=== PATIENT | male | born 1930 | race Caucasian/White ===

== ENCOUNTER 2018-04-13 11:27 | Emergency (ER) | payer BC, MEDICARE ==
[2018-04-13 11:42] VITALS: RESP 18; TEMP 97.6
[2018-04-13] MEDS ORDERED: SODIUM CHLORIDE 0.9% 1,000 ML IV STA (11:58)
--- NOTE | 2018-04-13 12:02 | ED ---
Dizziness HPI - General Chief Complaint: Dizziness Stated Complaint: Dizzy Time Seen by Provider: 04/13/18 11:40 Source: patient, EMS Mode of arrival: EMS Limitations: no limitations - History of Present Illness Initial Comments: 88-year-old male patient presents the emergency department today for evaluation of dizziness 2-3 days. Patient states that the dizziness gets worse when he goes from a lying to a sitting position. Patient states he has to wait a few minutes before the past before he can stand up. Patient is unsure his liver had this before. Patient denies any headache, blurred vision, double vision, numbness, tingling, or weakness with this. He denies any chest pain. States he has been having occasional shortness of breath. Patient states he has had a recent fall where he did hit his head but is unsure when it was. States he has had diarrhea over the last 2 days but only a couple episodes per day. He denies any abdominal pain, nausea, or vomiting with this. He denies any ear pain , nasal congestion, or cough. Patient denies any recent rash, fever, chills, back pain, numbness, tingling, dizziness, weakness, hematuria, dysuria, urinary urgency, urinary frequency, headache, visual changes, or any other complaints. - Related Data Home Medications Medication Instructions Recorded Confirmed Aspirin EC [Ecotrin] 325 mg PO DAILY 04/13/18 04/13/18 Atorvastatin [Lipitor] 10 mg PO HS 04/13/18 04/13/18 Citalopram Hydrobromide [CeleXA] 20 mg PO DAILY 04/13/18 04/13/18 Clopidogrel [Plavix] 75 mg PO DAILY 04/13/18 04/13/18 Digoxin [Lanoxin] 125 mcg PO DAILY 04/13/18 04/13/18 Enalapril [Vasotec] 10 mg PO DAILY 04/13/18 04/13/18 Finasteride [Proscar] 5 mg PO HS 04/13/18 04/13/18 Isosorbide Mononitrate ER [Imdur] 30 mg PO DAILY 04/13/18 04/13/18 Meclizine [Antivert] 25 mg PO BID 04/13/18 04/13/18 Metoprolol Succinate [Toprol XL] 25 mg PO DAILY 04/13/18 04/13/18 Omeprazole 20 mg PO DAILY 04/13/18 04/13/18 Tamsulosin HCl [Flomax] 0.8 mg PO HS 04/13/18 04/13/18 hydrALAZINE HCL [Apresoline] 50 mg PO BID 04/13/18 04/13/18 Allergies Allergy/AdvReac Type Severity Reaction Status Date / Time No Known Allergies Allergy Verified 04/13/18 12:45 Review of Systems ROS Statement: Those systems with pertinent positive or pertinent negative responses have been documented in the HPI. ROS Other: All systems not noted in ROS Statement are negative. Past Medical History Past Medical History: Atrial Fibrillation, Coronary Artery Disease (CAD), Hypertension, Myocardial Infarction ([place]) Additional Past Medical History / Comment(s): pt is poor historian History of Any Multi-Drug Resistant Organisms: None Reported Past Surgical History: Appendectomy, Coronary Bypass/CABG Past Psychological History: No Psychological Hx Reported Smoking Status: Never smoker Past Alcohol Use History: None Reported Past Drug Use History: None Reported General Exam Limitations: no limitations General appearance: alert, in no apparent distress, other (This is a well- developed, thin appearing elderly male patient in no acute distress. Vital signs upon presentation are temperature 97.6F, pulse 63, respirations 18, blood pressure 163/80, pulse ox 96% on room air.) Eye exam: Present: normal appearance, PERRL, EOMI. Absent: scleral icterus, conjunctival injection, nystagmus, periorbital swelling ENT exam: Present: normal exam, normal oropharynx, mucous membranes moist, TM's normal bilaterally Respiratory exam: Present: normal lung sounds bilaterally. Absent: respiratory distress, wheezes, rales, rhonchi, stridor Cardiovascular Exam: Present: regular rate, normal rhythm, normal heart sounds. Absent: systolic murmur, diastolic murmur, rubs, gallop, clicks GI/Abdominal exam: Present: soft, normal bowel sounds. Absent: distended, tenderness, guarding, rebound, rigid Neurological exam: Present: alert, CN II-XII intact. Absent: oriented X3 (x2) Psychiatric exam: Present: normal affect, normal mood Skin exam: Present: warm, dry, intact, normal color. Absent: rash Course Vital Signs 04/13/18 04/13/18 11:38 14:10 Temperature 97.6 F Pulse Rate 63 60 Respiratory 18 18 Rate Blood Pressure 163/80 171/91 O2 Sat by Pulse 96 99 Oximetry EKG Findings - EKG Comments: EKG Findings:: EKG obtained at 1137 shows atrial fibrillation with a right bundle branch block. Ventricular rate is 66, QRS duration 150, QTC 440, QTC 461. No previous EKGs to compare. Medical Decision Making - Medical Decision Making 80-year-old male patient presents the emergency department today for evaluation of dizziness. Patient states that presents generally when he is going to a lying to a sitting position. Physical examination is unremarkable. Patient is neurologically intact. Labs reviewed and did reveal a BUN 24 creatinine of 1.41. Family is present states that he has had some issues with his kidney function in the past. Patient's mucous membranes were dry. Vital signs were stable throughout stay, did have elevated blood pressure. Take medication for this. He was given a liter of normal saline here in the emergency department. He is feeling better upon reevaluation. He is able send the edge of the bed, states that his dizziness is improved. Niece is present at bedside, states that they will follow up with primary care physician. I do feel comfortable being discharged home. Return parameters were discussed in detail. They verbalize understanding and agree with this plan. - Lab Data Result diagrams: 04/13/18 12:34 04/13/18 12:34 Lab Results 04/13/18 04/13/18 04/13/18 Range/Units 12:34 12:34 12:34 WBC 4.5 (3.8-10.6) k/uL RBC 4.55 (4.30-5.90) m/uL Hgb 12.6 L (13.0-17.5) gm/dL Hct 38.3 L (39.0-53.0) % MCV 84.2 (80.0-100.0) fL MCH 27.7 (25.0-35.0) pg MCHC 32.9 (31.0-37.0) g/dL RDW 14.4 (11.5-15.5) % Plt Count 147 L (150-450) k/uL Neutrophils % 61 % Lymphocytes % 28 % Monocytes % 6 % Eosinophils % 3 % Basophils % 1 % Neutrophils # 2.8 (1.3-7.7) k/uL Lymphocytes # 1.3 (1.0-4.8) k/uL Monocytes # 0.3 (0-1.0) k/uL Eosinophils # 0.1 (0-0.7) k/uL Basophils # 0.0 (0-0.2) k/uL PT (9.0-12.0) sec INR (<1.2) APTT (22.0-30.0) sec Sodium 137 (137-145) mmol/L Potassium 4.7 (3.5-5.1) mmol/L Chloride 107 (98-107) mmol/L Carbon Dioxide 24 (22-30) mmol/L Anion Gap 6 mmol/L BUN 24 H (9-20) mg/dL Creatinine 1.41 H (0.66-1.25) mg/dL Est GFR (CKD-EPI)AfAm 51 (>60 ml/min/1.73 sqM) Est GFR (CKD-EPI)NonAf 44 (>60 ml/min/1.73 sqM) Glucose 140 H (74-99) mg/dL Calcium 8.4 (8.4-10.2) mg/dL Total Bilirubin 0.4 (0.2-1.3) mg/dL AST 21 (17-59) U/L ALT 24 (21-72) U/L Alkaline Phosphatase 65 (38-126) U/L Total Creatine Kinase 96 (55-170) U/L CK-MB (CK-2) 2.3 (0.0-2.4) ng/mL CK-MB (CK-2) Rel Index 2.4 Troponin I <0.012 (0.000-0.034) ng/mL Total Protein 5.8 L (6.3-8.2) g/dL Albumin 3.2 L (3.5-5.0) g/dL Urine Color Urine Appearance (Clear) Urine pH (5.0-8.0) Ur Specific [place] (1.001-1.035) Urine Protein (Negative) Urine Glucose (UA) (Negative) Urine Ketones (Negative) Urine Blood (Negative) Urine Nitrite (Negative) Urine Bilirubin (Negative) Urine Urobilinogen (<2.0) mg/dL Ur Leukocyte Esterase (Negative) Urine RBC (0-5) /hpf Urine WBC (0-5) /hpf Urine Bacteria (None) /hpf Hyaline Casts (0-2) /lpf Urine Mucus (None) /hpf 04/13/18 04/13/18 Range/Units 12:34 13:46 WBC (3.8-10.6) k/uL RBC (4.30-5.90) m/uL Hgb (13.0-17.5) gm/dL Hct (39.0-53.0) % MCV (80.0-100.0) fL MCH (25.0-35.0) pg MCHC (31.0-37.0) g/dL RDW (11.5-15.5) % Plt Count (150-450) k/uL Neutrophils % % Lymphocytes % % Monocytes % % Eosinophils % % Basophils % % Neutrophils # (1.3-7.7) k/uL Lymphocytes # (1.0-4.8) k/uL Monocytes # (0-1.0) k/uL Eosinophils # (0-0.7) k/uL Basophils # (0-0.2) k/uL PT 12.3 H (9.0-12.0) sec INR 1.3 H (<1.2) APTT 23.7 (22.0-30.0) sec Sodium (137-145) mmol/L Potassium (3.5-5.1) mmol/L Chloride (98-107) mmol/L Carbon Dioxide (22-30) mmol/L Anion Gap mmol/L BUN (9-20) mg/dL Creatinine (0.66-1.25) mg/dL Est GFR (CKD-EPI)AfAm (>60 ml/min/1.73 sqM) Est GFR (CKD-EPI)NonAf (>60 ml/min/1.73 sqM) Glucose (74-99) mg/dL Calcium (8.4-10.2) mg/dL Total Bilirubin (0.2-1.3) mg/dL AST (17-59) U/L ALT (21-72) U/L Alkaline Phosphatase (38-126) U/L Total Creatine Kinase (55-170) U/L CK-MB (CK-2) (0.0-2.4) ng/mL CK-MB (CK-2) Rel Index Troponin I (0.000-0.034) ng/mL Total Protein (6.3-8.2) g/dL Albumin (3.5-5.0) g/dL Urine Color Yellow Urine Appearance Clear (Clear) Urine pH 6.0 (5.0-8.0) Ur Specific [place] 1.008 (1.001-1.035) Urine Protein Negative (Negative) Urine Glucose (UA) Negative (Negative) Urine Ketones Negative (Negative) Urine Blood Negative (Negative) Urine Nitrite Negative (Negative) Urine Bilirubin Negative (Negative) Urine Urobilinogen <2.0 (<2.0) mg/dL Ur Leukocyte Esterase Trace H (Negative) Urine RBC <1 (0-5) /hpf Urine WBC 4 (0-5) /hpf Urine Bacteria Rare H (None) /hpf Hyaline Casts 7 H (0-2) /lpf Urine Mucus Rare H (None) /hpf - Radiology Data Radiology results: report reviewed, image reviewed CT of the brain without contrast was obtained. Report was reviewed in its entirety. Impression by Dr. Quiros shows no acute intracranial abnormality. 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 Degenerative change. Two-view x-ray of the chest is obtained. Report was reviewed in its entirety. Impression by Dr. Quiros shows borderline cardiomegaly. Disposition Clinical Impression: Dizziness, Dehydration Disposition: HOME SELF-CARE Condition: Good Instructions: Dehydration (ED), Dizziness (ED) Additional Instructions: Increase fluids. Follow up with your primary care physician for recheck in 1-2 days. Return here immediately for any new, worsening, or concerning symptoms. Is patient prescribed a controlled substance at d/c from ED?: No Referrals: Nonstaff,Physician [Primary Care Provider] - 1-2 days Time of Disposition: 14:47
[2018-04-13 12:52] LABS: Basophils % (A) 1 %; Eosinophils # (A) 0.1 k/uL (0-0.7); Eosinophils % (A) 3 %; HCT 38.3 % (39.0-53.0); HGB 12.6 gm/dL (13.0-17.5); Lymphocytes # (A) 1.3 k/uL (1.0-4.8); Lymphocytes % (A) 28 %; MCH 27.7 pg (25.0-35.0); MCHC 32.9 g/dL (31.0-37.0); MCV 84.2 fL (80.0-100.0); Monocytes # (A) 0.3 k/uL (0-1.0); Monocytes % (A) 6 %; Neutrophils # (A) 2.8 k/uL (1.3-7.7); Neutrophils % (A) 61 %; Platelet Count 147 k/uL (150-450); RBC 4.55 m/uL (4.30-5.90); RDW 14.4 % (11.5-15.5); WBC 4.5 k/uL (3.8-10.6)
[2018-04-13 13:02] LABS: INR 1.3 (<1.2); Partial Thromboplastin Time 23.7 sec (22.0-30.0); Prothrombin Time 12.3 sec (9.0-12.0)
[2018-04-13 13:06] LABS: Albumin 3.2 g/dL (3.5-5.0); Calcium 8.4 mg/dL (8.4-10.2); Potassium 4.7 mmol/L (3.5-5.1); Total Bilirubin 0.4 mg/dL (0.2-1.3); Total Protein 5.8 g/dL (6.3-8.2)
[2018-04-13 13:12] LABS: Creatine Kinase 96 U/L (55-170)
--- NOTE | 2018-04-13 13:14 | CT ---
EXAMINATION TYPE: CT brain wo con DATE OF EXAM: 04/13/2018 COMPARISON: NONE HISTORY: dizziness CT DLP: 1006.5 mGycm Automated exposure control for dose reduction was used. FINDINGS: There are generalized changes of sulcal prominence and ventriculomegaly, compatible with atrophic tom nge. There is diffuse periventricular white matter lucency, compatible with chronic white matter isch emic change. There is evidence of an old left cerebellar infarct. No acute focal lesion, mass effect or midline shift is seen. I do not see evidence of intracranial blood Visualized portions of the paranasal sinuses and mastoids are clear. The bony calvarium is intact. IMPRESSION: 1. NO ACUTE INTRACRANIAL ABNORMALITY. 2. EVIDENCE OF AN OLD LEFT CEREBELLAR INFARCT. 3. DEGENERATIVE CHANGE.
--- NOTE | 2018-04-13 13:15 | XR ---
EXAMINATION TYPE: XR chest 2V DATE OF EXAM: 04/13/2018 HISTORY: Dizziness/shortness of breath. REFERENCE: NONE. FINDINGS: There has been a previous midline sternotomy and before meals bypass. The heart is upper limits of normal in size. Pleural space are clear. The lungs are clear. IMPRESSION: BORDERLINE CARDIOMEGALY.
[2018-04-13 13:25] LABS: Creatine Kinase MB 2.3 ng/mL (0.0-2.4); Troponin I <0.012 ng/mL (0.000-0.034)
[2018-04-13 13:55] LABS: Appearance,Urine Clear (Clear); Bacteria,Urine Rare /hpf; Bilirubin,Urine Negative (Negative); Blood,Urine Negative (Negative); Color,Urine Yellow; Glucose,Urine (UA) Negative (Negative); Hyaline Casts,Urine 7 /lpf (0-2); Ketones,Urine Negative (Negative); Leukocyte Esterase,Urine Trace (Negative); Mucus,Urine Rare /hpf; Nitrite,Urine Negative (Negative); Protein,Urine Negative (Negative); RBC,Urine <1 /hpf (0-5); Specific Gravity,Urine 1.008 (1.001-1.035); Urobilinogen,Urine <2.0 mg/dL (<2.0); WBC,Urine 4 /hpf (0-5)
[2018-04-13 15:19] VITALS: BP 187/93; PULSE 61
== END 2018-04-13 15:19 | disposition home or self-care (01) ==
LOC: EC 11:27
DX: E86.0 Dehydration (principal); I11.9 Hypertensive heart disease without heart failure; R06.02 Shortness of breath; R19.7 Diarrhea, unspecified; I48.91 Unspecified atrial fibrillation; I25.10 Atherosclerotic heart disease of native coronary artery without angina pectoris; I25.2 Old myocardial infarction; Z79.02 Long term (current) use of antithrombotics/antiplatelets; Z79.82 Long term (current) use of aspirin; Z79.899 Other long term (current) drug therapy; Z95.1 Presence of aortocoronary bypass graft
CPT/HCPCS: 36415; 70450; 71046; 80053; 81001; 82550; 82553; 84484; 85025; 85610; 85730; 93005; 96360; 96361; 99285

== ENCOUNTER 2018-05-16 21:16 | Emergency (ER) | payer MEDICARE ==
[2018-05-16 21:25] VITALS: RESP 18
[2018-05-16 21:28] LABS: Glucose,Whole Blood 164 mg/dL (75-99)
[2018-05-16 21:53] LABS: Basophils % (A) 1 %; Eosinophils # (A) 0.2 k/uL (0-0.7); Eosinophils % (A) 3 %; HCT 44.3 % (39.0-53.0); HGB 14.5 gm/dL (13.0-17.5); Lymphocytes % (A) 34 %; MCH 27.7 pg (25.0-35.0); MCHC 32.8 g/dL (31.0-37.0); MCV 84.5 fL (80.0-100.0); Mean Platelet Volume 7.1; Monocytes # (A) 0.4 k/uL (0-1.0); Monocytes % (A) 6 %; Neutrophils # (A) 3.3 k/uL (1.3-7.7); Neutrophils % (A) 55 %; Platelet Count 174 k/uL (150-450); RBC 5.24 m/uL (4.30-5.90); RDW 14.1 % (11.5-15.5); WBC 5.9 k/uL (3.8-10.6)
--- NOTE | 2018-05-16 22:01 | CT ---
EXAMINATION TYPE: CT brain suzette nava con DATE OF EXAM: 05/16/2018 COMPARISON: CT brain 04/13/2018 HISTORY: Fall today. CT DLP: 1229.4 mGycm Automated exposure control for dose reduction was used. TECHNIQUE: CT scan of the head and cervical spine are performed without contrast. FINDINGS: There is hypodensity in a large area of the left cerebellar hemisphere consistent with ol d cortical infarct. There is cerebral cortical atrophy. There is no mass effect nor midline shift. Th ere is no sign of intracranial hemorrhage. The calvarium is intact. There is normal alignment of the vertebra. There is moderate hypertrophic spur formation from C3 to T 1. Posterior elements are intact. Skull base is intact. There is some cystic changes at the base of t he odontoid process with calcification in the transverse ligament which is somewhat thickened. I see no displaced fracture. IMPRESSION: Old right cerebellar infarct. Moderate atrophy. No acute intracranial abnormality. No change compared to old CT scan. Multilevel moderate spondylotic changes. Degenerative cystic change in the odontoid. There is thicken ing of the transverse ligament and some narrowing of the spinal canal at the C1 level. Multilevel ce rvical bony spinal stenosis also present from C4 to C6. No cervical spine displaced fracture.
[2018-05-16 22:02] LABS: INR 1.2 (<1.2); Partial Thromboplastin Time 25.9 sec (22.0-30.0); Prothrombin Time 11.6 sec (9.0-12.0)
[2018-05-16] MEDS ORDERED: hydrALAZINE HCL 20 MG/ML 1 ML VIAL IVP STA (22:09)
[2018-05-16 22:15] LABS: ALT 22 U/L (21-72); AST 23 U/L (17-59); Alcohol <10 mg/dL; Alkaline Phosphatase 86 U/L (38-126); Anion Gap 11 mmol/L; Blood Urea Nitrogen 22 mg/dL (9-20); Calcium 8.9 mg/dL (8.4-10.2); Carbon Dioxide 23 mmol/L (22-30); Chloride 103 mmol/L (98-107); Glucose 170 mg/dL (74-99); Magnesium 1.8 mg/dL (1.6-2.3); Potassium 4.7 mmol/L (3.5-5.1); Sodium 137 mmol/L (137-145); Total Bilirubin 0.5 mg/dL (0.2-1.3); Total Protein 6.9 g/dL (6.3-8.2)
--- NOTE | 2018-05-16 22:19 | XR ---
EXAMINATION TYPE: XR chest 1V portable DATE OF EXAM: 05/16/2018 COMPARISON: 04/13/2018 HISTORY: Chest pain. Trauma TECHNIQUE: Single frontal view of the chest is obtained. FINDINGS: There is no heart failure nor confluent pneumonic infiltrate. There are small calcified gr anuloma in the right upper lobe. Thoracic aorta is atheromatous. There are sternal wires. There is no sign of pleural effusion or pneumothorax. IMPRESSION: No active cardiopulmonary disease. No change.
--- NOTE | 2018-05-16 22:20 | XR ---
EXAMINATION TYPE: XR pelvis AP view DATE OF EXAM: 05/16/2018 COMPARISON: NONE HISTORY: Trauma. Pain. TECHNIQUE: Single view FINDINGS: The pelvic ring appears intact. Proximal femurs appear intact. There is minor spurring of t he acetabula. Sacroiliac joints appear intact. IMPRESSION: No acute abnormality of the pelvis.
[2018-05-16 22:31] LABS: Amphetamine Screen,Urine Not Detected (NotDetected); Barbiturate Screen,Urine Not Detected (NotDetected); Benzodiazepines Screen,Urine Not Detected (NotDetected); Cocaine Screen,Urine Not Detected (NotDetected); Methadone Screen, Urine Not Detected (NotDetected); Opiate Screen,Urine Not Detected (NotDetected); Oxycodone Screen, Urine Not Detected (NotDetected); Phencyclidine Screen,Urine Not Detected (NotDetected); Tricyclic Antidepressant,Urine Not Detected (NotDetected); Urn Cannabinoid Scrn Not Detected (NotDetected)
[2018-05-16 22:32] LABS: Appearance,Urine Clear (Clear); Bilirubin,Urine Negative (Negative); Blood,Urine Negative (Negative); Color,Urine Light Yellow; Glucose,Urine (UA) Trace (Negative); Ketones,Urine Negative (Negative); Leukocyte Esterase,Urine Negative (Negative); Nitrite,Urine Negative (Negative); Protein,Urine 1+ (Negative); RBC,Urine <1 /hpf (0-5); Specific Gravity,Urine 1.006 (1.001-1.035); Urobilinogen,Urine <2.0 mg/dL (<2.0); WBC,Urine 1 /hpf (0-5)
[2018-05-16 22:50] LABS: Troponin I 0.013 ng/mL (0.000-0.034)
[2018-05-16 22:52] LABS: Creatine Kinase MB 2.6 ng/mL (0.0-2.4)
--- NOTE | 2018-05-16 23:10 | ED ---
General Adult HPI - General Chief complaint: Fall Stated complaint: Fall Time Seen by Provider: 05/16/18 21:26 Source: patient, EMS, RN notes reviewed, old records reviewed Mode of arrival: EMS Limitations: no limitations - History of Present Illness Initial comments: 80-year-old male presenting for evaluation of symptoms fall. Patient was walking behind his wheelchair, fell. Initial EMS call was for lift assist. Patient does have history of developmental delay, this was not known prior to transfer. History was somewhat difficult secondary to this. Patient has no pain complaints at the time of evaluation. He states he did slip and fall. No chest pain. No palpitations. No abdominal pain. No nausea vomiting or diarrhea. No head neck or back pain. No loss consciousness. - Related Data Home Medications Medication Instructions Recorded Confirmed Aspirin EC [Ecotrin] 325 mg PO DAILY 04/13/18 04/13/18 Atorvastatin [Lipitor] 10 mg PO HS 04/13/18 04/13/18 Citalopram Hydrobromide [CeleXA] 20 mg PO DAILY 04/13/18 04/13/18 Clopidogrel [Plavix] 75 mg PO DAILY 04/13/18 04/13/18 Digoxin [Lanoxin] 125 mcg PO DAILY 04/13/18 04/13/18 Enalapril [Vasotec] 10 mg PO DAILY 04/13/18 04/13/18 Finasteride [Proscar] 5 mg PO HS 04/13/18 04/13/18 Isosorbide Mononitrate ER [Imdur] 30 mg PO DAILY 04/13/18 04/13/18 Meclizine [Antivert] 25 mg PO BID 04/13/18 04/13/18 Metoprolol Succinate [Toprol XL] 25 mg PO DAILY 04/13/18 04/13/18 Omeprazole 20 mg PO DAILY 04/13/18 04/13/18 Tamsulosin HCl [Flomax] 0.8 mg PO HS 04/13/18 04/13/18 hydrALAZINE HCL [Apresoline] 50 mg PO BID 04/13/18 04/13/18 Allergies Allergy/AdvReac Type Severity Reaction Status Date / Time No Known Allergies Allergy Verified 05/16/18 21:25 Review of Systems ROS Statement: Those systems with pertinent positive or pertinent negative responses have been documented in the HPI. ROS Other: All systems not noted in ROS Statement are negative. Past Medical History Past Medical History: Atrial Fibrillation, Coronary Artery Disease (CAD), Hypertension, Myocardial Infarction ([place]) Additional Past Medical History / Comment(s): pt is poor historian History of Any Multi-Drug Resistant Organisms: None Reported Past Surgical History: Appendectomy, Coronary Bypass/CABG Additional Past Surgical History / Comment(s): pt is poor historian. Past Psychological History: No Psychological Hx Reported Smoking Status: Never smoker Past Alcohol Use History: None Reported Past Drug Use History: None Reported General Exam Limitations: no limitations General appearance: alert, in no apparent distress Head exam: Present: atraumatic, normocephalic Eye exam: Present: normal appearance, PERRL, EOMI ENT exam: Present: normal exam Neck exam: Present: normal inspection. Absent: tenderness Respiratory exam: Present: normal lung sounds bilaterally. Absent: respiratory distress Cardiovascular Exam: Present: regular rate, irregular rhythm GI/Abdominal exam: Present: soft. Absent: distended, tenderness, guarding Extremities exam: Present: normal inspection, normal capillary refill. Absent: pedal edema Back exam: Present: normal inspection Neurological exam: Present: alert, CN II-XII intact. Absent: motor sensory deficit Psychiatric exam: Present: normal affect, normal mood Skin exam: Present: warm, dry. Absent: cyanosis, diaphoretic Course Vital Signs 05/16/18 05/16/18 21:19 22:33 Temperature 97 F L Pulse Rate 62 53 L Respiratory 18 18 Rate Blood Pressure 230/93 188/105 O2 Sat by Pulse 98 98 Oximetry - Reevaluation(s) Reevaluation #1: 05/16/18 23:08 Nursing staff is able to discuss case with the patient's family member who states this is his baseline mental status. EKG Findings - EKG Comments: EKG Findings:: EKG: Atrial fibrillation, right bundle branch block, rate of 62, QRS duration 144, QTC 458. No significant change compared to previous EKG. Medical Decision Making - Medical Decision Making 80-year-old male presenting status post trip and fall. Given the patient's comment to lay, he does receive complete workup in the emergency department including CT head which is negative for intracranial hemorrhage, CT cervical spine which shows some chronic changes, no acute fracture or subluxation. X- rays of the chest and pelvis are within normal limits. CBC, CMP and urinalysis are all unremarkable. Patient's blood pressure is elevated in the emergency department, he will take his medications when he gets home. Patient does stay at an assisted living facility. He will be discharged home. Follow up with primary care physician. Return with worsening or changing symptoms. - Lab Data Result diagrams: 05/16/18 21:45 05/16/18 21:45 Lab Results 05/16/18 05/16/18 05/16/18 Range/Units 21:25 21:45 21:45 WBC (3.8-10.6) k/uL RBC (4.30-5.90) m/uL Hgb (13.0-17.5) gm/dL Hct (39.0-53.0) % MCV (80.0-100.0) fL MCH (25.0-35.0) pg MCHC (31.0-37.0) g/dL RDW (11.5-15.5) % Plt Count (150-450) k/uL Neutrophils % % Lymphocytes % % Monocytes % % Eosinophils % % Basophils % % Neutrophils # (1.3-7.7) k/uL Lymphocytes # (1.0-4.8) k/uL Monocytes # (0-1.0) k/uL Eosinophils # (0-0.7) k/uL Basophils # (0-0.2) k/uL PT (9.0-12.0) sec INR (<1.2) APTT (22.0-30.0) sec Sodium 137 (137-145) mmol/L Potassium 4.7 (3.5-5.1) mmol/L Chloride 103 (98-107) mmol/L Carbon Dioxide 23 (22-30) mmol/L Anion Gap 11 mmol/L BUN 22 H (9-20) mg/dL Creatinine 1.10 (0.66-1.25) mg/dL Est GFR (CKD-EPI)AfAm 69 (>60 ml/min/1.73 sqM) Est GFR (CKD-EPI)NonAf 60 (>60 ml/min/1.73 sqM) Glucose 170 H (74-99) mg/dL POC Glucose (mg/dL) 164 H (75-99) mg/dL POC Glu Theatrical Trouper ID Lisa Chery Calcium 8.9 (8.4-10.2) mg/dL Magnesium 1.8 (1.6-2.3) mg/dL Total Bilirubin 0.5 (0.2-1.3) mg/dL AST 23 (17-59) U/L ALT 22 (21-72) U/L Alkaline Phosphatase 86 (38-126) U/L Total Creatine Kinase 97 (55-170) U/L CK-MB (CK-2) 2.6 H* (0.0-2.4) ng/mL CK-MB (CK-2) Rel Index 2.7 Troponin I 0.013 (0.000-0.034) ng/mL Total Protein 6.9 (6.3-8.2) g/dL Albumin 4.0 (3.5-5.0) g/dL Urine Color Urine Appearance (Clear) Urine pH (5.0-8.0) Ur Specific [place] (1.001-1.035) Urine Protein (Negative) Urine Glucose (UA) (Negative) Urine Ketones (Negative) Urine Blood (Negative) Urine Nitrite (Negative) Urine Bilirubin (Negative) Urine Urobilinogen (<2.0) mg/dL Ur Leukocyte Esterase (Negative) Urine RBC (0-5) /hpf Urine WBC (0-5) /hpf Urine Opiates Screen (NotDetected) Ur Oxycodone Screen (NotDetected) Urine Methadone Screen (NotDetected) Ur Propoxyphene Screen (NotDetected) Ur Barbiturates Screen (NotDetected) U Tricyclic Antidepress (NotDetected) Ur Phencyclidine Scrn (NotDetected) Ur Amphetamines Screen (NotDetected) U Methamphetamines Scrn (NotDetected) U Benzodiazepines Scrn (NotDetected) Urine Cocaine Screen (NotDetected) U Marijuana (THC) Screen (NotDetected) Serum Alcohol <10 mg/dL 05/16/18 05/16/18 05/16/18 Range/Units 21:45 21:45 22:00 WBC 5.9 (3.8-10.6) k/uL RBC 5.24 (4.30-5.90) m/uL Hgb 14.5 (13.0-17.5) gm/dL Hct 44.3 (39.0-53.0) % MCV 84.5 (80.0-100.0) fL MCH 27.7 (25.0-35.0) pg MCHC 32.8 (31.0-37.0) g/dL RDW 14.1 (11.5-15.5) % Plt Count 174 (150-450) k/uL Neutrophils % 55 % Lymphocytes % 34 % Monocytes % 6 % Eosinophils % 3 % Basophils % 1 % Neutrophils # 3.3 (1.3-7.7) k/uL Lymphocytes # 2.0 (1.0-4.8) k/uL Monocytes # 0.4 (0-1.0) k/uL Eosinophils # 0.2 (0-0.7) k/uL Basophils # 0.0 (0-0.2) k/uL PT 11.6 (9.0-12.0) sec INR 1.2 H (<1.2) APTT 25.9 (22.0-30.0) sec Sodium (137-145) mmol/L Potassium (3.5-5.1) mmol/L Chloride (98-107) mmol/L Carbon Dioxide (22-30) mmol/L Anion Gap mmol/L BUN (9-20) mg/dL Creatinine (0.66-1.25) mg/dL Est GFR (CKD-EPI)AfAm (>60 ml/min/1.73 sqM) Est GFR (CKD-EPI)NonAf (>60 ml/min/1.73 sqM) Glucose (74-99) mg/dL POC Glucose (mg/dL) (75-99) mg/dL POC Glu Theatrical Trouper ID Calcium (8.4-10.2) mg/dL Magnesium (1.6-2.3) mg/dL Total Bilirubin (0.2-1.3) mg/dL AST (17-59) U/L ALT (21-72) U/L Alkaline Phosphatase (38-126) U/L Total Creatine Kinase (55-170) U/L CK-MB (CK-2) (0.0-2.4) ng/mL CK-MB (CK-2) Rel Index Troponin I (0.000-0.034) ng/mL Total Protein (6.3-8.2) g/dL Albumin (3.5-5.0) g/dL Urine Color Urine Appearance (Clear) Urine pH (5.0-8.0) Ur Specific [place] (1.001-1.035) Urine Protein (Negative) Urine Glucose (UA) (Negative) Urine Ketones (Negative) Urine Blood (Negative) Urine Nitrite (Negative) Urine Bilirubin (Negative) Urine Urobilinogen (<2.0) mg/dL Ur Leukocyte Esterase (Negative) Urine RBC (0-5) /hpf Urine WBC (0-5) /hpf Urine Opiates Screen Not Detected (NotDetected) Ur Oxycodone Screen Not Detected (NotDetected) Urine Methadone Screen Not Detected (NotDetected) Ur Propoxyphene Screen Not Detected (NotDetected) Ur Barbiturates Screen Not Detected (NotDetected) U Tricyclic Antidepress Not Detected (NotDetected) Ur Phencyclidine Scrn Not Detected (NotDetected) Ur Amphetamines Screen Not Detected (NotDetected) U Methamphetamines Scrn Not Detected (NotDetected) U Benzodiazepines Scrn Not Detected (NotDetected) Urine Cocaine Screen Not Detected (NotDetected) U Marijuana (THC) Screen Not Detected (NotDetected) Serum Alcohol mg/dL 05/16/18 Range/Units 22:00 WBC (3.8-10.6) k/uL RBC (4.30-5.90) m/uL Hgb (13.0-17.5) gm/dL Hct (39.0-53.0) % MCV (80.0-100.0) fL MCH (25.0-35.0) pg MCHC (31.0-37.0) g/dL RDW (11.5-15.5) % Plt Count (150-450) k/uL Neutrophils % % Lymphocytes % % Monocytes % % Eosinophils % % Basophils % % Neutrophils # (1.3-7.7) k/uL Lymphocytes # (1.0-4.8) k/uL Monocytes # (0-1.0) k/uL Eosinophils # (0-0.7) k/uL Basophils # (0-0.2) k/uL PT (9.0-12.0) sec INR (<1.2) APTT (22.0-30.0) sec Sodium (137-145) mmol/L Potassium (3.5-5.1) mmol/L Chloride (98-107) mmol/L Carbon Dioxide (22-30) mmol/L Anion Gap mmol/L BUN (9-20) mg/dL Creatinine (0.66-1.25) mg/dL Est GFR (CKD-EPI)AfAm (>60 ml/min/1.73 sqM) Est GFR (CKD-EPI)NonAf (>60 ml/min/1.73 sqM) Glucose (74-99) mg/dL POC Glucose (mg/dL) (75-99) mg/dL POC Glu Theatrical Trouper ID Calcium (8.4-10.2) mg/dL Magnesium (1.6-2.3) mg/dL Total Bilirubin (0.2-1.3) mg/dL AST (17-59) U/L ALT (21-72) U/L Alkaline Phosphatase (38-126) U/L Total Creatine Kinase (55-170) U/L CK-MB (CK-2) (0.0-2.4) ng/mL CK-MB (CK-2) Rel Index Troponin I (0.000-0.034) ng/mL Total Protein (6.3-8.2) g/dL Albumin (3.5-5.0) g/dL Urine Color Light Yellow Urine Appearance Clear (Clear) Urine pH 6.0 (5.0-8.0) Ur Specific [place] 1.006 (1.001-1.035) Urine Protein 1+ H (Negative) Urine Glucose (UA) Trace H (Negative) Urine Ketones Negative (Negative) Urine Blood Negative (Negative) Urine Nitrite Negative (Negative) Urine Bilirubin Negative (Negative) Urine Urobilinogen <2.0 (<2.0) mg/dL Ur Leukocyte Esterase Negative (Negative) Urine RBC <1 (0-5) /hpf Urine WBC 1 (0-5) /hpf Urine Opiates Screen (NotDetected) Ur Oxycodone Screen (NotDetected) Urine Methadone Screen (NotDetected) Ur Propoxyphene Screen (NotDetected) Ur Barbiturates Screen (NotDetected) U Tricyclic Antidepress (NotDetected) Ur Phencyclidine Scrn (NotDetected) Ur Amphetamines Screen (NotDetected) U Methamphetamines Scrn (NotDetected) U Benzodiazepines Scrn (NotDetected) Urine Cocaine Screen (NotDetected) U Marijuana (THC) Screen (NotDetected) Serum Alcohol mg/dL Disposition Clinical Impression: Fall Disposition: HOME SELF-CARE Condition: Fair Instructions: Fall Prevention for Older Adults (ED) Is patient prescribed a controlled substance at d/c from ED?: No Referrals: Nonstaff,Physician [Primary Care Provider] - 1-2 days Time of Disposition: 23:10
[2018-05-16] MEDS ORDERED: hydrALAZINE HCL 50 MG TAB PO STA (23:19)
[2018-05-16] MEDS ORDERED: LISINOPRIL 10 MG TAB PO STA (23:19)
[2018-05-17 00:25] VITALS: BP 199/83
[2018-05-17 00:46] VITALS: PULSE 88; TEMP 97.8
== END 2018-05-17 00:57 | disposition home or self-care (01) ==
LOC: EC 21:16
DX: Z04.3 Encounter for examination and observation following other accident (principal); I10 Essential (primary) hypertension; I25.10 Atherosclerotic heart disease of native coronary artery without angina pectoris; I48.91 Unspecified atrial fibrillation; I25.2 Old myocardial infarction; Z79.82 Long term (current) use of aspirin; Z79.899 Other long term (current) drug therapy; Z79.02 Long term (current) use of antithrombotics/antiplatelets; Z98.61 Coronary angioplasty status; W01.0XXA Fall on same level from slipping, tripping and stumbling without subsequent striking against object, initial encounter
CPT/HCPCS: 36415; 93005; 80053; 82550; 82553; 83735; 84484; 85025; 85610; 85730; 81001; 80306; 80320; 72170; 71045; 72125; 70450; 99285; 96374; J0360

== ENCOUNTER 2018-06-28 20:19 | Inpatient (IN) | payer MEDICARE ==
--- NOTE | 2018-06-28 21:27 | ED ---
General Adult HPI - General Chief complaint: Dizziness Stated complaint: dizziness Source: EMS Mode of arrival: EMS Limitations: no limitations - History of Present Illness Initial comments: Dictation was produced using [employer] dictation software. please excuse any grammatical, word or spelling errors. Chief Complaint: Old male past medical history of atrial fibrillation , vertigo, coronary artery disease presents with dizziness. History of Present Illness: Patient lives in assisted living facility. Patient reports that he's been dizzy for proximally 4 weeks. Patient is accompanied by family member. Patient has mental delay and learning disability. He is not able to communicate his symptoms. Clearly. Patient states she's been dizzy for approximately 4 days. He has multiple comorbidities. Patient denies any neuro deficits otherwise. He is denies any ataxia or difficulty walking. Denies any constitutional symptoms. No infectious or pain complaints. The ROS documented in this emergency department record has been reviewed and confirmed by me. Those systems with pertinent positive or negative responses have been documented in the HPI. All other systems are other negative and/or noncontributory. - Related Data Home Medications Medication Instructions Recorded Confirmed Aspirin EC [Ecotrin] 325 mg PO DAILY 04/13/18 04/13/18 Atorvastatin [Lipitor] 10 mg PO HS 04/13/18 04/13/18 Citalopram Hydrobromide [CeleXA] 20 mg PO DAILY 04/13/18 04/13/18 Clopidogrel [Plavix] 75 mg PO DAILY 04/13/18 04/13/18 Digoxin [Lanoxin] 125 mcg PO DAILY 04/13/18 04/13/18 Enalapril [Vasotec] 10 mg PO DAILY 04/13/18 04/13/18 Finasteride [Proscar] 5 mg PO HS 04/13/18 04/13/18 Isosorbide Mononitrate ER [Imdur] 30 mg PO DAILY 04/13/18 04/13/18 Meclizine [Antivert] 25 mg PO BID 04/13/18 04/13/18 Metoprolol Succinate [Toprol XL] 25 mg PO DAILY 04/13/18 04/13/18 Omeprazole 20 mg PO DAILY 04/13/18 04/13/18 Tamsulosin HCl [Flomax] 0.8 mg PO HS 04/13/18 04/13/18 hydrALAZINE HCL [Apresoline] 50 mg PO BID 04/13/18 04/13/18 Allergies Allergy/AdvReac Type Severity Reaction Status Date / Time No Known Allergies Allergy Verified 05/16/18 21:25 Review of Systems ROS Statement: Those systems with pertinent positive or pertinent negative responses have been documented in the HPI. ROS Other: All systems not noted in ROS Statement are negative. Past Medical History Past Medical History: Atrial Fibrillation, Coronary Artery Disease (CAD), Hypertension, Myocardial Infarction ([place]) Additional Past Medical History / Comment(s): pt is poor historian History of Any Multi-Drug Resistant Organisms: None Reported Past Surgical History: Appendectomy, Coronary Bypass/CABG Additional Past Surgical History / Comment(s): pt is poor historian. Past Psychological History: No Psychological Hx Reported Smoking Status: Never smoker Past Alcohol Use History: None Reported Past Drug Use History: None Reported General Exam - General Exam Comments Initial Comments: PHYSICAL EXAM: General Impression: Alert and oriented x3, not in acute distress HEENT: Normocephalic atraumatic, extra-ocular movements intact, pupils equal and reactive to light bilaterally, mucous membranes moist. Cardiovascular: Heart regular rate and rhythm, S1&S2 audible, no murmurs, rubs or gallops Chest: Lungs clear to auscultation bilaterally, no rhonchi, no wheeze, no rales Abdomen: Bowel sounds present, abdomen soft, non-tender, non-distended, no organomegaly Musculoskeletal: Pulses present and equal in all extremities, no peripheral edema Motor: Power 5/5 bilaterally, no focal deficits noted Neurological: CN II-XII grossly intact, no focal motor or sensory deficits noted , not ataxic able to sit unsupported Skin: Intact with no visualized rashes Psych: Normal affect and mood Limitations: no limitations Course Vital Signs 06/28/18 06/28/18 06/28/18 20:22 21:26 23:24 Temperature 97.4 F L Pulse Rate 59 L 60 Respiratory 16 16 16 Rate Blood Pressure 173/104 206/98 O2 Sat by Pulse 97 58 L Oximetry 06/29/18 06/29/18 00:01 01:46 Temperature Pulse Rate 65 Respiratory 16 Rate Blood Pressure 208/116 177/95 O2 Sat by Pulse 99 Oximetry Medical Decision Making - Medical Decision Making ED course: Old male presents with chief complaint of dizziness. As upon arrival shows findings within acceptable limits. Initial blood pressure is 177/ 95. Patient's blood pressure then spiked to 208/116. Patient does have a history of hypertension and multiple blood pressure meds. Patient states she's been compliant with his medications. EKGs benign. Patient is given multiple rounds of blood pressure medications in order to alleviate his blood pressure. Believe that his elevated blood pressure is causing his symptoms of dizziness. Click or presentation consistent with symptomatically hypertension/hypertensive urgency. Patient was given nitroglycerin drip with mild improvement of his symptoms. Ventricle syndrome was stopped and Nitropaste was applied. Patient be admitted to [facility] care. Laboratory evaluation obtained. CBC unremarkable. Coag panel unremarkable. Metabolic panel is negative. Urinalysis is negative. Chest x-ray obtained showing no acute processes. EKG Interpretation: A 12 lead EKG was obtained. It was interpreted by myself and attending physician. There is a P wave before every QRS complex. Rate is 63. Rhythm is atrial fibrillation, QRS 156, QTC 435. QT is not prolonged. No ST segment depression or elevation. Overall, this EKG is unremarkable - Lab Data Result diagrams: 06/28/18 20:35 06/28/18 20:35 Lab Results 06/28/18 06/28/18 06/28/18 Range/Units 20:35 20:35 20:35 WBC 5.2 (3.8-10.6) k/uL RBC 4.86 (4.30-5.90) m/uL Hgb 12.9 L (13.0-17.5) gm/dL Hct 40.1 (39.0-53.0) % MCV 82.7 (80.0-100.0) fL MCH 26.6 (25.0-35.0) pg MCHC 32.2 (31.0-37.0) g/dL RDW 13.9 (11.5-15.5) % Plt Count 172 (150-450) k/uL Neutrophils % 57 % Lymphocytes % 32 % Monocytes % 5 % Eosinophils % 4 % Basophils % 1 % Neutrophils # 3.0 (1.3-7.7) k/uL Lymphocytes # 1.7 (1.0-4.8) k/uL Monocytes # 0.3 (0-1.0) k/uL Eosinophils # 0.2 (0-0.7) k/uL Basophils # 0.0 (0-0.2) k/uL PT 12.1 H (9.0-12.0) sec INR 1.3 H (<1.2) Sodium 138 (137-145) mmol/L Potassium 4.2 (3.5-5.1) mmol/L Chloride 105 (98-107) mmol/L Carbon Dioxide 25 (22-30) mmol/L Anion Gap 8 mmol/L BUN 20 (9-20) mg/dL Creatinine 1.12 (0.66-1.25) mg/dL Est GFR (CKD-EPI)AfAm 68 (>60 ml/min/1.73 sqM) Est GFR (CKD-EPI)NonAf 59 (>60 ml/min/1.73 sqM) Glucose 152 H (74-99) mg/dL Plasma Lactic Acid Gen (0.7-2.0) mmol/L Calcium 8.5 (8.4-10.2) mg/dL Magnesium (1.6-2.3) mg/dL Total Bilirubin 0.4 (0.2-1.3) mg/dL AST 18 (17-59) U/L ALT 23 (21-72) U/L Alkaline Phosphatase 71 (38-126) U/L Troponin I (0.000-0.034) ng/mL Total Protein 6.2 L (6.3-8.2) g/dL Albumin 3.4 L (3.5-5.0) g/dL Urine Color Urine Appearance (Clear) Urine pH (5.0-8.0) Ur Specific [place] (1.001-1.035) Urine Protein (Negative) Urine Glucose (UA) (Negative) Urine Ketones (Negative) Urine Blood (Negative) Urine Nitrite (Negative) Urine Bilirubin (Negative) Urine Urobilinogen (<2.0) mg/dL Ur Leukocyte Esterase (Negative) Urine RBC (0-5) /hpf Urine WBC (0-5) /hpf Ur Squamous Epith Cells (0-4) /hpf Amorphous Sediment (None) /hpf Urine Mucus (None) /hpf 06/28/18 06/28/18 06/28/18 Range/Units 20:35 20:35 20:35 WBC (3.8-10.6) k/uL RBC (4.30-5.90) m/uL Hgb (13.0-17.5) gm/dL Hct (39.0-53.0) % MCV (80.0-100.0) fL MCH (25.0-35.0) pg MCHC (31.0-37.0) g/dL RDW (11.5-15.5) % Plt Count (150-450) k/uL Neutrophils % % Lymphocytes % % Monocytes % % Eosinophils % % Basophils % % Neutrophils # (1.3-7.7) k/uL Lymphocytes # (1.0-4.8) k/uL Monocytes # (0-1.0) k/uL Eosinophils # (0-0.7) k/uL Basophils # (0-0.2) k/uL PT (9.0-12.0) sec INR (<1.2) Sodium (137-145) mmol/L Potassium (3.5-5.1) mmol/L Chloride (98-107) mmol/L Carbon Dioxide (22-30) mmol/L Anion Gap mmol/L BUN (9-20) mg/dL Creatinine (0.66-1.25) mg/dL Est GFR (CKD-EPI)AfAm (>60 ml/min/1.73 sqM) Est GFR (CKD-EPI)NonAf (>60 ml/min/1.73 sqM) Glucose (74-99) mg/dL Plasma Lactic Acid Gen 0.8 (0.7-2.0) mmol/L Calcium (8.4-10.2) mg/dL Magnesium 1.9 (1.6-2.3) mg/dL Total Bilirubin (0.2-1.3) mg/dL AST (17-59) U/L ALT (21-72) U/L Alkaline Phosphatase (38-126) U/L Troponin I 0.013 (0.000-0.034) ng/mL Total Protein (6.3-8.2) g/dL Albumin (3.5-5.0) g/dL Urine Color Urine Appearance (Clear) Urine pH (5.0-8.0) Ur Specific [place] (1.001-1.035) Urine Protein (Negative) Urine Glucose (UA) (Negative) Urine Ketones (Negative) Urine Blood (Negative) Urine Nitrite (Negative) Urine Bilirubin (Negative) Urine Urobilinogen (<2.0) mg/dL Ur Leukocyte Esterase (Negative) Urine RBC (0-5) /hpf Urine WBC (0-5) /hpf Ur Squamous Epith Cells (0-4) /hpf Amorphous Sediment (None) /hpf Urine Mucus (None) /hpf 06/28/18 Range/Units 22:36 WBC (3.8-10.6) k/uL RBC (4.30-5.90) m/uL Hgb (13.0-17.5) gm/dL Hct (39.0-53.0) % MCV (80.0-100.0) fL MCH (25.0-35.0) pg MCHC (31.0-37.0) g/dL RDW (11.5-15.5) % Plt Count (150-450) k/uL Neutrophils % % Lymphocytes % % Monocytes % % Eosinophils % % Basophils % % Neutrophils # (1.3-7.7) k/uL Lymphocytes # (1.0-4.8) k/uL Monocytes # (0-1.0) k/uL Eosinophils # (0-0.7) k/uL Basophils # (0-0.2) k/uL PT (9.0-12.0) sec INR (<1.2) Sodium (137-145) mmol/L Potassium (3.5-5.1) mmol/L Chloride (98-107) mmol/L Carbon Dioxide (22-30) mmol/L Anion Gap mmol/L BUN (9-20) mg/dL Creatinine (0.66-1.25) mg/dL Est GFR (CKD-EPI)AfAm (>60 ml/min/1.73 sqM) Est GFR (CKD-EPI)NonAf (>60 ml/min/1.73 sqM) Glucose (74-99) mg/dL Plasma Lactic Acid Gen (0.7-2.0) mmol/L Calcium (8.4-10.2) mg/dL Magnesium (1.6-2.3) mg/dL Total Bilirubin (0.2-1.3) mg/dL AST (17-59) U/L ALT (21-72) U/L Alkaline Phosphatase (38-126) U/L Troponin I (0.000-0.034) ng/mL Total Protein (6.3-8.2) g/dL Albumin (3.5-5.0) g/dL Urine Color Light Yellow Urine Appearance Cloudy (Clear) Urine pH 6.5 (5.0-8.0) Ur Specific [place] 1.004 (1.001-1.035) Urine Protein Negative (Negative) Urine Glucose (UA) Negative (Negative) Urine Ketones Negative (Negative) Urine Blood Negative (Negative) Urine Nitrite Negative (Negative) Urine Bilirubin Negative (Negative) Urine Urobilinogen <2.0 (<2.0) mg/dL Ur Leukocyte Esterase Trace H (Negative) Urine RBC <1 (0-5) /hpf Urine WBC <1 (0-5) /hpf Ur Squamous Epith Cells <1 (0-4) /hpf Amorphous Sediment Rare H (None) /hpf Urine Mucus Rare H (None) /hpf Disposition Clinical Impression: Hypertensive urgency Disposition: ADMITTED IP TO THIS [facility] Condition: Fair Decision Time: 02:14
[2018-06-28 21:41] LABS: Basophils % (A) 1 %; Eosinophils # (A) 0.2 k/uL (0-0.7); Eosinophils % (A) 4 %; HCT 40.1 % (39.0-53.0); HGB 12.9 gm/dL (13.0-17.5); Lymphocytes # (A) 1.7 k/uL (1.0-4.8); Lymphocytes % (A) 32 %; MCH 26.6 pg (25.0-35.0); MCHC 32.2 g/dL (31.0-37.0); MCV 82.7 fL (80.0-100.0); Mean Platelet Volume 7.1; Monocytes # (A) 0.3 k/uL (0-1.0); Monocytes % (A) 5 %; Neutrophils % (A) 57 %; Platelet Count 172 k/uL (150-450); RBC 4.86 m/uL (4.30-5.90); RDW 13.9 % (11.5-15.5); WBC 5.2 k/uL (3.8-10.6)
[2018-06-28 21:45] LABS: INR 1.3 (<1.2); Prothrombin Time 12.1 sec (9.0-12.0)
[2018-06-28 21:51] LABS: Albumin 3.4 g/dL (3.5-5.0); Calcium 8.5 mg/dL (8.4-10.2); Potassium 4.2 mmol/L (3.5-5.1); Total Bilirubin 0.4 mg/dL (0.2-1.3); Total Protein 6.2 g/dL (6.3-8.2)
[2018-06-28] MEDS ORDERED: ENALAPRILAT 1.25 MG/ML 1 ML VIAL IVP STA (22:17)
[2018-06-28] MEDS ORDERED: SODIUM CHLORIDE 0.9% 500 ML 500 ML IV STA (22:18)
[2018-06-28] MEDS ORDERED: METOCLOPRAMIDE 5 MG/ML 2 ML VIAL IVP STA (22:23)
[2018-06-28] MEDS ORDERED: diphenhydrAMINE 50 MG/ML 1 ML VIAL IVP STA (22:23)
--- NOTE | 2018-06-28 23:09 | XR ---
EXAMINATION TYPE: XR chest 2V DATE OF EXAM: 06/28/2018 COMPARISON: 05/16/2018 HISTORY: Dizziness TECHNIQUE: Frontal and lateral views of the chest are obtained. FINDINGS: Heart appears slightly enlarged. There is no heart failure. There is coarse linear density at the lung bases. There are chest leads. There is spurring in the thoracic spine. IMPRESSION: No heart failure. There is new mild subsegmental atelectasis at the lung bases compared to old exam.
[2018-06-28 23:26] LABS: Amorphous Sediment,Urine Rare /hpf; Appearance,Urine Cloudy (Clear); Bilirubin,Urine Negative (Negative); Blood,Urine Negative (Negative); Color,Urine Light Yellow; Glucose,Urine (UA) Negative (Negative); Ketones,Urine Negative (Negative); Leukocyte Esterase,Urine Trace (Negative); Mucus,Urine Rare /hpf; Nitrite,Urine Negative (Negative); PH, Urine 6.5 (5.0-8.0); Protein,Urine Negative (Negative); RBC,Urine <1 /hpf (0-5); Specific Gravity,Urine 1.004 (1.001-1.035); Squamous Epithelial Cell,Urine <1 /hpf (0-4); Urobilinogen,Urine <2.0 mg/dL (<2.0); WBC,Urine <1 /hpf (0-5)
[2018-06-28] MEDS ORDERED: METOPROLOL TARTRATE 25 MG TAB PO STA (23:27)
[2018-06-28] MEDS ORDERED: hydrALAZINE HCL 20 MG/ML 1 ML VIAL IVP STA (23:47)
[2018-06-29] MEDS ORDERED: NITROGLYCERIN-D5W PMX 50 MG in DEXTROSE/WATER 1 250ML.BAG IV ONE (00:02)
[2018-06-29] MEDS ORDERED: NALOXONE 0.4 MG/ML 1 ML VIAL IV PRN (02:02)
[2018-06-29] MEDS ORDERED: NITROGLYCERIN OINT 1 INCH/GM PACKET TOPICAL STA (02:02)
[2018-06-29] MEDS ORDERED: hydrALAZINE HCL 20 MG/ML 1 ML VIAL IVP PRN (03:50)
[2018-06-29] MEDS ORDERED: hydrALAZINE HCL 20 MG/ML 1 ML VIAL IVP STA (03:50)
[2018-06-29 05:02] VITALS: BMI 24.5
[2018-06-29] MEDS: ASPIRIN 325 MG TAB PO SCH (08:46)
[2018-06-29] MEDS: METOPROLOL SUCCINATE (ER) 25 MG TAB.ER.24H PO SCH (08:46)
[2018-06-29] MEDS: MECLIZINE 25 MG TAB PO SCH ×2 (08:46→21:48)
[2018-06-29] MEDS: PANTOPRAZOLE 40 MG TABLET PO SCH (08:46)
[2018-06-29] MEDS: hydrALAZINE HCL 50 MG TAB PO SCH ×2 (08:47→21:48)
[2018-06-29] MEDS: CITALOPRAM HYDROBROMIDE 20 MG TAB PO SCH (08:47)
[2018-06-29] MEDS ORDERED: MELATONIN 3 MG TABLET PO PRN (14:44)
[2018-06-29] MEDS ORDERED: HYDROcodone/APAP 5-325MG 1 EACH TAB PO PRN (14:44)
[2018-06-29] MEDS ORDERED: ALPRAZolam 0.25 MG TAB PO PRN (14:44)
--- NOTE | 2018-06-29 15:16 | CT ---
EXAMINATION TYPE: CT brain wo con DATE OF EXAM: 06/29/2018 COMPARISON: None HISTORY: Dizziness. CT DLP: 1020.2 mGycm Automated exposure control for dose reduction was used. FINDINGS: There is cerebral cortical atrophy. There is no mass effect nor midline shift. There is no sign of in tracranial hemorrhage. There is hypodensity in the inferior left cerebellar hemisphere consistent wit h old infarct. There is thickening and calcification in the transverse ligament posterior to the odon toid process. There is probably spinal stenosis. 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 NO ACUTE INTRACRANIAL ABNORMALITY.
[2018-06-29] MEDS: LISINOPRIL 10 MG TAB PO SCH (16:08)
[2018-06-29] MEDS: ISOSORBIDE MONONITRATE ER 30 MG TAB.ER.24H PO SCH (16:08)
--- NOTE | 2018-06-29 16:37 | HP ---
HISTORY AND PHYSICAL CHIEF COMPLAINTS: Dizziness. HISTORY OF PRESENT ILLNESS: This 88-year-old gentleman with a past medical history of atrial fibrillation, history of CAD, hypertension, myocardial infarction, pressure also had a previous stroke also. The patient had a left cerebellar stroke on the previous CAT scan. The patient is living in an [facility] facility. Patient also had history of CAD, CABG. Currently the patient complaining of dizzy which is going on for last 4 weeks. Because of increase in symptomatology, the patient was taken to [facility] and admitted to the hospital for further evaluation and treatment. There is no history of fever, rigors or chills. No history of headache, loss of consciousness, seizures. PAST HISTORY: Atrial fibrillation, CAD, hypertension, myocardial infarction, appendectomy, CAD , CABG. MEDICATIONS: 1. Flomax 0.8 q.h.s. 2. Omeprazole 20 mg p.o. daily. 3. Toprol-XL 25 mg daily. 4. Antivert 25 mg b.i.d. 5. Imdur 30 mg. 6. Proscar 5 mg q.h.s. 7. Vasotec 10 mg p.o. daily. 8. Lanoxin 125 mcg p.o. daily. 9. Plavix 75 mg p.o. daily. 10.Lipitor 10 mg p.o. q.h.s. 11.Ecotrin 320 mg p.o. daily. ALLERGIES: None. FAMILY HISTORY: No history of heart disease or strokes in the family. SOCIAL HISTORY: No history of smoking. No history of alcohol. REVIEW OF SYSTEMS: ENT: Diminished hearing and diminished vision. CARDIOVASCULAR: No angina or palpitations. RESPIRATORY: As mentioned earlier. GI no nausea or vomiting. no dysuria. Nervous System: As mentioned earlier. Allergy/Immunology: No asthma or hayfever. Musculoskeletal: As mentioned earlier. HEMATOLOGY/ONCOLOGY: No history of anemia. Endocrine: No history of diabetes or hypothyroidism. Constitutional: As mentioned earlier. Dermatology: Negative. Rheumatology: Negative. Psychiatry: As mentioned earlier. PHYSICAL EXAMINATION: Alert and oriented times three. Pulse 72, blood pressure 139/82, respirations 16 , temperature 97.2, pulse ox 98% on room air. HEENT: Conjunctivae normal. Oral mucosa moist. Neck is no jugular venous distention. No carotid bruit. No lymph node enlargement. Cardiovascular system: S1, S2 muffled. Respiratory: Breath sounds diminished in the bases. No rhonchi. No crackles. ABDOMEN: Soft, nontender. No mass palpable. Legs no edema and no swelling. NERVOUS SYSTEM: Higher functions as mentioned earlier. Mild diffuse weakness. No focal motor neuron neurologic deficits. SKIN: No ulcer, rash, or bleeding. Lymphatics: No lymph nodes palpable in the neck, axillae or groin. Joints: No active deforming arthropathy. LAB STUDIES: WBC 5.9, hemoglobin n, INR 1.3, glucose 152, albumin 3.4. Other labs are noted. ASSESSMENT: 1. Dizziness for evaluation, possible acute transient ischemic attack. 2. History of left cerebellar stroke. 3. Atrial fibrillation. 4. History of coronary artery disease. 5. Hypertension. 6. History of myocardial infarction. 7. History of coronary artery disease, coronary artery bypass grafting. RECOMMENDATIONS AND DISCUSSION: Recommend to continue current medications, management and symptomatic treatment. I would recommend neurology and cardiology consultations. EKG showed atrial fibrillation. The patient is currently on digoxin, not on anticoagulations. We will order 2D echo and carotid Doppler. Full neurovascular workup. Prognosis guarded. Further recommendations to follow. MMODL / IJN: [id number] / LORENA
[2018-06-29 18:46] LABS: Amphetamine Screen,Urine Not Detected (NotDetected); Barbiturate Screen,Urine Not Detected (NotDetected); Benzodiazepines Screen,Urine Not Detected (NotDetected); Cocaine Screen,Urine Not Detected (NotDetected); Methadone Screen, Urine Not Detected (NotDetected); Opiate Screen,Urine Not Detected (NotDetected); Oxycodone Screen, Urine Not Detected (NotDetected); Phencyclidine Screen,Urine Not Detected (NotDetected); Tricyclic Antidepressant,Urine Not Detected (NotDetected); Urn Cannabinoid Scrn Not Detected (NotDetected)
[2018-06-29] MEDS: HEPARIN SODIUM,PORCINE 5,000 UNIT/ML 1 ML VIAL SQ SCH (21:47)
[2018-06-29] MEDS: FINASTERIDE 5 MG TAB PO SCH (21:47)
[2018-06-29] MEDS: ATORVASTATIN 10 MG TAB PO SCH (21:48)
[2018-06-29] MEDS: TAMSULOSIN 0.4 MG CAP.ER.24H PO SCH (21:48)
[2018-06-30 06:36] LABS: Basophils % (A) 1 %; Eosinophils # (A) 0.1 k/uL (0-0.7); Eosinophils % (A) 4 %; HCT 39.3 % (39.0-53.0); HGB 12.9 gm/dL (13.0-17.5); Lymphocytes # (A) 1.3 k/uL (1.0-4.8); Lymphocytes % (A) 32 %; MCH 27.1 pg (25.0-35.0); MCHC 32.8 g/dL (31.0-37.0); MCV 82.7 fL (80.0-100.0); Mean Platelet Volume 7.2; Monocytes # (A) 0.2 k/uL (0-1.0); Monocytes % (A) 6 %; Neutrophils # (A) 2.3 k/uL (1.3-7.7); Neutrophils % (A) 57 %; Platelet Count 165 k/uL (150-450); RBC 4.75 m/uL (4.30-5.90); RDW 14.1 % (11.5-15.5); WBC 4.1 k/uL (3.8-10.6)
[2018-06-30 06:44] LABS: Calcium 8.7 mg/dL (8.4-10.2); Potassium 3.7 mmol/L (3.5-5.1)
[2018-06-30] MEDS: hydrALAZINE HCL 50 MG TAB PO SCH ×3 (08:32→20:40)
[2018-06-30] MEDS: ASPIRIN 325 MG TAB PO SCH (08:32)
[2018-06-30] MEDS: HEPARIN SODIUM,PORCINE 5,000 UNIT/ML 1 ML VIAL SQ SCH ×2 (08:32→20:39)
[2018-06-30] MEDS: LISINOPRIL 10 MG TAB PO SCH (08:33)
[2018-06-30] MEDS: MECLIZINE 25 MG TAB PO SCH ×2 (08:33→20:39)
[2018-06-30] MEDS: ISOSORBIDE MONONITRATE ER 30 MG TAB.ER.24H PO SCH (08:33)
[2018-06-30] MEDS: CLOPIDOGREL 75 MG TAB PO SCH (08:33)
[2018-06-30] MEDS: PANTOPRAZOLE 40 MG TABLET PO SCH (08:34)
[2018-06-30] MEDS: METOPROLOL SUCCINATE (ER) 25 MG TAB.ER.24H PO SCH (08:34)
--- NOTE | 2018-06-30 08:43 | US ---
EXAMINATION TYPE: US carotid duplex BILAT DATE OF EXAM: 06/30/2018 COMPARISON: NONE CLINICAL HISTORY: dizziness and hypertension. EXAM MEASUREMENTS: RIGHT: Peak Systolic Velocity (PSV) cm/sec ----- Right CCA: 68.8 ----- Right ICA: 47.1 ----- Right ECA: 56.6 ICA/CCA ratio: 0.7 RIGHT: End Diastole cm/sec ----- Right CCA: 12.8 ----- Right ICA: 16.9 ----- Right ECA: 0 LEFT: Peak Systolic Velocity (PSV) cm/sec ----- Left CCA: 85.7 ----- Left ICA: 67.3 ----- Left ECA: 61.6 ICA/CCA ratio: 0.8 LEFT: End Diastole cm/sec ----- Left CCA: 20.7 ----- Left ICA: 11.8 ----- Left ECA: 0 VERTEBRALS (direction of flow): Right Vertebral: Antegrade Left Vertebral: no flow seen Rhythm: Arrhythmia Extremely tortuous; bulb at ear, difficult to image bilateral ICA and ECAs. Technically difficult. IMPRESSION: 1. No vascular flow seen within the left vertebral artery. CTA head and neck is recommended. 2. Mild grayscale atheromatous changes of the carotid arteries most significant at the carotid bulbs with no sonographic evidence of hemodynamically significant stenosis. 3. Incidentally noted cardiac arrhythmia. Correlate with EKG.
--- NOTE | 2018-06-30 08:57 | P.CNNES ---
History of Present Illness Consult date: 06/29/18 Reason for Consult: Patient admitted with hypertensive urgency and dizziness. History of Present Illness: This patient is a 88-year-old right hand white male who is currently residing in a assisted living facility where he has been residing for the past year. Apparently the patient was complaining of symptoms of dizziness for the past 4 weeks. Patient states that when he would stand and ambulate he was feeling as if he was falling to his left side. The patient also noted that he was experiencing a sense of disequilibrium with unsteady gait. The patient states that he does have a history of a old stroke which she suffered in 1989 but is not had any recent workup for TIA or strokelike symptoms. The patient does have a history of atrial fibrillation and apparently has been taking Plavix on a regular basis for secondary stroke prevention. He is not on any anticoagulation. When questioned about vertigo he states he did not experience any true dizziness but more of a sense of disequilibrium which is been ongoing for the past 2 weeks. The patient also states that he has been having some slurring of his speech. This also has been more noticed by him over the last 2 weeks. The patient does follow with his primary care physician every 3-4 months in [place]. Apparently he is being followed by Dr. Breanna Del Valle and is seen there on a regular basis. Patient states that at his last visit he did not have any major medical issues. His blood pressure was under good control at that time. Due to the change in his symptoms a patient was brought into the emergency room at [facility] for further evaluation. He was noted initially in the ER as having a blood pressure of 206/98. He was found to have evidence of hypertensive urgency. He was treated for this and his blood pressure did slowly improve with time. The patient was sent for a computed tomography scan of the brain on 06/29/2018. This CAT scan revealed evidence of an old left cerebellar infarct with cerebral atrophy. No acute intracranial abnormality was noted. On neurological examination at bedside today the patient does show evidence of left hand pronator drift. He also has some slurred speech. On testing of his coordination he does seem to demonstrate dysmetria on left [id number] testing. These findings suggest possibility of acute stroke and we have recommended he undergo a complete stroke evaluation including MRI of the brain as well as a carotid Doppler study as part of her stroke workup. Patient states he has not had any recent testing for stroke. Neurology is now been consulted for further evaluation and recommendations. Review of Systems Constitutional: Denies chills, Denies fever Eyes: denies blurred vision, denies pain Ears, nose, mouth and throat: Denies headache, Denies sore throat Cardiovascular: Denies chest pain, Denies shortness of breath Respiratory: Denies cough Gastrointestinal: Denies abdominal pain, Denies diarrhea, Denies nausea, Denies vomiting Musculoskeletal: Denies myalgias Integumentary: Denies pruritus, Denies rash Neurological: Reports ataxia, Reports confusion, Reports gait dysfunction, Reports motor disturbance, Reports paresthesias, Reports tingling, Denies numbness, Denies weakness Psychiatric: Denies anxiety, Denies depression Endocrine: Denies fatigue, Denies weight change Past Medical History Past Medical History: Atrial Fibrillation, Coronary Artery Disease (CAD), Hypertension, Myocardial Infarction ([place]) Additional Past Medical History / Comment(s): pt is poor historian Last Myocardial Infarction Date:: unknown History of Any Multi-Drug Resistant Organisms: None Reported Past Surgical History: Appendectomy, Coronary Bypass/CABG Additional Past Surgical History / Comment(s): pt is poor historian. Past Psychological History: No Psychological Hx Reported Smoking Status: Never smoker Past Alcohol Use History: None Reported Past Drug Use History: None Reported Medications and Allergies Home Medications Medication Instructions Recorded Confirmed Type Aspirin EC [Ecotrin] 325 mg PO DAILY 04/13/18 06/29/18 History Atorvastatin [Lipitor] 10 mg PO HS 04/13/18 06/29/18 History Clopidogrel [Plavix] 75 mg PO DAILY 04/13/18 06/29/18 History Digoxin [Lanoxin] 125 mcg PO DAILY 04/13/18 06/29/18 History Enalapril [Vasotec] 10 mg PO DAILY 04/13/18 06/29/18 History Finasteride [Proscar] 5 mg PO HS 04/13/18 06/29/18 History Isosorbide Mononitrate ER [Imdur] 30 mg PO DAILY 04/13/18 06/29/18 History Meclizine [Antivert] 25 mg PO DAILY 04/13/18 06/29/18 History Metoprolol Succinate [Toprol XL] 25 mg PO DAILY 04/13/18 06/29/18 History Omeprazole 20 mg PO DAILY 04/13/18 06/29/18 History Tamsulosin HCl [Flomax] 0.8 mg PO HS 04/13/18 06/29/18 History Allergies Allergy/AdvReac Type Severity Reaction Status Date / Time No Known Allergies Allergy Verified 06/29/18 13:03 Physical Examination - Vital Signs Vital Signs: Vital Signs Temp Pulse Pulse Resp BP BP BP 06/29/18 11:43 97.4 F L 72 16 06/29/18 08:00 20 06/29/18 07:54 97.8 F 100 20 145/74 06/29/18 05:14 154/76 06/29/18 05:13 98.4 F 77 16 154/76 06/29/18 05:12 77 16 06/29/18 04:22 82 16 180/80 06/29/18 04:15 66 157/80 06/29/18 03:07 69 16 173/99 06/29/18 02:10 98.4 F 77 18 154/76 06/29/18 01:46 65 16 177/95 06/29/18 00:01 208/116 06/28/18 23:24 60 16 206/98 06/28/18 21:26 59 L 16 173/104 06/28/18 20:22 97.4 F L 16 BP Pulse Ox 06/29/18 11:43 139/82 98 06/29/18 08:00 06/29/18 07:54 97 06/29/18 05:14 06/29/18 05:13 97 06/29/18 05:12 06/29/18 04:22 98 06/29/18 04:15 97 06/29/18 03:07 97 06/29/18 02:10 97 06/29/18 01:46 99 06/29/18 00:01 06/28/18 23:24 58 L 06/28/18 21:26 97 06/28/18 20:22 Intake and Output 06/29/18 06/29/18 06/29/18 06:59 14:59 22:59 Intake Total 300 Balance 300 Intake: Oral 300 Other: Voiding Method Urinal # Voids 0 1 Weight 75.4 kg - Constitutional General appearance: average body habitus, cooperative - EENT EENT: PERRL, mucous membranes moist - Respiratory Respiratory: lungs clear, normal breath sounds - Cardiovascular Cardiovascular: regular rate, normal S1, normal S2 Extremities: no peripheral edema bilaterally - Gastrointestinal Gastrointestinal: normoactive bowel sounds - Integumentary Integumentary: normal - Neurologic Cranial nerve examination: PERRL, EOMI, VFF, V1/V2/V3 grossly intact, face symmetric, intact gag reflex, intact corneal reflex, normal palatal elevation Speech examination: intact Sensorimotor examination: intact Motor examination - right side: 4/5: biceps, triceps, wrist flexion, wrist extension, qa tech, hip flexors, knee extensors, dorsiflexion, toe extension (EHL) , plantarflexion Motor examination - left side: 4/5: biceps, triceps, wrist flexion, wrist extension, qa tech, hip flexors, knee extensors, dorsiflexion, toe extension (EHL) , plantarflexion Detailed sensory examination: intact Reflex and gait examination: intact Reflexes: 1+: ankle, bicep, knee, tricep Cerebellar examination: ataxia, dysmetria - Musculoskeletal Musculoskeletal: no pain - Psychiatric Psychiatric: mood/affect appropriate, cooperative Results - Laboratory Findings CBC and BMP: 06/30/18 06:03 06/30/18 06:03 Abnormal Lab Findings: Abnormal Labs 06/28/18 06/28/18 06/28/18 20:35 20:35 20:35 Hgb 12.9 L PT 12.1 H INR 1.3 H Glucose 152 H Total Protein 6.2 L Albumin 3.4 L Ur Leukocyte Esterase Amorphous Sediment Urine Mucus 06/28/18 22:36 Hgb PT INR Glucose Total Protein Albumin Ur Leukocyte Esterase Trace H Amorphous Sediment Rare H Urine Mucus Rare H Assessment and Plan (1) Vertebrobasilar insufficiency Current Visit: Yes Status: Acute Code(s): G45.0 - VERTEBRO-BASILAR ARTERY SYNDROME SNOMED Code(s): 082400317 (2) Acute right MCA stroke Current Visit: Yes Status: Acute Code(s): I63.511 - CEREB INFRC D/T UNSP OCCLS OR STENOS OF RIGHT MID CEREB ART SNOMED Code(s): 405843919 (3) Hypertensive urgency Current Visit: Yes Status: Acute Code(s): I16.0 - HYPERTENSIVE URGENCY SNOMED Code(s): 347794049 (4) Disequilibrium Current Visit: Yes Status: Acute Code(s): R42 - DIZZINESS AND GIDDINESS SNOMED Code(s): 72483893 (5) Ataxic gait Current Visit: Yes Status: Acute Code(s): R26.0 - ATAXIC GAIT SNOMED Code( s): 74879219 Plan: This patient is a 88-year-old right-handed white male who was admitted to [facility] with symptoms of disequilibrium and unsteady gait. He had been symptomatic for at least 2 weeks at his assisted living facility. He was brought into the emergency room yesterday for further evaluation due to worsening symptoms. He was seen in the emergency room by Dr. Jesus who ordered a computed tomography scan of the brain. CAT scan of the brain was reviewed as noted above. CAT scan reveals evidence of an old left cerebellar infarct with cerebral atrophy. His neurological examination reveals patient to have some left-sided hemiparesis as well as dysmetria on left [id number] testing. We have suggested he undergo further evaluation for possible vertebrobasilar insufficiency versus acute right MCA stroke. Patient does have history of atrial fibrillation in the past but is not on any anticoagulation at this time. Recommend he continue on Plavix at this time pending his further stroke workup. His overall prognosis at this time remains guarded. We have recommended the patient undergo an MRI of the brain as well as carotid Doppler study. Would consider cardiology consultation as well given his history of atrial fibrillation. He is to continue on Plavix at this time for secondary stroke prevention pending his stroke workup. His overall prognosis at this time remains very guarded. Time with Patient: Greater than 30
[2018-06-30] MEDS ORDERED: DIGOXIN 125 MCG TAB PO SCH (09:00)
[2018-06-30] MEDS: amLODIPine 10 MG TAB PO SCH (12:26)
[2018-06-30] MEDS: CITALOPRAM HYDROBROMIDE 20 MG TAB PO SCH (12:27)
--- NOTE | 2018-06-30 12:29 | ECHOF ---
Referral Reason:htn MEASUREMENTS -------- HEIGHT: 175.3 cm WEIGHT: 75.3 kg BP: 158/85 IVSd: 1.4 cm (0.6 - 1.1) LVIDd: 4.1 cm (3.9 - 5.3) LVPWd: 1.4 cm (0.6 - 1.1) IVSs: 2.0 cm LVIDs: 3.2 cm LVPWs: 1.1 cm LA Diam: 4.0 cm (2.7 - 3.8) LAESV Index (A-L): 41.16 ml/m Ao Diam: 3.7 cm (2.0 - 3.7) AV Cusp: 1.9 cm (1.5 - 2.6) LA Diam: 4.6 cm (2.7 - 3.8) MV EXCURSION: 16.659 mm (> 18.000) MV EF SLOPE: 40 mm/s (70 - 150) EPSS: 0.5 cm MV E Hesham: 1.14 m/s MV DecT: 165 ms MV A Hesham: 0.30 m/s MV E/A Ratio: 3.83 RAP: 5.00 mmHg RVSP: 40.94 mmHg FINDINGS -------- Undetermined rhythm. This was a technically adequate study. The left ventricular size is normal. There is moderate concentric left ventricular hypertrophy. O verall left ventricular systolic function is normal with, an EF between 55 - 60 %. The right ventricle is normal in size. The left atrial size is normal. LA is severely dilated >40 ml/m2 The right atrial size is normal. There is mild aortic valve sclerosis. There is no evidence of aortic regurgitation. Mild mitral annular calcification present. Mild mitral regurgitation is present. Mild tricuspid regurgitation present. There is no evidence of pulmonary hypertension. The right v entricular systolic pressure, as measured by Doppler, is 40.94mmHg. There is no pulmonic regurgitation present. The aortic root size is normal. There is no pericardial effusion. CONCLUSIONS -------- 1. The left ventricular size is normal. 2. There is moderate concentric left ventricular hypertrophy. 3. Overall left ventricular systolic function is normal with, an EF between 55 - 60 %. 4. The right ventricle is normal in size. 5. The left atrial size is normal. 6. LA is severely dilated >40 ml/m2 7. The right atrial size is normal. 8. There is mild aortic valve sclerosis. 9. Mild mitral annular calcification present. 10. Mild mitral regurgitation is present. 11. Mild tricuspid regurgitation present. 12. There is no evidence of pulmonary hypertension. 13. The right ventricular systolic pressure, as measured by Doppler, is 40.94mmHg. 14. There is no pulmonic regurgitation present. 15. The aortic root size is normal. 16. There is no pericardial effusion. FACILITIES CUSTODIAN: Lauren Jefferson RDCS
--- NOTE | 2018-06-30 12:32 | CONS ---
CONSULTATION Adam is an 88-year-old gentleman with a history of atrial fibrillation, hypertension, dyslipidemia, coronary artery disease, status post CABG, prior cerebellar stroke who currently lives in an adult foster care facility, comes in complaining of dizziness. He complains of mild to moderate episodes of dizziness that has been going on for the last 4 weeks. There were no clear-cut relieving or exacerbating factors. Denies headache, nausea, vomiting, or focal neurological deficits. There is no history of paroxysmal nocturnal dyspnea or orthopnea. There is no history of recent myocardial infarction. On his presentation, patient had elevated blood pressures for which Cardiology had been consulted. At the time of my evaluation this morning patient appears comfortable at rest and his dizziness has improved. PAST MEDICAL HISTORY: Significant for coronary artery disease, status post CABG, chronic atrial fibrillation, hypertension, and dyslipidemia. MEDICATIONS: At home included omeprazole, Toprol-XL 25 q. daily, Antivert, Imdur, Proscar, Vasotec, Lanoxin, Plavix.\Lipitor, and aspirin. ALLERGIES: There are no known drug allergies. FAMILY HISTORY: Negative for premature coronary artery disease. SOCIAL HISTORY: Negative for smoking, EtOH abuse or drug abuse. REVIEW OF SYSTEMS: HEENT is significant for dizziness. CARDIAC: As described above. RESPIRATORY: Negative. GI: Negative. GENITOURINARY: Negative. TELECOMMUNICATIONS MANAGER: Negative for focal neurological deficit. MUSCULOSKELETAL: Significant for arthritis. ENDOCRINE: Negative. HEMATOLOGICAL: Negative. ONCOLOGICAL: Negative. RHEUMATOLOGICAL: Negative. PSYCH: Negative. PHYSICAL EXAM: Patient is comfortable at rest. Afebrile. Heart rate is 66 beats per minute. Blood pressure is 155/89, respiratory rate is 18. There is no jugular venous distention. Carotid upstroke is normal. There is no bruit chest exam reveals good air entry bilaterally. Heart exam reveals first and second heart sounds, ejection systolic murmur in the aortic area. Abdomen is soft. Exam of extremities did not reveal any edema. Peripheral pulses are felt. MEDICATIONS: At home included Toprol-XL, Imdur, Proscar, Vasotec, Lanoxin, Plavix Lipitor, and aspirin. EKG shows atrial fibrillation with right bundle branch block. LABS: Show that the hemoglobin is 12.9, potassium is 3.7, creatinine is 1. ASSESSMENT: 1. Uncontrolled hypertension. 2. Chronic atrial fibrillation with controlled ventricular rate. 3. Coronary artery disease, status post coronary artery bypass grafting. 4. Dizziness. PLAN: I am going to stop the digoxin that the patient is on and decrease the dose of aspirin to 81 mg daily. Obtain a 2D echo. His dizziness may be related to the bradycardia and the uncontrolled hypertension and could certainly be related to inner ear problems. Will continue the Antivert at this time. IRMA / BELEN: [id number] /
--- NOTE | 2018-06-30 14:50 | MR ---
EXAMINATION TYPE: MR brain wo con DATE OF EXAM: 06/30/2018 COMPARISON: 06/29/2018 CT brain HISTORY: Patient with vertebrobasilar insufficiency CONTRAST: Performed utilizing 0 mL intravenous Gadavist gadolinium contrast. TECHNIQUE: Multiplanar, multiecho imaging on a 3.0 Areli magnet is performed through the brain. Stud y is not performed within 24 hours of arrival to the hospital. The craniovertebral junction is normal. The pituitary is normal. Diffusion-weighted imaging is performed. No abnormal hyperintensity is present to suggest an acute i ntracranial infarct or acute ischemic change. Scattered inguinal partially confluent white matter changes are present on inversion recovery weighte d sequences in the periventricular white matter. Some increase signal on T2-weighted and inversion re covery weighted sequences are adjacent to the suspected inferior cerebellar infarct. Prior infarct along the inferior lateral left cerebellum is likely present. Ventricles and sulci are prominent for the patient age. The vertebral arteries as visualized appear codominant. There appear to be flow voids within each taras tebral artery where as this was not reported present in the left vertebral artery on the comparison u ltrasound of 06/30/2018. The basilar artery appears normal. Proximal posterior cerebral vasculature ap pears normal. The right PICA appears normal. Left PICA is not clearly identified. IMPRESSIONS: 1. No acute intracranial process. 2. Prior infarct along the inferior lateral left cerebellum. This appears to be an old infarct.
--- NOTE | 2018-06-30 15:45 | P.PN ---
Subjective Progress Note Date: 06/30/18 Progress note being dictated for Dr. Hernandez. Interval history: This is an 88-year-old gentleman admitted with dizziness, possible acute TIA in a patient with history of left cerebellar stroke, atrial fibrillation, CAD and multiple other medical issues. Evaluated by neurology with neuro workup in progress. MRI and carotid ultrasound pending. Maintained on Plavix. Echo reporting normal LV function, no pulmonary hypertension, no thrombus. Mildly confused today, dizziness improved. Evaluated by cardiology with recommendations noted. Denies chest pain, palpitations or increasing shortness of breath. Objective - Vital Signs Vital signs: Vital Signs Temp 96.6 F L 06/30/18 08:00 Pulse 61 06/30/18 08:00 Resp 17 06/30/18 04:00 BP 142/91 06/30/18 08:00 Pulse Ox 97 06/30/18 08:00 Intake & Output 06/29/18 06/30/18 06/30/18 18:59 06:59 18:59 Intake Total 400 118 240 Output Total 50 500 Balance 400 68 -260 Intake: Oral 400 118 240 Output: Urine 50 500 Other: Voiding Method Urinal Bedside Commode # Voids 2 - Exam PHYSICAL EXAM: VITAL SIGNS: As above GENERAL: Sitting up in bed, no acute distress, watching TV HEENT: Conjunctivae normal. eyes normal. Oral mucosa moist NECK: No JVD. No thyroid enlargement. No LNs CARDIOVASCULAR: S1, S2 muffled. Positive systolic murmur RESPIRATION: Breath sounds diminished in the bases. No rhonchi or crackles. No bronchial breathing. ABDOMEN: Soft, nontender . No guarding. no masses palpable.Bowel sounds heard. LEGS: No edema. no swelling PSYCHIATRY: Alert and oriented -3, mood and affect normal. NERVOUS SYSTEM: Cranial N 2-12 grossly normal. Moves all 4 limbs. Mild Diffuse weakness No focal deficits. Skin: no rash - Labs CBC & Chem 7: 06/30/18 06:03 06/30/18 06:03 Labs: Abnormal Lab Results - Last 24 Hours (Table) 06/30/18 06/30/18 Range/Units 06:03 06:03 Hgb 12.9 L (13.0-17.5) gm/dL Chloride 109 H (98-107) mmol/L Glucose 147 H (74-99) mg/dL Microbiology - Last 24 Hours (Table) 06/28/18 22:36 Urine Culture - Preliminary Urine,Voided Assessment and Plan Assessment: 1. Dizziness for evaluation, possible acute TIA 2. History of left cerebellar stroke 3. Chronic Atrial fibrillation with controlled ventricular rate 4. CAD, history of DC, CABG 5. Hypertension Plan: Continue current medication regime ,monitoring and symptomatic treatment. Maintain Antivert. Neuro workup in progress as mentioned above. Digoxin discontinued and aspirin decreased as per cardiology. Further recommendations to follow. The impression and plan of care has been dictated as directed. : I performed a history and examination of this patient, discussed the same with the dictator. I agree with the dictator's note ,documented as a scribe. Any additional findings or plans will be noted.
[2018-06-30] MEDS: ATORVASTATIN 10 MG TAB PO SCH (20:39)
[2018-06-30] MEDS: TAMSULOSIN 0.4 MG CAP.ER.24H PO SCH (20:39)
[2018-06-30] MEDS: FINASTERIDE 5 MG TAB PO SCH (20:39)
[2018-07-01 05:55] LABS: Basophils % (A) 1 %; Eosinophils # (A) 0.1 k/uL (0-0.7); Eosinophils % (A) 3 %; HCT 38.9 % (39.0-53.0); HGB 12.7 gm/dL (13.0-17.5); Lymphocytes # (A) 1.1 k/uL (1.0-4.8); Lymphocytes % (A) 28 %; MCHC 32.5 g/dL (31.0-37.0); MCV 82.9 fL (80.0-100.0); Mean Platelet Volume 7.6; Monocytes # (A) 0.3 k/uL (0-1.0); Monocytes % (A) 6 %; Neutrophils # (A) 2.5 k/uL (1.3-7.7); Neutrophils % (A) 61 %; Platelet Count 176 k/uL (150-450); RDW 14.1 % (11.5-15.5); WBC 4.1 k/uL (3.8-10.6)
[2018-07-01 06:09] LABS: Calcium 8.6 mg/dL (8.4-10.2); Potassium 3.7 mmol/L (3.5-5.1)
[2018-07-01] MEDS: CLOPIDOGREL 75 MG TAB PO SCH (08:02)
[2018-07-01] MEDS: MECLIZINE 25 MG TAB PO SCH ×2 (08:02→21:36)
[2018-07-01] MEDS: HEPARIN SODIUM,PORCINE 5,000 UNIT/ML 1 ML VIAL SQ SCH ×2 (08:02→21:37)
[2018-07-01] MEDS: LISINOPRIL 10 MG TAB PO SCH (08:02)
[2018-07-01] MEDS: ISOSORBIDE MONONITRATE ER 30 MG TAB.ER.24H PO SCH (08:02)
[2018-07-01] MEDS: hydrALAZINE HCL 50 MG TAB PO SCH ×3 (08:02→21:37)
[2018-07-01] MEDS: CITALOPRAM HYDROBROMIDE 20 MG TAB PO SCH (08:02)
[2018-07-01] MEDS: METOPROLOL SUCCINATE (ER) 25 MG TAB.ER.24H PO SCH (08:02)
[2018-07-01] MEDS: amLODIPine 10 MG TAB PO SCH (08:02)
[2018-07-01] MEDS: PANTOPRAZOLE 40 MG TABLET PO SCH (08:02)
[2018-07-01] MEDS: ASPIRIN 81 MG PO SCH (08:03)
--- NOTE | 2018-07-01 12:19 | P.DS ---
Providers Date of admission: 06/29/18 02:03 Expected date of discharge: 07/01/18 Attending physician: Cirilo Hernandez Consults: 06/29/18 12:12 Consult Physician Urgent Consulting Provider: Jonathan David Consult Reason/Comments: dizziness Do you want consulting provider notified?: Yes 06/29/18 14:48 Consult Physician Routine Consulting Provider: Ariane Schroeder Consult Reason/Comments: afib Do you want consulting provider notified?: Yes Primary care physician: [facility] Course: Final Diagnoses: 1. Dizziness for evaluation, possible acute TIA 2. History of left cerebellar stroke 3. Chronic Atrial fibrillation with controlled ventricular rate 4. CAD, history of ND, CABG 5. Hypertension Hospital course:This is an 88-year-old gentleman admitted with dizziness, possible acute TIA in a patient with history of left cerebellar stroke, atrial fibrillation, CAD and multiple other medical issues. Evaluated by cardiology and neurology.Neuro workup in progress. MRI reported no acute intracranial process, prior infarct along the inferior lateral left cerebellum appears to be an old infarct , flow voids within each vertebral artery that was not reported present in the left vertebral artery on the comparison ultrasound of 2017. Carotid ultrasound reporting no hemodynamic significant stenosis. Maintained on Plavix. Echo reporting normal LV function, no pulmonary hypertension, no thrombus. Cleared by cardiology for discharge. Patient will be discharged to subacute rehab pending clearance from neurology, in a stable condition with guarded prognosis. - Exam PHYSICAL EXAM: VITAL SIGNS: As above GENERAL: Sitting up in bed, no acute distress, mild confusion CARDIOVASCULAR: S1, S2 muffled. Positive systolic murmur RESPIRATION: Breath sounds diminished in the bases. No rhonchi or crackles. ABDOMEN: Soft, nontender . No guarding. no masses palpable.Bowel sounds heard. PSYCHIATRY: Alert and oriented -3, mood and affect normal. NERVOUS SYSTEM: Mild Diffuse weakness No focal deficits. The impression and plan of care has been dictated as directed. : I performed a history and examination of this patient, discussed the same with the dictator. I agree with the dictator's note ,documented as a scribe. Any additional findings or plans will be noted. Time taken: 35 minutes Patient Condition at Discharge: Stable Plan - Discharge Summary New Discharge Prescriptions: New amLODIPine [Norvasc] 10 mg PO DAILY #30 tab Aspirin 81 mg PO DAILY #30 chew Citalopram Hydrobromide [CeleXA] 20 mg PO DAILY tab hydrALAZINE HCL [Apresoline] 50 mg PO TID #90 tab Continue Metoprolol Succinate [Toprol XL] 25 mg PO DAILY Meclizine [Antivert] 25 mg PO DAILY Isosorbide Mononitrate ER [Imdur] 30 mg PO DAILY Finasteride [Proscar] 5 mg PO HS Enalapril [Vasotec] 10 mg PO DAILY Tamsulosin HCl [Flomax] 0.8 mg PO HS Clopidogrel [Plavix] 75 mg PO DAILY Atorvastatin [Lipitor] 10 mg PO HS Omeprazole 20 mg PO DAILY Discontinued Digoxin [Lanoxin] 125 mcg PO DAILY Aspirin EC [Ecotrin] 325 mg PO DAILY Discharge Medication List Atorvastatin [Lipitor] 10 mg PO HS 04/13/18 [History] Clopidogrel [Plavix] 75 mg PO DAILY 04/13/18 [History] Enalapril [Vasotec] 10 mg PO DAILY 04/13/18 [History] Finasteride [Proscar] 5 mg PO HS 04/13/18 [History] Isosorbide Mononitrate ER [Imdur] 30 mg PO DAILY 04/13/18 [History] Meclizine [Antivert] 25 mg PO DAILY 04/13/18 [History] Metoprolol Succinate [Toprol XL] 25 mg PO DAILY 04/13/18 [History] Omeprazole 20 mg PO DAILY 04/13/18 [History] Tamsulosin HCl [Flomax] 0.8 mg PO HS 04/13/18 [History] Aspirin 81 mg PO DAILY #30 chew 07/01/18 [Rx] Citalopram Hydrobromide [CeleXA] 20 mg PO DAILY tab 07/01/18 [Rx] amLODIPine [Norvasc] 10 mg PO DAILY #30 tab 07/01/18 [Rx] hydrALAZINE HCL [Apresoline] 50 mg PO TID #90 tab 07/01/18 [Rx] Follow up Appointment(s)/Referral(s): Breanna Del Valle DO [Primary Care Provider] - 1 Week (After discharge from subacute renal) Jonathan David MD [STAFF PHYSICIAN] - 2 Weeks Zay Godoy DO [STAFF PHYSICIAN] - 3 Days (While at subacute rehab) Karina Pinzon, [NON-STAFF] - As Needed Activity/Diet/Wound Care/Special Instructions: Pending neurology's clearance Diet: Cardiac Activity: As tolerated CBC, BMP in 3 days Discharge Disposition: TRANSFER TO SNF/ECF
--- NOTE | 2018-07-01 13:32 | P.PN ---
Subjective Progress Note Date: 07/01/18 This is an 88-year-old gentleman with known history of persistent atrial fibrillation, hypertension, hyperlipidemia, coronary artery disease with prior bypass surgery, prior cerebellar stroke, presented to the hospital mainly with symptoms of dizziness. He states that the dizziness has been going on for quite some time. Denies any associated headache, no nausea or vomiting or focal neurological deficits. He was noted on admission here to have a significantly elevated blood pressures for which cardiology consultation was initially requested. Patient was seen in consultation by Dr. Wells yesterday. Blood pressure this morning 148/78 sitting, 119/62 standing. Heart rate in the 60s. Echocardiogram with Doppler study revealed an ejection fraction of 55-60% . Patient states this morning he still has dizziness, he doesn't think it'll ever go away, according to him it's been there for years. Objective - Vital Signs Vital signs: Vital Signs Temp 97 F L 07/01/18 04:00 Pulse 76 07/01/18 08:00 Resp 16 07/01/18 11:29 BP 148/78 07/01/18 08:00 Pulse Ox 97 07/01/18 08:00 Intake & Output 06/30/18 07/01/18 07/01/18 18:59 06:59 18:59 Intake Total 902 Output Total 500 400 Balance 402 -400 Weight 74.6 kg Intake: Oral 902 Output: Urine 500 400 Other: Voiding Method Bedside Commode Bedside Commode Bedside Commode - Exam PHYSICAL EXAMINATION: GENERAL: 88-year-old gentleman in no acute distress at the time of my examination HEENT: Head is atraumatic, normocephalic. Pupils equal, round. Sclera anicteric. Conjunctiva are clear. Mucous membranes of the mouth are moist. Neck is supple. There is no elevated jugular venous pressure. No carotid bruit is heard. HEART EXAMINATION: [eart S1, S2 systolic ejection murmur heard .] CHEST EXAMINATION:[Lungs are clear to auscultation and precussion. No chest wall tenderness is noted on palpation or with deep breathing.] ABDOMEN: [Soft, nontender. Bowel sounds are heard. No organomegaly noted] EXTREMITIES:[2+ peripheral pulses with no evidence of peripheral edema and no calf tenderness noted] NEUROLOGIC patient is awake, alert and oriented ?-3.] . - Labs CBC & Chem 7: 07/01/18 05:41 07/01/18 05:41 Labs: Abnormal Lab Results - Last 24 Hours (Table) 07/01/18 07/01/18 Range/Units 05:41 05:41 Hgb 12.7 L (13.0-17.5) gm/dL Hct 38.9 L (39.0-53.0) % Glucose 171 H (74-99) mg/dL HDL Cholesterol 30 L (40-60) mg/dL Microbiology - Last 24 Hours (Table) 06/28/18 22:36 Urine Culture - Final Urine,Voided Assessment and Plan Plan: Assessment and plan #1 uncontrolled hypertension #2 chronic persistent atrial fibrillation, rate under adequate control #3 known history of coronary artery disease with prior bypass surgery #4 dizziness Plan From cardiology's perspective, we will continue the patient on his current medications.continue Antivert. DNP note has been reviewed, I agree with a documented findings and plan of care. Patient was seen and examined.
[2018-07-01] MEDS: FINASTERIDE 5 MG TAB PO SCH (21:36)
[2018-07-01] MEDS: ATORVASTATIN 10 MG TAB PO SCH (21:37)
[2018-07-01] MEDS: TAMSULOSIN 0.4 MG CAP.ER.24H PO SCH (21:37)
[2018-07-02] MEDS: PANTOPRAZOLE 40 MG TABLET PO SCH (08:46)
[2018-07-02] MEDS: amLODIPine 10 MG TAB PO SCH (08:46)
[2018-07-02] MEDS: ASPIRIN 81 MG PO SCH (08:46)
[2018-07-02] MEDS: CITALOPRAM HYDROBROMIDE 20 MG TAB PO SCH (08:46)
[2018-07-02] MEDS: HEPARIN SODIUM,PORCINE 5,000 UNIT/ML 1 ML VIAL SQ SCH ×2 (08:47→20:36)
[2018-07-02] MEDS: METOPROLOL SUCCINATE (ER) 25 MG TAB.ER.24H PO SCH (08:47)
[2018-07-02] MEDS: ISOSORBIDE MONONITRATE ER 30 MG TAB.ER.24H PO SCH (08:47)
[2018-07-02] MEDS: CLOPIDOGREL 75 MG TAB PO SCH (08:47)
[2018-07-02] MEDS: hydrALAZINE HCL 50 MG TAB PO SCH (08:47)
[2018-07-02] MEDS: MECLIZINE 25 MG TAB PO SCH ×2 (08:48→20:37)
[2018-07-02] MEDS: LISINOPRIL 10 MG TAB PO SCH (08:48)
[2018-07-02 09:11] LABS: Basophils % (A) 0 %; Eosinophils # (A) 0.1 k/uL (0-0.7); Eosinophils % (A) 3 %; HGB 13.8 gm/dL (13.0-17.5); Lymphocytes # (A) 2.1 k/uL (1.0-4.8); Lymphocytes % (A) 37 %; MCH 25.9 pg (25.0-35.0); MCHC 31.3 g/dL (31.0-37.0); MCV 82.8 fL (80.0-100.0); Mean Platelet Volume 6.9; Monocytes # (A) 0.3 k/uL (0-1.0); Monocytes % (A) 5 %; Neutrophils % (A) 55 %; Platelet Count 189 k/uL (150-450); RBC 5.32 m/uL (4.30-5.90); WBC 5.6 k/uL (3.8-10.6)
[2018-07-02 10:20] LABS: Calcium 8.9 mg/dL (8.4-10.2); Potassium 4.2 mmol/L (3.5-5.1)
--- NOTE | 2018-07-02 16:55 | PN ---
PROGRESS NOTE DATE OF SERVICE: 07/02/2018 This 88-year-old gentleman had dizziness and possible TIA and also had history of left cerebellar stroke. The patient remains confused and weak. Brain MRI showed no acute intracranial process; prior infarct in the inferolateral left cerebellum. The patient also had severe orthostatic hypotension. PT/OT evaluated the patient for possible ECF rehab. A carotid Doppler was also done which showed no vascular flow limitations. Past medical history reviewed. REVIEW OF SYSTEMS: CARDIOVASCULAR SYSTEM: No angina, palpitations. RESPIRATORY SYSTEM: As mentioned earlier. GI: As mentioned earlier. : No dysuria or retention. NERVOUS SYSTEM: Diffusely weak. CURRENT MEDICATIONS: Reviewed. They include: 1. [place] 5 mg q.6 p.r.n. 2. Xanax 0.25 t.i.d. 3. Norvasc 10 mg. 4. Aspirin 81 mg. 5. Lipitor 10 mg p.o. at bedtime. 6. Celexa 20 mg p.o. daily. 7. Plavix 75 mg p.o. daily. 8. Proscar 5 mg at bedtime. 9. Heparin 5000 units subcutaneously b.i.d. 10.Apresoline 20 mg p.r.n. 11.Imdur 30 mg p.o. daily. 12.Zestril 10 mg p.o. daily. 13.Antivert 25 mg p.o. b.i.d. 14.Melatonin 3 mg at bedtime. 15.Toprol-XL 25 mg p.o. daily. 16.Narcan 0.2 q.2 p.r.n. 17.Protonix 40 mg p.o. daily. 18.Flomax 0.8 p.o. at bedtime. PHYSICAL EXAMINATION: Alert and oriented x3. Pulse 70, blood pressure 93/56, dropping to 75/48, respiration 18, temperature 98 degrees, pulse ox 94% on room air. HEENT: Conjunctivae normal. Oral mucosa moist. NECK: No jugular venous distention. No carotid bruit. No lymph node enlargement. CARDIOVASCULAR SYSTEM: S1, S2 muffled. RESPIRATORY SYSTEM: Breath sounds diminished at the bases. No rhonchi. No crackles. ABDOMEN: Soft, non-tender. LEGS: No edema. No swelling. NERVOUS SYSTEM: Diffusely weak. LABS: Reviewed. CBC within normal limits. Glucose 131. ASSESSMENT: 1. Dizziness; possible acute transient ischemic attack on presentation. 2. Orthostatic hypotension, severe. 3. Accelerated hypertension and hypertensive urgency. 4. History of left-sided cerebellar stroke, old. 5. Chronic atrial fibrillation with controlled ventricular rate. 6. Coronary artery disease, coronary artery bypass grafting, myocardial infarction. 7. Hypertension. RECOMMENDATIONS AND DISCUSSION: In this 88-year-old gentleman who presented with multiple complex medical issues, we will monitor the patient closely, continue the current medications, continue with symptomatic treatment. Will change the blood pressure medications. Stop the hydralazine. Otherwise, bilateral thigh-high Teds and orthostatic vitals. Guarded prognosis because of multiple complex medical issues. Further recommendations to follow. Possible ECF rehab eventually, once the blood pressure stabilizes. Will continue Lipitor and aspirin at this time. Closely follow with Neurology also. IRMA / BELEN: [id number] /
[2018-07-02] MEDS: TAMSULOSIN 0.4 MG CAP.ER.24H PO SCH (20:36)
[2018-07-02] MEDS: FINASTERIDE 5 MG TAB PO SCH (20:36)
[2018-07-02] MEDS: ATORVASTATIN 10 MG TAB PO SCH (20:36)
[2018-07-03 07:31] VITALS: BP 154/88; PULSE 68; RESP 22; TEMP 97.8
[2018-07-03 08:47] LABS: Basophils % (A) 0 %; Eosinophils # (A) 0.2 k/uL (0-0.7); Eosinophils % (A) 4 %; HGB 12.5 gm/dL (13.0-17.5); Lymphocytes # (A) 1.1 k/uL (1.0-4.8); Lymphocytes % (A) 28 %; MCH 26.9 pg (25.0-35.0); MCHC 32.1 g/dL (31.0-37.0); MCV 83.7 fL (80.0-100.0); Mean Platelet Volume 7.7; Monocytes # (A) 0.2 k/uL (0-1.0); Monocytes % (A) 5 %; Neutrophils # (A) 2.4 k/uL (1.3-7.7); Neutrophils % (A) 62 %; Platelet Count 155 k/uL (150-450); RBC 4.66 m/uL (4.30-5.90); WBC 3.8 k/uL (3.8-10.6)
[2018-07-03] MEDS: HEPARIN SODIUM,PORCINE 5,000 UNIT/ML 1 ML VIAL SQ SCH (08:59)
[2018-07-03] MEDS: ASPIRIN 81 MG PO SCH (08:59)
[2018-07-03] MEDS: CLOPIDOGREL 75 MG TAB PO SCH (09:00)
[2018-07-03] MEDS: MECLIZINE 25 MG TAB PO SCH (09:00)
[2018-07-03] MEDS: amLODIPine 10 MG TAB PO SCH (09:00)
[2018-07-03] MEDS: CITALOPRAM HYDROBROMIDE 20 MG TAB PO SCH (09:00)
[2018-07-03] MEDS: LISINOPRIL 10 MG TAB PO SCH (09:00)
[2018-07-03] MEDS: PANTOPRAZOLE 40 MG TABLET PO SCH (09:00)
[2018-07-03] MEDS: METOPROLOL SUCCINATE (ER) 25 MG TAB.ER.24H PO SCH (09:00)
[2018-07-03 09:06] LABS: Calcium 8.5 mg/dL (8.4-10.2); Potassium 3.9 mmol/L (3.5-5.1)
--- NOTE | 2018-07-04 07:54 | DS ---
DISCHARGE SUMMARY FINAL DIAGNOSES: 1. Dizziness, possible acute transient ischemic attack on presentation. 2. Orthostatic hypotension, severe. 3. Accelerated hypertension and hypertensive urgency present on admission. 4. History of left-sided cerebellar stroke, old. 5. History of chronic atrial fibrillation with controlled ventricular rate. 6. Coronary artery disease, coronary artery bypass grafting, myocardial infarction. 7. Hypertension. DISCHARGE DISPOSITION: The patient will be discharged in a stable condition with guarded prognosis. HISTORY OF PRESENT ILLNESS: This is an 88-year-old gentleman with a past medical history of multiple medical problems admitted with multiple symptoms, treated symptomatically. Patient presented with neuropathy. Seen by the Cardiology, Neurology and also had MRI that did not show any acute abnormality. On exam, vitals are stable. CARDIOVASCULAR SYSTEM: S1, S2. ABDOMEN: Soft. NERVOUS SYSTEM: Diffusely weak. The rehab not sanctioned by the insurance carrier apparently. Please refer to the casey saw operator notes for further details. DISCHARGE INSTRUCTIONS: Diet is cardiac. Activity limited until followup. Follow up with Dr. Del Valle as recommended, follow up with Neurology as recommended. MEDICATIONS ARE FOLLOWS: 1. Lipitor 10 mg q.h.s.. 2. Plavix 75 mg p.o. daily. 3. Proscar 5 mg q.h.s. 4. Toprol-XL 25 mg p.o. daily. 5. Omeprazole 20 mg p.o. daily. 6. Flomax 0.8 q.h.s. 7. Norvasc 10 mg p.o. daily. 8. Aspirin 81 mg p.o. daily. 9. Celexa 20 mg p.o. daily. 10.Vasotec 10 mg p.o. b.i.d. 11.Antivert 25 mg b.i.d. p.r.n. Total time taken 35 minutes. Follow the blood pressure closely at home. MMODL / IJN: [id number] /
== END 2018-07-03 14:45 | disposition home health service (06) | DRG 69 ==
LOC: EC 20:19 → 6SEL 06-29 02:03 → 5MS5E 07-01 19:17
PROVIDERS: ADMIT Hospitalist; ATTEND Hospitalist
DX: G45.9 Transient cerebral ischemic attack, unspecified (principal); G62.9 Polyneuropathy, unspecified; I48.2 Chronic atrial fibrillation; I25.10 Atherosclerotic heart disease of native coronary artery without angina pectoris; I10 Essential (primary) hypertension; F81.9 Developmental disorder of scholastic skills, unspecified; E78.5 Hyperlipidemia, unspecified; I16.0 Hypertensive urgency; I95.1 Orthostatic hypotension; I25.2 Old myocardial infarction; Z79.82 Long term (current) use of aspirin; Z79.02 Long term (current) use of antithrombotics/antiplatelets; Z79.899 Other long term (current) drug therapy; Z95.1 Presence of aortocoronary bypass graft; Z86.73 Personal history of transient ischemic attack (TIA), and cerebral infarction without residual deficits
CPT/HCPCS: 36415; 70450; 70551; 71046; 80048; 80053; 80061; 80162; 80306; 81001; 83605; 83735; 84484; 85025; 85610; 87086; 93005; 93306; 93880; 95819; 96365; 96366; 96375; 96376; 99285

== ENCOUNTER 2018-07-30 15:53 | Observation (INO) | payer MEDICARE ==
[2018-07-30] MEDS ORDERED: SODIUM CHLORIDE 0.9% 500 ML 500 ML IV STA (16:04)
--- NOTE | 2018-07-30 16:06 | ED ---
General Adult HPI - General Chief complaint: Dizziness Stated complaint: dizziness Time Seen by Provider: 07/30/18 15:55 Source: patient, EMS, RN notes reviewed Mode of arrival: EMS Limitations: no limitations - History of Present Illness Initial comments: This is an 88-year-old male who is brought into the emergency department because he complained of dizziness. Patient states she's always a little bit dizzy but today he thought he was given a passout and . Patient states the symptoms lasted for approximately 20 minutes. Patient denies any numbness or weakness at that time patient denies any headache. Patient denies any chest pain or palpitations. Patient denies any shortness of breath or difficulty breathing. Patient states he has not had any recent fever chills per patient denies any recent nausea vomiting diarrhea. She states currently he still feels a little bit dizzy but does not feel like he is on a passout he has no other symptoms at this time. - Related Data Home Medications Medication Instructions Recorded Confirmed Atorvastatin [Lipitor] 10 mg PO HS 04/13/18 06/29/18 Clopidogrel [Plavix] 75 mg PO DAILY 04/13/18 06/29/18 Finasteride [Proscar] 5 mg PO HS 04/13/18 06/29/18 Metoprolol Succinate [Toprol XL] 25 mg PO DAILY 04/13/18 06/29/18 Omeprazole 20 mg PO DAILY 04/13/18 06/29/18 Tamsulosin HCl [Flomax] 0.8 mg PO HS 04/13/18 06/29/18 Previous Rx's Medication Instructions Recorded Aspirin 81 mg PO DAILY #30 chew 07/01/18 Citalopram Hydrobromide [CeleXA] 20 mg PO DAILY tab 07/01/18 amLODIPine [Norvasc] 10 mg PO DAILY #30 tab 07/01/18 Enalapril [Vasotec] 10 mg PO BID #1 07/03/18 Meclizine [Antivert] 25 mg PO BID PRN #0 07/03/18 Allergies Allergy/AdvReac Type Severity Reaction Status Date / Time No Known Allergies Allergy Verified 07/30/18 16:03 Review of Systems ROS Statement: Those systems with pertinent positive or pertinent negative responses have been documented in the HPI. ROS Other: All systems not noted in ROS Statement are negative. Past Medical History Past Medical History: Atrial Fibrillation, Coronary Artery Disease (CAD), Hypertension, Myocardial Infarction (PR) Additional Past Medical History / Comment(s): dizziness, Last Myocardial Infarction Date:: unknown History of Any Multi-Drug Resistant Organisms: None Reported Past Surgical History: Appendectomy, Coronary Bypass/CABG Additional Past Surgical History / Comment(s): pt is poor historian. Past Psychological History: No Psychological Hx Reported Smoking Status: Never smoker Past Alcohol Use History: None Reported Past Drug Use History: None Reported General Exam - General Exam Comments Initial Comments: GENERAL: Patient is well-developed and well-nourished. Patient is nontoxic and well- hydrated and is in no acute distress. ENT: Neck is soft and supple. No significant lymphadenopathy is noted. Oropharynx is clear. Moist mucous membranes. Neck has full range of motion without eliciting any pain. EYES: The sclera were anicteric and conjunctiva were pink and moist. Extraocular movements were intact and pupils were equal round and reactive to light. Eyelids were unremarkable. PULMONARY: Unlabored respirations. Good breath sounds bilaterally. No audible rales rhonchi or wheezing was noted. CARDIOVASCULAR: There is a regular rate and rhythm without any murmurs gallops or rubs. ABDOMEN: Soft and nontender with normal bowel sounds. No palpable organomegaly was noted. There is no palpable pulsatile mass. SKIN: Skin is clear with no lesions or rashes and otherwise unremarkable. NEUROLOGIC: Patient is alert and oriented x3. Cranial nerves II through XII are grossly intact. Motor and sensory are also intact. Normal speech, volume and content. Symmetrical smile. MUSCULOSKELETAL: Normal extremities with adequate strength and full range of motion. LYMPHATICS: No significant lymphadenopathy is noted PSYCHIATRIC: Normal psychiatric evaluation. Limitations: no limitations Course Vital Signs 07/30/18 07/30/18 15:57 16:15 Temperature 97.8 F Pulse Rate 61 Pulse Rate [ 67 Sitting Vp Integration] Pulse Rate [ 75 Standing Vp Integration ] Pulse Rate [ 54 L Supine Vp Integration] Respiratory 18 Rate Blood Pressure 150/83 Blood Pressure 141/76 [Right Arm Sitting] Blood Pressure 150/89 [Right Arm Standing] Blood Pressure 138/78 [Right Arm Supine] O2 Sat by Pulse 95 Oximetry Medical Decision Making - Medical Decision Making EKG shows atrial fibrillation at 64 bpm QRS is 152 QT interval 414 QTC is 427 per patient's right bundle bunch block which was seen on previous EKG. Patient was recently admitted Dr. Hernandez. I spoke with Dr. Bateman he agreed to admit the patient I admitted the patient I wrote admitting orders. - Lab Data Result diagrams: 07/30/18 16:07 07/30/18 16:07 Lab Results 07/30/18 07/30/18 07/30/18 Range/Units 16:07 16:07 16:07 WBC 4.8 (3.8-10.6) k/uL RBC 4.83 (4.30-5.90) m/uL Hgb 12.6 L (13.0-17.5) gm/dL Hct 40.0 (39.0-53.0) % MCV 83.0 (80.0-100.0) fL MCH 26.0 (25.0-35.0) pg MCHC 31.4 (31.0-37.0) g/dL RDW 13.9 (11.5-15.5) % Plt Count 163 (150-450) k/uL Neutrophils % 59 % Lymphocytes % 31 % Monocytes % 5 % Eosinophils % 4 % Basophils % 0 % Neutrophils # 2.9 (1.3-7.7) k/uL Lymphocytes # 1.5 (1.0-4.8) k/uL Monocytes # 0.2 (0-1.0) k/uL Eosinophils # 0.2 (0-0.7) k/uL Basophils # 0.0 (0-0.2) k/uL PT (9.0-12.0) sec INR (<1.2) APTT (22.0-30.0) sec Sodium 136 L (137-145) mmol/L Potassium 4.5 (3.5-5.1) mmol/L Chloride 103 (98-107) mmol/L Carbon Dioxide 23 (22-30) mmol/L Anion Gap 10 mmol/L BUN 25 H (9-20) mg/dL Creatinine 1.18 (0.66-1.25) mg/dL Est GFR (CKD-EPI)AfAm 63 (>60 ml/min/1.73 sqM) Est GFR (CKD-EPI)NonAf 55 (>60 ml/min/1.73 sqM) Glucose 240 H (74-99) mg/dL Calcium 9.3 (8.4-10.2) mg/dL Magnesium 1.8 (1.6-2.3) mg/dL Total Bilirubin 0.4 (0.2-1.3) mg/dL AST 16 L (17-59) U/L ALT 27 (21-72) U/L Alkaline Phosphatase 69 (38-126) U/L Total Creatine Kinase 100 (55-170) U/L CK-MB (CK-2) 2.7 H (0.0-2.4) ng/mL CK-MB (CK-2) Rel Index 2.7 Troponin I <0.012 (0.000-0.034) ng/mL Total Protein 6.8 (6.3-8.2) g/dL Albumin 3.9 (3.5-5.0) g/dL 07/30/18 Range/Units 16:07 WBC (3.8-10.6) k/uL RBC (4.30-5.90) m/uL Hgb (13.0-17.5) gm/dL Hct (39.0-53.0) % MCV (80.0-100.0) fL MCH (25.0-35.0) pg MCHC (31.0-37.0) g/dL RDW (11.5-15.5) % Plt Count (150-450) k/uL Neutrophils % % Lymphocytes % % Monocytes % % Eosinophils % % Basophils % % Neutrophils # (1.3-7.7) k/uL Lymphocytes # (1.0-4.8) k/uL Monocytes # (0-1.0) k/uL Eosinophils # (0-0.7) k/uL Basophils # (0-0.2) k/uL PT 11.5 (9.0-12.0) sec INR 1.2 H (<1.2) APTT 25.3 (22.0-30.0) sec Sodium (137-145) mmol/L Potassium (3.5-5.1) mmol/L Chloride (98-107) mmol/L Carbon Dioxide (22-30) mmol/L Anion Gap mmol/L BUN (9-20) mg/dL Creatinine (0.66-1.25) mg/dL Est GFR (CKD-EPI)AfAm (>60 ml/min/1.73 sqM) Est GFR (CKD-EPI)NonAf (>60 ml/min/1.73 sqM) Glucose (74-99) mg/dL Calcium (8.4-10.2) mg/dL Magnesium (1.6-2.3) mg/dL Total Bilirubin (0.2-1.3) mg/dL AST (17-59) U/L ALT (21-72) U/L Alkaline Phosphatase (38-126) U/L Total Creatine Kinase (55-170) U/L CK-MB (CK-2) (0.0-2.4) ng/mL CK-MB (CK-2) Rel Index Troponin I (0.000-0.034) ng/mL Total Protein (6.3-8.2) g/dL Albumin (3.5-5.0) g/dL Disposition Clinical Impression: Near syncope Disposition: ADMITTED IP TO THIS HOSP Referrals: Breanna Del Valle DO [Primary Care Provider] - 1-2 days Time of Disposition: 17:51
[2018-07-30 16:23] LABS: Basophils % (A) 0 %; Eosinophils # (A) 0.2 k/uL (0-0.7); Eosinophils % (A) 4 %; HGB 12.6 gm/dL (13.0-17.5); Lymphocytes # (A) 1.5 k/uL (1.0-4.8); Lymphocytes % (A) 31 %; MCHC 31.4 g/dL (31.0-37.0); Mean Platelet Volume 7.2; Monocytes # (A) 0.2 k/uL (0-1.0); Monocytes % (A) 5 %; Neutrophils # (A) 2.9 k/uL (1.3-7.7); Neutrophils % (A) 59 %; Platelet Count 163 k/uL (150-450); RBC 4.83 m/uL (4.30-5.90); RDW 13.9 % (11.5-15.5); WBC 4.8 k/uL (3.8-10.6)
[2018-07-30 16:31] LABS: INR 1.2 (<1.2); Partial Thromboplastin Time 25.3 sec (22.0-30.0); Prothrombin Time 11.5 sec (9.0-12.0)
[2018-07-30 16:47] LABS: Creatine Kinase 100 U/L (55-170)
--- NOTE | 2018-07-30 16:50 | XR ---
EXAMINATION TYPE: XR chest 2V DATE OF EXAM: 07/30/2018 COMPARISON: 06/28/2018 HISTORY: Dizziness TECHNIQUE: Frontal and lateral views of the chest are obtained. FINDINGS: There is some linear density at the left lung base. The other lung holly are clear. There is no heart failure. Thoracic aorta is atheromatous. There are sternal wires. There is spurring in t he thoracic spine. IMPRESSION: There is some mild chronic atelectasis and scarring at the left lung base. No significan t change compared to old exam. No heart failure.
[2018-07-30 16:59] LABS: Creatine Kinase MB 2.7 ng/mL (0.0-2.4); Troponin I <0.012 ng/mL (0.000-0.034)
[2018-07-30 17:00] LABS: Albumin 3.9 g/dL (3.5-5.0); Calcium 9.3 mg/dL (8.4-10.2); Magnesium 1.8 mg/dL (1.6-2.3); Potassium 4.5 mmol/L (3.5-5.1); Total Bilirubin 0.4 mg/dL (0.2-1.3); Total Protein 6.8 g/dL (6.3-8.2)
[2018-07-30] MEDS ORDERED: NITROGLYCERIN SL TABS 0.4 MG TAB SUBLINGUAL PRN (17:51)
[2018-07-30] MEDS ORDERED: MECLIZINE 25 MG TAB PO PRN (19:38)
[2018-07-30] MEDS ORDERED: ATORVASTATIN 10 MG TAB PO SCH (21:00)
[2018-07-30] MEDS ORDERED: TAMSULOSIN 0.4 MG CAP.ER.24H PO SCH (21:00)
[2018-07-30] MEDS ORDERED: FINASTERIDE 5 MG TAB PO SCH (21:00)
[2018-07-30 22:06] LABS: Creatine Kinase 95 U/L (55-170)
[2018-07-30 22:19] LABS: Creatine Kinase MB 2.7 ng/mL (0.0-2.4); Troponin I <0.012 ng/mL (0.000-0.034)
[2018-07-31 03:44] LABS: Cholesterol 131 mg/dL (<200); HDL Cholesterol 35 mg/dL (40-60); LDL Cholesterol,Calculated 75 mg/dL (0-99); Triglycerides 103 mg/dL (<150)
[2018-07-31 03:49] LABS: Creatine Kinase 90 U/L (55-170)
[2018-07-31 04:02] LABS: Creatine Kinase MB 2.4 ng/mL (0.0-2.4); Troponin I <0.012 ng/mL (0.000-0.034)
[2018-07-31] MEDS ORDERED: PANTOPRAZOLE 40 MG TABLET PO SCH (07:30)
[2018-07-31 07:45] VITALS: PULSE 70; RESP 18
[2018-07-31] MEDS ORDERED: amLODIPine 10 MG TAB PO SCH (09:00)
[2018-07-31] MEDS ORDERED: CLOPIDOGREL 75 MG TAB PO SCH (09:00)
[2018-07-31] MEDS ORDERED: ASPIRIN 325 MG TAB PO SCH (09:00)
[2018-07-31] MEDS ORDERED: METOPROLOL SUCCINATE (ER) 25 MG TAB.ER.24H PO SCH (09:00)
[2018-07-31] MEDS ORDERED: LISINOPRIL 20 MG TAB PO SCH (09:00)
[2018-07-31] MEDS ORDERED: ISOSORBIDE MONONITRATE ER 30 MG TAB.ER.24H PO SCH (09:00)
[2018-07-31] MEDS ORDERED: DIGOXIN 125 MCG TAB PO SCH (09:00)
[2018-07-31 09:01] LABS: Appearance,Urine Clear (Clear); Bilirubin,Urine Negative (Negative); Blood,Urine Negative (Negative); Color,Urine Colorless; Glucose,Urine (UA) Trace (Negative); Ketones,Urine Negative (Negative); Leukocyte Esterase,Urine Negative (Negative); Nitrite,Urine Negative (Negative); Protein,Urine Negative (Negative); Specific Gravity,Urine 1.007 (1.001-1.035); Urobilinogen,Urine <2.0 mg/dL (<2.0)
--- NOTE | 2018-07-31 09:56 | P.CRDCN ---
History of Present Illness History of present illness: Mr. Mayfield is a pleasant 88-year-old male past medical history significant for chronic persistent atrial fibrillation not on alf anticoagulation per his niece due to frequent falls, coronary artery disease s/ p bypass grafting, hypertension, dyslipidemia and prior cerebellar stroke. He follows with Dr. Shell for cardiology. We have been asked to see him in consultation for dizziness. He states yesterday after eating dinner while sitting down to watch TV he started feeling dizzy and light headed. There was no chest pain, shortness of breath, palpitations, diaphoresis, nausea or vomiting. He immediately decided to call EMS. His symptoms lasted for 10-15 minutes and subsided on their own with no specific alleviating factors. No further symptoms since arrival. He was admitted here 06/29/2018 with a similar episode. At that time he underwent 2-D echocardiogram revealed preserved left ventricular systolic function with ejection fraction 55-60%, severely dilated left atrium, mild aortic valve sclerosis, mild MR and mild TR. He also had bilateral carotid duplex study which revealed no vascular flow seen within the left vertebral artery, mild atheromatous changes of the carotid arteries most significant at the carotid bulbs with no evidence of hemodynamic significant stenosis. MRI of the brain was negative for an acute process. At that time his digoxin was discontinued. However, it seems that he has been taking this since discharge at home. Which may be contributing to his symptoms. He also describes frequent urination over the past few days. Denies burning, hematuria or urgency. EKG reveals right bundle branch block pattern atrial fibrillation with a controlled ventricular response heart rate 64. Chest x-ray reveals mild chronic atelectasis and scarring at the left lung base with no changes since previous exam and no overt heart failure noted. Laboratory data reviewed, hemoglobin 12.6, platelets 163, sodium 136, potassium 4.5, creatinine 1.18, magnesium 1.8, cardiac enzymes negative 3, LDL 75 and HDL 35. Current cardiac medications include digoxin 125 g daily, Toprol 25 mg daily, atorvastatin 10 mg daily, enalapril 10 mg twice a day, Plavix 75 mg daily, Imdur 30 mg daily and amlodipine 10 mg daily. At the time of my exam: CONSTITUTIONAL: Denies fever. Denies chills. EYES: Denies blurred vision. Denies vision changes. Denies eye pain. EARS, NOSE, MOUTH & THROAT: Denies headache. Denies sore throat. Denies ear pain. CARDIOVASCULAR: Denies chest pain. Denies shortness of breath. Denies orthopnea. Denies PND. Denies palpitations. RESPIRATORY: Denies cough. GASTROINTESTINAL: Denies abdominal pain. Denies diarrhea. Denies constipation. Denies nausea. Denies vomiting. MUSCULOSKELETAL: Denies myalgias. INTEGUMENTARY: Denies pruitis. Denies rash. NEUROLOGIC: Denies numbness. Denies tingling. Denies weakness. PSYCHIATRIC: Denies anxiety. Denies depression. ENDOCRINE: Denies fatigue. Denies weight change. Denies polydipsia. Denies polyurina. GENITOURINARY: Denies burning, hematuria or urgency with micturation. HEMATOLOGIC: Denies history of anemia. Denies bleeding. Blood pressure 173/92 heart rate 70 afebrile maintaining oxygen saturation on room air GENERAL: This is a 88-year-old male in no apparent distress at the time of my examination. HEENT: Head is atraumatic, normocephalic. Pupils are equal, round. Sclerae anicteric. Conjunctivae are clear. Mucous membranes of the mouth are moist. Neck is supple. There is no jugular venous distention. No carotid bruit is heard. LUNGS: Clear to auscultation no wheezes, rales or rhonchi. No chest wall tenderness is noted on palpation or with deep breathing. HEART: Regular rate and rhythm with systolic ejection murmur at the base, no rubs or gallops. S1 and S2 heard. ABDOMEN: Soft, nontender. Bowel sounds are heard. No organomegaly noted. EXTREMITIES: No evidence of peripheral edema and no calf tenderness noted. VASCULAR: Radial and dorsalis pedis pulses palpated, no evidence of clubbing. NEUROLOGIC: Patient is awake, alert and oriented x3. ASSESSMENT Transient dizziness at rest, no syncope and no LOC. Hypertension Chronic persistent atrial fibrillation not on [employer] anticoagulation due to frequent falls per his niece who is the power of sports attorney History of coronary artery disease s/p bypass grafting PLAN Give morning medications for elevated blood pressure. Check d-dimer and urinalysis. Repeat orthostatic vital signs. No evidence of acute arrhythmia noted. Apply 30 days event monitor for ongoing assessment of possible arrhythmia. Report to his primary reimbursement representative Dr. Shell. Thank you kindly for this consultation. Nurse Practitioner note has been reviewed, I agree with a documented findings and plan of care. Patient was seen and examined. Past Medical History Past Medical History: Atrial Fibrillation, Coronary Artery Disease (CAD), Diabetes Mellitus, Hypertension, Myocardial Infarction ([place]) Additional Past Medical History / Comment(s): dizziness, 2 heart attacks Last Myocardial Infarction Date:: unknown History of Any Multi-Drug Resistant Organisms: None Reported Past Surgical History: Appendectomy, Coronary Bypass/CABG Additional Past Surgical History / Comment(s): pt is poor historian. CABG x2, Past Psychological History: No Psychological Hx Reported Smoking Status: Never smoker Past Alcohol Use History: None Reported Past Drug Use History: None Reported Medications and Allergies Home Medications Medication Instructions Recorded Confirmed Type Atorvastatin [Lipitor] 10 mg PO HS 04/13/18 07/30/18 History Clopidogrel [Plavix] 75 mg PO DAILY 04/13/18 07/30/18 History Finasteride [Proscar] 5 mg PO HS 04/13/18 07/30/18 History Metoprolol Succinate [Toprol XL] 25 mg PO DAILY 04/13/18 07/30/18 History Omeprazole 20 mg PO DAILY 04/13/18 07/30/18 History Tamsulosin HCl [Flomax] 0.8 mg PO HS 04/13/18 07/30/18 History amLODIPine [Norvasc] 10 mg PO DAILY #30 tab 07/01/18 07/30/18 Rx Enalapril [Vasotec] 10 mg PO BID #1 07/03/18 07/30/18 Rx Meclizine [Antivert] 25 mg PO BID PRN #0 07/03/18 07/30/18 Rx Digoxin [Lanoxin] 125 mcg PO DAILY 07/30/18 07/30/18 History Isosorbide Mononitrate ER [Imdur] 30 mg PO DAILY 07/30/18 07/30/18 History Allergies Allergy/AdvReac Type Severity Reaction Status Date / Time No Known Allergies Allergy Verified 07/30/18 18:14 Physical Exam Vitals: Vital Signs Temp Pulse Pulse Pulse Pulse Pulse Resp 07/31/18 07:10 97.6 F 70 18 07/31/18 04:00 97.6 F 61 16 07/31/18 00:00 97.7 F 54 L 16 07/30/18 23:57 18 07/30/18 20:00 18 07/30/18 18:48 97.5 F L 65 18 07/30/18 18:31 98.3 F 64 16 07/30/18 17:00 07/30/18 16:15 67 75 54 L 07/30/18 16:02 07/30/18 15:57 97.8 F 61 18 BP BP BP BP BP Pulse Ox 07/31/18 07:10 173/92 99 07/31/18 04:00 171/87 95 07/31/18 00:00 181/85 97 07/30/18 23:57 07/30/18 20:00 07/30/18 18:48 178/94 07/30/18 18:31 142/78 98 07/30/18 17:00 150/89 94 L 07/30/18 16:15 141/76 150/89 138/78 07/30/18 16:02 98 07/30/18 15:57 150/83 98 Intake and Output 07/30/18 07/31/18 07/31/18 22:59 06:59 14:59 Other: # Voids 1 1 Weight 79 kg Results 07/30/18 16:07 07/30/18 16:07 Cardiac Enzymes 07/30/18 07/30/18 07/30/18 Range/Units 16:07 16:07 21:37 AST 16 L (17-59) U/L CK-MB (CK-2) 2.7 H 2.7 H (0.0-2.4) ng/mL Troponin I <0.012 <0.012 (0.000-0.034) ng/mL 07/31/18 Range/Units 03:05 AST (17-59) U/L CK-MB (CK-2) 2.4 (0.0-2.4) ng/mL Troponin I <0.012 (0.000-0.034) ng/mL Coagulation 07/30/18 Range/Units 16:07 PT 11.5 (9.0-12.0) sec APTT 25.3 (22.0-30.0) sec Lipids 07/31/18 Range/Units 03:05 Triglycerides 103 (<150) mg/dL Cholesterol 131 (<200) mg/dL HDL Cholesterol 35 L (40-60) mg/dL CBC 07/30/18 Range/Units 16:07 WBC 4.8 (3.8-10.6) k/uL RBC 4.83 (4.30-5.90) m/uL Hgb 12.6 L (13.0-17.5) gm/dL Hct 40.0 (39.0-53.0) % Plt Count 163 (150-450) k/uL Comprehensive Metabolic Panel 07/30/18 Range/Units 16:07 Sodium 136 L (137-145) mmol/L Potassium 4.5 (3.5-5.1) mmol/L Chloride 103 (98-107) mmol/L Carbon Dioxide 23 (22-30) mmol/L BUN 25 H (9-20) mg/dL Creatinine 1.18 (0.66-1.25) mg/dL Glucose 240 H (74-99) mg/dL Calcium 9.3 (8.4-10.2) mg/dL AST 16 L (17-59) U/L ALT 27 (21-72) U/L Alkaline Phosphatase 69 (38-126) U/L Total Protein 6.8 (6.3-8.2) g/dL Albumin 3.9 (3.5-5.0) g/dL Current Medications Generic Name Dose Route Start Last Admin Trade Name Freq PRN Reason Stop Dose Admin Amlodipine Besylate 10 mg 07/31/18 09:00 Norvasc PO DAILY [facility] Aspirin 325 mg 07/31/18 09:00 Aspirin PO DAILY [facility] Atorvastatin Calcium 10 mg 07/30/18 21:00 07/30/18 20:21 Lipitor PO 10 mg HS [facility] Administration Clopidogrel Bisulfate 75 mg 07/31/18 09:00 Plavix PO DAILY [facility] Digoxin 125 mcg 07/31/18 09:00 Lanoxin PO DAILY [facility] Finasteride 5 mg 07/30/18 21:00 07/30/18 20:21 Proscar PO 5 mg HS [facility] Administration Isosorbide Mononitrate 30 mg 07/31/18 09:00 Imdur PO DAILY [facility] Lisinopril 40 mg 07/31/18 09:00 Zestril PO DAILY [facility] Meclizine HCl 25 mg 07/30/18 19:38 Antivert PO BID PRN Vertigo Metoprolol Succinate 25 mg 07/31/18 09:00 Toprol Xl PO DAILY [facility] Nitroglycerin 0.4 mg 07/30/18 17:51 Nitrostat SUBLINGUAL Q5M PRN Chest Pain Pantoprazole Sodium 40 mg 07/31/18 07:30 Protonix PO AC-BRKFST [facility] Tamsulosin HCl 0.8 mg 07/30/18 21:00 07/30/18 20:21 Flomax PO 0.8 mg HS [facility] Administration Intake and Output 07/30/18 07/31/18 07/31/18 22:59 06:59 14:59 Other: # Voids 1 1 Weight 79 kg 07/30/18 16:07 07/30/18 16:07
[2018-07-31] MEDS ORDERED: SODIUM CHLORIDE 0.9% 500 ML 500 ML IV ONE (10:41)
--- NOTE | 2018-07-31 11:28 | P.DS ---
Providers Date of admission: 07/30/18 17:52 Attending physician: Chandu Bateman Consults: 07/31/18 05:59 Consult Physician Routine Consulting Provider: Dheeraj Wells Consult Reason/Comments: Syncope Do you want consulting provider notified?: Yes Primary care physician: Breanna Del Valle [facility] Course: Refer to my HPI Plan - Discharge Summary Discharge Rx Participant: No New Discharge Prescriptions: Discontinued Digoxin [Lanoxin] 125 mcg PO DAILY No Action Metoprolol Succinate [Toprol XL] 25 mg PO DAILY Finasteride [Proscar] 5 mg PO HS Tamsulosin HCl [Flomax] 0.8 mg PO HS Clopidogrel [Plavix] 75 mg PO DAILY Atorvastatin [Lipitor] 10 mg PO HS Omeprazole 20 mg PO DAILY amLODIPine [Norvasc] 10 mg PO DAILY #30 tab Meclizine [Antivert] 25 mg PO BID PRN #0 PRN Reason: Vertigo Enalapril [Vasotec] 10 mg PO BID #1 Isosorbide Mononitrate ER [Imdur] 30 mg PO DAILY Discharge Medication List Atorvastatin [Lipitor] 10 mg PO HS 04/13/18 [History] Clopidogrel [Plavix] 75 mg PO DAILY 04/13/18 [History] Finasteride [Proscar] 5 mg PO HS 04/13/18 [History] Metoprolol Succinate [Toprol XL] 25 mg PO DAILY 04/13/18 [History] Omeprazole 20 mg PO DAILY 04/13/18 [History] Tamsulosin HCl [Flomax] 0.8 mg PO HS 04/13/18 [History] amLODIPine [Norvasc] 10 mg PO DAILY #30 tab 07/01/18 [Rx] Enalapril [Vasotec] 10 mg PO BID #1 07/03/18 [Rx] Meclizine [Antivert] 25 mg PO BID PRN #0 07/03/18 [Rx] Isosorbide Mononitrate ER [Imdur] 30 mg PO DAILY 07/30/18 [History] Follow up Appointment(s)/Referral(s): Breanna Del Valle DO [Primary Care Provider] - 3 Days
--- NOTE | 2018-07-31 11:28 | P.HPIM ---
History of Present Illness 88-year-old the male with history of atrial fibrillation on anticoagulation frequent falls came in with dizziness near syncopal episode dizziness as lightheadedness not room spinning around. Patient was evaluated in the past extensively. Patient had cerebellar stroke in the past as well. Patient is unstable because of her he is a lightheadedness. Patient blood pressure is within normal limits there is no orthostatic drop in blood pressure changes in his heart rate. Patient heart rate is 54 sinus bradycardia on metoprolol. Patient the creatinine is borderline 1.12 which is his baseline. Patient denied any diarrhea nausea vomiting. Patient had an MRI of brain which was negative as well carotid Doppler was within normal limits. Patient was evaluated by cardiology patient has a mildly elevated d-dimer are pending a CAT scan of the chest rule out PE and if he is negative patient will receive a Holter monitor to assess for any cardiac rhythm abnormalities contributing to his lightheadedness after that patient will be discharged today. Patient's digoxin is being discontinued upon discharge. He normally uses walker at home patient the is in the halfway facility. Review of Systems REVIEW OF SYSTEMS: CONSTITUTIONAL: No fever, no malaise, no fatigue. HEENT: No recent visual problems or hearing problems. Denied any sore throat. CARDIOVASCULAR: No chest pain, orthopnea, PND, no palpitations, no syncope. PULMONARY: No shortness of breath, no cough, no hemoptysis. GASTROINTESTINAL: No diarrhea, no nausea, no vomiting, no abdominal pain. Normoactive bowel sounds. NEUROLOGICAL: No headaches, no weakness, no numbness. HEMATOLOGICAL: Denies any bleeding or petechiae. GENITOURINARY: Denies any burning micturition, frequency, or urgency. MUSCULOSKELETAL/RHEUMATOLOGICAL: Denies any joint pain, swelling, or any muscle pain. ENDOCRINE: Denies any polyuria or polydipsia. The rest of the 14-point review of systems is negative. Past Medical History Past Medical History: Atrial Fibrillation, Coronary Artery Disease (CAD), Diabetes Mellitus, Hypertension, Myocardial Infarction ([place]) Additional Past Medical History / Comment(s): dizziness, 2 heart attacks Last Myocardial Infarction Date:: unknown History of Any Multi-Drug Resistant Organisms: None Reported Past Surgical History: Appendectomy, Coronary Bypass/CABG Additional Past Surgical History / Comment(s): pt is poor historian. CABG x2, Past Psychological History: No Psychological Hx Reported Smoking Status: Never smoker Past Alcohol Use History: None Reported Past Drug Use History: None Reported Medications and Allergies Home Medications Medication Instructions Recorded Confirmed Type Atorvastatin [Lipitor] 10 mg PO HS 04/13/18 07/30/18 History Clopidogrel [Plavix] 75 mg PO DAILY 04/13/18 07/30/18 History Finasteride [Proscar] 5 mg PO HS 04/13/18 07/30/18 History Metoprolol Succinate [Toprol XL] 25 mg PO DAILY 04/13/18 07/30/18 History Omeprazole 20 mg PO DAILY 04/13/18 07/30/18 History Tamsulosin HCl [Flomax] 0.8 mg PO HS 04/13/18 07/30/18 History amLODIPine [Norvasc] 10 mg PO DAILY #30 tab 07/01/18 07/30/18 Rx Enalapril [Vasotec] 10 mg PO BID #1 07/03/18 07/30/18 Rx Meclizine [Antivert] 25 mg PO BID PRN #0 07/03/18 07/30/18 Rx Digoxin [Lanoxin] 125 mcg PO DAILY 07/30/18 07/30/18 History Isosorbide Mononitrate ER [Imdur] 30 mg PO DAILY 07/30/18 07/30/18 History Allergies Allergy/AdvReac Type Severity Reaction Status Date / Time No Known Allergies Allergy Verified 07/30/18 18:14 Physical Exam Vitals: Vital Signs Temp Pulse Pulse Pulse Pulse Pulse Resp 07/31/18 08:00 70 18 07/31/18 07:48 07/31/18 07:10 97.6 F 70 18 07/31/18 04:00 97.6 F 61 16 07/31/18 00:00 97.7 F 54 L 16 07/30/18 23:57 18 07/30/18 20:00 18 07/30/18 18:48 97.5 F L 65 18 07/30/18 18:31 98.3 F 64 16 07/30/18 17:00 07/30/18 16:15 67 75 54 L 07/30/18 16:02 07/30/18 15:57 97.8 F 61 18 BP BP BP BP BP Pulse Ox 07/31/18 08:00 07/31/18 07:48 98 07/31/18 07:10 173/92 99 07/31/18 04:00 171/87 95 07/31/18 00:00 181/85 97 07/30/18 23:57 07/30/18 20:00 07/30/18 18:48 178/94 07/30/18 18:31 142/78 98 07/30/18 17:00 150/89 94 L 07/30/18 16:15 141/76 150/89 138/78 07/30/18 16:02 98 07/30/18 15:57 150/83 98 Intake and Output 07/30/18 07/31/18 07/31/18 22:59 06:59 14:59 Other: Voiding Method Urinal # Voids 1 1 4 Weight 79 kg PHYSICAL EXAMINATION: GENERAL: The patient is alert and oriented x3, not in any acute distress. Well developed, well nourished. HEENT: Pupils are round and equally reacting to light. EOMI. No scleral icterus. No conjunctival pallor. Normocephalic, atraumatic. No pharyngeal erythema. No thyromegaly. CARDIOVASCULAR: S1 and S2 present. No murmurs, rubs, or gallops. PULMONARY: Chest is clear to auscultation, no wheezing or crackles. ABDOMEN: Soft, nontender, nondistended, normoactive bowel sounds. No palpable organomegaly. MUSCULOSKELETAL: No joint swelling or deformity. EXTREMITIES: No cyanosis, clubbing, or pedal edema. NEUROLOGICAL: Gross neurological examination did not reveal any new focal deficits. Chronic generalized weakness along with some unstable in gait secondary to weakness with some muscle atrophy in both legs SKIN: No rashes. Results CBC & Chem 7: 07/30/18 16:07 07/30/18 16:07 Labs: Abnormal Lab Results - Last 24 Hours (Table) 07/30/18 07/30/18 07/30/18 Range/Units 16: 16: 16:07 Hgb 12.6 L (13.0-17.5) gm/dL INR (<1.2) D-Dimer (<0.60) mg/L FEU Sodium 136 L (137-145) mmol/L BUN 25 H (9-20) mg/dL Glucose 240 H (74-99) mg/dL AST 16 L (17-59) U/L CK-MB (CK-2) 2.7 H (0.0-2.4) ng/mL HDL Cholesterol (40-60) mg/dL Urine Glucose (UA) (Negative) 07/30/18 07/30/18 07/31/18 Range/Units 16:07 21:37 03:05 Hgb (13.0-17.5) gm/dL INR 1.2 H (<1.2) D-Dimer (<0.60) mg/L FEU Sodium (137-145) mmol/L BUN (9-20) mg/dL Glucose (74-99) mg/dL AST (17-59) U/L CK-MB (CK-2) 2.7 H (0.0-2.4) ng/mL HDL Cholesterol 35 L (40-60) mg/dL Urine Glucose (UA) (Negative) 07/31/18 07/31/18 Range/Units 08:43 08:52 Hgb (13.0-17.5) gm/dL INR (<1.2) D-Dimer 1.58 H (<0.60) mg/L FEU Sodium (137-145) mmol/L BUN (9-20) mg/dL Glucose (74-99) mg/dL AST (17-59) U/L CK-MB (CK-2) (0.0-2.4) ng/mL HDL Cholesterol (40-60) mg/dL Urine Glucose (UA) Trace H (Negative) Thrombosis Risk Factor Assmnt - Choose All That Apply Any of the Below Risk Factors Present?: Yes Each Factor Represents 1 point: Obesity (BMI >25) Other Risk Factors: Yes Each Risk Factor Represents 3 Points: Age 75 years or older Thrombosis Risk Factor Assessment Total Risk Factor Score: 4 Thrombosis Risk Factor Assessment Level: Moderate Risk Assessment and Plan Plan: -Dizziness, lightheadedness: Patient underwent workup as mentioned above we'll rule out pulmonary embolism once that is ruled out further workup will be continued as an outpatient with a Holter monitor. Patient will follow with PCP and cardiology as an outpatient -Atrial fibrillation: Presently rate controlled or not on any anticoagulation probably because of his risk of falls. 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
--- NOTE | 2018-07-31 11:37 | CT ---
CT CHEST FOR PULMONARY EMBOLISM. EXAMINATION TYPE: CT angio chest DATE OF EXAM: 07/31/2018 INDICATION: Elevated Ddimer CT DLP: 278.9 mGycm, Automated exposure control for dose reduction was used. CONTRAST: Patient injected with 80 mL of Isovue 370. COMPARISON: None TECHNIQUE: CT of the chest is performed on a spiral scan at 2 mm thick sections. Study is performed with intravenous contrast timed for evaluation for pulmonary embolism. This will limit additional po rtions of the evaluation. 3-D MIP images reconstructed by the technologist are reviewed on the compu ter in the coronal and sagittal planes. FINDINGS: No persistent filling defects are evident to suggest an acute pulmonary embolism. No mediastinal or hilar adenopathy enlarged by CT criteria is evident. The ascending aorta diameter at the level of the main pulmonary artery is 4.7 cm. The main pulmonary artery diameter at the bifur cation is 3.9 cm. There is a 1.2 cm density within the posterior lateral right upper lung field. Series 406 image 46. S mall pneumatoceles at the right apex. Calcified granuloma may be in the periphery of the right midlun g measuring 0.3 cm. Series 406 image 55. There is a nodule in the posterior lateral right midlung per iphery measuring 0.5 cm. Series 406 image 69. Small density is adjacent to the pleural margin on the left midlung measuring 0.4 cm. Series 406 image 70. A 0.5 cm peripheral nodules in the posterior late ral right lung superior segment lower lobe. Series 406 image 76. At the same level wasn't peripheral right middle lobe density measuring 0.[address] section through the upper abdomen. Air within the biliary tree is noted. Vascular calcific ations present. IMPRESSIONS: 1. No acute pulmonary embolism. 2. Ascending thoracic aortic aneurysm estimated at 4.7 cm. 3. Multiple scattered peripheral nodules, the largest measures 1.2 cm in the right upper lobe. Additi onal workup for neoplasm is recommended. A [place] level critical message alert has been initiated for Chandu Bateman MD via the [employer] Critical Results System on 07/31/2018 11:35 AM. This message alert has been sent to Chandu Bateman MD via the preferences provided by the clinician for the receipt of Radiology Critical Findin gs. Message ID [id number].
[2018-07-31 12:30] VITALS: BP 138/76; TEMP 97.3
--- NOTE | 2018-08-07 13:00 | HM ---
HOLTER MONITOR REPORT DCG: INDICATION: Palpitations. The patient was monitored for 24 hours. The baseline rhythm appeared to be atrial fibrillation with a minimum heart rate of 37 beats per minute, max heart rate 112 beats per minute and average heart rate of 69 beats per minute. Ventricular ectopic events were presented in less than 1% of the total pace count. Supraventricular ectopy events were not presented. Beside the atrial fibrillation, there is no evidence of sinus pause or sinus arrest. CONCLUSION: 1. Atrial fibrillation as a baseline mechanism. 2. Rare ventricular ectopic events. 3. No evidence of sinus pause exceed 2.5 seconds seen. MMODL / IJN: [id number] /
== END 2018-07-31 15:48 | disposition home or self-care (01) ==
LOC: EC 15:53 → 1SOBS 17:52
PROVIDERS: ADMIT Internal Medicine; ATTEND Internal Medicine
DX: R42 Dizziness and giddiness (principal); I48.2 Chronic atrial fibrillation; E78.5 Hyperlipidemia, unspecified; I12.9 Hypertensive chronic kidney disease with stage 1 through stage 4 chronic kidney disease, or unspecified chronic kidney disease; Z95.1 Presence of aortocoronary bypass graft; I25.10 Atherosclerotic heart disease of native coronary artery without angina pectoris; E11.22 Type 2 diabetes mellitus with diabetic chronic kidney disease; R35.0 Frequency of micturition; N18.2 Chronic kidney disease, stage 2 (mild); R91.8 Other nonspecific abnormal finding of lung field; R29.6 Repeated falls; Z79.02 Long term (current) use of antithrombotics/antiplatelets; I25.2 Old myocardial infarction; I45.10 Unspecified right bundle-branch block; N40.0 Benign prostatic hyperplasia without lower urinary tract symptoms; Z79.01 Long term (current) use of anticoagulants; Z79.82 Long term (current) use of aspirin; Z79.899 Other long term (current) drug therapy; Z86.73 Personal history of transient ischemic attack (TIA), and cerebral infarction without residual deficits; Z91.81 History of falling
CPT/HCPCS: 93005 ×2; 99285; 36415; 93225; 93226; 85379; 80061; 80053; 84443; 82550 ×2; 82553 ×2; 83735; 84484 ×2; 85025; 85610; 85730; 81003; 71046; 71275; G0378 ×2; S0138; Q9967

== ENCOUNTER 2018-08-21 13:58 | Emergency (ER) | payer MEDICARE ==
[2018-08-21 14:21] VITALS: TEMP 98
[2018-08-21] MEDS ORDERED: METOCLOPRAMIDE 5 MG/ML 2 ML VIAL IVP STA (14:22)
[2018-08-21] MEDS ORDERED: SODIUM CHLORIDE 0.9% 500 ML 500 ML IV STA (14:22)
[2018-08-21] MEDS ORDERED: ASPIRIN 81 MG PO STA (14:22)
--- NOTE | 2018-08-21 14:26 | ED ---
General Adult HPI - General Chief complaint: Chest Pain Stated complaint: Chest Pain Source: patient Mode of arrival: EMS Limitations: no limitations - History of Present Illness Initial comments: Dictation was produced using [employer] dictation software. please excuse any grammatical, word or spelling errors. Chief Complaint: 88-year-old male presents via EMS for dizziness and chest pain. History of Present Illness: Patient is a 88-year-old male who is a terribly poor historian presents with dizziness and chest pain. Patient states he was dizzy and called EMS. EMS was not available for report. According to nurse who did receive report from EMS he allegedly had some chest pain. Patient states he does have some left-sided chest pain. Denies any radiation to the shoulders or neck area. No upper extremity paresthesias. Patient states he's been dizzy constantly. He does not know his medical problems are. - Related Data Home Medications Medication Instructions Recorded Confirmed Atorvastatin [Lipitor] 10 mg PO HS 04/13/18 07/30/18 Clopidogrel [Plavix] 75 mg PO DAILY 04/13/18 07/30/18 Finasteride [Proscar] 5 mg PO HS 04/13/18 07/30/18 Metoprolol Succinate [Toprol XL] 25 mg PO DAILY 04/13/18 07/30/18 Omeprazole 20 mg PO DAILY 04/13/18 07/30/18 Tamsulosin HCl [Flomax] 0.8 mg PO HS 04/13/18 07/30/18 Isosorbide Mononitrate ER [Imdur] 30 mg PO DAILY 07/30/18 07/30/18 Previous Rx's Medication Instructions Recorded amLODIPine [Norvasc] 10 mg PO DAILY #30 tab 07/01/18 Enalapril [Vasotec] 10 mg PO BID #1 07/03/18 Meclizine [Antivert] 25 mg PO BID PRN #0 07/03/18 Allergies Allergy/AdvReac Type Severity Reaction Status Date / Time No Known Allergies Allergy Verified 07/30/18 18:14 Review of Systems ROS Statement: Those systems with pertinent positive or pertinent negative responses have been documented in the HPI. ROS Other: All systems not noted in ROS Statement are negative. Past Medical History Past Medical History: Atrial Fibrillation, Coronary Artery Disease (CAD), Diabetes Mellitus, Hypertension, Myocardial Infarction ([place]) Additional Past Medical History / Comment(s): dizziness, 2 heart attacks Last Myocardial Infarction Date:: unknown History of Any Multi-Drug Resistant Organisms: None Reported Past Surgical History: Appendectomy, Coronary Bypass/CABG Additional Past Surgical History / Comment(s): pt is poor historian. CABG x2, Past Psychological History: No Psychological Hx Reported Smoking Status: Never smoker Past Alcohol Use History: None Reported Past Drug Use History: None Reported General Exam - General Exam Comments Initial Comments: PHYSICAL EXAM: General Impression: Alert and oriented x3, not in acute distress HEENT: Normocephalic atraumatic, extra-ocular movements intact, pupils equal and reactive to light bilaterally, mucous membranes moist, poor dentition Cardiovascular: Heart regular rate and rhythm, S1&S2 audible, no murmurs, rubs or gallops Chest: Lungs clear to auscultation bilaterally, no rhonchi, no wheeze, no rales Abdomen: Bowel sounds present, abdomen soft, non-tender, non-distended, no organomegaly Musculoskeletal: Pulses present and equal in all extremities, no peripheral edema Motor: Power 5/5 bilaterally, no focal deficits noted Neurological: CN II-XII grossly intact, no focal motor or sensory deficits noted Skin: Intact with no visualized rashes Psych: Normal affect and mood Limitations: no limitations Course Vital Signs 08/21/18 08/21/18 14:06 15:09 Temperature 98 F Pulse Rate 97 84 Respiratory 18 18 Rate Blood Pressure 107/77 107/77 O2 Sat by Pulse 97 99 Oximetry Medical Decision Making - Medical Decision Making ED course: 88 yo male with chief complaint of chest pain. She is a very poor historian. There is suspicion that he is mentally disabled. Patient states he does have some chest pain however does report that the main reason EMS was called was for dizziness. Vital signs upon arrival are within acceptable limits. Patient has a history of atrial fibrillation. He is not on any anticoagulation due to fall risk. Patient has been evaluated on multiple occasions for dizziness. He also however does have history of vertebrobasilar insufficiency.More history was obtained from patient's niece. Patient's niece reported that patient was really upset earlier today he has a history of mental retardation. He allegedly has a roommate at the retirement and they were arguing about the lights. He got upset and called the ambulance. patient reevaluated. He states he has no complaints at this time. Denies any dizziness or chest pain. Patient has good PCP follow-up. He has had extensive workup within the last month showing no acute findings. Patient and laboratory and tolerating by mouth at baseline. Patient with discharge with close PCP follow-up. EKG Interpretation: A 12 lead EKG was obtained. It was interpreted by myself and attending physician. There is a P wave before every QRS complex. Rate is 93. Rhythm is atrial fibrillation, QRS 166, QTC 497 there is a bright bundle branch block pattern.. QT is not prolonged. No ST segment depression or elevation. T Overall , this EKG is unremarkable - Lab Data Result diagrams: 08/21/18 14:26 08/21/18 14:26 Lab Results 08/21/18 08/21/18 08/21/18 Range/Units 14:26 14:26 14:26 WBC 6.8 (3.8-10.6) k/uL RBC 4.90 (4.30-5.90) m/uL Hgb 12.5 L (13.0-17.5) gm/dL Hct 39.9 (39.0-53.0) % MCV 81.4 (80.0-100.0) fL MCH 25.5 (25.0-35.0) pg MCHC 31.3 (31.0-37.0) g/dL RDW 14.5 (11.5-15.5) % Plt Count 179 (150-450) k/uL Neutrophils % 73 % Lymphocytes % 19 % Monocytes % 5 % Eosinophils % 2 % Basophils % 0 % Neutrophils # 5.0 (1.3-7.7) k/uL Lymphocytes # 1.3 (1.0-4.8) k/uL Monocytes # 0.3 (0-1.0) k/uL Eosinophils # 0.1 (0-0.7) k/uL Basophils # 0.0 (0-0.2) k/uL PT (9.0-12.0) sec INR (<1.2) APTT (22.0-30.0) sec Sodium 139 (137-145) mmol/L Potassium 4.3 (3.5-5.1) mmol/L Chloride 105 (98-107) mmol/L Carbon Dioxide 23 (22-30) mmol/L Anion Gap 11 mmol/L BUN 23 H (9-20) mg/dL Creatinine 1.24 (0.66-1.25) mg/dL Est GFR (CKD-EPI)AfAm 60 (>60 ml/min/1.73 sqM) Est GFR (CKD-EPI)NonAf 52 (>60 ml/min/1.73 sqM) Glucose 247 H (74-99) mg/dL Calcium 8.8 (8.4-10.2) mg/dL Magnesium 1.6 (1.6-2.3) mg/dL Total Bilirubin 0.9 (0.2-1.3) mg/dL AST 18 (17-59) U/L ALT 25 (21-72) U/L Alkaline Phosphatase 75 (38-126) U/L Total Creatine Kinase 90 (55-170) U/L CK-MB (CK-2) 2.0 (0.0-2.4) ng/mL CK-MB (CK-2) Rel Index 2.2 Troponin I <0.012 (0.000-0.034) ng/mL Total Protein 6.3 (6.3-8.2) g/dL Albumin 3.4 L (3.5-5.0) g/dL 08/21/18 Range/Units 14:26 WBC (3.8-10.6) k/uL RBC (4.30-5.90) m/uL Hgb (13.0-17.5) gm/dL Hct (39.0-53.0) % MCV (80.0-100.0) fL MCH (25.0-35.0) pg MCHC (31.0-37.0) g/dL RDW (11.5-15.5) % Plt Count (150-450) k/uL Neutrophils % % Lymphocytes % % Monocytes % % Eosinophils % % Basophils % % Neutrophils # (1.3-7.7) k/uL Lymphocytes # (1.0-4.8) k/uL Monocytes # (0-1.0) k/uL Eosinophils # (0-0.7) k/uL Basophils # (0-0.2) k/uL PT 12.1 H (9.0-12.0) sec INR 1.3 H (<1.2) APTT 23.9 (22.0-30.0) sec Sodium (137-145) mmol/L Potassium (3.5-5.1) mmol/L Chloride (98-107) mmol/L Carbon Dioxide (22-30) mmol/L Anion Gap mmol/L BUN (9-20) mg/dL Creatinine (0.66-1.25) mg/dL Est GFR (CKD-EPI)AfAm (>60 ml/min/1.73 sqM) Est GFR (CKD-EPI)NonAf (>60 ml/min/1.73 sqM) Glucose (74-99) mg/dL Calcium (8.4-10.2) mg/dL Magnesium (1.6-2.3) mg/dL Total Bilirubin (0.2-1.3) mg/dL AST (17-59) U/L ALT (21-72) U/L Alkaline Phosphatase (38-126) U/L Total Creatine Kinase (55-170) U/L CK-MB (CK-2) (0.0-2.4) ng/mL CK-MB (CK-2) Rel Index Troponin I (0.000-0.034) ng/mL Total Protein (6.3-8.2) g/dL Albumin (3.5-5.0) g/dL Disposition Clinical Impression: Well adult health check Disposition: HOME SELF-CARE Instructions: Dizziness (ED) Is patient prescribed a controlled substance at d/c from ED?: No Referrals: Breanna Del Valle DO [Primary Care Provider] - 1-2 days Time of Disposition: 16:11
[2018-08-21] MEDS ORDERED: MECLIZINE 12.5 MG TAB PO STA (14:30)
[2018-08-21 14:48] LABS: Basophils % (A) 0 %; Eosinophils # (A) 0.1 k/uL (0-0.7); Eosinophils % (A) 2 %; HCT 39.9 % (39.0-53.0); HGB 12.5 gm/dL (13.0-17.5); Lymphocytes # (A) 1.3 k/uL (1.0-4.8); Lymphocytes % (A) 19 %; MCH 25.5 pg (25.0-35.0); MCHC 31.3 g/dL (31.0-37.0); MCV 81.4 fL (80.0-100.0); Mean Platelet Volume 6.7; Monocytes # (A) 0.3 k/uL (0-1.0); Monocytes % (A) 5 %; Neutrophils % (A) 73 %; Platelet Count 179 k/uL (150-450); RDW 14.5 % (11.5-15.5); WBC 6.8 k/uL (3.8-10.6)
[2018-08-21 14:55] LABS: INR 1.3 (<1.2); Partial Thromboplastin Time 23.9 sec (22.0-30.0); Prothrombin Time 12.1 sec (9.0-12.0)
[2018-08-21 14:59] LABS: Albumin 3.4 g/dL (3.5-5.0); Calcium 8.8 mg/dL (8.4-10.2); Magnesium 1.6 mg/dL (1.6-2.3); Potassium 4.3 mmol/L (3.5-5.1); Total Bilirubin 0.9 mg/dL (0.2-1.3); Total Protein 6.3 g/dL (6.3-8.2)
--- NOTE | 2018-08-21 14:59 | XR ---
EXAMINATION TYPE: XR chest 2V DATE OF EXAM: 08/21/2018 COMPARISON: 07/30/2018 HISTORY: Chest pain and dizziness TECHNIQUE: Frontal and lateral views of the chest are obtained. FINDINGS: There is pulmonary hyperinflation and flattening of the diaphragms on the lateral view wit h biapical lucency representing underlying COPD. There is diffuse osseous demineralization and post C ABG changes the chest with stable cardiomegaly. No new focal consolidation, pleural effusion or pneum othorax is seen. Moderate multilevel degenerative changes of the spine are noted. IMPRESSION: Chronic changes and sequela of COPD with no acute cardiopulmonary process.
[2018-08-21 15:10] LABS: Creatine Kinase 90 U/L (55-170)
[2018-08-21 15:23] LABS: Troponin I <0.012 ng/mL (0.000-0.034)
[2018-08-21 17:24] VITALS: BP 126/89; PULSE 77; RESP 18
== END 2018-08-21 17:24 | disposition home or self-care (01) ==
LOC: EC 13:58
DX: Z00.00 Encounter for general adult medical examination without abnormal findings (principal); R07.9 Chest pain, unspecified; R42 Dizziness and giddiness; I48.91 Unspecified atrial fibrillation; I25.10 Atherosclerotic heart disease of native coronary artery without angina pectoris; I10 Essential (primary) hypertension; I25.2 Old myocardial infarction; Z95.1 Presence of aortocoronary bypass graft; Z79.02 Long term (current) use of antithrombotics/antiplatelets; Z79.899 Other long term (current) drug therapy; Z86.59 Personal history of other mental and behavioral disorders
CPT/HCPCS: 36415; 71046; 80053; 82550; 82553; 83735; 84484; 85025; 85610; 85730; 93005; 96361; 96374; 99285

== ENCOUNTER 2019-05-16 17:13 | Inpatient (IN) | payer MEDICARE ==
[2019-05-16 17:22] LABS: Glucose,Whole Blood 421 mg/dL (75-99)
[2019-05-16 18:21] LABS: Basophils % (A) 1 %; Eosinophils # (A) 0.1 k/uL (0-0.7); Eosinophils % (A) 2 %; HCT 41.8 % (39.0-53.0); HGB 13.4 gm/dL (13.0-17.5); Lymphocytes # (A) 1.1 k/uL (1.0-4.8); Lymphocytes % (A) 19 %; MCHC 32.1 g/dL (31.0-37.0); Mean Platelet Volume 7.6; Monocytes # (A) 0.2 k/uL (0-1.0); Monocytes % (A) 4 %; Neutrophils # (A) 4.2 k/uL (1.3-7.7); Neutrophils % (A) 74 %; Platelet Count 160 k/uL (150-450); RBC 4.98 m/uL (4.30-5.90); RDW 14.1 % (11.5-15.5); WBC 5.7 k/uL (3.8-10.6)
[2019-05-16 18:32] LABS: Albumin 3.5 g/dL (3.5-5.0); Calcium 8.6 mg/dL (8.4-10.2); Potassium 4.5 mmol/L (3.5-5.1); Total Bilirubin 0.6 mg/dL (0.2-1.3); Total Protein 6.2 g/dL (6.3-8.2)
--- NOTE | 2019-05-16 18:33 | XR ---
EXAMINATION TYPE: XR chest 2V DATE OF EXAM: 05/16/2019 COMPARISON: 08/21/2018 HISTORY: Dizziness TECHNIQUE: Frontal and lateral views of the chest are obtained. FINDINGS: Heart is normal. Lungs are clear of consolidation. There are sternal wires. There are ches t leads. Thoracic aorta shows mild atheromatous change. There is no pleural effusion. There is osteop enia. There is mild anterior wedging of mid thoracic vertebra. There is small calcified granuloma rig ht upper lobe. IMPRESSION: No active cardiopulmonary disease. There is improved inspiration compared to old exam. O ld mild mid thoracic compression fractures.
[2019-05-16 19:08] LABS: Appearance,Urine Clear (Clear); Bilirubin,Urine Negative (Negative); Blood,Urine Trace (Negative); Color,Urine Light Yellow; Glucose,Urine (UA) 4+ (Negative); Ketones,Urine Negative (Negative); Leukocyte Esterase,Urine Trace (Negative); Nitrite,Urine Negative (Negative); PH, Urine 5.5 (5.0-8.0); Protein,Urine Trace (Negative); RBC,Urine 1 /hpf (0-5); Specific Gravity,Urine 1.027 (1.001-1.035); Urobilinogen,Urine <2.0 mg/dL (<2.0); WBC,Urine 1 /hpf (0-5)
[2019-05-16] MEDS ORDERED: SODIUM CHLORIDE 0.9% 500 ML 500 ML IV ONE (19:35)
--- NOTE | 2019-05-16 19:41 | ED ---
Dizziness HPI - General Chief Complaint: Dizziness Stated Complaint: dizziness Time Seen by Provider: 05/16/19 17:40 Source: patient Mode of arrival: EMS Limitations: no limitations - History of Present Illness Initial Comments: The patient is an 89-year-old male with past medical history of vertigo secondary to vertebrobasilar insufficiency, orthostatic hypotension and A. fib who presents to the emergency department with reported presyncopal sensation. The patient is a poor historian. He does report to me that every time he stands up he feels like he gets dizzy. He denies any chest pain or shortness of breath. Denies any headaches or visual changes. No unilateral numbness or weakness. He denies any fevers or chills. No nausea, vomiting, abdominal pain. He denies any confusion or slurred speech. I did review the patient's record any does have a history of orthostatic hypotension. The patient does have an elevated blood sugar in the 400s which was measured by EMS. He is a diabetic however [id number]. He denies any changes in his bowel or bladder habits. The remainder of the HPI is limited due to the patient's chronic dementia. - Related Data Home Medications Medication Instructions Recorded Confirmed Atorvastatin [Lipitor] 10 mg PO HS 04/13/18 05/16/19 Clopidogrel [Plavix] 75 mg PO DAILY 04/13/18 05/16/19 Finasteride [Proscar] 5 mg PO HS 04/13/18 05/16/19 Metoprolol Succinate [Toprol XL] 25 mg PO DAILY 04/13/18 05/16/19 Omeprazole 20 mg PO DAILY 04/13/18 05/16/19 Tamsulosin HCl [Flomax] 0.8 mg PO HS 04/13/18 05/16/19 Isosorbide Mononitrate ER [Imdur] 30 mg PO DAILY 07/30/18 05/16/19 Aspirin EC [Ecotrin Low Dose] 81 mg PO DAILY 08/21/18 05/16/19 Digoxin [Lanoxin] 125 mcg PO DAILY 08/21/18 05/16/19 Previous Rx's Medication Instructions Recorded amLODIPine [Norvasc] 10 mg PO DAILY #30 tab 07/01/18 Enalapril [Vasotec] 10 mg PO BID #1 07/03/18 Meclizine [Antivert] 25 mg PO BID PRN #0 07/03/18 Allergies Allergy/AdvReac Type Severity Reaction Status Date / Time No Known Allergies Allergy Verified 08/21/18 16:13 Review of Systems ROS Statement: Those systems with pertinent positive or pertinent negative responses have been documented in the HPI. ROS Other: All systems not noted in ROS Statement are negative. Past Medical History Past Medical History: Atrial Fibrillation, Coronary Artery Disease (CAD), Diabetes Mellitus, Hypertension, Myocardial Infarction ([place]) Additional Past Medical History / Comment(s): dizziness, 2 heart attacks Last Myocardial Infarction Date:: unknown History of Any Multi-Drug Resistant Organisms: None Reported Past Surgical History: Appendectomy, Coronary Bypass/CABG Additional Past Surgical History / Comment(s): pt is poor historian. CABG x2, Past Psychological History: No Psychological Hx Reported Smoking Status: Never smoker Past Alcohol Use History: None Reported Past Drug Use History: None Reported - Past Family History Father History Unknown: Yes Mother History Unknown: Yes General Exam Limitations: no limitations Course Vital Signs 05/16/19 05/16/19 05/16/19 17:20 18:08 20:53 Temperature 98.1 F Pulse Rate 58 L 69 Pulse Rate [ 75 Trading Assistant ] Respiratory 14 14 18 Rate Blood Pressure 132/90 117/77 Blood Pressure 152/105 [Sitting] Blood Pressure 155/97 [Standing] Blood Pressure 150/105 [Supine] O2 Sat by Pulse 98 98 96 Oximetry 05/16/19 22:00 Temperature Pulse Rate 74 Pulse Rate [ Trading Assistant ] Respiratory 18 Rate Blood Pressure 138/97 Blood Pressure [Sitting] Blood Pressure [Standing] Blood Pressure [Supine] O2 Sat by Pulse Oximetry EKG Findings - EKG Comments: EKG Findings:: EKG demonstrates atrial fibrillation with PVCs. Right bundle branch block. Ventricular rate of 83. QRS is 156. QTC 486. No acute ST segment elevations. There is a Q wave in lead 3. Medical Decision Making - Medical Decision Making Upon arrival the patient is placed into room 23. He is hooked up to continuous pulse ox and cardiac monitoring. He denies current dizziness, reports it is o nly upon standing. Peripheral IV had been established by EMS. Accu-Chek upon arrival remains high. I did recommend laboratory studies for which the patient did agree to. 12-lead EKG was performed which demonstrates age or fibrillation which the patient has a history of. I did perform a chest x-ray is patient reports presyncopal sensations. It is negative. I did discuss these results with the patient. I did recommend hospital admission for which the patient did agree. I did call discuss case with Dr. Myles who did accept admission for the patient. I will place cardiology on consult. The patient remained in stable condition was transported to the floor - Lab Data Result diagrams: 05/16/19 17:39 05/16/19 17:39 Lab Results 05/16/19 05/16/19 05/16/19 Range/Units 17:19 17:39 17:39 WBC 5.7 (3.8-10.6) k/uL RBC 4.98 (4.30-5.90) m/uL Hgb 13.4 (13.0-17.5) gm/dL Hct 41.8 (39.0-53.0) % MCV 84.0 (80.0-100.0) fL MCH 27.0 (25.0-35.0) pg MCHC 32.1 (31.0-37.0) g/dL RDW 14.1 (11.5-15.5) % Plt Count 160 (150-450) k/uL Neutrophils % 74 % Lymphocytes % 19 % Monocytes % 4 % Eosinophils % 2 % Basophils % 1 % Neutrophils # 4.2 (1.3-7.7) k/uL Lymphocytes # 1.1 (1.0-4.8) k/uL Monocytes # 0.2 (0-1.0) k/uL Eosinophils # 0.1 (0-0.7) k/uL Basophils # 0.0 (0-0.2) k/uL Sodium 132 L (137-145) mmol/L Potassium 4.5 (3.5-5.1) mmol/L Chloride 99 (98-107) mmol/L Carbon Dioxide 23 (22-30) mmol/L Anion Gap 10 mmol/L BUN 18 (9-20) mg/dL Creatinine 1.18 (0.66-1.25) mg/dL Est GFR (CKD-EPI)AfAm 63 (>60 ml/min/1.73 sqM) Est GFR (CKD-EPI)NonAf 54 (>60 ml/min/1.73 sqM) Glucose 438 H (74-99) mg/dL POC Glucose (mg/dL) 421 H (75-99) mg/dL POC Glu Office Mail Clerk ID Margaret Young Calcium 8.6 (8.4-10.2) mg/dL Total Bilirubin 0.6 (0.2-1.3) mg/dL AST 19 (17-59) U/L ALT 18 L (21-72) U/L Alkaline Phosphatase 94 (38-126) U/L Troponin I (0.000-0.034) ng/mL Total Protein 6.2 L (6.3-8.2) g/dL Albumin 3.5 (3.5-5.0) g/dL Urine Color Urine Appearance (Clear) Urine pH (5.0-8.0) Ur Specific [place] (1.001-1.035) Urine Protein (Negative) Urine Glucose (UA) (Negative) Urine Ketones (Negative) Urine Blood (Negative) Urine Nitrite (Negative) Urine Bilirubin (Negative) Urine Urobilinogen (<2.0) mg/dL Ur Leukocyte Esterase (Negative) Urine RBC (0-5) /hpf Urine WBC (0-5) /hpf 05/16/19 05/16/19 Range/Units 17:39 18:46 WBC (3.8-10.6) k/uL RBC (4.30-5.90) m/uL Hgb (13.0-17.5) gm/dL Hct (39.0-53.0) % MCV (80.0-100.0) fL MCH (25.0-35.0) pg MCHC (31.0-37.0) g/dL RDW (11.5-15.5) % Plt Count (150-450) k/uL Neutrophils % % Lymphocytes % % Monocytes % % Eosinophils % % Basophils % % Neutrophils # (1.3-7.7) k/uL Lymphocytes # (1.0-4.8) k/uL Monocytes # (0-1.0) k/uL Eosinophils # (0-0.7) k/uL Basophils # (0-0.2) k/uL Sodium (137-145) mmol/L Potassium (3.5-5.1) mmol/L Chloride (98-107) mmol/L Carbon Dioxide (22-30) mmol/L Anion Gap mmol/L BUN (9-20) mg/dL Creatinine (0.66-1.25) mg/dL Est GFR (CKD-EPI)AfAm (>60 ml/min/1.73 sqM) Est GFR (CKD-EPI)NonAf (>60 ml/min/1.73 sqM) Glucose (74-99) mg/dL POC Glucose (mg/dL) (75-99) mg/dL POC Glu Office Mail Clerk ID Calcium (8.4-10.2) mg/dL Total Bilirubin (0.2-1.3) mg/dL AST (17-59) U/L ALT (21-72) U/L Alkaline Phosphatase (38-126) U/L Troponin I <0.012 (0.000-0.034) ng/mL Total Protein (6.3-8.2) g/dL Albumin (3.5-5.0) g/dL Urine Color Light Yellow Urine Appearance Clear (Clear) Urine pH 5.5 (5.0-8.0) Ur Specific [place] 1.027 (1.001-1.035) Urine Protein Trace H (Negative) Urine Glucose (UA) 4+ H (Negative) Urine Ketones Negative (Negative) Urine Blood Trace H (Negative) Urine Nitrite Negative (Negative) Urine Bilirubin Negative (Negative) Urine Urobilinogen <2.0 (<2.0) mg/dL Ur Leukocyte Esterase Trace H (Negative) Urine RBC 1 (0-5) /hpf Urine WBC 1 (0-5) /hpf Disposition Clinical Impression: Near syncope, Hyperglycemia Disposition: ADMITTED IP TO THIS HOSP Condition: Stable Is patient prescribed a controlled substance at d/c from ED?: No Decision to Admit Reason: Admit from EC Decision Date: 05/16/19 Decision Time: 20:23
[2019-05-16] MEDS ORDERED: SODIUM CHLORIDE 0.9% 1,000 ML IV STA (20:22)
[2019-05-16] MEDS ORDERED: NALOXONE 0.4 MG/ML 1 ML VIAL IV PRN (20:23)
[2019-05-16] MEDS ORDERED: MECLIZINE 25 MG TAB PO PRN (20:27)
[2019-05-16 21:34] LABS: Glucose,Whole Blood 350 mg/dL (75-99)
[2019-05-16] MEDS: ATORVASTATIN 10 MG TAB PO SCH (21:56)
[2019-05-16] MEDS: INSULIN ASPART (NovoLOG) 100 UNIT/ML VIAL SQ SCH (21:57)
[2019-05-16] MEDS: LISINOPRIL 10 MG TAB PO SCH (23:10)
[2019-05-17 07:02] LABS: Glucose,Whole Blood 189 mg/dL (75-99)
[2019-05-17] MEDS: INSULIN ASPART (NovoLOG) 100 UNIT/ML VIAL SQ SCH ×4 (07:13→21:11)
[2019-05-17 07:24] LABS: Basophils % (A) 1 %; Eosinophils # (A) 0.2 k/uL (0-0.7); Eosinophils % (A) 3 %; HCT 47.3 % (39.0-53.0); HGB 15.4 gm/dL (13.0-17.5); Lymphocytes # (A) 1.9 k/uL (1.0-4.8); Lymphocytes % (A) 34 %; MCH 27.2 pg (25.0-35.0); MCHC 32.6 g/dL (31.0-37.0); MCV 83.2 fL (80.0-100.0); Mean Platelet Volume 7.4; Monocytes # (A) 0.3 k/uL (0-1.0); Monocytes % (A) 5 %; Neutrophils # (A) 3.1 k/uL (1.3-7.7); Neutrophils % (A) 55 %; Platelet Count 163 k/uL (150-450); RBC 5.69 m/uL (4.30-5.90); RDW 15.1 % (11.5-15.5); WBC 5.6 k/uL (3.8-10.6)
[2019-05-17] MEDS ORDERED: INSULIN ASPART (NovoLOG) 100 UNIT/ML VIAL SQ SCH (07:30)
[2019-05-17 07:43] LABS: Calcium 9.2 mg/dL (8.4-10.2); Potassium 3.9 mmol/L (3.5-5.1)
[2019-05-17] MEDS: ASPIRIN 81 MG PO SCH (08:43)
[2019-05-17] MEDS: LISINOPRIL 10 MG TAB PO SCH ×2 (08:43→21:11)
[2019-05-17] MEDS: METOPROLOL SUCCINATE (ER) 25 MG TAB.ER.24H PO SCH (08:43)
[2019-05-17] MEDS: amLODIPine 10 MG TAB PO SCH (08:43)
[2019-05-17] MEDS ORDERED: CLOPIDOGREL 75 MG TAB PO SCH (09:00)
--- NOTE | 2019-05-17 10:18 | P.CRDCN ---
History of Present Illness History of present illness: This is a pleasant 89-year-old male past medical history significant for chronic persistent atrial fibrillation on long-term anticoagulation due to frequent falls, coronary artery disease status post bypass grafting, hypertension, dyslipidemia and prior cerebellar stroke. He follows with Dr. Shell out of [place]. We have been asked to see him in consultation secondary to presyncope with a history of orthostatic hypotension. He is seen and examined resting comfortably lying flat in bed. He states yesterday morning he felt he was going to pass out. He felt extremely lightheaded and had to lay down. His symptoms did not improve when he laid down. He did not have any loss of consciousness. He denies any chest discomfort, shortness of breath, nausea, vomiting, palpitations or diaphoresis. His symptoms persisted for approximately one hour. Upon arrival to emergency department blood pressure was 132/90. Orthostatic vital signs were obtained and were unremarkable. EKG shows atrial fibrillation heart rate of 83, right bundle branch block PVCs. Chest x-ray is negative for an acute cardiopulmonary process. Laboratory data reviewed, CBC unremarkable, cardiac enzymes negative 3, creatinine 0.94, potassium 3.9, sodium 138. Current cardiac medications include amlodipine 10 mg daily, Toprol 25 mg daily, Imdur 30 mg daily, enalapril 10 mg twice a day, digoxin 125 g daily, Plavix 75 mg daily, atorvastatin 10 mg daily, aspirin 81 mg daily and he takes Antivert 25 mg twice a day as needed. Most recent echocardiogram obtained in June 2018 revealed preserved LV systolic function with ejection fraction 55-60%, severely dilated left atrium, mild MR and mild TR. At the time of my exam: CONSTITUTIONAL: Denies fever. Denies chills. EYES: Denies blurred vision. Denies vision changes. Denies eye pain. EARS, NOSE, MOUTH & THROAT: Denies headache. Denies sore throat. Denies ear pain. CARDIOVASCULAR: Denies chest pain. Denies shortness of breath. Denies orthopnea. Denies PND. Denies palpitations. RESPIRATORY: Denies cough. GASTROINTESTINAL: Denies abdominal pain. Denies diarrhea. Denies constipation. Denies nausea. Denies vomiting. MUSCULOSKELETAL: Denies myalgias. INTEGUMENTARY: Denies pruitis. Denies rash. NEUROLOGIC: Denies numbness. Denies tingling. Denies weakness. PSYCHIATRIC: Denies anxiety. Denies depression. ENDOCRINE: Denies fatigue. Denies weight change. Denies polydipsia. Denies polyurina. GENITOURINARY: Denies burning, hematuria or urgency with micturation. HEMATOLOGIC: Denies history of anemia. Denies bleeding. Blood pressure 160/91 heart rate 71 afebrile maintaining oxygen saturation on room air GENERAL: This is a 89-year-old male in no apparent distress at the time of my examination. HEENT: Head is atraumatic, normocephalic. Pupils are equal, round. Sclerae anicteric. Conjunctivae are clear. Mucous membranes of the mouth are moist. Neck is supple. There is no jugular venous distention. No carotid bruit is heard. LUNGS: Clear to auscultation no wheezes, rales or rhonchi. No chest wall tenderness is noted on palpation or with deep breathing. HEART: Regular rate and rhythm without murmurs, rubs or gallops. S1 and S2 heard. ABDOMEN: Soft, nontender. Bowel sounds are heard. No organomegaly noted. EXTREMITIES: No evidence of peripheral edema and no calf tenderness noted. VASCULAR: Radial and dorsalis pedis pulses palpated, no evidence of clubbing. NEUROLOGIC: Patient is awake, alert and oriented x3. ASSESSMENT Dizziness, no LOC and orthostatic changes Chronic persistent atrial fibrillation on long-term anticoagulation. Telemetry tracings unremarkable. No significant pauses noted. History of coronary artery disease status post bypass grafting Hypertension Dyslipidemia History of CVA PLAN An acute coronary event has been ruled out. No indication for Plavix, does not provide thromboembolic protection. No evidence of bradycardia arrhythmia. Orthostatic changes. Increase activity and assess for ongoing symptoms of dizziness. Ongoing medical management. Follow-up with Dr. Shell upon discharge. Thank you kindly for this consultation. Nurse Practitioner note has been reviewed, I agree with a documented findings and plan of care. Patient was seen and examined. Past Medical History Past Medical History: Atrial Fibrillation, Coronary Artery Disease (CAD), Diabetes Mellitus, Hypertension, Myocardial Infarction ([place]) Additional Past Medical History / Comment(s): dizziness, 2 heart attacks Last Myocardial Infarction Date:: unknown History of Any Multi-Drug Resistant Organisms: None Reported Past Surgical History: Appendectomy, Coronary Bypass/CABG Additional Past Surgical History / Comment(s): pt is poor historian. CABG x2, Past Anesthesia/Blood Transfusion Reactions: No Reported Reaction Past Psychological History: No Psychological Hx Reported Smoking Status: Never smoker Past Alcohol Use History: None Reported Past Drug Use History: None Reported - Past Family History Father History Unknown: Yes Mother History Unknown: Yes Medications and Allergies Home Medications Medication Instructions Recorded Confirmed Type Atorvastatin [Lipitor] 10 mg PO HS 04/13/18 05/16/19 History Clopidogrel [Plavix] 75 mg PO DAILY 04/13/18 05/16/19 History Finasteride [Proscar] 5 mg PO HS 04/13/18 05/16/19 History Metoprolol Succinate [Toprol XL] 25 mg PO DAILY 04/13/18 05/16/19 History Omeprazole 20 mg PO DAILY 04/13/18 05/16/19 History Tamsulosin HCl [Flomax] 0.8 mg PO HS 04/13/18 05/16/19 History amLODIPine [Norvasc] 10 mg PO DAILY #30 tab 07/01/18 05/16/19 Rx Enalapril [Vasotec] 10 mg PO BID #1 07/03/18 05/16/19 Rx Meclizine [Antivert] 25 mg PO BID PRN #0 07/03/18 05/16/19 Rx Isosorbide Mononitrate ER [Imdur] 30 mg PO DAILY 07/30/18 05/16/19 History Aspirin EC [Ecotrin Low Dose] 81 mg PO DAILY 08/21/18 05/16/19 History Digoxin [Lanoxin] 125 mcg PO DAILY 08/21/18 05/16/19 History Allergies Allergy/AdvReac Type Severity Reaction Status Date / Time No Known Allergies Allergy Verified 08/21/18 16:13 Physical Exam Vitals: Vital Signs Temp Pulse Pulse Resp BP BP BP 05/17/19 04:00 97.5 F L 80 18 05/17/19 03:39 67 18 05/16/19 23:12 97.6 F 67 18 05/16/19 22:30 67 18 05/16/19 22:00 74 18 138/97 05/16/19 20:53 75 18 152/105 155/97 05/16/19 18:08 69 14 117/77 05/16/19 17:20 98.1 F 58 L 14 132/90 BP Pulse Ox 05/17/19 04:00 168/94 99 05/17/19 03:39 05/16/19 23:12 169/99 98 05/16/19 22:30 05/16/19 22:00 05/16/19 20:53 150/105 96 05/16/19 18:08 98 05/16/19 17:20 98 Intake and Output 05/16/19 05/17/19 05/17/19 22:59 06:59 14:59 Other: Weight 79.379 kg Results 05/17/19 06:36 05/17/19 06:36 Cardiac Enzymes 05/16/19 05/16/19 05/16/19 Range/Units 17:39 17:39 23:43 AST 19 (17-59) U/L Troponin I <0.012 <0.012 (0.000-0.034) ng/mL 05/17/19 Range/Units 06:36 AST (17-59) U/L Troponin I <0.012 (0.000-0.034) ng/mL CBC 05/16/19 05/17/19 Range/Units 17:39 06:36 WBC 5.7 5.6 (3.8-10.6) k/uL RBC 4.98 5.69 (4.30-5.90) m/uL Hgb 13.4 15.4 (13.0-17.5) gm/dL Hct 41.8 47.3 (39.0-53.0) % Plt Count 160 163 (150-450) k/uL Comprehensive Metabolic Panel 05/16/19 05/17/19 Range/Units 17:39 06:36 Sodium 132 L 138 (137-145) mmol/L Potassium 4.5 3.9 (3.5-5.1) mmol/L Chloride 99 104 (98-107) mmol/L Carbon Dioxide 23 24 (22-30) mmol/L BUN 18 14 (9-20) mg/dL Creatinine 1.18 0.94 (0.66-1.25) mg/dL Glucose 438 H 178 H (74-99) mg/dL Calcium 8.6 9.2 (8.4-10.2) mg/dL AST 19 (17-59) U/L ALT 18 L (21-72) U/L Alkaline Phosphatase 94 (38-126) U/L Total Protein 6.2 L (6.3-8.2) g/dL Albumin 3.5 (3.5-5.0) g/dL Current Medications Generic Name Dose Route Start Last Admin Trade Name Freq PRN Reason Stop Dose Admin Amlodipine Besylate 10 mg 05/17/19 09:00 Norvasc PO DAILY [facility] Aspirin 81 mg 05/17/19 09:00 Aspirin PO DAILY [facility] Atorvastatin Calcium 10 mg 05/16/19 21:00 05/16/19 21:56 Lipitor PO 10 mg HS CAITY Administration Clopidogrel Bisulfate 75 mg 05/17/19 09:00 Plavix PO DAILY [facility] Sodium Chloride 1,000 mls @ 75 mls/hr 05/16/19 20:22 05/16/19 23:10 Saline 0.9% IV 05/17/19 09:41 75 mls/hr .[id number] STA Administration Insulin Aspart 0 unit 05/16/19 21:45 05/17/19 07:13 Novolog SQ Not Given ACHS [facility] Protocol Lisinopril 10 mg 05/16/19 22:00 05/16/19 23:10 Zestril PO 10 mg BID CAITY Administration Meclizine HCl 25 mg 05/16/19 20:27 Antivert PO BID PRN Vertigo Metoprolol Succinate 25 mg 05/17/19 09:00 Toprol Xl PO DAILY [facility] Naloxone HCl 0.2 mg 05/16/19 20:23 Narcan IV Q2M PRN Opioid Reversal Intake and Output 05/16/19 05/17/19 05/17/19 22:59 06:59 14:59 Other: Weight 79.379 kg 05/17/19 06:36 05/17/19 06:36
--- NOTE | 2019-05-17 11:34 | CT ---
EXAMINATION TYPE: CT brain wo con DATE OF EXAM: 05/17/2019 HISTORY: Near syncope; Hx orthostatic hypotension CT DLP: 1223.4 mGycm. Automated Exposure Control for Dose Reduction was Utilized. TECHNIQUE: CT scan of the head is performed without contrast. COMPARISON: CT brain June 29, 2018 FINDINGS: There is no acute intracranial hemorrhage or midline shift identified. There is diffuse ventricular and sulcal prominence consistent with diffuse age-rel ated cerebral atrophy. There is low-attenuation in the periventricular white matter consistent with chronic small vessel ischemic change. Old inferior left cerebellar infarct redemonstrated versus pro minent arachnoid cyst. The globes are intact and the visualized sinuses are clear. IMPRESSION: No acute intracranial hemorrhage or midline shift. There is moderate diffuse age-relate d cerebral atrophy and mild to moderate chronic small vessel ischemic change redemonstrated. No sign ificant interval change. Old inferior left cerebellar infarct versus prominent arachnoid cyst. No sig nificant interval change.
[2019-05-17 11:42] LABS: Glucose,Whole Blood 343 mg/dL (75-99)
[2019-05-17] MEDS ORDERED: ALPRAZolam 0.25 MG TAB PO PRN (15:54)
[2019-05-17] MEDS ORDERED: HYDROcodone/APAP 5-325MG 1 EACH TAB PO PRN (15:54)
[2019-05-17] MEDS ORDERED: TEMAZEPAM 15 MG CAP PO PRN (15:54)
[2019-05-17] MEDS ORDERED: ACETAMINOPHEN TAB 500 MG TAB PO PRN (15:54)
[2019-05-17 16:47] LABS: Glucose,Whole Blood 106 mg/dL (75-99)
--- NOTE | 2019-05-17 16:54 | US ---
EXAMINATION TYPE: US carotid duplex BILAT DATE OF EXAM: 05/17/2019 COMPARISON: 06/30/2018 CLINICAL HISTORY: stroke. EXAM MEASUREMENTS: RIGHT: Peak Systolic Velocity (PSV) cm/sec ----- Right CCA: 48.8 ----- Right ICA: 35.4 ----- Right ECA: 112.3 ICA/CCA ratio: 0.7 RIGHT: End Diastole cm/sec ----- Right CCA: 4.7 ----- Right ICA: 13.2 ----- Right ECA: 0.0 LEFT: Peak Systolic Velocity (PSV) cm/sec ----- Left CCA: 81.7 ----- Left ICA: 55.5 ----- Left ECA: 57.8 ICA/CCA ratio: 0.7 LEFT: End Diastole cm/sec ----- Left CCA: 11.1 ----- Left ICA: 12.5 ----- Left ECA: 7.4 VERTEBRALS (direction of flow): Right Vertebral: Antegrade Left Vertebral: no flow seen Rhythm: Arrhythmia Technically difficult and limited visualization of bilateral ICA and ECA due to torturous vessels Bilateral intimal thickening, plaque bilateral bulb, no elevated velocities, no flow seen within left vertebral artery IMPRESSION: There is no flow seen in the left vertebral artery unchanged compared to old exam and pr esumably thrombosed. Images and measurements suggest less than 50% stenosis in both internal carotid arteries. Unchanged. Criteria for Assigning % of Stenosis / Diameter reduction (Estimation based on the indirect measurements of the internal carotid artery velocities (ICA PSV). 1. Normal (no stenosis)=ICA PSV < 125 cm/s: ratio < 2.0: ICA EDV<40 cm/s. 2. Less than 50% stenosis=ICA PSV < 125 cm/s: ratio < 2.0: ICA EDV<40 cm/s. 3. 50 to 69% stenosis=ICA PSV of 125 to 230 cm/s: ration 2.0 ? 4.0: ICA EDV 40-100 cm/s. 4. Greater than 70% stenosis to near occlusion= ICA PSV > 230 cm/s: ratio > 4.0: ICA EDV > 100 cm/s. 5. Near occlusion= ICA PSV velocities may be low or undetectable: variable ratio and ICA EDV. 6. Total occlusion=unable to detect flow.
--- NOTE | 2019-05-17 20:28 | P.CNNES ---
History of Present Illness Consult date: 05/17/19 Requesting physician: Cirilo Hernandez Reason for Consult: Dizziness/near syncope Chief complaint: Dizzy for years History of Present Illness: This is an 89 RH male h/o afib not on anticoagulation due to frequent falls, CAD s/p CABG, HTN, HL and h/o prior cerebellar stroke. He does carry a h/o orthos tatic hypotension and presyncope and sees cardiology. Patient states he has been dizzy for years, typically when he first gets up in the morning when he has to sit on the edge of the bed for a few minutes to get his bearing before standing up. Patient tells me that he has not actually passed out from the dizziness. There is no room-spinning sensation, drop attacks, seizure, headache, visual or hearing changes, diplopia, amaurosis, facial numbness or droop, dysarthria, dysphagia, aphasia, alternating or hemianesthesia or paresis, bowel/bladder incontinence or ataxia in association with his dizziness. Yesterday morning, he got up and felt like he might pass out (but did not). He did not have other associated medical symptoms such as F/C/S, CP, SOB or N/V/D. No diaphoresis or tunnel vision. No decreased level of consciousness or confusion. He has already been seen by cardiology who noted he's not orthostatic on this admission and that there is no evidence of other arrhythmias. Review of Systems I have performed a 14-point organ ROS with patient; pertinents are as per HPI. Past Medical History Past Medical History: Atrial Fibrillation, Coronary Artery Disease (CAD), Diabetes Mellitus, Hypertension, Myocardial Infarction ([place]) Additional Past Medical History / Comment(s): dizziness, 2 heart attacks Last Myocardial Infarction Date:: unknown History of Any Multi-Drug Resistant Organisms: None Reported Past Surgical History: Appendectomy, Coronary Bypass/CABG Additional Past Surgical History / Comment(s): pt is poor historian. CABG x2, Past Anesthesia/Blood Transfusion Reactions: No Reported Reaction Past Psychological History: No Psychological Hx Reported Smoking Status: Never smoker Past Alcohol Use History: None Reported Past Drug Use History: None Reported - Past Family History Father History Unknown: Yes Mother History Unknown: Yes Medications and Allergies Home Medications Medication Instructions Recorded Confirmed Type Atorvastatin [Lipitor] 10 mg PO HS 04/13/18 05/16/19 History Clopidogrel [Plavix] 75 mg PO DAILY 04/13/18 05/16/19 History Finasteride [Proscar] 5 mg PO HS 04/13/18 05/16/19 History Metoprolol Succinate [Toprol XL] 25 mg PO DAILY 04/13/18 05/16/19 History Omeprazole 20 mg PO DAILY 04/13/18 05/16/19 History Tamsulosin HCl [Flomax] 0.8 mg PO HS 04/13/18 05/16/19 History amLODIPine [Norvasc] 10 mg PO DAILY #30 tab 07/01/18 05/16/19 Rx Enalapril [Vasotec] 10 mg PO BID #1 07/03/18 05/16/19 Rx Meclizine [Antivert] 25 mg PO BID PRN #0 07/03/18 05/16/19 Rx Isosorbide Mononitrate ER [Imdur] 30 mg PO DAILY 07/30/18 05/16/19 History Aspirin EC [Ecotrin Low Dose] 81 mg PO DAILY 08/21/18 05/16/19 History Digoxin [Lanoxin] 125 mcg PO DAILY 08/21/18 05/16/19 History Allergies Allergy/AdvReac Type Severity Reaction Status Date / Time No Known Allergies Allergy Verified 08/21/18 16:13 Physical Examination - Vital Signs Vital Signs: Vital Signs Temp Pulse Pulse Pulse Pulse Pulse Pulse 05/17/19 16:00 97.6 F 65 05/17/19 12:00 05/17/19 10:30 96 79 83 05/17/19 08:00 97.5 F L 71 05/17/19 04:00 97.5 F L 80 05/17/19 03:39 67 05/16/19 23:12 97.6 F 67 05/16/19 22:30 67 05/16/19 22:00 74 05/16/19 20:53 75 Resp BP BP BP BP BP Pulse Ox 05/17/19 16:00 18 137/80 97 05/17/19 12:00 16 05/17/19 10:30 158/96 151/95 166/86 05/17/19 08:00 16 160/91 98 05/17/19 04:00 18 168/94 99 05/17/19 03:39 18 05/16/19 23:12 18 169/99 98 05/16/19 22:30 18 05/16/19 22:00 18 138/97 05/16/19 20:53 18 152/105 155/97 150/105 96 Intake and Output 05/17/19 05/17/19 05/17/19 06:59 14:59 22:59 Other: Voiding Method Toilet Toilet Urinal Urinal # Voids 1 Gen NAD Pleasant and cooperative HEENT NCAT Sclera without icterus O/P clear Neck Supple No carotid bruit Cor RRR no m/r/g Lungs CTAB Abd Soft NTND +BS Ext Warm to touch No edema Neuro MS A+Ox4 Normal fluency Able to follow all commands CN PERRL VFF no APD EOMI no nystagmus or DARYN No facial asymmetry Masseter's symmetric Hearing mildly diminished to normal voice bilaterally Speech not dysarthric Equal elevation of palate Tongue midline Sym shrug and SCM bilaterally Motor Normal bulk/tone No pronator or tremors Strength 5/5 sym throughout Sens Intact to LT x4 No neglect Coord No dysmetria on FTN bilaterally DTRs 2+/4 sym throughout Toes downgoing bilaterally No clonus at achilles Gait Deferred NIHSS 0 Results - Laboratory Findings CBC and BMP: 05/17/19 06:36 05/17/19 06:36 Abnormal Lab Findings: Abnormal Labs 05/16/19 05/16/19 05/16/19 17:19 17:39 18:46 Sodium 132 L Glucose 438 H POC Glucose (mg/dL) 421 H ALT 18 L Total Protein 6.2 L Urine Protein Trace H Urine Glucose (UA) 4+ H Urine Blood Trace H Ur Leukocyte Esterase Trace H 05/16/19 05/17/19 05/17/19 21:33 06:36 07:01 Sodium Glucose 178 H POC Glucose (mg/dL) 350 H 189 H ALT Total Protein Urine Protein Urine Glucose (UA) Urine Blood Ur Leukocyte Esterase 05/17/19 05/17/19 11:40 16:46 Sodium Glucose POC Glucose (mg/dL) 343 H 106 H ALT Total Protein Urine Protein Urine Glucose (UA) Urine Blood Ur Leukocyte Esterase - Diagnostic Findings Additional findings: CT Head wo cont 05/17/19. Moderate global atrophy. Small vessel disease. Old inferior left cerebellar ischemic infarct. No ICH. Nil acute. Carotid duplex 05/17/19. BICA <50% stenosis. Right VA antegrade flow. Left VA no flow. I have reviewed neuroimages myself. 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 He did have a carotid duplex back in 07/10 that already demonstrated absent left vertebral arterial flow, but I do not see more detailed neuroimaging within our facility/EMR. Incidentally, the distribution of his left inferior cerebellar infarct is in the PICA distribution that does arise from the left vert. -Cardiology has evaluated patient and does not seem to think there is a hemodynamic reason for his dizziness -Cardiology did de-escalate his antiplatelet therapy to aspirin. From a neuro perspective, would only consider clodopidogrel if he has large vessel stenosis that we will examine with CTA. So, aspirin is sufficient at this point -History is not consistent other neurological differential considerations such as peripheral or central vertigo, ictal dizziness or vestibular migraine -Fall precautions -Will follow up -d/w patient in detail. All questions answered. Thank you for this consultation. Please call with ?. Time with Patient: Greater than 30 (Time spent in direct patient care, greater than 50% of which was spent in [id number] counseling coordination of care: 70 minutes)
[2019-05-17 21:04] LABS: Glucose,Whole Blood 208 mg/dL (75-99)
[2019-05-17] MEDS: FINASTERIDE 5 MG TAB PO SCH (21:11)
[2019-05-17] MEDS: ATORVASTATIN 10 MG TAB PO SCH (21:11)
[2019-05-17] MEDS: TAMSULOSIN 0.4 MG CAP.ER.24H PO SCH (21:11)
[2019-05-17] MEDS: HEPARIN SODIUM,PORCINE 5,000 UNIT/ML 1 ML VIAL SQ SCH (21:12)
--- NOTE | 2019-05-17 21:42 | CT ---
EXAMINATION TYPE: CT angio head neck DATE OF EXAM: 05/17/2019 HISTORY: Dizziness, LT vert no flow on carotid US. COMPARISON: CT DLP: 541.8 mGycm. Automated Exposure Control for Dose Reduction was Utilized. TECHNIQUE: CTA scan of the neck is performed with IV Contrast, patient injected with 50 mL of Isovue 370, axial images are obtained, coronal and sagittal reformatted images are reviewed. Three-D recons tructed images are created on an independent workstation and reviewed. FINDINGS: There is normal branching pattern of the great vessels on the aortic arch. There is stent in the left proximal subclavian artery. There is bilateral arterial flow in the subclavian arteries. There is arterial flow in the common internal and external carotid arteries bilaterally. There is mil d plaque at the carotid artery bifurcations without evidence of hemodynamic stenosis. There is narrow ing approximately 30% at the origin left internal carotid artery. There is no evidence of stenosis at the origin right internal carotid artery. There are apparent surgical clips at the right carotid art sam bifurcation. There is a diminutive right vertebral artery. I see no definite flow in the mid left vertebral artery . There is a diminutive basilar artery. There is arterial flow in the distal left vertebral artery. Thi s could be retrograde flow. There is arterial flow in the anterior middle and posterior cerebral arteries. There is no mass effec t. There is no evidence of intracranial aneurysm or neovascularity. I see no evidence of hemodynamic stenosis. There is normal contrast opacification of the venous sinuses. There is some fusiform narrowing of the right internal carotid artery at the skull base. Lumen is celeste rowed approximately 50%. IMPRESSION: There is patency of the left subclavian artery stent. Atherosclerotic vascular disease. No aneurysm o f the aortic arch. Absent flow in the left vertebral artery. There is retrograde filling of the distal left vertebral ar royal. There is diminutive right vertebral artery and basilar artery. No significant flow seen in the posterior communicating arteries. Fusiform approximately 50% stenosis in the extracranial distal right internal carotid artery. 30% stenosis origin left internal carotid artery. No evidence of intracranial hemodynamic stenosis.
--- NOTE | 2019-05-17 21:42 | HP ---
HISTORY AND PHYSICAL DATE OF SERVICE: 05/17/2019 CHIEF COMPLAINT: Dizziness. HISTORY OF PRESENT ILLNESS: This 89-year-old gentleman with a past medical history of multiple medical problems including history of atrial fibrillation, history of CAD, diabetes, hypertension, history of myocardial infarction, history of dizziness, history of mild CAD, CABG x2, being followed by Dr. Del Valle in the outpatient setting was admitted to [facility] with complaints of dizziness. The patient had history of vertigo secondary to vertebral basilar insufficiency, orthostatic hypotension and atrial fibrillation. The patient feels the patient is getting dizzy and there is no history of chest pain. No history of palpitations. The patient also apparently had a near syncopal episode also. The patient came to [facility] and admitted for further evaluation and treatment. The patient apparently uses a walker to walk at home also. A cardiology evaluation in progress also. Cardiology has recommended continued monitoring at this time. CT scan of the brain was done today which showed no acute defect was noted. Moderate age-related atrophy is noted. There is no history of fever, rigors, chills at this time. PAST MEDICAL HISTORY: History of atrial ablation, CAD, diabetes, hypertension, myocardial infarction, dizziness. MEDICATIONS: Prior to admission, home medications are: 1. Norvasc 10 mg p.o. daily. 2. Flomax 0.8 q.h.s. 3. Omeprazole 20 mg p.o. daily. 4. Toprol-XL 25 mg p.o. daily. 5. Antivert 25 mg b.i.d. p.r.n. 6. Imdur 30 mg. 7. Proscar 5 mg p.o. q.h.s. 8. Vasotec 10 mg p.o. b.i.d. 9. Lanoxin 125 mcg p.o. daily. 10.Plavix 75 mg p.o. daily. 11.Lipitor 10 mg q.h.s. 12.Ecotrin 81 mg p.o. daily. ALLERGIES: None. FAMILY HISTORY: No history of heart disease or strokes in the family. SOCIAL HISTORY: No history of smoking. No history of alcohol intake. REVIEW OF SYSTEMS: ENT diminished vision. Diminished hearing. CARDIOVASCULAR: As mentioned earlier. RESPIRATORY: No cough. GI no nausea or vomiting. : No dysuria. CENTRAL NERVOUS SYSTEM: As mentioned earlier. ALLERGY/IMMUNOLOGY: No asthma or hayfever. MUSCULOSKELETAL as mentioned earlier. HEMATOLOGY/ONCOLOGY: No history of anemia. ENDOCRINE: No history of diabetes or hypothyroidism. CONSTITUTIONAL: As mentioned earlier. DERMATOLOGY: Negative. RHEUMATOLOGY negative. PSYCHIATRY as mentioned earlier. PHYSICAL EXAMINATION: The patient is alert and oriented x2. Pulse is 96. Blood pressure 156/96. No orthostatic changes. Respiration 16, temperature 97.4, pulse ox 98% on room air. HEENT are conjunctivae normal. Oral mucosa moist. NECK is no jugular venous distention. No carotid bruit. No lymph node enlargement. CARDIOVASCULAR: S1, S2 muffled. No S3, no S4. RESPIRATORY: Breath sounds diminished in the bases. A few scattered rhonchi and crackles. ABDOMEN: Soft, nontender. No mass palpable. LEGS: No edema. No swelling. NERVOUS SYSTEM: Higher functions as mentioned earlier. Otherwise moves all 4 limbs. Minimal incoordination present, left more than the right. No nystagmus. The gait instability present. SKIN: No ulcer, rash or bleeding. JOINTS: No active deforming arthropathy. Lymphatics: No lymph nodes palpable in the neck, axillae or groin. LABS: CBC within normal limits and glucose 351, 78 and 189, 343. UA noted. ASSESSMENT: 1. Dizziness, gait instability for evaluation possible vertebrobasilar transient ischemic attack. 2. History of vertebrobasilar insufficiency and orthostatic hypotension. 3. Atrial fibrillation with PACs , rate controlled. 4. History of coronary artery disease, coronary artery bypass grafting x2. 5. History of diabetes type 2. 6. Hypertension. 7. History of myocardial infarction. 8. History of dizziness. 9. FULL CODE. RECOMMENDATIONS AND DISCUSSION: In this 89-year-old gentleman who presented with multiple complex medical issues, at this time, I recommend to continue the current medications, management and symptomatic treatment. Continue with antiplatelet agents. Neuro checks. CT scan of the brain has been done. I would also recommend ultrasound, 2D echo and ultrasound of the neck also. Resume the home medications. Neurology evaluation. Prognosis guarded because of multiple complex medical issues. Further recommendations to follow. A copy of dictation being forwarded to Dr. Del Valle who is the primary physician. MMODL / IJN: [id number] /
--- NOTE | 2019-05-17 22:22 | P.PN ---
Progress Note - Text Progress Note Date: 05/17/19 CTA Head/Neck reviewed. Its shows MARCUS 50% stenosis in the distal extracranial portion, 30% stenosis at the origin of the LICA, absent flow in the mid left vertebral artery with retrograde filling, diminutive right vertebral and basilar arteries. There is no other large vessel occlusion or stenosis. Since his vertebrobasilar system is diminutive, I would suggest keeping his BP >120/70 to prevent hypoperfusion to the brainstem. He does not need dual antiplatelet therapy. Can continue aspirin and statin therapy. Take plenty of time when making postural changes. Avoid dehydration. Fall precautions. PT/OT. d/w patient in detail. All questions answered. Stable for discharge from acute neuro standpoint. Please call with new ?.
[2019-05-18 06:41] LABS: Glucose,Whole Blood 135 mg/dL (75-99)
[2019-05-18] MEDS ORDERED: ISOSORBIDE MONONITRATE ER 30 MG TAB.ER.24H PO SCH (09:00)
[2019-05-18] MEDS ORDERED: NON-FORMULARY DRUG (Omeprazole [Omeprazole] 20 MG) PO SCH (09:00)
[2019-05-18 09:13] LABS: Basophils % (A) 1 %; Eosinophils # (A) 0.2 k/uL (0-0.7); Eosinophils % (A) 3 %; HCT 42.9 % (39.0-53.0); HGB 14.1 gm/dL (13.0-17.5); Lymphocytes # (A) 1.8 k/uL (1.0-4.8); Lymphocytes % (A) 32 %; MCH 27.4 pg (25.0-35.0); MCHC 32.9 g/dL (31.0-37.0); MCV 83.4 fL (80.0-100.0); Mean Platelet Volume 7.8; Monocytes # (A) 0.3 k/uL (0-1.0); Monocytes % (A) 5 %; Neutrophils # (A) 3.4 k/uL (1.3-7.7); Neutrophils % (A) 58 %; Platelet Count 177 k/uL (150-450); RBC 5.14 m/uL (4.30-5.90); RDW 15.3 % (11.5-15.5); WBC 5.8 k/uL (3.8-10.6)
[2019-05-18 09:32] LABS: Calcium 8.9 mg/dL (8.4-10.2); Potassium 4.2 mmol/L (3.5-5.1)
[2019-05-18] MEDS: INSULIN ASPART (NovoLOG) 100 UNIT/ML VIAL SQ SCH ×4 (10:19→21:52)
[2019-05-18] MEDS: DIGOXIN 125 MCG TAB PO SCH (10:19)
[2019-05-18] MEDS: LISINOPRIL 10 MG TAB PO SCH ×2 (10:20→21:52)
[2019-05-18] MEDS: ASPIRIN 81 MG PO SCH (10:20)
[2019-05-18] MEDS: METOPROLOL SUCCINATE (ER) 25 MG TAB.ER.24H PO SCH (10:20)
[2019-05-18] MEDS: amLODIPine 10 MG TAB PO SCH (10:20)
[2019-05-18] MEDS: PANTOPRAZOLE 40 MG TABLET PO SCH (10:20)
[2019-05-18] MEDS: HEPARIN SODIUM,PORCINE 5,000 UNIT/ML 1 ML VIAL SQ SCH ×2 (10:20→21:52)
--- NOTE | 2019-05-18 10:51 | P.PN ---
Subjective This is a pleasant 89-year-old male past medical history significant for chronic persistent atrial fibrillation on long-term anticoagulation due to frequent falls, coronary artery disease status post bypass grafting, hypertension, dyslipidemia and prior cerebellar stroke. He follows with Dr. Shell out of [place]. We have been asked to see him in consultation secondary to presyncope with a history of orthostatic hypotension. He is seen and examined resting comfortably lying flat in bed. He states yesterday morning he felt he was going to pass out. He felt extremely lightheaded and had to lay down. His symptoms did not improve when he laid down. He did not have any loss of consciousness. He denies any chest discomfort, shortness of breath, nausea, vomiting, palpitations or diaphoresis. His symptoms persisted for approximately one hour. Upon arrival to emergency department blood pressure was 132/90. Orthostatic vital signs were obtained and were unremarkable. EKG shows atrial fibrillation heart rate of 83, right bundle branch block PVCs. Chest x-ray is negative for an acute cardiopulmonary process. Laboratory data reviewed, CBC unremarkable, cardiac enzymes negative 3, creatinine 0.94, potassium 3.9, sod ium 138. Current cardiac medications include amlodipine 10 mg daily, Toprol 25 mg daily, Imdur 30 mg daily, enalapril 10 mg twice a day, digoxin 125 g daily, Plavix 75 mg daily, atorvastatin 10 mg daily, aspirin 81 mg daily and he takes Antivert 25 mg twice a day as needed. Most recent echocardiogram obtained in June 2018 revealed preserved LV systolic function with ejection fraction 55-60%, severely dilated left atrium, mild MR and mild TR. 05/18/2019 Pt is seen and examined laying flat in bed in no acutes distress. He continues to feel light headed and dizzy with activity or position changes. He denies chest pain, shortness of breath, nausea, vomiting or diaphoresis. He has been seen by neurology and CT angio was obtained revealing patent left subclavian artery stent; absent flow in left vertebral artery with retrograde fill distally, fusiform 50% stenosis in the xtracranial distral MARCUS, 30% LICA. Recommend blood pressure greater than 120/70 for optimal perfusion. Blood pressu re 126/80 heart rate 82. Repeat orthostatics negative for changes. Laboratory data reviewed, CBC unremarkable, sodium 137, potassium 4.2, creatinine 1.14. Currently maintained on imdur, amlodipine, aspirin, atorvastatin, digoxin, lisinopril, toprol and antivert PRN. GENERAL: This is a 89-year-old male in no apparent distress at the time of my examination. HEENT: Head is atraumatic, normocephalic. Pupils are equal, round. Sclerae anicteric. Conjunctivae are clear. Mucous membranes of the mouth are moist. Neck is supple. There is no jugular venous distention. No carotid bruit is heard. LUNGS: Clear to auscultation no wheezes, rales or rhonchi. No chest wall tenderness is noted on palpation or with deep breathing. HEART: Regular rate and rhythm without murmurs, rubs or gallops. S1 and S2 heard. EXTREMITIES: No evidence of peripheral edema and no calf tenderness noted. ASSESSMENT Dizziness, no LOC and orthostatic changes Chronic persistent atrial fibrillation on long-term anticoagulation. Telemetry tracings unremarkable. No significant pauses noted. History of coronary artery disease status post bypass grafting Hypertension Dyslipidemia History of CVA PLAN Recommend discontinuation of imdur as he has no anginal symptoms and this also could be contributing to his dizziness at times. Overall stable from a cardiac perspective, follow up with Dr. Shell upon discharge. Nurse Practitioner note has been reviewed, I agree with a documented findings and plan of care. Patient was seen and examined. Objective - Vital Signs Vital signs: Vital Signs Temp 97.4 F L 05/18/19 10:26 Pulse 78 05/18/19 10:26 Resp 18 05/18/19 10:26 BP 134/92 05/18/19 10:26 Pulse Ox 96 05/18/19 10:26 Intake & Output 05/17/19 05/18/19 05/18/19 18:59 06:59 18:59 Intake Total 480 Balance 480 Intake: Oral 480 Other: Voiding Method Toilet Toilet Urinal Urinal # Voids 1 1 - Labs CBC & Chem 7: 05/18/19 08:14 05/18/19 08:14 Labs: Abnormal Lab Results - Last 24 Hours (Table) 05/17/19 05/17/19 05/17/19 Range/Units 11:40 16:46 21:01 Glucose (74-99) mg/dL POC Glucose (mg/dL) 343 H 106 H 208 H (75-99) mg/dL 05/18/19 05/18/19 Range/Units 06:36 08:14 Glucose 223 H (74-99) mg/dL POC Glucose (mg/dL) 135 H (75-99) mg/dL
[2019-05-18 11:49] LABS: Glucose,Whole Blood 233 mg/dL (75-99)
--- NOTE | 2019-05-18 11:59 | ECHOF ---
Referral Reason:Stroke MEASUREMENTS -------- HEIGHT: 175.3 cm WEIGHT: 79.4 kg BP: 136/83 IVSd: 1.3 cm (0.6 - 1.1) LVIDd: 4.1 cm (3.9 - 5.3) LVPWd: 1.8 cm (0.6 - 1.1) IVSs: 2.0 cm LVIDs: 2.8 cm LVPWs: 1.5 cm LA Diam: 4.5 cm (2.7 - 3.8) LAESV Index (A-L): 35.42 ml/m Ao Diam: 3.9 cm (2.0 - 3.7) AV Cusp: 1.6 cm (1.5 - 2.6) LA Diam: 4.6 cm (2.7 - 3.8) MV EXCURSION: 14.924 mm (> 18.000) MV EF SLOPE: 66 mm/s (70 - 150) EPSS: 0.3 cm MV E Hesham: 0.98 m/s MV DecT: 112 ms MV A Hesham: 0.01 m/s MV E/A Ratio: 95.07 RAP: 5.00 mmHg RVSP: 27.81 mmHg FINDINGS -------- Atrial fibrillation. This was a technically adequate study. The left ventricular size is normal. There is mild concentric left ventricular hypertrophy. Overa ll left ventricular systolic function is low-normal with, an EF between 50 - 55 %. Left ventricular fillimg pressure cannot be estimated due to Atrial fibrillation. The right ventricle is normal in size. The left atrium is mildly dilated. LA is midly dilated 29-33ml/m2. The right atrial size is normal. There is mild aortic valve sclerosis. Trace to mild aortic regurgitation. Mild mitral annular calcification present. Mild mitral regurgitation is present. Mild tricuspid regurgitation present. There is no evidence of pulmonary hypertension. The right v entricular systolic pressure, as measured by Doppler, is 27.81mmHg. Trace/mild (physiologic) pulmonic regurgitation. The aortic root size is normal. There is no pericardial effusion. CONCLUSIONS -------- 1. Atrial fibrillation. 2. This was a technically adequate study. 3. The left ventricular size is normal. 4. There is mild concentric left ventricular hypertrophy. 5. Overall left ventricular systolic function is low-normal with, an EF between 50 - 55 %. 6. Left ventricular fillimg pressure cannot be estimated due to Atrial fibrillation. 7. The right ventricle is normal in size. 8. LA is midly dilated 29-33ml/m2. 9. The right atrial size is normal. 10. There is mild aortic valve sclerosis. 11. Trace to mild aortic regurgitation. 12. Mild mitral annular calcification present. 13. Mild mitral regurgitation is present. 14. Mild tricuspid regurgitation present. 15. There is no evidence of pulmonary hypertension. 16. The right ventricular systolic pressure, as measured by Doppler, is 27.81mmHg. 17. Trace/mild (physiologic) pulmonic regurgitation. 18. The aortic root size is normal. 19. There is no pericardial effusion. GENERAL STUDIES PROGRAM CHAIR: Lauren Jefferson RDCS
[2019-05-18 16:55] LABS: Glucose,Whole Blood 219 mg/dL (75-99)
--- NOTE | 2019-05-18 18:52 | PN ---
PROGRESS NOTE DATE OF SERVICE: 05/18/2019 This 89-year-old gentleman who was admitted with dizziness, had a CT angiogram. The CT angio showed patency of left subclavian artery stent was noticed but absent flow in the left vertebral artery was noted. A carotid Doppler was also done which showed no flow limitations and brain CT showed age-related atrophic changes. A 2D echo with Doppler showed ejection fraction about 50-55 percent and mildly dilated LA. Neurology following the patient closely. The patient being closely monitored at this time. PAST MEDICAL HISTORY: Reviewed. REVIEW OF SYSTEMS: CARDIOVASCULAR: No angina. No palpitations. RESPIRATORY: As mentioned earlier. GASTROINTESTINAL: As mentioned earlier. : As mentioned earlier. CENTRAL NERVOUS SYSTEM: No focal deficits. CURRENT MEDICATIONS: Reviewed and include: 1. Tylenol 500 q.6h p.r.n. 2. [place] 5 mg q6h. 3. Xanax 0.5 t.i.d. 4. Norvasc 10 mg daily. 5. Aspirin 81 mg. 6. Lipitor 10 mg daily. 7. Lanoxin 125 mcg daily. 8. Proscar 5 mg. 9. Heparin 5000 subcu b.i.d. 10.NovoLog a.c. and q.h.s. 11.Zestril 10 mg p.o. b.i.d. 12.Antivert 25 mg b.i.d. 13.Toprol-XL 25 mg b.i.d. 14.Narcan 0.2 q.2 p.r.n. 15.Protonix 40 mg daily. 16.Flomax 0.8 q.h.s. 17.Restoril 50 mg q.h.s. p.r.n. PHYSICAL EXAM: Patient is alert and oriented times three. Pulse 72. Blood pressure 126/80. Respirations 18. Temperature 98 degrees, pulse ox 98% on room air. HEENT: Conjunctivae normal. Oral mucosa moist. NECK is no jugular venous distention. No carotid bruit. No lymph node enlargement. Cardiovascular systems; S1, S2 muffled. RESPIRATIONS: Breath sounds diminished in the bases. No rhonchi. No crackles. ABDOMEN: Soft, nontender. LEGS: No edema. No swelling. CENTRAL NERVOUS SYSTEM: Diffusely weak and some incoordination, left more than the right. Gait instability present. No focal deficits. LABS: Accu-Cheks 135, 223, 233. CBC and BMP noted. ASSESSMENT: 1. Dizziness, gait instability, possibly vertebrobasilar insufficiency and transient ischemic attack. 2. History of vertebral insufficiency and/or orthostatic hypotension. 3. Diminutive left vertebral artery. 4. Bilateral carotid artery stenosis, right more the left. 5. Atrial fibrillation with PACs, controlled. 6. History of coronary artery disease, coronary artery bypass grafting x3. 7. History of diabetes type 2. 8. Hypertension. 9. History of myocardial infarction. 10.History of dizziness. 11.FULL CODE. RECOMMENDATIONS AND DISCUSSION: In this 89-year-old gentleman who presented with multiple medical issues, at this time, I recommend to continue current medications, continue to monitor. Symptomatic treatment. Otherwise at this time, I recommend continue the current medication. I would recommend also consultation with vascular surgery also because of multiple abnormalities. Guarded prognosis. Further recommendations to follow. MMYUDY / RADHAN: [id number] /
[2019-05-18 20:47] LABS: Glucose,Whole Blood 223 mg/dL (75-99)
[2019-05-18] MEDS: TAMSULOSIN 0.4 MG CAP.ER.24H PO SCH (21:52)
[2019-05-18] MEDS: ATORVASTATIN 10 MG TAB PO SCH (21:52)
[2019-05-18] MEDS: FINASTERIDE 5 MG TAB PO SCH (23:20)
[2019-05-19 06:50] LABS: Glucose,Whole Blood 127 mg/dL (75-99)
[2019-05-19 07:05] LABS: Basophils % (A) 1 %; Eosinophils # (A) 0.2 k/uL (0-0.7); Eosinophils % (A) 3 %; HCT 42.4 % (39.0-53.0); HGB 13.8 gm/dL (13.0-17.5); Lymphocytes % (A) 36 %; MCH 27.3 pg (25.0-35.0); MCHC 32.5 g/dL (31.0-37.0); Mean Platelet Volume 7.1; Monocytes # (A) 0.3 k/uL (0-1.0); Monocytes % (A) 6 %; Neutrophils # (A) 2.9 k/uL (1.3-7.7); Neutrophils % (A) 53 %; Platelet Count 154 k/uL (150-450); RBC 5.05 m/uL (4.30-5.90); RDW 14.3 % (11.5-15.5); WBC 5.5 k/uL (3.8-10.6)
[2019-05-19 07:19] LABS: Calcium 9.3 mg/dL (8.4-10.2); Potassium 4.4 mmol/L (3.5-5.1)
--- NOTE | 2019-05-19 07:37 | P.GSCN ---
History of Present Illness Consult date: 05/19/19 Reason for Consult: Carotid stenosis and vertebral artery occlusion Requesting physician: Cirilo Hernandez History of present illness: This is an 89-year-old male with past medical history significant for chronic persistent atrial fibrillation, coronary artery disease status post bypass grafting, hypertension, dyslipidemia and prior cerebellar stroke. He has a history of carotid doppler which demonstrated occlusion of the left vertebral artery. He states he felt he was going to pass out a couple of days ago. He felt extremely lightheaded and had to lay down. His symptoms did not improve when he laid down. He did not have any loss of consciousness. He denies any lateralizing symptoms such as vision changes, speech issues or unilateral weakness. He denies any chest discomfort, shortness of breath, nausea, vomiting, palpitations or diaphoresis. His symptoms persisted for approximately one hour. Upon arrival to emergency department blood pressure was 132/90. Orthostatic vital signs were obtained and were unremarkable. He was seen by cardiology, internal medicine and neurology and had a thorough workup for syncope. Upon his workup carotid Dopplers demonstrated occlusion of his left vertebral artery with less than 50% stenosis of the bilateral carotid arteries. He does have a subclavian artery stent which was visualized on CT a of the neck and head which is patent. He has no symptoms of left upper extremity weakness or pain. On CT angiogram his tumor artery is occluded on the left and his right vertebral artery is diminutive as well as the distal carotid artery. Currently he states he feels good and has noticed less dizziness if he gets up slowly. Review of Systems All systems: negative (What is mentioned in the HPI past medical history) Past Medical History Past Medical History: Atrial Fibrillation, Coronary Artery Disease (CAD), Diabetes Mellitus, Hypertension, Myocardial Infarction ([place]) Additional Past Medical History / Comment(s): dizziness, 2 heart attacks Last Myocardial Infarction Date:: unknown History of Any Multi-Drug Resistant Organisms: None Reported Past Surgical History: Appendectomy, Coronary Bypass/CABG Additional Past Surgical History / Comment(s): pt is poor historian. CABG x2, Past Anesthesia/Blood Transfusion Reactions: No Reported Reaction Past Psychological History: No Psychological Hx Reported Smoking Status: Never smoker Past Alcohol Use History: None Reported Past Drug Use History: None Reported - Past Family History Father History Unknown: Yes Mother History Unknown: Yes Medications and Allergies Home Medications Medication Instructions Recorded Confirmed Type Atorvastatin [Lipitor] 10 mg PO HS 04/13/18 05/16/19 History Clopidogrel [Plavix] 75 mg PO DAILY 04/13/18 05/16/19 History Finasteride [Proscar] 5 mg PO HS 04/13/18 05/16/19 History Metoprolol Succinate [Toprol XL] 25 mg PO DAILY 04/13/18 05/16/19 History Omeprazole 20 mg PO DAILY 04/13/18 05/16/19 History Tamsulosin HCl [Flomax] 0.8 mg PO HS 04/13/18 05/16/19 History amLODIPine [Norvasc] 10 mg PO DAILY #30 tab 07/01/18 05/16/19 Rx Enalapril [Vasotec] 10 mg PO BID #1 07/03/18 05/16/19 Rx Meclizine [Antivert] 25 mg PO BID PRN #0 07/03/18 05/16/19 Rx Isosorbide Mononitrate ER [Imdur] 30 mg PO DAILY 07/30/18 05/16/19 History Aspirin EC [Ecotrin Low Dose] 81 mg PO DAILY 08/21/18 05/16/19 History Digoxin [Lanoxin] 125 mcg PO DAILY 08/21/18 05/16/19 History Allergies Allergy/AdvReac Type Severity Reaction Status Date / Time No Known Allergies Allergy Verified 08/21/18 16:13 Surgical - Exam Vital Signs Temp Pulse Resp BP Pulse Ox 98.1 F 58 L 14 132/90 98 05/16/19 17:20 05/16/19 17:20 05/16/19 17:20 05/16/19 17:20 05/16/19 17:20 Palpable radial pulses bilaterally. No focal deficits. Tongue is midline. No evidence of weakness - General well developed, well nourished, no distress - Eyes PERRL, normal ocular movement - Neck no masses, no bruits - Respiratory normal expansion - Abdomen Abdomen: non tender, no distended - Integumentary no rash, no growths - Psychiatric oriented to time, oriented to person, oriented to place, speech is normal Results - Labs 05/19/19 06:18 05/19/19 06:18 Abnormal Lab Results - Last 24 Hours (Table) 08/26/19 08/26/19 08/26/19 Range/Units 08:14 11:46 16:53 BUN (9-20) mg/dL Glucose 223 H (74-99) mg/dL POC Glucose (mg/dL) 233 H 219 H (75-99) mg/dL 05/18/19 05/19/19 05/19/19 Range/Units 20:46 06:18 06:49 BUN 25 H (9-20) mg/dL Glucose 127 H (74-99) mg/dL POC Glucose (mg/dL) 223 H 127 H (75-99) mg/dL Diabetes panel 05/18/19 05/19/19 Range/Units 08:14 06:18 Sodium 137 138 (137-145) mmol/L Potassium 4.2 4.4 (3.5-5.1) mmol/L Chloride 103 104 (98-107) mmol/L Carbon Dioxide 24 27 (22-30) mmol/L BUN 15 25 H (9-20) mg/dL Creatinine 1.14 1.22 (0.66-1.25) mg/dL Glucose 223 H 127 H (74-99) mg/dL Calcium 8.9 9.3 (8.4-10.2) mg/dL Calcium panel 05/18/19 05/19/19 Range/Units 08:14 06:18 Calcium 8.9 9.3 (8.4-10.2) mg/dL Pituitary panel 05/18/19 05/19/19 Range/Units 08:14 06:18 Sodium 137 138 (137-145) mmol/L Potassium 4.2 4.4 (3.5-5.1) mmol/L Chloride 103 104 (98-107) mmol/L Carbon Dioxide 24 27 (22-30) mmol/L BUN 15 25 H (9-20) mg/dL Creatinine 1.14 1.22 (0.66-1.25) mg/dL Glucose 223 H 127 H (74-99) mg/dL Calcium 8.9 9.3 (8.4-10.2) mg/dL Adrenal panel 05/18/19 05/19/19 Range/Units 08:14 06:18 Sodium 137 138 (137-145) mmol/L Potassium 4.2 4.4 (3.5-5.1) mmol/L Chloride 103 104 (98-107) mmol/L Carbon Dioxide 24 27 (22-30) mmol/L BUN 15 25 H (9-20) mg/dL Creatinine 1.14 1.22 (0.66-1.25) mg/dL Glucose 223 H 127 H (74-99) mg/dL Calcium 8.9 9.3 (8.4-10.2) mg/dL Assessment and Plan Assessment: 1. Bilateral carotid stenosis. 2. Left vertebral artery occlusion 3. Vertebrobasilar insufficiency 4. History of left subclavian artery stent 5. Atrial fibrillation 6. Coronary artery disease with history of bypass 7. Diabetes Plan: No surgical intervention is required at this time. We will continue to monitor on an outpatient basis with follow-up carotid Dopplers. 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 Thank you for allowing me to participate in your patient's care.
[2019-05-19 07:42] VITALS: RESP 17
[2019-05-19] MEDS: INSULIN ASPART (NovoLOG) 100 UNIT/ML VIAL SQ SCH ×2 (07:56→11:57)
[2019-05-19] MEDS: ASPIRIN 81 MG PO SCH (08:16)
[2019-05-19] MEDS: amLODIPine 10 MG TAB PO SCH (08:16)
[2019-05-19] MEDS: DIGOXIN 125 MCG TAB PO SCH (08:16)
[2019-05-19] MEDS: LISINOPRIL 10 MG TAB PO SCH (08:16)
[2019-05-19] MEDS: PANTOPRAZOLE 40 MG TABLET PO SCH (08:16)
[2019-05-19] MEDS: METOPROLOL SUCCINATE (ER) 25 MG TAB.ER.24H PO SCH (08:16)
[2019-05-19] MEDS: HEPARIN SODIUM,PORCINE 5,000 UNIT/ML 1 ML VIAL SQ SCH (08:16)
[2019-05-19] MEDS ORDERED: DOCUSATE 100 MG CAP PO SCH (11:15)
[2019-05-19 11:53] LABS: Glucose,Whole Blood 197 mg/dL (75-99)
[2019-05-19 12:08] VITALS: BP 124/75; PULSE 72; TEMP 97.5
--- NOTE | 2019-05-19 21:18 | DS ---
DISCHARGE SUMMARY DATE OF SERVICE: 05/19/2019. FINAL DIAGNOSES: 1. Dizziness and gait instability, possibly vertebrobasilar insufficiency and transient ischemic attack. 2. History of vertebrobasilar insufficiency and orthostatic hypotension. 3. Diminutive left vertebral artery. 4. Bilateral carotid artery stenosis, right more than the left. 5. Atrial fibrillation with PACs, controlled. 6. History of coronary artery disease, coronary artery bypass grafting x3. 7. History of diabetes mellitus, type 2. 8. Hypertension. 9. History of myocardial infarction. 10.History of dizziness. 11.FULL CODE. DISCHARGE DISPOSITION: The patient will be discharged in stable condition with guarded prognosis. HISTORY OF PRESENT ILLNESS: This 89-year-old gentleman with a past medical history of multiple medical problems was admitted with symptoms of vertebrobasilar insufficiency. TIA was considered. The patient was evaluated by multiple consultants, including Neurology and Vascular Surgery. Recommend outpatient followup. On exam, vitals are stable. CARDIOVASCULAR SYSTEM: S1, S2 muffled. ABDOMEN: Soft. NERVOUS SYSTEM: No focal deficit. DISCHARGE ADVICE AND MEDICATIONS: 1. Discharge diet is cardiac. 2. Activity limited until followup. 3. Follow up with Dr. Del Valle in 1-2 days. 4. Follow up with Dr. Montero as advised. 5. Ecotrin 81 mg p.o. daily. 6. Flomax 0.8 at bedtime. 7. Lanoxin 125 mcg p.o. daily. 8. Lipitor 10 mg at bedtime. 9. Omeprazole 20 mg p.o. daily. 10.Plavix 75 mg p.o. daily. 11.Proscar 5 mg at bedtime. 12.Toprol-XL 25 mg p.o. daily. 13.Antivert 25 mg b.i.d. p.r.n. 14.Norvasc 10 mg p.o. daily. 15.Vasotec 10 mg p.o. b.i.d. Once again, the patient will be discharged in stable condition with guarded prognosis. MMODL / IJN: [id number] /
== END 2019-05-19 16:00 | disposition home or self-care (01) | DRG 68 ==
LOC: EC 17:13 → 1SOBS 20:53 → OBSVTOIN 05-18 14:09
PROVIDERS: ADMIT Internal Medicine; ATTEND Internal Medicine
DX: I65.23 Occlusion and stenosis of bilateral carotid arteries (principal); I48.1 Persistent atrial fibrillation; I65.02 Occlusion and stenosis of left vertebral artery; E11.65 Type 2 diabetes mellitus with hyperglycemia; E78.5 Hyperlipidemia, unspecified; F03.90 Unspecified dementia, unspecified severity, without behavioral disturbance, psychotic disturbance, mood disturbance, and anxiety; I10 Essential (primary) hypertension; I25.10 Atherosclerotic heart disease of native coronary artery without angina pectoris; I25.2 Old myocardial infarction; I45.10 Unspecified right bundle-branch block; I49.3 Ventricular premature depolarization; Z79.02 Long term (current) use of antithrombotics/antiplatelets; Z79.82 Long term (current) use of aspirin; Z79.899 Other long term (current) drug therapy; Z86.73 Personal history of transient ischemic attack (TIA), and cerebral infarction without residual deficits; Z95.1 Presence of aortocoronary bypass graft; I08.1 Rheumatic disorders of both mitral and tricuspid valves; I49.1 Atrial premature depolarization; R29.6 Repeated falls; Z91.81 History of falling
CPT/HCPCS: 36415; 70450; 70496; 70498; 71046; 80048; 80053; 80162; 81001; 84484; 85025; 93005; 93306; 93880; 96360; 96361; 99285

== ENCOUNTER 2019-06-05 19:39 | Inpatient (IN) | payer MEDICARE ==
[2019-06-05 20:18] LABS: Glucose,Whole Blood 410 mg/dL (75-99)
[2019-06-05] MEDS ORDERED: SODIUM CHLORIDE 0.9% 500 ML 500 ML IV STA (20:39)
--- NOTE | 2019-06-05 20:49 | ED ---
General Adult HPI - General Source: EMS Mode of arrival: EMS Limitations: no limitations <Ledy Vergara - Last Filed: 06/06/19 02:52> <Sharonda Benz - Last Filed: 06/06/19 04:46> - General Chief complaint: Dizziness Stated complaint: Diabetic issues Time Seen by Provider: 06/05/19 20:30 - History of Present Illness Initial comments: 89-year-old male patient presents to the emergency department today for evaluation of dizziness and elevated blood sugar. Patient states for the last couple of weeks he has been dizzy with standing. Patient denies any falls from this. States at times he feels like he could fall. Patient states that his blood sugars have been elevated. I did speak to his legal guardian who states he did see his doctor recently who called in a prescription of Levemir but he has not started taking this yet. States that for the last couple of days his blood sugars have been over 450. States today the machine would not read so they sent him in for further evaluation. He denies any nausea, vomiting, abdominal pain, chest pain, shortness of breath. Denies any headache, blurred vision, or double vision. Denies any weakness. States that he does have occasional random pains throughout his body. Patient denies any recent rash, fever, chills, diarrhea, constipation, back pain, hematuria, dysuria, urinary urgency, urinary frequency, or any other complaints. (Ledy Vergara) - Related Data Home Medications Medication Instructions Recorded Confirmed Atorvastatin [Lipitor] 10 mg PO HS 04/13/18 05/16/19 Clopidogrel [Plavix] 75 mg PO DAILY 04/13/18 05/16/19 Finasteride [Proscar] 5 mg PO HS 04/13/18 05/16/19 Metoprolol Succinate [Toprol XL] 25 mg PO DAILY 04/13/18 05/16/19 Omeprazole 20 mg PO DAILY 04/13/18 05/16/19 Tamsulosin HCl [Flomax] 0.8 mg PO HS 04/13/18 05/16/19 Aspirin EC [Ecotrin Low Dose] 81 mg PO DAILY 08/21/18 05/16/19 Digoxin [Lanoxin] 125 mcg PO DAILY 08/21/18 05/16/19 Previous Rx's Medication Instructions Recorded amLODIPine [Norvasc] 10 mg PO DAILY #30 tab 07/01/18 Enalapril [Vasotec] 10 mg PO BID #1 07/03/18 Meclizine [Antivert] 25 mg PO BID PRN #0 07/03/18 Allergies Allergy/AdvReac Type Severity Reaction Status Date / Time No Known Allergies Allergy Verified 06/05/19 20:00 Review of Systems ROS Other: All systems not noted in ROS Statement are negative. <Ledy Vergara - Last Filed: 06/06/19 02:52> ROS Other: All systems not noted in ROS Statement are negative. <Sharonda Benz - Last Filed: 06/06/19 04:46> ROS Statement: Those systems with pertinent positive or pertinent negative responses have been documented in the HPI. Past Medical History Past Medical History: Atrial Fibrillation, Coronary Artery Disease (CAD), Diabetes Mellitus, Hypertension, Myocardial Infarction ([place]) Additional Past Medical History / Comment(s): dizziness, 2 heart attacks Last Myocardial Infarction Date:: unknown History of Any Multi-Drug Resistant Organisms: None Reported Past Surgical History: Appendectomy, Coronary Bypass/CABG Additional Past Surgical History / Comment(s): pt is poor historian. CABG x2, Past Anesthesia/Blood Transfusion Reactions: No Reported Reaction Past Psychological History: No Psychological Hx Reported Smoking Status: Never smoker Past Alcohol Use History: None Reported Past Drug Use History: None Reported - Past Family History Father History Unknown: Yes Mother History Unknown: Yes <Ledy Vergara M - Last Filed: 06/06/19 02:52> General Exam Limitations: no limitations General appearance: alert, in no apparent distress, other (This is a well- developed, well-nourished elderly male patient in no acute distress. Vital signs upon presentation are temperature 98.2F, pulse 59, respirations 20, blood pressure 112/79, pulse ox 95% on room air.) Eye exam: Present: normal appearance, PERRL, EOMI. Absent: scleral icterus, conjunctival injection, nystagmus, periorbital swelling Respiratory exam: Present: normal lung sounds bilaterally. Absent: respiratory distress, wheezes, rales, rhonchi, stridor Cardiovascular Exam: Present: regular rate, normal rhythm, normal heart sounds. Absent: systolic murmur, diastolic murmur, rubs, gallop, clicks GI/Abdominal exam: Present: soft, normal bowel sounds. Absent: distended, tenderness, guarding, rebound, rigid Neurological exam: Present: alert, oriented X3, CN II-XII intact, other (Strength in all 4 extremities is 4/5.) Psychiatric exam: Present: normal affect, normal mood Skin exam: Present: warm, dry, intact, normal color. Absent: rash <Ledy Vergara - Last Filed: 06/06/19 02:52> Course Vital Signs 06/05/19 06/05/19 06/05/19 19:57 20:00 20:30 Temperature 98.2 F Pulse Rate 59 L 68 59 L Respiratory 20 16 18 Rate Blood Pressure 112/79 112/79 119/74 O2 Sat by Pulse 95 95 96 Oximetry 06/05/19 06/05/19 06/05/19 21:00 21:30 22:00 Temperature Pulse Rate 61 54 L 57 L Respiratory 18 16 18 Rate Blood Pressure 126/71 133/85 146/86 O2 Sat by Pulse 96 96 97 Oximetry 06/05/19 06/05/19 06/05/19 22:30 23:30 23:47 Temperature Pulse Rate 54 L 57 L 51 L Respiratory 18 16 16 Rate Blood Pressure 143/87 120/83 121/72 O2 Sat by Pulse 95 96 97 Oximetry 06/06/19 06/06/19 06/06/19 00:00 00:30 01:00 Temperature Pulse Rate 53 L 59 L 55 L Respiratory 16 18 16 Rate Blood Pressure 121/72 123/84 126/73 O2 Sat by Pulse 97 98 98 Oximetry 06/06/19 06/06/19 01:30 03:36 Temperature 98.7 F 98.1 F Pulse Rate 52 L 60 Respiratory 14 16 Rate Blood Pressure 136/89 127/84 O2 Sat by Pulse 98 97 Oximetry EKG Findings - EKG Comments: EKG Findings:: EKG obtained at 2005 shows atrial fibrillation with a right bundle branch block. Ventricular rate is 63, QRS duration 156, QT 434, QTC 444. <Ledy Vergara - Last Filed: 06/06/19 02:52> Medical Decision Making - Lab Data Result diagrams: 06/05/19 20:11 06/05/19 20:11 - Radiology Data Radiology results: report reviewed, image reviewed <Ledy Vergara - Last Filed: 06/06/19 02:52> - Lab Data Result diagrams: 06/05/19 20:11 06/05/19 20:11 <Sharonda Benz - Last Filed: 06/06/19 04:46> - Medical Decision Making 89-year-old male patient presented to the emergency department today for evaluation of dizziness and hyperglycemia. Physical examination is u nremarkable. He is neurologically intact with no focal deficits. Blood sugar upon arrival is 410. Labs are reviewed and revealed elevated blood sugar. Negative acetone. Patient does not have diabetic medication at home. He was supposed to be a started on Levemir but they have not yet picked up the prescription. Patient will be admitted to the hospital for further evaluation and blood sugar management. Patient verbalizes understanding and agrees with this plan. He was admitted to Dr. Hernandez at the end of April, he will return to [facility] for admission. (Ledy Vergara) % And evaluated this patient and agree with the plan for admission for further management of hyperglycemia. (Sharonda Benz) - Lab Data Lab Results 06/05/19 06/05/19 06/05/19 Range/Units 20:11 20:11 20:11 WBC 6.0 (3.8-10.6) k/uL RBC 4.72 (4.30-5.90) m/uL Hgb 12.8 L (13.0-17.5) gm/dL Hct 39.5 (39.0-53.0) % MCV 83.8 (80.0-100.0) fL MCH 27.2 (25.0-35.0) pg MCHC 32.4 (31.0-37.0) g/dL RDW 15.2 (11.5-15.5) % Plt Count 159 (150-450) k/uL Neutrophils % 59 % Lymphocytes % 31 % Monocytes % 5 % Eosinophils % 3 % Basophils % 1 % Neutrophils # 3.6 (1.3-7.7) k/uL Lymphocytes # 1.9 (1.0-4.8) k/uL Monocytes # 0.3 (0-1.0) k/uL Eosinophils # 0.2 (0-0.7) k/uL Basophils # 0.0 (0-0.2) k/uL PT 11.5 (9.0-12.0) sec INR 1.1 (<1.2) APTT 25.5 (22.0-30.0) sec Sodium 131 L (137-145) mmol/L Potassium 5.2 H (3.5-5.1) mmol/L Chloride 101 (98-107) mmol/L Carbon Dioxide 22 (22-30) mmol/L Anion Gap 8 mmol/L BUN 24 H (9-20) mg/dL Creatinine 1.12 (0.66-1.25) mg/dL Est GFR (CKD-EPI)AfAm 67 (>60 ml/min/1.73 sqM) Est GFR (CKD-EPI)NonAf 58 (>60 ml/min/1.73 sqM) Glucose 408 H (74-99) mg/dL POC Glucose (mg/dL) (75-99) mg/dL POC Glu Roll Reclaimer ID Calcium 7.9 L (8.4-10.2) mg/dL Total Bilirubin 1.0 (0.2-1.3) mg/dL AST 42 (17-59) U/L ALT 22 (21-72) U/L Alkaline Phosphatase 70 (38-126) U/L Troponin I (0.000-0.034) ng/mL Total Protein 5.9 L (6.3-8.2) g/dL Albumin 3.2 L (3.5-5.0) g/dL Urine Color Urine Appearance (Clear) Urine pH (5.0-8.0) Ur Specific Lynch (1.001-1.035) Urine Protein (Negative) Urine Glucose (UA) (Negative) Urine Ketones (Negative) Urine Blood (Negative) Urine Nitrite (Negative) Urine Bilirubin (Negative) Urine Urobilinogen (<2.0) mg/dL Ur Leukocyte Esterase (Negative) Urine RBC (0-5) /hpf Urine WBC (0-5) /hpf Ur Squamous Epith Cells (0-4) /hpf Digoxin 0.9 ng/mL Urine Opiates Screen (NotDetected) Ur Oxycodone Screen (NotDetected) Urine Methadone Screen (NotDetected) Ur Propoxyphene Screen (NotDetected) Ur Barbiturates Screen (NotDetected) U Tricyclic Antidepress (NotDetected) Ur Phencyclidine Scrn (NotDetected) Ur Amphetamines Screen (NotDetected) U Methamphetamines Scrn (NotDetected) U Benzodiazepines Scrn (NotDetected) Urine Cocaine Screen (NotDetected) U Marijuana (THC) Screen (NotDetected) Acetone, Qual (Negative) 06/05/19 06/05/19 06/05/19 Range/Units 20:11 20:11 20:16 WBC (3.8-10.6) k/uL RBC (4.30-5.90) m/uL Hgb (13.0-17.5) gm/dL Hct (39.0-53.0) % MCV (80.0-100.0) fL MCH (25.0-35.0) pg MCHC (31.0-37.0) g/dL RDW (11.5-15.5) % Plt Count (150-450) k/uL Neutrophils % % Lymphocytes % % Monocytes % % Eosinophils % % Basophils % % Neutrophils # (1.3-7.7) k/uL Lymphocytes # (1.0-4.8) k/uL Monocytes # (0-1.0) k/uL Eosinophils # (0-0.7) k/uL Basophils # (0-0.2) k/uL PT (9.0-12.0) sec INR (<1.2) APTT (22.0-30.0) sec Sodium (137-145) mmol/L Potassium (3.5-5.1) mmol/L Chloride (98-107) mmol/L Carbon Dioxide (22-30) mmol/L Anion Gap mmol/L BUN (9-20) mg/dL Creatinine (0.66-1.25) mg/dL Est GFR (CKD-EPI)AfAm (>60 ml/min/1.73 sqM) Est GFR (CKD-EPI)NonAf (>60 ml/min/1.73 sqM) Glucose (74-99) mg/dL POC Glucose (mg/dL) 410 H (75-99) mg/dL POC Glu Roll Reclaimer ID Courtney Emmanuel Calcium (8.4-10.2) mg/dL Total Bilirubin (0.2-1.3) mg/dL AST (17-59) U/L ALT (21-72) U/L Alkaline Phosphatase (38-126) U/L Troponin I 0.013 (0.000-0.034) ng/mL Total Protein (6.3-8.2) g/dL Albumin (3.5-5.0) g/dL Urine Color Urine Appearance (Clear) Urine pH (5.0-8.0) Ur Specific Lynch (1.001-1.035) Urine Protein (Negative) Urine Glucose (UA) (Negative) Urine Ketones (Negative) Urine Blood (Negative) Urine Nitrite (Negative) Urine Bilirubin (Negative) Urine Urobilinogen (<2.0) mg/dL Ur Leukocyte Esterase (Negative) Urine RBC (0-5) /hpf Urine WBC (0-5) /hpf Ur Squamous Epith Cells (0-4) /hpf Digoxin ng/mL Urine Opiates Screen (NotDetected) Ur Oxycodone Screen (NotDetected) Urine Methadone Screen (NotDetected) Ur Propoxyphene Screen (NotDetected) Ur Barbiturates Screen (NotDetected) U Tricyclic Antidepress (NotDetected) Ur Phencyclidine Scrn (NotDetected) Ur Amphetamines Screen (NotDetected) U Methamphetamines Scrn (NotDetected) U Benzodiazepines Scrn (NotDetected) Urine Cocaine Screen (NotDetected) U Marijuana (THC) Screen (NotDetected) Acetone, Qual Negative (Negative) 06/05/19 06/05/19 06/05/19 Range/Units 21:49 22:34 22:52 WBC (3.8-10.6) k/uL RBC (4.30-5.90) m/uL Hgb (13.0-17.5) gm/dL Hct (39.0-53.0) % MCV (80.0-100.0) fL MCH (25.0-35.0) pg MCHC (31.0-37.0) g/dL RDW (11.5-15.5) % Plt Count (150-450) k/uL Neutrophils % % Lymphocytes % % Monocytes % % Eosinophils % % Basophils % % Neutrophils # (1.3-7.7) k/uL Lymphocytes # (1.0-4.8) k/uL Monocytes # (0-1.0) k/uL Eosinophils # (0-0.7) k/uL Basophils # (0-0.2) k/uL PT (9.0-12.0) sec INR (<1.2) APTT (22.0-30.0) sec Sodium (137-145) mmol/L Potassium (3.5-5.1) mmol/L Chloride (98-107) mmol/L Carbon Dioxide (22-30) mmol/L Anion Gap mmol/L BUN (9-20) mg/dL Creatinine (0.66-1.25) mg/dL Est GFR (CKD-EPI)AfAm (>60 ml/min/1.73 sqM) Est GFR (CKD-EPI)NonAf (>60 ml/min/1.73 sqM) Glucose (74-99) mg/dL POC Glucose (mg/dL) 377 H 349 H (75-99) mg/dL POC Glu Roll Reclaimer JESSE Emmanuel, Courtney Emmanuel, Courtney Calcium (8.4-10.2) mg/dL Total Bilirubin (0.2-1.3) mg/dL AST (17-59) U/L ALT (21-72) U/L Alkaline Phosphatase (38-126) U/L Troponin I (0.000-0.034) ng/mL Total Protein (6.3-8.2) g/dL Albumin (3.5-5.0) g/dL Urine Color Light Yellow Urine Appearance Clear (Clear) Urine pH 5.5 (5.0-8.0) Ur Specific Lynch 1.023 (1.001-1.035) Urine Protein Negative (Negative) Urine Glucose (UA) 4+ H (Negative) Urine Ketones Negative (Negative) Urine Blood Negative (Negative) Urine Nitrite Negative (Negative) Urine Bilirubin Negative (Negative) Urine Urobilinogen <2.0 (<2.0) mg/dL Ur Leukocyte Esterase Moderate H (Negative) Urine RBC 6 H (0-5) /hpf Urine WBC 24 H (0-5) /hpf Ur Squamous Epith Cells 2 (0-4) /hpf Digoxin ng/mL Urine Opiates Screen Not Detected (NotDetected) Ur Oxycodone Screen Not Detected (NotDetected) Urine Methadone Screen Not Detected (NotDetected) Ur Propoxyphene Screen Not Detected (NotDetected) Ur Barbiturates Screen Not Detected (NotDetected) U Tricyclic Antidepress Not Detected (NotDetected) Ur Phencyclidine Scrn Not Detected (NotDetected) Ur Amphetamines Screen Not Detected (NotDetected) U Methamphetamines Scrn Not Detected (NotDetected) U Benzodiazepines Scrn Not Detected (NotDetected) Urine Cocaine Screen Not Detected (NotDetected) U Marijuana (THC) Screen Not Detected (NotDetected) Acetone, Qual (Negative) - Radiology Data Two-view x-ray of the chest is obtained. Report was reviewed in its entirety. Impression by Dr. Funes shows cardiomegaly without acute pulmonary process. (Ledy Vergara) Disposition Decision to Admit Reason: Admit from EC Decision Date: 06/06/19 Decision Time: 00:31 <Ledy Vergara - Last Filed: 06/06/19 02:52> <Sharonda Benz - Last Filed: 06/06/19 04:46> Clinical Impression: Hyperglycemia Disposition: ADMITTED IP TO THIS [facility] Condition: Serious
[2019-06-05 20:55] LABS: Basophils % (A) 1 %; Eosinophils # (A) 0.2 k/uL (0-0.7); Eosinophils % (A) 3 %; HCT 39.5 % (39.0-53.0); HGB 12.8 gm/dL (13.0-17.5); Lymphocytes # (A) 1.9 k/uL (1.0-4.8); Lymphocytes % (A) 31 %; MCH 27.2 pg (25.0-35.0); MCHC 32.4 g/dL (31.0-37.0); MCV 83.8 fL (80.0-100.0); Mean Platelet Volume 8.3; Monocytes # (A) 0.3 k/uL (0-1.0); Monocytes % (A) 5 %; Neutrophils # (A) 3.6 k/uL (1.3-7.7); Neutrophils % (A) 59 %; Platelet Count 159 k/uL (150-450); RBC 4.72 m/uL (4.30-5.90); RDW 15.2 % (11.5-15.5)
[2019-06-05 21:05] LABS: INR 1.1 (<1.2); Partial Thromboplastin Time 25.5 sec (22.0-30.0); Prothrombin Time 11.5 sec (9.0-12.0)
[2019-06-05 21:08] LABS: Albumin 3.2 g/dL (3.5-5.0); Calcium 7.9 mg/dL (8.4-10.2); Digoxin 0.9 ng/mL; Total Protein 5.9 g/dL (6.3-8.2)
[2019-06-05 21:11] LABS: Potassium 5.2 mmol/L (3.5-5.1)
[2019-06-05 21:51] LABS: Glucose,Whole Blood 377 mg/dL (75-99)
[2019-06-05] MEDS ORDERED: INSULIN ASPART (NovoLOG) 100 UNIT/ML VIAL SQ STA (21:51)
[2019-06-05 22:53] LABS: Glucose,Whole Blood 349 mg/dL (75-99)
[2019-06-05 22:53] LABS: Appearance,Urine Clear (Clear); Bilirubin,Urine Negative (Negative); Blood,Urine Negative (Negative); Color,Urine Light Yellow; Glucose,Urine (UA) 4+ (Negative); Ketones,Urine Negative (Negative); Leukocyte Esterase,Urine Moderate (Negative); Nitrite,Urine Negative (Negative); PH, Urine 5.5 (5.0-8.0); Protein,Urine Negative (Negative); RBC,Urine 6 /hpf (0-5); Specific Gravity,Urine 1.023 (1.001-1.035); Squamous Epithelial Cell,Urine 2 /hpf (0-4); Urobilinogen,Urine <2.0 mg/dL (<2.0); WBC,Urine 24 /hpf (0-5)
[2019-06-05 23:10] LABS: Amphetamine Screen,Urine Not Detected (NotDetected); Barbiturate Screen,Urine Not Detected (NotDetected); Benzodiazepines Screen,Urine Not Detected (NotDetected); Cocaine Screen,Urine Not Detected (NotDetected); Methadone Screen, Urine Not Detected (NotDetected); Opiate Screen,Urine Not Detected (NotDetected); Oxycodone Screen, Urine Not Detected (NotDetected); Phencyclidine Screen,Urine Not Detected (NotDetected); Tricyclic Antidepressant,Urine Not Detected (NotDetected); Urn Cannabinoid Scrn Not Detected (NotDetected)
--- NOTE | 2019-06-05 23:52 | XR ---
EXAMINATION TYPE: XR chest 2V DATE OF EXAM: 06/05/2019 COMPARISON: Chest x-ray May 16, 2019. HISTORY: History of atrial fibrillation with dizziness and weakness. TECHNIQUE: Frontal and lateral views of the chest are obtained. FINDINGS: Overlying sternal wires mediastinal clips are redemonstrated. There is no focal air space opacity, pleural effusion, or pneumothorax seen. The cardiac silhouette size remains enlarged. Multi level spurring in the thoracic spine is redemonstrated. IMPRESSION: Cardiomegaly without acute pulmonary process.
[2019-06-06] MEDS ORDERED: NALOXONE 0.4 MG/ML 1 ML VIAL IV PRN (00:21)
[2019-06-06 00:38] LABS: Glucose,Whole Blood 246 mg/dL (75-99)
[2019-06-06 07:01] LABS: Glucose,Whole Blood 213 mg/dL (75-99)
[2019-06-06] MEDS: INSULIN ASPART (NovoLOG) 100 UNIT/ML VIAL SQ SCH ×4 (08:49→21:13)
[2019-06-06 11:08] LABS: Glucose,Whole Blood 340 mg/dL (75-99)
[2019-06-06] MEDS ORDERED: INSULIN ASPART (NovoLOG) 100 UNIT/ML VIAL SQ ONE (12:15)
--- NOTE | 2019-06-06 13:16 | P.HPIM ---
History of Present Illness 89-year-old pleasant gentleman came in with compensative dizziness and elevated blood sugars patient is still dizzy which is lightheadedness not from spinning around. Patient doesn't have any significant weakness. Patient was started on Levaquin his unable to take that medication patient was admitted for hyperglycemia and placement issues. Case management consulted did I am unsure patient will be able to take his medications because of since the mental status and memory issues although patient doesn't have any significant dementia. Patient is feeling well able to provide me good history patient denied any fever chills nausea vomiting abdominal pain. Patient denied any shortness of breath. No signs or symptoms of infection at this time. Review of Systems REVIEW OF SYSTEMS: CONSTITUTIONAL: No fever, no malaise, no fatigue. HEENT: No recent visual problems or hearing problems. Denied any sore throat. CARDIOVASCULAR: No chest pain, orthopnea, PND, no palpitations, no syncope. PULMONARY: No shortness of breath, no cough, no hemoptysis. GASTROINTESTINAL: No diarrhea, no nausea, no vomiting, no abdominal pain. NEUROLOGICAL: No headaches, no weakness, no numbness. HEMATOLOGICAL: Denies any bleeding or petechiae. GENITOURINARY: Denies any burning micturition, frequency, or urgency. MUSCULOSKELETAL/RHEUMATOLOGICAL: Denies any joint pain, swelling, or any muscle pain. ENDOCRINE: Denies any polyuria or polydipsia. The rest of the 14-point review of systems is negative. Past Medical History Past Medical History: Atrial Fibrillation, Coronary Artery Disease (CAD), CVA/TIA, Diabetes Mellitus, Hypertension, Myocardial Infarction ([place]) Additional Past Medical History / Comment(s): dizziness, 2 heart attacks, bilateral carotid stenosis, left vertebral artery occlusion Last Myocardial Infarction Date:: unknown History of Any Multi-Drug Resistant Organisms: None Reported Past Surgical History: Appendectomy, Coronary Bypass/CABG Additional Past Surgical History / Comment(s): pt is poor historian. CABG x2, Past Anesthesia/Blood Transfusion Reactions: No Reported Reaction Past Psychological History: No Psychological Hx Reported Smoking Status: Never smoker Past Alcohol Use History: None Reported Past Drug Use History: None Reported - Past Family History Father History Unknown: Yes Mother History Unknown: Yes Medications and Allergies Home Medications Medication Instructions Recorded Confirmed Type Atorvastatin [Lipitor] 10 mg PO HS 04/13/18 06/06/19 History Clopidogrel [Plavix] 75 mg PO DAILY 04/13/18 06/06/19 History Finasteride [Proscar] 5 mg PO HS 04/13/18 06/06/19 History Metoprolol Succinate [Toprol XL] 25 mg PO DAILY 04/13/18 06/06/19 History Omeprazole 20 mg PO DAILY 04/13/18 06/06/19 History Tamsulosin HCl [Flomax] 0.8 mg PO HS 04/13/18 06/06/19 History amLODIPine [Norvasc] 10 mg PO DAILY #30 tab 07/01/18 06/06/19 Rx Enalapril [Vasotec] 10 mg PO BID #1 07/03/18 06/06/19 Rx Digoxin [Lanoxin] 125 mcg PO DAILY 08/21/18 06/06/19 History Isosorbide Mononitrate ER [Imdur] 30 mg PO DAILY 06/06/19 06/06/19 History Allergies Allergy/AdvReac Type Severity Reaction Status Date / Time No Known Allergies Allergy Verified 06/06/19 07:22 Physical Exam Vitals: Vital Signs Temp Pulse Pulse Resp BP BP Pulse Ox 06/06/19 11:52 97.6 F 66 16 173/97 98 06/06/19 04:30 97.5 F L 68 18 154/76 98 06/06/19 03:36 98.1 F 60 16 127/84 97 06/06/19 01:30 98.7 F 52 L 14 136/89 98 06/06/19 01:00 55 L 16 126/73 98 06/06/19 00:30 59 L 18 123/84 98 06/06/19 00:00 53 L 16 121/72 97 06/05/19 23:47 51 L 16 121/72 97 06/05/19 23:30 57 L 16 120/83 96 06/05/19 22:30 54 L 18 143/87 95 06/05/19 22:00 57 L 18 146/86 97 06/05/19 21:30 54 L 16 133/85 96 06/05/19 21:00 61 18 126/71 96 06/05/19 20:30 59 L 18 119/74 96 06/05/19 20:00 68 16 112/79 95 06/05/19 19:57 98.2 F 59 L 20 112/79 95 Intake and Output 06/05/19 06/06/19 06/06/19 22:59 06:59 14:59 Other: Voiding Method Toilet Toilet Diaper Diaper Incontinent Incontinent # Voids 1 Weight 73.936 kg PHYSICAL EXAMINATION: GENERAL: The patient is alert and oriented x3, not in any acute distress. Well developed, well nourished. HEENT: Pupils are round and equally reacting to light. EOMI. No scleral icterus. No conjunctival pallor. Normocephalic, atraumatic. No pharyngeal erythema. No thyromegaly. CARDIOVASCULAR: S1 and S2 present. No murmurs, rubs, or gallops. PULMONARY: Chest is clear to auscultation, no wheezing or crackles. ABDOMEN: Soft, nontender, nondistended, normoactive bowel sounds. No palpable organomegaly. MUSCULOSKELETAL: No joint swelling or deformity. EXTREMITIES: No cyanosis, clubbing, or pedal edema. NEUROLOGICAL: Gross neurological examination did not reveal any focal deficits. SKIN: No rashes. Results CBC & Chem 7: 06/05/19 20:11 06/05/19 20:11 Labs: Abnormal Lab Results - Last 24 Hours (Table) 06/05/19 06/05/19 06/05/19 Range/Units 20:11 20:11 20:16 Hgb 12.8 L (13.0-17.5) gm/dL Sodium 131 L (137-145) mmol/L Potassium 5.2 H (3.5-5.1) mmol/L BUN 24 H (9-20) mg/dL Glucose 408 H (74-99) mg/dL POC Glucose (mg/dL) 410 H (75-99) mg/dL Calcium 7.9 L (8.4-10.2) mg/dL Total Protein 5.9 L (6.3-8.2) g/dL Albumin 3.2 L (3.5-5.0) g/dL Urine Glucose (UA) (Negative) Ur Leukocyte Esterase (Negative) Urine RBC (0-5) /hpf Urine WBC (0-5) /hpf 06/05/19 06/05/19 06/05/19 Range/Units 21:49 22:34 22:52 Hgb (13.0-17.5) gm/dL Sodium (137-145) mmol/L Potassium (3.5-5.1) mmol/L BUN (9-20) mg/dL Glucose (74-99) mg/dL POC Glucose (mg/dL) 377 H 349 H (75-99) mg/dL Calcium (8.4-10.2) mg/dL Total Protein (6.3-8.2) g/dL Albumin (3.5-5.0) g/dL Urine Glucose (UA) 4+ H (Negative) Ur Leukocyte Esterase Moderate H (Negative) Urine RBC 6 H (0-5) /hpf Urine WBC 24 H (0-5) /hpf 06/06/19 06/06/19 06/06/19 Range/Units 00:36 06:59 11:06 Hgb (13.0-17.5) gm/dL Sodium (137-145) mmol/L Potassium (3.5-5.1) mmol/L BUN (9-20) mg/dL Glucose (74-99) mg/dL POC Glucose (mg/dL) 246 H 213 H 340 H (75-99) mg/dL Calcium (8.4-10.2) mg/dL Total Protein (6.3-8.2) g/dL Albumin (3.5-5.0) g/dL Urine Glucose (UA) (Negative) Ur Leukocyte Esterase (Negative) Urine RBC (0-5) /hpf Urine WBC (0-5) /hpf Thrombosis Risk Factor Assmnt - Choose All That Apply Any of the Below Risk Factors Present?: Yes Each Risk Factor Represents 3 Points: Age 75 years or older Thrombosis Risk Factor Assessment Total Risk Factor Score: 3 Thrombosis Risk Factor Assessment Level: Moderate Risk Assessment and Plan Plan: Hyperglycemia: Secondary to noncompressive medications I do not believe patient will be able to take his own insulin although his family members helps him but patient will need to be placement depending on physical therapy occupational therapy evaluation will decide in the placement. -Hypovolemic hyponatremia patient will be started on IV fluids and will be continued on those IV fluids amlodipine in the lisinopril will be held metoprolol will be continued -Acute renal failure 70 to prerenal azotemia -Dizziness probably due to volume depletion patient will remain on IV fluids patient had normal ejection fraction the past although there is Some Concentric Hypertrophy Because of Which Will Have To Closely Monitor for Heart Failure Exacerbation. There Are No Sick and Valvular Abnormalities from the Echo Cardiac Him That Was Done Last Month. -Atrial Fibrillation Roxicet multiple not in any anti-correlation probably because of his age patient is presently rate controlled continue with metoprolol -Coronary artery disease -Type 2 diabetes mellitus: Patient will be started on long-acting insulin 20 units with sliding scale will decide on discharge a insulin therapy. n-CVA TIA in the past DVT prophylaxis with subcutaneous heparin
[2019-06-06] MEDS: amLODIPine 10 MG TAB PO SCH (14:54)
[2019-06-06 15:44] VITALS: BMI 24.0
[2019-06-06 17:13] LABS: Glucose,Whole Blood 86 mg/dL (75-99)
[2019-06-06] MEDS: SODIUM CHLORIDE 0.9% 1,000 ML IV SCH (17:30)
[2019-06-06] MEDS ORDERED: INSULIN DETEMIR (LEVEMIR) 100 UNIT/ML SYR SQ SCH (21:00)
[2019-06-06 21:10] LABS: Glucose,Whole Blood 242 mg/dL (75-99)
[2019-06-06] MEDS: FINASTERIDE 5 MG TAB PO SCH (21:13)
[2019-06-06] MEDS: HEPARIN SODIUM,PORCINE 5,000 UNIT/ML 1 ML VIAL SQ SCH (21:13)
[2019-06-06] MEDS: ATORVASTATIN 10 MG TAB PO SCH (21:13)
[2019-06-06] MEDS: TAMSULOSIN 0.4 MG CAP.ER.24H PO SCH (21:16)
[2019-06-07] MEDS: SODIUM CHLORIDE 0.9% 1,000 ML IV SCH ×2 (05:42→10:51)
[2019-06-07 07:12] LABS: Glucose,Whole Blood 71 mg/dL (75-99)
[2019-06-07] MEDS: INSULIN ASPART (NovoLOG) 100 UNIT/ML VIAL SQ SCH ×4 (07:13→20:45)
[2019-06-07] MEDS: DIGOXIN 125 MCG TAB PO SCH (07:33)
[2019-06-07] MEDS: CLOPIDOGREL 75 MG TAB PO SCH (07:33)
[2019-06-07] MEDS: ISOSORBIDE MONONITRATE ER 30 MG TAB.ER.24H PO SCH (07:33)
[2019-06-07] MEDS: amLODIPine 10 MG TAB PO SCH (07:33)
[2019-06-07] MEDS: METOPROLOL SUCCINATE (ER) 25 MG TAB.ER.24H PO SCH (07:33)
[2019-06-07] MEDS: HEPARIN SODIUM,PORCINE 5,000 UNIT/ML 1 ML VIAL SQ SCH ×2 (07:33→20:44)
[2019-06-07] MEDS: PANTOPRAZOLE 40 MG TABLET PO SCH (07:33)
[2019-06-07 07:47] LABS: Basophils % (A) 1 %; Eosinophils # (A) 0.2 k/uL (0-0.7); Eosinophils % (A) 4 %; HCT 44.2 % (39.0-53.0); HGB 14.5 gm/dL (13.0-17.5); Lymphocytes # (A) 1.6 k/uL (1.0-4.8); Lymphocytes % (A) 31 %; MCH 27.3 pg (25.0-35.0); MCHC 32.7 g/dL (31.0-37.0); MCV 83.4 fL (80.0-100.0); Mean Platelet Volume 7.3; Monocytes # (A) 0.2 k/uL (0-1.0); Monocytes % (A) 5 %; Neutrophils # (A) 3.1 k/uL (1.3-7.7); Neutrophils % (A) 59 %; Platelet Count 154 k/uL (150-450); RDW 15.6 % (11.5-15.5); WBC 5.3 k/uL (3.8-10.6)
[2019-06-07 08:05] LABS: Albumin 3.4 g/dL (3.5-5.0); Potassium 3.7 mmol/L (3.5-5.1); Total Bilirubin 0.6 mg/dL (0.2-1.3); Total Protein 6.3 g/dL (6.3-8.2)
[2019-06-07 11:22] LABS: Glucose,Whole Blood 133 mg/dL (75-99)
--- NOTE | 2019-06-07 11:44 | P.PN ---
Subjective Patient is admitted for glycemia uncontrolled blood sugars. Patient blood sugars are well controlled we'll continue with present regimen but will cut down the insulin that is long-acting to 18 units and continue with sliding scale. Patient will need placement in subacute rehabilitation patient is quite weak. Patient does have dizziness and lightheadedness which is chronic appears to be from autonomic dysfunction since it's chronic him not doing any further workup as an inpatient here. He gets dizzy from my lying down to sitting down position and sitting to standing position we'll obtain orthostatic vitals. Constitutional: Denied any fatigue denied any fever. Cardio vascular: denied any chest pain, palpitations Gastrointestinal denied any nausea vomiting Pulmonary: Denied any shortness of breath cough Neurologic denied any new focal deficits All inpatient medications were reviewed and appropriate changes in these medications as dictated in the interval history and assessment and plan. Objective - Vital Signs Vital signs: Vital Signs Temp 97.6 F 06/07/19 04:45 Pulse 71 06/07/19 04:45 Resp 18 06/07/19 04:45 BP 152/75 06/07/19 04:45 Pulse Ox 97 06/07/19 04:45 Intake & Output 06/06/19 06/07/19 06/07/19 18:59 06:59 18:59 Intake Total 600 200 Balance 600 200 Weight 73.936 kg Intake: Oral 600 200 Other: Voiding Method Toilet Toilet Toilet Diaper Diaper Diaper Incontinent Incontinent Incontinent # Voids 3 1 - Exam PHYSICAL EXAMINATION: GENERAL: The patient is alert and oriented x3, not in any acute distress. Well developed, well nourished. HEENT: Pupils are round and equally reacting to light. EOMI. No scleral icterus. No conjunctival pallor. Normocephalic, atraumatic. No pharyngeal erythema. No thyromegaly. CARDIOVASCULAR: S1 and S2 present. No murmurs, rubs, or gallops. PULMONARY: Chest is clear to auscultation, no wheezing or crackles. ABDOMEN: Soft, nontender, nondistended, normoactive bowel sounds. No palpable organomegaly. MUSCULOSKELETAL: No joint swelling or deformity. EXTREMITIES: No cyanosis, clubbing, or pedal edema. NEUROLOGICAL: Gross neurological examination did not reveal any focal deficits. SKIN: No rashes. - Labs CBC & Chem 7: 06/07/19 07:10 06/07/19 07:10 Labs: Abnormal Lab Results - Last 24 Hours (Table) 06/06/19 06/07/19 06/07/19 Range/Units 21:07 07:10 07:10 RDW 15.6 H (11.5-15.5) % Glucose 65 L (74-99) mg/dL POC Glucose (mg/dL) 242 H (75-99) mg/dL ALT 18 L (21-72) U/L Albumin 3.4 L (3.5-5.0) g/dL 06/07/19 06/07/19 Range/Units 07:11 11:21 RDW (11.5-15.5) % Glucose (74-99) mg/dL POC Glucose (mg/dL) 71 L 133 H (75-99) mg/dL ALT (21-72) U/L Albumin (3.5-5.0) g/dL Assessment and Plan Plan: Hyperglycemia: Secondary to noncompliance with medications patient need 24 7 care along with her physical therapy and rehabilitation patient will need placement hyperglycemia resolved. Insulin regimen as mentioned above -Hypovolemic hyponatremia improved with IV fluids IV fluids will be discontinued blood pressure is bit elevated but patient is not being started on any antidepressant medications which he was on at home if needed patient will benefit from SEEMA inhibitor. As long as his systolic blood pressures below 160 I will not do any further intervention as patient is high risk for fall and stringing his age. -Acute renal failure to prerenal azotemia -Dizziness appears to be chronic and may be related to autonomic dysfunction lead the blood pressures stay bit higher. -Atrial Fibrillation chronic not on any anti-correlation probably because of his age patient is presently rate controlled continue with metoprolol -Coronary artery disease -Type 2 diabetes mellitus: Patient will be started on long-acting insulin 18 units with sliding scale will decide on discharge a insulin therapy. n-CVA TIA in the past DVT prophylaxis with subcutaneous heparin
[2019-06-07 18:06] LABS: Glucose,Whole Blood 193 mg/dL (75-99)
[2019-06-07 19:42] LABS: Glucose,Whole Blood 226 mg/dL (75-99)
[2019-06-07] MEDS: TAMSULOSIN 0.4 MG CAP.ER.24H PO SCH (20:44)
[2019-06-07] MEDS: ATORVASTATIN 10 MG TAB PO SCH (20:44)
[2019-06-07] MEDS: FINASTERIDE 5 MG TAB PO SCH (20:45)
[2019-06-07] MEDS ORDERED: INSULIN DETEMIR (LEVEMIR) 100 UNIT/ML SYR SQ SCH (21:00)
[2019-06-08 07:11] LABS: Glucose,Whole Blood 60 mg/dL (75-99)
[2019-06-08 07:29] LABS: Glucose,Whole Blood 87 mg/dL (75-99)
[2019-06-08] MEDS: amLODIPine 10 MG TAB PO SCH (08:29)
[2019-06-08] MEDS: HEPARIN SODIUM,PORCINE 5,000 UNIT/ML 1 ML VIAL SQ SCH ×2 (08:29→20:52)
[2019-06-08] MEDS: CLOPIDOGREL 75 MG TAB PO SCH (08:29)
[2019-06-08] MEDS: ISOSORBIDE MONONITRATE ER 30 MG TAB.ER.24H PO SCH ×2 (08:29→08:30)
[2019-06-08] MEDS: METOPROLOL SUCCINATE (ER) 25 MG TAB.ER.24H PO SCH (08:30)
[2019-06-08] MEDS: DIGOXIN 125 MCG TAB PO SCH (08:30)
[2019-06-08] MEDS: PANTOPRAZOLE 40 MG TABLET PO SCH (08:30)
[2019-06-08] MEDS: INSULIN ASPART (NovoLOG) 100 UNIT/ML VIAL SQ SCH ×5 (08:31→20:41)
[2019-06-08 11:10] LABS: Glucose,Whole Blood 320 mg/dL (75-99)
[2019-06-08 16:57] LABS: Glucose,Whole Blood 142 mg/dL (75-99)
[2019-06-08 20:23] LABS: Glucose,Whole Blood 99 mg/dL (75-99)
[2019-06-08] MEDS: ATORVASTATIN 10 MG TAB PO SCH (20:52)
[2019-06-08] MEDS: TAMSULOSIN 0.4 MG CAP.ER.24H PO SCH (20:52)
[2019-06-08] MEDS: FINASTERIDE 5 MG TAB PO SCH (20:52)
[2019-06-08] MEDS ORDERED: INSULIN DETEMIR (LEVEMIR) 100 UNIT/ML SYR SQ SCH (21:00)
[2019-06-09 01:39] LABS: Glucose,Whole Blood 122 mg/dL (75-99)
[2019-06-09 05:03] VITALS: RESP 18
[2019-06-09 07:02] LABS: Glucose,Whole Blood 83 mg/dL (75-99)
[2019-06-09] MEDS: INSULIN ASPART (NovoLOG) 100 UNIT/ML VIAL SQ SCH ×4 (07:11→12:33)
[2019-06-09 07:40] LABS: Basophils % (A) 1 %; Eosinophils # (A) 0.1 k/uL (0-0.7); Eosinophils % (A) 3 %; HGB 13.6 gm/dL (13.0-17.5); Lymphocytes # (A) 1.3 k/uL (1.0-4.8); Lymphocytes % (A) 32 %; MCH 27.5 pg (25.0-35.0); MCHC 33.3 g/dL (31.0-37.0); MCV 82.7 fL (80.0-100.0); Mean Platelet Volume 6.9; Monocytes # (A) 0.2 k/uL (0-1.0); Monocytes % (A) 4 %; Neutrophils # (A) 2.4 k/uL (1.3-7.7); Neutrophils % (A) 58 %; Platelet Count 157 k/uL (150-450); RBC 4.96 m/uL (4.30-5.90); RDW 14.2 % (11.5-15.5); WBC 4.1 k/uL (3.8-10.6)
[2019-06-09] MEDS: amLODIPine 10 MG TAB PO SCH (07:48)
[2019-06-09] MEDS: ISOSORBIDE MONONITRATE ER 30 MG TAB.ER.24H PO SCH (07:48)
[2019-06-09 07:49] LABS: Potassium 3.7 mmol/L (3.5-5.1)
[2019-06-09] MEDS: PANTOPRAZOLE 40 MG TABLET PO SCH (07:49)
[2019-06-09] MEDS: CLOPIDOGREL 75 MG TAB PO SCH (07:49)
[2019-06-09] MEDS: METOPROLOL SUCCINATE (ER) 25 MG TAB.ER.24H PO SCH (07:49)
[2019-06-09] MEDS: DIGOXIN 125 MCG TAB PO SCH (07:49)
[2019-06-09] MEDS: HEPARIN SODIUM,PORCINE 5,000 UNIT/ML 1 ML VIAL SQ SCH (07:49)
--- NOTE | 2019-06-09 09:32 | CDI ---
Documentation Clarification Form Date: 06/09/2019 8:40:13 AM From: Charisma Villarreal RN CCDS Admit Date: 06/08/2019 3:24:00 PM Patient Name: Adam Mayfield Visit Number: [id number] Discharge Date: ATTENTION: The Clinical Documentation Specialists (CDI) and [facility] Coding Staff appreciate your assistance in clarifying documentation. Please respond to the clarification below the line at the bottom and electronically sign. The CDI & [facility] Coding staff will review the response and follow-up if needed. Please note: Queries are made part of the Legal Health Record. If you have any questions, please contact the author of this message via ITS. Dr. Chandu Bateman MD The patient presented with the following Dizziness and Falling. History/Risk Factors: 89-year-old male with a history: Atrial Fibrillation; CAD; CVA/TIA; DM; HTN; [place] Clinical Indicators: Lab findings: 06/05/2019 Glucose 408; Hgb 12.8; Na 131; K 5.2; Bun 24, Cr 1.12; Calcium 7.9; Total Protein 5.9; Albumin 3.2; 06/07/2019 alt 18, glucose 65, albumin 3.4 06/09/2019 Glucose 83; Vital Signs: 06/05/2019 - 112/79, 119/74, 126/72, 133/85, 146/86 06/06/2019 - 123/84, 136/89, 127/84, 154/76, 173/97, 114/66 06/07/2019 - 152/75, 117/74, 144/81 06/08/2019 - 136/76, 118/71, 124/72 06/09/2019 - 150/78 Other Clinical Indicators: Home medications: Toprol XL 25mg daily, Norvasc 10mg daily, Vasotec 10mg BID, Imdur 30mg daily, Digoxin 125mcg Daily Treatment: INPT MEDS: Toprol XL 25mg Daily, Norvasc 10mg Daily, Imdur 30 mg Daily, Digoxin 125mcg Daily In your professional opinion, can you please clarify Autonomic Dysfunction with blood pressure and cause? * Blood pressure Fluctuating * HTN (please specify type) * Hypotension (please specify type Postural, Idiopathic, Drug Induced, Orthostatic, Neurogenic, other) * Other, please specify * Unable to determine (Last Revision: December 2017) MTDD
--- NOTE | 2019-06-09 09:52 | CDI ---
Documentation Clarification Form Date: 06/09/2019 CDS: Charisma Villarreal RN, CCDS Admit Date: 06/08/2019 Patient Name: Adam Mayfield ATTENTION: The Clinical Documentation Specialists (CDI) and [facility] Coding Staff appreciate your assistance in clarifying documentation. Please respond to the clarification below the line at the bottom and electronically sign. The CDI & [facility] Coding staff will review the response and follow-up if needed. Please note: Queries are made part of the Legal Health Record. If you have any questions, please contact the author of this message via ITS. Dr. Chandu Bateman MD Atrial Fibrillation is documented in the H &P and progress notes History/Risk Factors: 89-year-old male presents to the ED via EMS for Dizziness. Medical Hx of Atrial Fibrillation; DM 2; CAD; HTN ; [place] Clinical Indicators: Your documentation Atrial Fibrillation chronic not on any anti-correlation probably because of his age patient is presently rate controlled continue with metoprolol Home Medication Digoxin 125mcg po Daily Treatment: Digoxin 125mcg po Daily, Toprol XL 25mg po daily In your professional opinion, can you please clarify the type of Atrial Fibrillation, if known? * Chronic/Permanent * Paroxysmal * Persistent * Other, please specify * Unable to determine (Last Revision: December 2017) MTDD
[2019-06-09 11:11] LABS: Glucose,Whole Blood 110 mg/dL (75-99)
--- NOTE | 2019-06-09 11:50 | P.PN ---
Subjective Progress Note Date: 06/08/19 Principal diagnosis: Hyperglycemia with uncontrolled diabetes type 2 Patient is admitted for glycemia uncontrolled blood sugars. Patient blood sugars are well controlled we'll continue with present regimen but will cut down the insulin that is long-acting to 18 units and continue with sliding scale. Patient will need placement in subacute rehabilitation patient is quite weak. Patient does have dizziness and lightheadedness which is chronic appears to be from autonomic dysfunction since it's chronic him not doing any further workup as an inpatient here. He gets dizzy from my lying down to sitting down position and sitting to standing position we'll obtain orthostatic vitals. 06/08/2019 Patient denied any complaints of chest pain or shortness of breath. Patient was hypoglycemic this morning. Insulin dose will be reduced to 15 units at bedtime and along with aspart 4 units 3 times a day before meals will be ordered. No headache or dizziness or lightheadedness. Discussed with family at bedside in detail. Possible discharge tomorrow likely to rehab. Constitutional: Denied any fatigue denied any fever. Cardio vascular: denied any chest pain, palpitations Gastrointestinal denied any nausea vomiting Pulmonary: Denied any shortness of breath cough Neurologic denied any new focal deficits All inpatient medications were reviewed and appropriate changes in these medications as dictated in the interval history and assessment and plan. Objective - Vital Signs Vital signs: Vital Signs Temp 97.5 F L 06/08/19 21:00 Pulse 73 06/08/19 21:00 Resp 16 06/08/19 21:00 BP 124/72 06/08/19 21:00 Pulse Ox 98 06/08/19 21:00 Intake & Output 06/08/19 06/08/19 06/09/19 06:59 18:59 06:59 Intake Total 650 Balance 650 Intake: Oral 650 Other: Voiding Method Toilet Toilet Diaper Diaper Incontinent Incontinent # Voids 5 5 # Bowel Movements 1 - Exam PHYSICAL EXAMINATION: GENERAL: The patient is alert and oriented x3, not in any acute distress. Well developed, well nourished. HEENT: Pupils are round and equally reacting to light. EOMI. No scleral icterus. No conjunctival pallor. Normocephalic, atraumatic. No pharyngeal erythema. No thyromegaly. CARDIOVASCULAR: S1 and S2 present. No murmurs, rubs, or gallops. PULMONARY: Chest is clear to auscultation, no wheezing or crackles. ABDOMEN: Soft, nontender, nondistended, normoactive bowel sounds. No palpable organomegaly. MUSCULOSKELETAL: No joint swelling or deformity. EXTREMITIES: No cyanosis, clubbing, or pedal edema. NEUROLOGICAL: Gross neurological examination did not reveal any focal deficits. SKIN: No rashes. - Labs CBC & Chem 7: 06/09/19 07:21 06/09/19 07:21 Labs: Abnormal Lab Results - Last 24 Hours (Table) 06/08/19 06/08/19 06/08/19 Range/Units 07:10 11:09 16:55 POC Glucose (mg/dL) 60 L 320 H 142 H (75-99) mg/dL Assessment and Plan Assessment: Hyperglycemia: Secondary to noncompliance with medications patient need 24/ 7 care along with her physical therapy and rehabilitation patient will need placement . hyperglycemia resolved. Insulin regimen was titrated. -Hypovolemic hyponatremia improved with IV fluids IV fluids will be discontinued blood pressure is bit elevated but patient is not being started on any antidepressant medications which he was on at home if needed patient will benefit from SEEMA inhibitor. As long as his systolic blood pressures below 160 I will not do any further intervention as patient is high risk for fall and stringing his age. -Acute renal failure to prerenal azotemia -Dizziness appears to be chronic and may be related to autonomic dysfunction le ad the blood pressures stay bit higher. -Atrial Fibrillation chronic not on any anti-correlation probably because of his age patient is presently rate controlled continue with metoprolol -Coronary artery disease -Type 2 diabetes mellitus: Patient will be started on long-acting insulin 18 units with sliding scale will decide on discharge a insulin therapy. n-CVA TIA in the past DVT prophylaxis with subcutaneous heparin Time with Patient: Greater than 30
[2019-06-09 14:06] VITALS: BP 143/79; PULSE 70; TEMP 97.5
[2019-06-09 19:58] LABS: Hemoglobin A1C 15.3 % (4.0-6.0)
== END 2019-06-09 14:43 | disposition home health service (06) | DRG 312 ==
LOC: EC 19:39 → 3NMEDONC 06-06 00:28 → OBSVTOIN 06-08 15:24
PROVIDERS: ADMIT Internal Medicine; ATTEND Internal Medicine
DX: I95.1 Orthostatic hypotension (principal); E87.1 Hypo-osmolality and hyponatremia; N17.9 Acute kidney failure, unspecified; I10 Essential (primary) hypertension; I25.10 Atherosclerotic heart disease of native coronary artery without angina pectoris; I25.2 Old myocardial infarction; I48.0 Paroxysmal atrial fibrillation; E86.1 Hypovolemia; E11.43 Type 2 diabetes mellitus with diabetic autonomic (poly)neuropathy; E11.65 Type 2 diabetes mellitus with hyperglycemia; E11.649 Type 2 diabetes mellitus with hypoglycemia without coma; Z79.02 Long term (current) use of antithrombotics/antiplatelets; Z79.4 Long term (current) use of insulin; Z79.82 Long term (current) use of aspirin; Z79.899 Other long term (current) drug therapy; Z86.73 Personal history of transient ischemic attack (TIA), and cerebral infarction without residual deficits; Z91.14 Patient's other noncompliance with medication regimen; Z95.1 Presence of aortocoronary bypass graft
CPT/HCPCS: 36415; 71046; 80048; 80053; 80162; 80306; 81001; 82009; 83036; 84484; 85025; 85610; 85730; 93005; 96360; 96361; 99285

== ENCOUNTER 2019-06-15 14:28 | Inpatient (IN) | payer MEDICARE ==
[2019-06-15] MEDS ORDERED: SODIUM CHLORIDE 0.9% 500 ML 500 ML IV STA (14:39)
[2019-06-15] MEDS ORDERED: MECLIZINE 25 MG TAB PO STA (14:40)
--- NOTE | 2019-06-15 14:57 | ED ---
General Adult HPI - General Chief complaint: Dizziness Stated complaint: dizziness Time Seen by Provider: 06/15/19 14:28 Source: EMS, RN notes reviewed Mode of arrival: EMS Limitations: no limitations - History of Present Illness Initial comments: This is an 89-year-old male who presents emergency Department from assisted living facility. Patient called EMS because he was dizzy. When I asked the patient when the dizziness began he stated that it is there every single day. Patient states today's episode was worse and asked why called EMS. Patient states he did not feel like he was going to pass out he felt as though he was moving. Patient states he still has a but it's better than it was. Patient denies any palpitations per patient denies any chest pain. Patient denies any difficulty breathing or shortness of breath per patient denies any recent injury or trauma. Patient states she has been off balance for the last few days so he didn't attribute to any dizziness. Patient denies any abdominal pain patient denies nausea or vomiting. Patient denies any recent fever chills. Patient has a very poor historian however he states that he doesn't remember quite a few answers the questions I ask. There is no family or caregiver with the patient - Related Data Home Medications Medication Instructions Recorded Confirmed Atorvastatin [Lipitor] 10 mg PO HS 04/13/18 06/15/19 Clopidogrel [Plavix] 75 mg PO DAILY 04/13/18 06/15/19 Finasteride [Proscar] 5 mg PO HS 04/13/18 06/15/19 Metoprolol Succinate [Toprol XL] 25 mg PO DAILY 04/13/18 06/15/19 Omeprazole 20 mg PO DAILY 04/13/18 06/15/19 Tamsulosin HCl [Flomax] 0.8 mg PO HS 04/13/18 06/15/19 Digoxin [Lanoxin] 125 mcg PO DAILY 08/21/18 06/15/19 Aspirin EC [Ecotrin Low Dose] 81 mg PO DAILY 06/15/19 06/15/19 Citalopram Hydrobromide [CeleXA] 20 mg PO DAILY 06/15/19 06/15/19 Meclizine [Antivert] 25 mg PO BID PRN 06/15/19 06/15/19 Previous Rx's Medication Instructions Recorded amLODIPine [Norvasc] 10 mg PO DAILY #30 tab 07/01/18 Enalapril [Vasotec] 10 mg PO DAILY #1 06/09/19 INSULIN ASPART (NovoLOG) [NovoLOG 4 unit SQ AC-TID #1 vial 06/09/19 (formulary)] Insulin Detemir (Levemir) [Levemir] 12 unit SQ HS #1 vial 06/09/19 Allergies Allergy/AdvReac Type Severity Reaction Status Date / Time No Known Allergies Allergy Verified 06/15/19 16:48 Review of Systems ROS Statement: Those systems with pertinent positive or pertinent negative responses have been documented in the HPI. ROS Other: All systems not noted in ROS Statement are negative. Past Medical History Past Medical History: Atrial Fibrillation, Coronary Artery Disease (CAD), CVA/TIA, Diabetes Mellitus, Hypertension, Myocardial Infarction ([place]) Additional Past Medical History / Comment(s): dizziness, 2 heart attacks, bilateral carotid stenosis, left vertebral artery occlusion Last Myocardial Infarction Date:: unknown History of Any Multi-Drug Resistant Organisms: None Reported Past Surgical History: Appendectomy, Coronary Bypass/CABG Additional Past Surgical History / Comment(s): pt is poor historian. CABG x2, Past Anesthesia/Blood Transfusion Reactions: No Reported Reaction Past Psychological History: No Psychological Hx Reported Smoking Status: Never smoker Past Alcohol Use History: None Reported Past Drug Use History: None Reported - Past Family History Father History Unknown: Yes Mother History Unknown: Yes General Exam - General Exam Comments Initial Comments: GENERAL: Patient is well-developed and well-nourished. Patient is nontoxic and well-hydrated and is in no acute distress. ENT: Neck is soft and supple. No significant lymphadenopathy is noted. Oropharynx is clear. Moist mucous membranes. Neck has full range of motion without eliciting any pain. EYES: The sclera were anicteric and conjunctiva were pink and moist. Extraocular mov ements were intact and pupils were equal round and reactive to light. Eyelids were unremarkable. PULMONARY: Unlabored respirations. Good breath sounds bilaterally. No audible rales rhonchi or wheezing was noted. CARDIOVASCULAR: Patient irregular heartbeat ABDOMEN: Soft and nontender with normal bowel sounds. No palpable organomegaly was noted. There is no palpable pulsatile mass. SKIN: Skin is clear with no lesions or rashes and otherwise unremarkable. NEUROLOGIC: Patient is alert and oriented x3. Cranial nerves II through XII are grossly intact. Motor and sensory are also intact. Normal speech, volume and content. Symmetrical smile. Cerebellar testing is normal bilaterally MUSCULOSKELETAL: Normal extremities with adequate strength and full range of motion. LYMPHATICS: No significant lymphadenopathy is noted PSYCHIATRIC: Normal psychiatric evaluation. Limitations: no limitations Course Vital Signs 06/15/19 06/15/19 06/15/19 14:32 14:36 15:00 Temperature 98.6 F Pulse Rate 65 Respiratory 16 Rate Blood Pressure 126/74 126/74 125/73 O2 Sat by Pulse 96 96 Oximetry 06/15/19 06/15/19 15:30 16:00 Temperature Pulse Rate 52 L 67 Respiratory 17 16 Rate Blood Pressure 123/78 141/88 O2 Sat by Pulse 97 98 Oximetry Medical Decision Making - Medical Decision Making EKG shows atrial fibrillation at a rate of 72 bpm QRS is under 50 QT intervals 416 QTC is 455 per patient's right bundle gordy block. Chest x-ray shows no acute abnormality. CT of the brain shows no acute abnormality. Patient was up and out of bed and was very unsteady on his feet. I spoke with Dr. Truong he agreed to admit the patient I admitted the patient wrote admitting orders - Lab Data Result diagrams: 06/15/19 14:50 06/15/19 15:22 Lab Results 06/15/19 06/15/19 06/15/19 Range/Units 14:50 15:22 15:22 WBC 4.2 (3.8-10.6) k/uL RBC 4.64 (4.30-5.90) m/uL Hgb 12.5 L (13.0-17.5) gm/dL Hct 38.9 L (39.0-53.0) % MCV 83.8 (80.0-100.0) fL MCH 26.8 (25.0-35.0) pg MCHC 32.0 (31.0-37.0) g/dL RDW 14.2 (11.5-15.5) % Plt Count 195 (150-450) k/uL Neutrophils % 60 % Lymphocytes % 28 % Monocytes % 5 % Eosinophils % 4 % Basophils % 2 % Neutrophils # 2.5 (1.3-7.7) k/uL Lymphocytes # 1.2 (1.0-4.8) k/uL Monocytes # 0.2 (0-1.0) k/uL Eosinophils # 0.2 (0-0.7) k/uL Basophils # 0.1 (0-0.2) k/uL PT 11.2 (9.0-12.0) sec INR 1.1 (<1.2) APTT 25.5 (22.0-30.0) sec Sodium (137-145) mmol/L Potassium (3.5-5.1) mmol/L Chloride (98-107) mmol/L Carbon Dioxide (22-30) mmol/L Anion Gap mmol/L BUN (9-20) mg/dL Creatinine (0.66-1.25) mg/dL Est GFR (CKD-EPI)AfAm (>60 ml/min/1.73 sqM) Est GFR (CKD-EPI)NonAf (>60 ml/min/1.73 sqM) Glucose (74-99) mg/dL Calcium (8.4-10.2) mg/dL Magnesium (1.6-2.3) mg/dL Total Bilirubin (0.2-1.3) mg/dL AST (17-59) U/L ALT (21-72) U/L Alkaline Phosphatase (38-126) U/L Troponin I <0.012 (0.000-0.034) ng/mL Total Protein (6.3-8.2) g/dL Albumin (3.5-5.0) g/dL 06/15/19 Range/Units 15:22 WBC (3.8-10.6) k/uL RBC (4.30-5.90) m/uL Hgb (13.0-17.5) gm/dL Hct (39.0-53.0) % MCV (80.0-100.0) fL MCH (25.0-35.0) pg MCHC (31.0-37.0) g/dL RDW (11.5-15.5) % Plt Count (150-450) k/uL Neutrophils % % Lymphocytes % % Monocytes % % Eosinophils % % Basophils % % Neutrophils # (1.3-7.7) k/uL Lymphocytes # (1.0-4.8) k/uL Monocytes # (0-1.0) k/uL Eosinophils # (0-0.7) k/uL Basophils # (0-0.2) k/uL PT (9.0-12.0) sec INR (<1.2) APTT (22.0-30.0) sec Sodium 137 (137-145) mmol/L Potassium 4.7 (3.5-5.1) mmol/L Chloride 104 (98-107) mmol/L Carbon Dioxide 23 (22-30) mmol/L Anion Gap 10 mmol/L BUN 20 (9-20) mg/dL Creatinine 0.97 (0.66-1.25) mg/dL Est GFR (CKD-EPI)AfAm 80 (>60 ml/min/1.73 sqM) Est GFR (CKD-EPI)NonAf 70 (>60 ml/min/1.73 sqM) Glucose 180 H (74-99) mg/dL Calcium 9.0 (8.4-10.2) mg/dL Magnesium 1.7 (1.6-2.3) mg/dL Total Bilirubin 0.2 (0.2-1.3) mg/dL AST 20 (17-59) U/L ALT 23 (21-72) U/L Alkaline Phosphatase 83 (38-126) U/L Troponin I (0.000-0.034) ng/mL Total Protein 6.4 (6.3-8.2) g/dL Albumin 3.6 (3.5-5.0) g/dL Disposition Clinical Impression: Dizziness, Weakness, Multiple falls Disposition: ADMITTED IP TO THIS [facility] Referrals: Breanna Del Valle DO [Primary Care Provider] - 1-2 days Time of Disposition: 18:29
[2019-06-15 15:01] LABS: Basophils # (A) 0.1 k/uL (0-0.2); Basophils % (A) 2 %; Eosinophils # (A) 0.2 k/uL (0-0.7); Eosinophils % (A) 4 %; HCT 38.9 % (39.0-53.0); HGB 12.5 gm/dL (13.0-17.5); Lymphocytes # (A) 1.2 k/uL (1.0-4.8); Lymphocytes % (A) 28 %; MCH 26.8 pg (25.0-35.0); MCV 83.8 fL (80.0-100.0); Mean Platelet Volume 7.3; Monocytes # (A) 0.2 k/uL (0-1.0); Monocytes % (A) 5 %; Neutrophils # (A) 2.5 k/uL (1.3-7.7); Neutrophils % (A) 60 %; Platelet Count 195 k/uL (150-450); RBC 4.64 m/uL (4.30-5.90); RDW 14.2 % (11.5-15.5); WBC 4.2 k/uL (3.8-10.6)
--- NOTE | 2019-06-15 15:28 | CT ---
EXAMINATION TYPE: CT brain wo con DATE OF EXAM: 06/15/2019 COMPARISON: 05/17/2019 HISTORY: 89-year-old male dizziness, fall TECHNIQUE: Examination was done in axial plane without intravenous contrast. Coronal and sagittal r econstructions performed. CT DLP: 1091.4 mGycm Automated exposure control for dose reduction was used. FINDINGS: There is no evidence of acute intracranial hemorrhage, acute ischemic changes, mass, mass-effect, or extra-axial fluid collection. There is no effacement of cerebral sulci or basal subarachnoid cister ns. There is no hydrocephalus. There is no midline shift. Lucas-white matter distinction is preserv ed. Mild generalized supratentorial volume loss. Mild subcortical white matter hypodensities suggesting c hanges of chronic small vessel ischemic disease. Area of encephalomalacia inferior left cerebellar he misphere likely relating to prior infarct. Partially empty sella. Abdomen scattered calcifications wi thin the carotid siphons. Scattered mild to moderate mucosal thickening ethmoid air cells. Mastoid air cells are well pneumatiz ed. IMPRESSION: 1. No acute intracranial abnormality seen. 2. Stable mild generalized atrophy and changes of chronic small vessel ischemic disease. 3. 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 4. [id number] chronic ethmoid sinus disease.
--- NOTE | 2019-06-15 15:34 | XR ---
EXAMINATION TYPE: XR chest 2V DATE OF EXAM: 06/15/2019 COMPARISON: 06/05/[address] abdomen 07/31/2018 HISTORY: 89-year-old male with chest pain TECHNIQUE: AP and lateral views FINDINGS: Heart upper limits of normal in size. Median sternotomy wires with postoperative clips in the mediast inum. Some patchy peripheral left basilar opacity. Pulmonary vasculature within normal limits. Calcif ied granuloma peripheral right upper to midlung IMPRESSION: 1. Some patchy left basilar atelectasis or early infiltrate. 2. Stable calcified granuloma right upper lobe. 3. Refer to impression for CT chest dated 07/31/2018. Appropriate follow-up for underlying pulmonary n odules is recommended on a nonemergent basis.
[2019-06-15 15:42] LABS: Albumin 3.6 g/dL (3.5-5.0); Magnesium 1.7 mg/dL (1.6-2.3); Potassium 4.7 mmol/L (3.5-5.1); Total Bilirubin 0.2 mg/dL (0.2-1.3); Total Protein 6.4 g/dL (6.3-8.2)
[2019-06-15 15:49] LABS: INR 1.1 (<1.2); Partial Thromboplastin Time 25.5 sec (22.0-30.0); Prothrombin Time 11.2 sec (9.0-12.0)
[2019-06-15] MEDS ORDERED: SODIUM CHLORIDE 0.9% 1,000 ML IV ONE (18:30)
[2019-06-15] MEDS ORDERED: hydrALAZINE HCL 20 MG/ML 1 ML VIAL IVP STA (19:06)
[2019-06-15 21:29] LABS: Glucose,Whole Blood 181 mg/dL (75-99)
[2019-06-15] MEDS ORDERED: MECLIZINE 25 MG TAB PO PRN (22:05)
[2019-06-15] MEDS ORDERED: RX INFO: IV CONTRAST WAS GIVEN 1 EACH MISC MISCELLANE PRN (22:13)
[2019-06-15] MEDS: LISINOPRIL 20 MG TAB PO SCH (22:33)
--- NOTE | 2019-06-15 22:56 | HP ---
HISTORY AND PHYSICAL 89-year-old white male presents from assisted living facility with severe dizziness. He states he has dizziness every day. It was worse. He called EMS. He did not feel like he was going to pass out, but is worse with movement. Does have difficulty with chest pain and shortness of breath. Apparently had some pulmonary nodules found a year ago which have not been followed up on. HOME MEDICINES: 1. Lipitor 10 daily. 2. Plavix 75 mg daily. 3. Proscar 5 mg daily. 4. Metoprolol succinate 25 mg daily. 5. Omeprazole 20 mg daily. 6. Flomax 0.8 mg daily. 7. Lanoxin 125 mcg daily. 8. Aspirin 81 mg daily. 9. Celexa 20 mg daily. 10.Antivert 25 mg b.i.d. ALLERGIES: No known drug allergies. REVIEW OF SYSTEMS: Fourteen point review of systems negative except for mentioned in HPI. PAST MEDICAL HISTORY: Atrial fibrillation, coronary artery disease, CVA, TIA, diabetes mellitus, hypertension, myocardial infarction, bilateral carotid stenosis, left vertebral artery occlusion. PAST SURGICAL HISTORY: Appendectomy, CABG surgery. FAMILY HISTORY: Father, mother unknown. PHYSICAL EXAMINATION: Well-developed, well-nourished male in no acute distress. NECK: Supple. No mass. Ophthalmologic pupils equal, round, reactive to light and accommodation. Neurologic: Cranial nerves are intact. Musculoskeletal normal strength with full range of motion. No lymphadenopathy. Psych normal. Temp 98.5, blood pressure is high 120s up to 180s over 70s, O2 96%. Respiratory rate 16 to 18. ASSESSMENT: 1. Dizziness, unclear etiology, generalized weakness, rule out cerebrovascular accident. 2. Atrial fibrillation. 3. Possible pulmonary nodules. CT scan will be ordered. 4. Acute on chronic anemia. 5. Hypertension acceleration. 6. Vertigo. Please see further orders. In the chart history of atrial fibrillation, coronary artery disease. Cardiology, Pulmonary, and Neurology were also consulted. MMODL / IJN: [id number] /
--- NOTE | 2019-06-16 00:04 | CT ---
EXAMINATION TYPE: CT chest w con DATE OF EXAM: 06/15/2019 COMPARISON: 07/31/2018 HISTORY: Pulmonary nodules CT DLP: 254.90 mGycm Automated exposure control for dose reduction was used. CONTRAST: CT scan of the chest is performed with IV Contrast, patient injected with 100 mL of Isovue 300. FINDINGS: There is 2 cm irregular masslike density on the anterior aspect of the right major fissure in the pos terior segment right upper lobe. There is 7 mm calcified granuloma right upper lobe. There is some in filtrate and atelectasis at the lung bases. Heart is enlarged. There is no pericardial effusion. Ther e are no hilar masses. There is no mediastinal adenopathy. Thoracic aorta is atheromatous. 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 There is some air in the biliary tree. Bile ducts are not dila ben. Exam was not performed for pulmonary embolism evaluation but I see no evidence of pulmonary emboli. T here is spurring in the thoracic spine. I see no focal bone destruction. There is some mild sclerosis in the thoracic vertebral bodies which probably relates to degenerative phenomenon. IMPRESSION: There is irregular masslike density in the right upper lobe adjacent to the major fissur e that is increased compared to old CT scan 07/31/2018 and is suspicious for tumor. There are patchy interstitial infiltrates and atelectasis at the lung bases consistent with pulmonary fibrosis. Old granulomatous disease. Aneurysm of the ascending aorta unchanged.
[2019-06-16 00:56] LABS: Appearance,Urine Clear (Clear); Bilirubin,Urine Negative (Negative); Blood,Urine Negative (Negative); Color,Urine Colorless; Glucose,Urine (UA) 3+ (Negative); Ketones,Urine Negative (Negative); Leukocyte Esterase,Urine Negative (Negative); Nitrite,Urine Negative (Negative); Protein,Urine Negative (Negative); Specific Gravity,Urine 1.018 (1.001-1.035); Urobilinogen,Urine <2.0 mg/dL (<2.0)
[2019-06-16 07:43] LABS: Glucose,Whole Blood 198 mg/dL (75-99)
[2019-06-16] MEDS: PANTOPRAZOLE 40 MG TABLET PO SCH (08:11)
[2019-06-16] MEDS: ASPIRIN 81 MG PO SCH (08:11)
[2019-06-16] MEDS: INSULIN ASPART (NovoLOG) 100 UNIT/ML VIAL SQ SCH ×3 (08:11→17:07)
[2019-06-16] MEDS: amLODIPine 10 MG TAB PO SCH (08:11)
[2019-06-16] MEDS: LISINOPRIL 20 MG TAB PO SCH (08:12)
[2019-06-16] MEDS: CITALOPRAM HYDROBROMIDE 20 MG TAB PO SCH (08:12)
[2019-06-16] MEDS: METOPROLOL SUCCINATE (ER) 25 MG TAB.ER.24H PO SCH (08:13)
[2019-06-16] MEDS ORDERED: LISINOPRIL 20 MG TAB PO SCH (09:00)
[2019-06-16] MEDS ORDERED: DIGOXIN 125 MCG TAB PO SCH (09:00)
[2019-06-16] MEDS ORDERED: CLOPIDOGREL 75 MG TAB PO SCH (09:00)
--- NOTE | 2019-06-16 10:29 | P.CNNES ---
History of Present Illness Consult date: 06/16/19 Requesting physician: Kam Truong Reason for Consult: Dizziness Chief complaint: Dizziness History of Present Illness: This is an 89 RH male h/o afib, old cerebellar infarct and chronic dizziness. I saw this patient for the same symptom of dizziness back in 04/2019. He had a CTA Head/Neck less than a month ago that showed MARCUS 50% stenosis in the distal extracranial portion, 30% stenosis at the origin of the left ICA, absent flow in the mid left vertebral artery with retrograde filling, diminutive right vertebral and basilar arteries. There was no other large vessel occlusion or stenosis. Because of his relative vertebral basilar insufficiency, I suggested keeping his blood pressure above 120/72 ensure perfusion to the brainstem. Patient was also seen by cardiology for orthostatic hypotension. Patient presented to the hospital began back in mid 05/2019 for the exact same symptom. He was noted to have a hypovolemic hyponatremia that did improve with IV fluid. It was also opined that he might have autonomic dysfunction with his dizziness. Patient presented to the hospital again because he was outside and felt dizzier than usual. He did not lose consciousness. Patient states that with these dizzy spells, he has never lost consciousness. Denies any other focal neurolo gical complaints. He is on dual antiplatelet therapy and statin per cardiology. Review of Systems 14-point ROS performed and as per HPI. Neurologically, patient denies decreased level or loss of consciousness, headache, seizure, changes in vision, diplopia, amaurosis, changes in hearing, facial droop, ptosis, dysarthria, dysphagia, aphasia, other focal numbness/weakness not mentioned above, tremors, bowel/bladder incontinence or ataxia. Past Medical History Past Medical History: Atrial Fibrillation, Coronary Artery Disease (CAD), CVA/TIA, Diabetes Mellitus, Hypertension, Myocardial Infarction ([place]) Additional Past Medical History / Comment(s): dizziness, 2 heart attacks, bilateral carotid stenosis, left vertebral artery occlusion Last Myocardial Infarction Date:: unknown History of Any Multi-Drug Resistant Organisms: None Reported Past Surgical History: Appendectomy, Coronary Bypass/CABG Additional Past Surgical History / Comment(s): pt is poor historian. CABG x2, Past Anesthesia/Blood Transfusion Reactions: No Reported Reaction Past Psychological History: No Psychological Hx Reported Smoking Status: Never smoker Past Alcohol Use History: None Reported Past Drug Use History: None Reported - Past Family History Father History Unknown: Yes Mother History Unknown: Yes Medications and Allergies Home Medications Medication Instructions Recorded Confirmed Type Atorvastatin [Lipitor] 10 mg PO HS 04/13/18 06/15/19 History Clopidogrel [Plavix] 75 mg PO DAILY 04/13/18 06/15/19 History Finasteride [Proscar] 5 mg PO HS 04/13/18 06/15/19 History Metoprolol Succinate [Toprol XL] 25 mg PO DAILY 04/13/18 06/15/19 History Omeprazole 20 mg PO DAILY 04/13/18 06/15/19 History Tamsulosin HCl [Flomax] 0.8 mg PO HS 04/13/18 06/15/19 History amLODIPine [Norvasc] 10 mg PO DAILY #30 tab 07/01/18 06/15/19 Rx Digoxin [Lanoxin] 125 mcg PO DAILY 08/21/18 06/15/19 History Enalapril [Vasotec] 10 mg PO DAILY #1 06/09/19 06/15/19 Rx INSULIN ASPART (NovoLOG) [NovoLOG 4 unit SQ AC-TID #1 vial 06/09/19 06/15/19 Rx (formulary)] Insulin Detemir (Levemir) [Levemir] 12 unit SQ HS #1 vial 06/09/19 06/15/19 Rx Aspirin EC [Ecotrin Low Dose] 81 mg PO DAILY 06/15/19 06/15/19 History Citalopram Hydrobromide [CeleXA] 20 mg PO DAILY 06/15/19 06/15/19 History Meclizine [Antivert] 25 mg PO BID PRN 06/15/19 06/15/19 History Allergies Allergy/AdvReac Type Severity Reaction Status Date / Time No Known Allergies Allergy Verified 06/15/19 16:48 Physical Examination - Vital Signs Vital Signs: Vital Signs Temp Pulse Pulse Resp BP BP Pulse Ox 06/16/19 04:57 97.5 F L 67 18 164/89 96 06/15/19 21:51 97.6 F 72 18 183/85 98 06/15/19 21:31 72 18 06/15/19 21:09 97.6 F 74 18 180/97 06/15/19 20:25 97.2 F L 77 18 148/98 96 06/15/19 19:45 70 16 151/89 95 06/15/19 19:36 97.5 F L 75 18 175/97 98 06/15/19 17:30 66 14 141/97 99 06/15/19 17:00 64 14 153/93 100 06/15/19 16:00 67 16 141/88 98 06/15/19 15:30 52 L 17 123/78 97 06/15/19 15:00 125/73 06/15/19 14:36 98.6 F 65 16 126/74 96 06/15/19 14:32 126/74 96 Intake and Output 06/15/19 06/16/19 06/16/19 22:59 06:59 14:59 Intake Total 262.5 600 Output Total 650 650 Balance -387.5 -50 Intake: Intake, IV Titration 262.5 600 Amount Sodium Chloride 0.9% 1, 262.5 600 000 ml @ 75 mls/hr IV . [id number] ONE Rx#:[id number] Output: Urine 650 650 Other: Voiding Method Urinal Urinal # Voids 5 Gen NAD Pleasant and cooperative HEENT NCAT Sclera without icterus O/P clear Neck Supple No carotid bruit Cor RRR no m/r/g Lungs CTAB Abd Soft NTND +BS Ext Warm to touch No edema Neuro MS A+Ox4 Normal fluency Able to follow all commands CN PERRL VFF no APD EOMI no nystagmus or DARYN No facial asymmetry Masseter's symmetric Hearing diminished to normal voice bilaterally Speech not dysarthric Equal elevation of palate Tongue midline Sym shrug and SCM bilaterally Motor Normal bulk/tone No pronator or leg drift No tremors Strength 5/5 sym throughout Sens Intact to LT x4 No neglect or extinction Coord No dysmetria on FTN bilaterally DTRs 2+/4 sym throughout Toes downgoing bilaterally No clonus at achilles Gait Deferred NIHSS 0 Results - Laboratory Findings CBC and BMP: 06/15/19 14:50 06/15/19 15:22 Abnormal Lab Findings: Abnormal Labs 06/15/19 06/15/19 06/15/19 14:50 15:22 21:17 Hgb 12.5 L Hct 38.9 L Glucose 180 H POC Glucose (mg/dL) 181 H Urine Glucose (UA) 06/16/19 06/16/19 00:15 07:41 Hgb Hct Glucose POC Glucose (mg/dL) 198 H Urine Glucose (UA) 3+ H - Diagnostic Findings Additional findings: CT Head wo cont 06/16/19. Stable global atrophy and small vessel disease. Old left cerebellar hemispheric ischemic infarct. No ICH. Nil acute. I have reviewed neuroimages myself. Assessment and Plan Assessment: Chronic dizziness- from a neuro standpoint, he does have diminutive vertebro basilar system with chronic left vertebral artery occlusion with retrograde filling. In light of his vertebrobasilar insufficiency, he is predisposed to dizziness especially if he becomes dehydrated and orthostatic, which has happened to him numerous times in the past. His neuro exam is non-focal. I do not suspect a new acute cerebrovascular event. Plan: -Since he just had detailed vascular neuroimaging just a month ago, will not repeat in light of his non-focal exam and the same presentation -CT head results d/w patient -Push IVF; check orthostatics. Aim to keep BP >120/70. Cardiology has been consulted -Case management working on placement -d/w patient in detail. All questions answered -No further inpatient neuro recs at this time. Will revisit patient prn. Please call with new ?. Thank you for this consultation. Time with Patient: Greater than 30 (Time spent in direct patient care, greater than 50% of which was spent in [id number] counseling and coordination of care: 70 minutes)
--- NOTE | 2019-06-16 10:32 | P.CRDCN ---
History of Present Illness History of present illness: This is a pleasant 89-year-old male past medical history significant for chronic persistent atrial fibrillation not on er manager anti-coagulation secondary to frequent falls, coronary artery disease s/p bypass x2 initially in the s with a 5-way then a 4-way thereafter, hypertension, dyslipidemia, diabetes mellitus, carotid artery stenosis and CVA/TIA in the past. He follows kathy Shell, although states he has not seen him recently. We have been asked to see him in consultation for dizziness. He states one day last week while he was trying to hang up his pants on the bath tub he got acutely dizzy and fell backwards. He had to call EMS for assistance getting up. He did not come in for evaluation at that time. Yesterday while walking outside he again started feeling dizzy. He states it felt like he was floating. He walked inside and continued to feel light headed. He states he feels like this quite regularly however this episode was worse. He is seen and examined sitting up in bed in no acute distress. He denies feeling dizzy or light headed currently. He was seen and evaluated for a similar episode in the end of April. At that time he had orthostatic changes. BLood pressure on admission was 126/74. EKG reveals atrial fibrillation heart rate 72, right bundle branch block and inferior Q-wave. Chest xray reveals patchy left basilar atelectasis and calcified granuloma right upper lobe. CT brain is negative for an acute abnormality, stable generalized atrophy with chronic small vessel ischemia, stable encephalomalacia inferior left cerebellar related to prior infarct and mild-moderate ethmoid sinus disease. CT chest reveals an irregular masslike density in the RUL, patchy interstitial infiltrates consistent with pulmonary fibrosis. Laboratory data reviewed, WBC 4.2, hgb 12.5, plt 195, sodium 137, potassium 4.7, creatinine 0.97, magnesium 1.7, cardiac enzymes negative x1, TSH 1.22. Current cardiac medications include aspirin 81 mg daily, atorvastatin 10 mg daily, plavix 75 mg daily, digoxin 125 mcg daily, enalapril 10 daily, torpol 25 mg daily and amlodipine 10 mg daily. Most recent echocardiogram obtained 04/2019 revealed preserved LV systolic function with EF 50-55% and mild MR. Recent carotid ultrasound 04/2019 revealed no flow in the left vertebral artery unchanged from previous and less than 50% internal carotid artery stenosis. At the time of my exam: CONSTITUTIONAL: Denies fever. Denies chills. EYES: Denies blurred vision. Denies vision changes. Denies eye pain. EARS, NOSE, MOUTH & THROAT: Denies headache. Denies sore throat. Denies ear pain. CARDIOVASCULAR: Denies chest pain. Denies shortness of breath. Denies orthopnea. Denies PND. Denies palpitations. RESPIRATORY: Denies cough. GASTROINTESTINAL: Denies abdominal pain. Denies diarrhea. Denies constipation. Denies nausea. Denies vomiting. MUSCULOSKELETAL: Denies myalgias. INTEGUMENTARY: Denies pruitis. Denies rash. NEUROLOGIC: Denies numbness. Denies tingling. Denies weakness. PSYCHIATRIC: Denies anxiety. Denies depression. ENDOCRINE: Denies fatigue. Denies weight change. Denies polydipsia. Denies polyurina. GENITOURINARY: Denies burning, hematuria or urgency with micturation. HEMATOLOGIC: Denies history of anemia. Denies bleeding. Blood pressure 164/89 heart rate 67 afebrile maintaining oxygen saturation on room air GENERAL: This is a 89-year-old male in no apparent distress at the time of my examination. HEENT: Head is atraumatic, normocephalic. Pupils are equal, round. Sclerae anicteric. Conjunctivae are clear. Mucous membranes of the mouth are moist. Neck is supple. There is no jugular venous distention. No carotid bruit is heard. LUNGS: No chest wall tenderness is noted on palpation or with deep breathing. Diminished bilaterally, trace rhonchi. No wheezes or rales. HEART: Irregular rate and rhythm with systolic ejection murmur at the left sternal border, no rubs or gallops. S1 and S2 heard. ABDOMEN: Soft, nontender. Bowel sounds are heard. No organomegaly noted. EXTREMITIES: No evidence of peripheral edema and no calf tenderness noted. VASCULAR: Radial and dorsalis pedis pulses palpated, no evidence of clubbing. NEUROLOGIC: Patient is awake, alert and oriented x3. ASSESSMENT Pre-syncope, no LOC. chronic persistent atrial fibrillation not on er manager anti-coagulation secondary to frequent falls. Coronary artery disease s/p bypass grafting Hypertension Peripheral vascular disease Dyslipidemia Diabetes mellitus CVA in the past PLAN Check for orthostatic changes. Place the patient on insulation worker interior surface and watch for howard-arrhythmia. Plavix can be discontinued as it is not providing thromboembolic protection. Discontinue digoxin and watch heart rate, if elevated we can increase toprol. Further recommendations to follow. Thank you kindly for this consultation. Nurse Practitioner note has been reviewed, I agree with a documented findings and plan of care. Patient was seen and examined. Past Medical History Past Medical History: Atrial Fibrillation, Coronary Artery Disease (CAD), CVA/TIA, Diabetes Mellitus, Hypertension, Myocardial Infarction ([place]) Additional Past Medical History / Comment(s): dizziness, 2 heart attacks, bilateral carotid stenosis, left vertebral artery occlusion Last Myocardial Infarction Date:: unknown History of Any Multi-Drug Resistant Organisms: None Reported Past Surgical History: Appendectomy, Coronary Bypass/CABG Additional Past Surgical History / Comment(s): pt is poor historian. CABG x2, Past Anesthesia/Blood Transfusion Reactions: No Reported Reaction Past Psychological History: No Psychological Hx Reported Smoking Status: Never smoker Past Alcohol Use History: None Reported Past Drug Use History: None Reported - Past Family History Father History Unknown: Yes Mother History Unknown: Yes Medications and Allergies Home Medications Medication Instructions Recorded Confirmed Type Atorvastatin [Lipitor] 10 mg PO HS 04/13/18 06/15/19 History Clopidogrel [Plavix] 75 mg PO DAILY 04/13/18 06/15/19 History Finasteride [Proscar] 5 mg PO HS 04/13/18 06/15/19 History Metoprolol Succinate [Toprol XL] 25 mg PO DAILY 04/13/18 06/15/19 History Omeprazole 20 mg PO DAILY 04/13/18 06/15/19 History Tamsulosin HCl [Flomax] 0.8 mg PO HS 04/13/18 06/15/19 History amLODIPine [Norvasc] 10 mg PO DAILY #30 tab 07/01/18 06/15/19 Rx Digoxin [Lanoxin] 125 mcg PO DAILY 08/21/18 06/15/19 History Enalapril [Vasotec] 10 mg PO DAILY #1 06/09/19 06/15/19 Rx INSULIN ASPART (NovoLOG) [NovoLOG 4 unit SQ AC-TID #1 vial 06/09/19 06/15/19 Rx (formulary)] Insulin Detemir (Levemir) [Levemir] 12 unit SQ HS #1 vial 06/09/19 06/15/19 Rx Aspirin EC [Ecotrin Low Dose] 81 mg PO DAILY 06/15/19 06/15/19 History Citalopram Hydrobromide [CeleXA] 20 mg PO DAILY 06/15/19 06/15/19 History Meclizine [Antivert] 25 mg PO BID PRN 06/15/19 06/15/19 History Allergies Allergy/AdvReac Type Severity Reaction Status Date / Time No Known Allergies Allergy Verified 06/15/19 16:48 Physical Exam Vitals: Vital Signs Temp Pulse Pulse Resp BP BP Pulse Ox 06/16/19 04:57 97.5 F L 67 18 164/89 96 06/15/19 21:51 97.6 F 72 18 183/85 98 06/15/19 21:31 72 18 06/15/19 21:09 97.6 F 74 18 180/97 06/15/19 20:25 97.2 F L 77 18 148/98 96 06/15/19 19:45 70 16 151/89 95 06/15/19 19:36 97.5 F L 75 18 175/97 98 06/15/19 17:30 66 14 141/97 99 06/15/19 17:00 64 14 153/93 100 06/15/19 16:00 67 16 141/88 98 06/15/19 15:30 52 L 17 123/78 97 06/15/19 15:00 125/73 06/15/19 14:36 98.6 F 65 16 126/74 96 06/15/19 14:32 126/74 96 Intake and Output 06/15/19 06/16/19 06/16/19 22:59 06:59 14:59 Intake Total 262.5 600 Output Total 650 650 Balance -387.5 -50 Intake: Intake, IV Titration 262.5 600 Amount Sodium Chloride 0.9% 1, 262.5 600 000 ml @ 75 mls/hr IV . [id number] ONE Rx#:[id number] Output: Urine 650 650 Other: Voiding Method Urinal Urinal # Voids 5 Results 06/15/19 14:50 06/15/19 15:22 Cardiac Enzymes 06/15/19 06/15/19 Range/Units 15:22 15:22 AST 20 (17-59) U/L Troponin I <0.012 (0.000-0.034) ng/mL Coagulation 06/15/19 Range/Units 15:22 PT 11.2 (9.0-12.0) sec APTT 25.5 (22.0-30.0) sec CBC 06/15/19 Range/Units 14:50 WBC 4.2 (3.8-10.6) k/uL RBC 4.64 (4.30-5.90) m/uL Hgb 12.5 L (13.0-17.5) gm/dL Hct 38.9 L (39.0-53.0) % Plt Count 195 (150-450) k/uL Comprehensive Metabolic Panel 06/15/19 Range/Units 15:22 Sodium 137 (137-145) mmol/L Potassium 4.7 (3.5-5.1) mmol/L Chloride 104 (98-107) mmol/L Carbon Dioxide 23 (22-30) mmol/L BUN 20 (9-20) mg/dL Creatinine 0.97 (0.66-1.25) mg/dL Glucose 180 H (74-99) mg/dL Calcium 9.0 (8.4-10.2) mg/dL AST 20 (17-59) U/L ALT 23 (21-72) U/L Alkaline Phosphatase 83 (38-126) U/L Total Protein 6.4 (6.3-8.2) g/dL Albumin 3.6 (3.5-5.0) g/dL Current Medications Generic Name Dose Route Start Last Admin Trade Name Freq PRN Reason Stop Dose Admin Amlodipine Besylate 10 mg 06/16/19 09:00 Norvasc PO DAILY [facility] Aspirin 81 mg 06/16/19 09:00 Aspirin PO DAILY [facility] Atorvastatin Calcium 10 mg 06/16/19 21:00 Lipitor PO HS [facility] Citalopram Hydrobromide 20 mg 06/16/19 09:00 Celexa PO DAILY [facility] Digoxin 125 mcg 06/16/19 09:00 Lanoxin PO DAILY [facility] Finasteride 5 mg 06/16/19 21:00 Proscar PO HS [facility] Insulin Aspart 4 unit 06/16/19 07:30 Novolog SQ AC-TID [facility] Insulin Detemir 12 unit 06/16/19 21:00 Levemir SQ HS [facility] Lisinopril 20 mg 06/15/19 22:29 06/15/19 22:33 Zestril PO 20 mg DAILY [facility] Administration Meclizine HCl 25 mg 06/15/19 22:05 Antivert PO BID PRN Vertigo Metoprolol Succinate 25 mg 06/16/19 09:00 Toprol Xl PO DAILY [facility] Miscellaneous Information 1 each 06/15/19 22:13 Rx Info: Iv Contrast Was Given MISCELLANE 06/17/19 22:14 DAILY PRN Per Protocol Pantoprazole Sodium 40 mg 06/16/19 07:30 Protonix PO DAILY@0730 [facility] Tamsulosin HCl 0.8 mg 06/16/19 21:00 Flomax PO HS [facility] Intake and Output 06/15/19 06/16/19 06/16/19 22:59 06:59 14:59 Intake Total 262.5 600 Output Total 650 650 Balance -387.5 -50 Intake: Intake, IV Titration 262.5 600 Amount Sodium Chloride 0.9% 1, 262.5 600 000 ml @ 75 mls/hr IV . [id number] ONE Rx#:[id number] Output: Urine 650 650 Other: Voiding Method Urinal Urinal # Voids 5 06/15/19 14:50 06/15/19 15:22
[2019-06-16 11:30] LABS: Glucose,Whole Blood 135 mg/dL (75-99)
--- NOTE | 2019-06-16 14:36 | CONS ---
CONSULTATION DATE OF SERVICE: 06/16/2019 HISTORY OF PRESENT ILLNESS: Patient is an 89-year-old male who states that he lives at home in an apartment in a senior facility and is always dizzy. States he was outside yesterday getting son, at that time, the dizziness worsened. Denied any loss of consciousness, however, was concerned and subsequently called EMS and was brought into the emergency room for further evaluation and treatment. PAST MEDICAL HISTORY: Significant for AFIB, coronary artery disease, CVA, diabetes mellitus, hypertension, [place], carotid stenosis, left vertebral artery occlusions. PAST SURGICAL HISTORY: Significant for CABG x2, appendectomy, and patient does verbalize some other type of stomach surgery, but does not know what they removed. ALLERGIES: No known drug allergies. MEDICATIONS: Patient takes at home include Norvasc 10 mg p.o. daily, Flomax 0.8 mg p.o. q.h.s., omeprazole 20 mg p.o. daily, Toprol-XL 25 mg p.o. daily, Antivert 25 mg p.o. b.i.d. p.r.n., Levemir 12 units subcu q.h.s., NovoLog 4 units subcu prior to meals 3 times daily, Proscar 5 mg p.o. q.h.s., Vasotec 10 mg p.o. daily, Celexa 20 mg p.o. daily, Lipitor 10 mg p.o. q.h.s., and Ecotrin low-dose aspirin 81 mg p.o. daily. PAST FAMILY HISTORY: Unknown. SOCIAL HISTORY: Patient denies any history of smoking. Has never smoked. Denies any alcohol intake. Denies any illicit drug use. Patient worked in a [employer] for [employer] and retired from there. REVIEW OF SYSTEMS: GENERAL: Negative for any fever, chills. No loss in appetite. HEENT: Negative for headaches. Positive for dizziness, which has been ongoing for a few years. Patient denies any acute visual changes. Denies any difficulty hearing. Denies any seasonal allergies. Does complain of some difficulty swallowing at times. Denies sore throat. RESPIRATORY: Significant for some shortness of breath with an occasional cough. Patient denies any hemoptysis. CARDIOVASCULAR: Negative for chest pain or palpitations. Does have chronic AFIB. GI: Negative for abdominal pain. No nausea, vomiting, diarrhea, or constipation. : Negative for dysuria or hematuria. Does appear to have treatment for BPH. ENDOCRINE: Positive for diabetes mellitus. Patient is on insulin. No thyroid disease. MUSCULOSKELETAL: Denies any arthritic or joint pain. NEUROLOGIC: Denies any history of seizures or neuropathy. PSYCHIATRIC: Negative for any anxiety. Patient is on an antidepressant. PHYSICAL EXAM: GENERAL: A pleasant 89-year-old male seen lying in bed, awake, alert, appears stated age. VITAL SIGNS: Temp is 98.1, heart rate 72, respiratory rate 17, blood pressure is 148/84, O2 SATs 99% on room air. HEENT. Head is normocephalic, atraumatic. Pupils equal, round, react to light. Pinpoint ears and nose, no discharge is noted. Mouth, moist mucous membranes. Mallampati class 4. NECK: Supple. Trachea is midline. LUNGS: Diminished, no clear rales or wheezes. HEART: S1, S2 heard. Not tachycardic. ABDOMEN: Soft. Bowel sounds are heard. EXTREMITIES: With no edema. NEUROLOGIC: Patient is awake and alert. LABS: Sodium is 137, potassium is 4.7, chloride is 104, CO2 is 23, anion gap is 10, BUN is 20, creatinine 0.97, glucose is 180, calcium is 9.0, magnesium is 1.7, total bilirubin 0.2, AST is 20, ALT is 23, alkaline phosphatase is 83. Troponin is less than 0.012. Total protein 6.4, albumin is 3.6, TSH is 1.220. White count is 4.2, hemoglobin 12.5, hematocrit 38.9 with 195,000 platelets, PT 11.2, INR is 1.1, PTT is 25.5. Urinalysis shows 3+ glucose, negative for nitrite or leuk esterase. IMAGING: Chest CT shows an irregular masslike density in the right upper lobe adjacent to the major fissure that is increased compared to old CT scan dated 07/31/2018 and is suspicious for tumor. There are patchy interstitial infiltrates and atelectasis at the lung bases consistent with pulmonary fibrosis, full granulomatous disease, aneurysm of the ascending aorta unchanged. IMPRESSION: 1. Pulmonary mass, right upper lobe. 2. Multiple pulmonary nodules. 3. Dizziness versus vertigo, unknown etiology. 4. Chronic atrial fibrillation. 5. Coronary artery disease. 6. Diabetes mellitus. PLAN: Consults have been put in for Neurology and Cardiology. Patient has been restarted on his home meds. The masslike density was discussed with the patient and at this time, we are recommending that a PET scan is done on an outpatient basis. Patient will follow up in the Pulmonary office which would withhold biopsy at this time until the PET scan has been completed. We will follow patient closely with you during his admission. Thank you for the consultation. IRMA / BELEN: [id number] /
[2019-06-16 16:11] LABS: Hemoglobin A1C 14.7 % (4.0-6.0)
[2019-06-16 17:08] LABS: Glucose,Whole Blood 301 mg/dL (75-99)
[2019-06-16 20:00] LABS: Glucose,Whole Blood 79 mg/dL (75-99)
[2019-06-16] MEDS: TAMSULOSIN 0.4 MG CAP.ER.24H PO SCH (21:36)
[2019-06-16] MEDS: FINASTERIDE 5 MG TAB PO SCH (21:36)
[2019-06-16] MEDS: ATORVASTATIN 10 MG TAB PO SCH (21:36)
[2019-06-16] MEDS: INSULIN DETEMIR (LEVEMIR) 100 UNIT/ML SYR SQ SCH ×2 (22:05→22:31)
[2019-06-17 01:55] LABS: Glucose,Whole Blood 135 mg/dL (75-99)
[2019-06-17 05:44] LABS: Basophils % (A) 1 %; Eosinophils # (A) 0.2 k/uL (0-0.7); Eosinophils % (A) 3 %; HCT 39.6 % (39.0-53.0); HGB 12.8 gm/dL (13.0-17.5); Lymphocytes # (A) 1.7 k/uL (1.0-4.8); Lymphocytes % (A) 37 %; MCHC 32.2 g/dL (31.0-37.0); MCV 83.9 fL (80.0-100.0); Mean Platelet Volume 7.6; Monocytes # (A) 0.2 k/uL (0-1.0); Monocytes % (A) 5 %; Neutrophils # (A) 2.5 k/uL (1.3-7.7); Neutrophils % (A) 53 %; Platelet Count 215 k/uL (150-450); RBC 4.72 m/uL (4.30-5.90); RDW 15.3 % (11.5-15.5); WBC 4.8 k/uL (3.8-10.6)
[2019-06-17 06:11] LABS: Calcium 8.8 mg/dL (8.4-10.2); Magnesium 1.8 mg/dL (1.6-2.3); Phosphorus 3.6 mg/dL (2.5-4.5); Potassium 3.9 mmol/L (3.5-5.1)
[2019-06-17 06:52] LABS: Glucose,Whole Blood 152 mg/dL (75-99)
[2019-06-17] MEDS: ASPIRIN 81 MG PO SCH (07:42)
[2019-06-17] MEDS: PANTOPRAZOLE 40 MG TABLET PO SCH (07:42)
[2019-06-17] MEDS: LISINOPRIL 20 MG TAB PO SCH (07:42)
[2019-06-17] MEDS: METOPROLOL SUCCINATE (ER) 25 MG TAB.ER.24H PO SCH (07:42)
[2019-06-17] MEDS: CITALOPRAM HYDROBROMIDE 20 MG TAB PO SCH (07:43)
[2019-06-17] MEDS: amLODIPine 10 MG TAB PO SCH (07:43)
[2019-06-17] MEDS: INSULIN ASPART (NovoLOG) 100 UNIT/ML VIAL SQ SCH ×3 (07:48→17:40)
[2019-06-17 11:40] LABS: Glucose,Whole Blood 101 mg/dL (75-99)
--- NOTE | 2019-06-17 14:59 | P.PN ---
Subjective This is a pleasant 89-year-old male past medical history significant for chronic persistent atrial fibrillation not on halfway anti-coagulation secondary to frequent falls, coronary artery disease s/p bypass x2 initially in the 's with a 5-way then a 4-way thereafter, hypertension, dyslipidemia, diabetes mellitus, carotid artery stenosis and CVA/TIA in the past. Pt is seen and examined sitting up on the edge of the bed in no acute distress. He just had orthostatic vital signs checked and pressure went from 100/62 supine to 83/58 standing and he became quite dizzy. He denies chest pain, shortness of breath or palpitations. Currently maintained on amlodipine 10 mg daily, lisinopril 10 mg daily and toprol 25 mg daily. Laboratory data reviewed, hgb 12.8, sodium 138, potassium 3.9, creatinine 1.19. He underwent a consultation with pulmonary service and they are recommending outpatient follow up and PET scan secondary to lung mass. Spoke to his niece Summer and they are interested in rehab at discharge at [facility]. Telemetry tracings reviewed, 2.4 second pause noted while sleeping last evening. Variable ventricular rates while sleeping. Digoxin was just stopped yesterday. GENERAL: This is a 89-year-old male in no apparent distress at the time of my examination. HEENT: Head is atraumatic, normocephalic. Pupils are equal, round. Sclerae anicteric. Conjunctivae are clear. Mucous membranes of the mouth are moist. Neck is supple. There is no jugular venous distention. No carotid bruit is heard. LUNGS: No chest wall tenderness is noted on palpation or with deep breathing. Diminished bilaterally, trace rhonchi. No wheezes or rales. HEART: Irregular rate and rhythm with systolic ejection murmur at the left s ternal border, no rubs or gallops. S1 and S2 heard. EXTREMITIES: No evidence of peripheral edema and no calf tenderness noted. ASSESSMENT Pre-syncope, no LOC. chronic persistent atrial fibrillation not on halfway anti-coagulation secondary to frequent falls. Coronary artery disease s/p bypass grafting Hypertension Peripheral vascular disease Dyslipidemia Diabetes mellitus CVA in the past PLAN Discontinue amlodipine and decrease lisinopril to 10 mg daily. Continue to check for orthostatic changes qshift. Apply NANDA hose bilaterally. Advised to sit on the edge of the bed before standing and change positions slowly. Nurse Practitioner note has been reviewed, I agree with a documented findings and plan of care. Patient was seen and examined. Objective - Vital Signs Vital signs: Vital Signs Temp 97.7 F 06/17/19 11:36 Pulse 69 06/17/19 11:36 Resp 18 06/17/19 11:36 BP 100/62 06/17/19 13:15 Pulse Ox 97 06/17/19 11:36 Intake & Output 06/16/19 06/17/19 06/17/19 18:59 06:59 18:59 Intake Total 650 480 Balance 650 480 Intake: Intake, IV Titration 650 Amount Sodium Chloride 0.9% 1, 650 000 ml @ 75 mls/hr IV . [id number] ONE Rx#:[id number] Oral 480 Other: Voiding Method Urinal Urinal Urinal # Voids 2 - Labs CBC & Chem 7: 06/17/19 05:24 06/17/19 05:24 Labs: Abnormal Lab Results - Last 24 Hours (Table) 06/15/19 06/16/19 06/17/19 Range/Units 15:22 17:05 01:53 Hgb (13.0-17.5) gm/dL BUN (9-20) mg/dL POC Glucose (mg/dL) 301 H 135 H (75-99) mg/dL Hemoglobin A1c 14.7 H (4.0-6.0) % 06/17/19 06/17/19 06/17/19 Range/Units 05:24 05:24 06:50 Hgb 12.8 L (13.0-17.5) gm/dL BUN 22 H (9-20) mg/dL POC Glucose (mg/dL) 152 H (75-99) mg/dL Hemoglobin A1c (4.0-6.0) % 06/17/19 Range/Units 11:39 Hgb (13.0-17.5) gm/dL BUN (9-20) mg/dL POC Glucose (mg/dL) 101 H (75-99) mg/dL Hemoglobin A1c (4.0-6.0) %
[2019-06-17 15:03] VITALS: BMI 25.1
--- NOTE | 2019-06-17 15:47 | PN ---
PROGRESS NOTE DATE OF SERVICE: 06/17/2019 This patient has been hemodynamically stable. He is not complaining of any chest pain or shortness of breath today. On physical examination, respiratory rate is 18, pulse rate 69, temperature 97.7, blood pressure 119/68. Oxygen saturation on room air is 97%. HEENT: Unremarkable. Chest reveals decreased breath sounds, prolonged exhalation. No clear wheeze. Cardiovascular system is in S1, S2. Abdomen is soft. There is trace edema. Sodium is 138, potassium 3.9, chloride 104, bicarb 29, BUN 22, creatinine 1.19. White count of 4.8, hemoglobin of 12.8, magnesium of 1.8. CT scan of the chest was personally reviewed by me which shows evidence of a 2 cm irregular masslike density in the anterior aspect of the right major fissure in the posterior segment of the right upper lobe. This is almost pleural-based as well. There is a 7 cm calcified granuloma, some infiltrative changes and atelectasis in the bases. IMPRESSION AT THIS TIME: 1. Pulmonary mass with multiple other pulmonary nodules. 2. Dizziness. 3. Chronic atrial fibrillation. 4. Coronary artery disease. 5. Diabetes mellitus. At this point in time, would schedule a PET scan as an outpatient. This would guide us on whether he would or would not require a biopsy, given that he has a history of atrial fibrillation and has other comorbid conditions. Would increase his activity level. Follow cardiology recommendations. Depending on how he does, we shall make further changes to his care. He was counseled regarding his condition and this approach. MMODL / IJN: [id number] /
[2019-06-17 17:10] LABS: Glucose,Whole Blood 216 mg/dL (75-99)
--- NOTE | 2019-06-17 17:41 | P.PN ---
Subjective Progress Note Date: 06/16/19 This is an 89-year-old gentleman admitted with dizziness, generalized weakness, dehydration, atrial fibrillation, and multiple other medical issues. Evaluated by neurology, vertebrobasilar insufficiency -recent neuro imaging; no further r inpatient neuro ecommendations at this time. Positive for orthostatic hypotension. Evaluated by cardiology, Plavix and digoxin discontinued. Objective - Vital Signs Vital signs: Vital Signs Temp 97.5 F L 06/16/19 04:57 Pulse 67 06/16/19 04:57 Resp 18 06/16/19 04:57 BP 164/89 06/16/19 04:57 Pulse Ox 96 06/16/19 04:57 Intake & Output 06/15/19 06/16/19 06/16/19 18:59 06:59 18:59 Intake Total 862.5 Output Total 1300 Balance -437.5 Weight 77.111 kg Intake: Intake, IV Titration 862.5 Amount Sodium Chloride 0.9% 1, 862.5 000 ml @ 75 mls/hr IV . [id number] ONE Rx#:[id number] Output: Urine 1300 Other: Voiding Method Urinal Urinal # Voids 5 - Exam PHYSICAL EXAM: VITAL SIGNS: As above GENERAL: Sitting up in bed, no acute distress HEENT: Conjunctivae normal. eyes normal. Oral mucosa moist NECK: No JVD. No thyroid enlargement. No LNs CARDIOVASCULAR: S1, S2 irregular.Systolic murmur. RESPIRATION: Breath sounds diminished in the bases. Mild scattered rhonchi or crackles. No bronchial breathing. ABDOMEN: Soft, nontender . No guarding. no masses palpable. No ascites, No hepatosplenomegaly.Bowel sounds heard. LEGS: No edema. no swelling. No calf tenderness PSYCHIATRY: Alert and oriented X3, mood and affect normal. NERVOUS SYSTEM: Cranial N 2-12 grossly normal. Moves all 4 limbs. Diffuse weakness No focal deficits. Strength and sensation grossly intact.. Skin: no lesions, no rash Lymphatic system. No LN neck axilla. - Labs CBC & Chem 7: 06/17/19 05:24 06/17/19 05:24 Labs: Abnormal Lab Results - Last 24 Hours (Table) 06/15/19 06/15/19 06/15/19 Range/Units 14:50 15:22 21:17 Hgb 12.5 L (13.0-17.5) gm/dL Hct 38.9 L (39.0-53.0) % Glucose 180 H (74-99) mg/dL POC Glucose (mg/dL) 181 H (75-99) mg/dL Urine Glucose (UA) (Negative) 06/16/19 06/16/19 Range/Units 00:15 07:41 Hgb (13.0-17.5) gm/dL Hct (39.0-53.0) % Glucose (74-99) mg/dL POC Glucose (mg/dL) 198 H (75-99) mg/dL Urine Glucose (UA) 3+ H (Negative) Assessment and Plan Assessment: -Dizziness, generalized weakness, presyncope, rule out CVA in a patient with history of CVA. Evaluated by neurology, vertebrobasilar insufficiency -recent neuro imaging; no further neurological workup at this time -Orthostatic hypotension -Chronic persistent atrial fibrillation, not on anti-coagulation secondary to history of falls -Diabetes mellitus -Possible pulmonary nodules, family declining PET scan/biopsy as recommended per pulmonary outpatient. -Hypertension -Dyslipidemia -Peripheral vascular disease Plan: Continue on current medication regime ,monitoring and symptomatic [place] tment. As mentioned above Plavix as well as digoxin discontinued per cardiology. Orthostatic vital signs every shift. PT/OT for potential subacute rehab. Close monitoring of renal function, electrolytes with Repeat labs ordered in a.m. The impression and plan of care has been dictated as directed. : I performed a history and examination of this patient, discussed the same with the dictator. I agree with the dictator's note ,documented as a scribe. Any additional findings or plans will be noted.
--- NOTE | 2019-06-17 17:53 | P.PN ---
Subjective Progress Note Date: 06/17/19 This is an 89-year-old gentleman admitted with dizziness, generalized weakness, dehydration, atrial fibrillation, and multiple other medical issues. Evaluated by neurology, vertebrobasilar insufficiency -recent neuro imaging; no further r inpatient neuro ecommendations at this time. Positive for orthostatic hypotension. Evaluated by cardiology, Plavix and digoxin discontinued. 06/17/2019 evaluated by PT/OT was subacute rehab recommended at discharge. Pulmonary recommending outpatient PET scan, possible biopsy in regards to possible lung nodule/mass-both patient and family declining. Persistent symptomatic Orthostatic hypotension , Norvasc discontinued, lisinopril decreased. Telemetry reporting variable ventricular rates during sleep. Denies chest pain, palpitations or shortness of breath. Denies lightheadedness dizziness or focal deficits. Vital signs stable. Creatinine 1.19. Objective - Vital Signs Vital signs: Vital Signs Temp 97.7 F 06/17/19 11:36 Pulse 69 06/17/19 16:00 Resp 18 06/17/19 16:00 BP 100/62 06/17/19 13:15 Pulse Ox 97 06/17/19 11:36 Intake & Output 06/16/19 06/17/19 06/17/19 18:59 06:59 18:59 Intake Total 650 1200 Output Total 650 Balance 650 550 Weight 77.111 kg Intake: Intake, IV Titration 650 Amount Sodium Chloride 0.9% 1, 650 000 ml @ 75 mls/hr IV . [id number] ONE Rx#:[id number] Oral 1200 Output: Urine 650 Other: Voiding Method Urinal Urinal Urinal # Voids 2 3 - Exam PHYSICAL EXAM: VITAL SIGNS: As above GENERAL: Sitting up in bed, no acute distress HEENT: Conjunctivae normal. eyes normal. Oral mucosa moist NECK: No JVD. No thyroid enlargement. No LNs CARDIOVASCULAR: S1, S2 irregular.Systolic murmur. RESPIRATION: Breath sounds diminished in the bases. Mild scattered rhonchi or crackles. No bronchial breathing. ABDOMEN: Soft, nontender . No guarding. no masses palpable. No ascites, No hepatosplenomegaly.Bowel sounds heard. LEGS: No edema. no swelling. No calf tenderness PSYCHIATRY: Alert and oriented X3, mood and affect normal. NERVOUS SYSTEM: Cranial N 2-12 grossly normal. Moves all 4 limbs. Diffuse weakness No focal deficits. Strength and sensation grossly intact.. Skin: no lesions, no rash Lymphatic system. No LN neck axilla. - Labs CBC & Chem 7: 06/17/19 05:24 06/17/19 05:24 Labs: Abnormal Lab Results - Last 24 Hours (Table) 06/17/19 06/17/19 06/17/19 Range/Units 01:53 05:24 05:24 Hgb 12.8 L (13.0-17.5) gm/dL BUN 22 H (9-20) mg/dL POC Glucose (mg/dL) 135 H (75-99) mg/dL 06/17/19 06/17/19 06/17/19 Range/Units 06:50 11:39 17:09 Hgb (13.0-17.5) gm/dL BUN (9-20) mg/dL POC Glucose (mg/dL) 152 H 101 H 216 H (75-99) mg/dL Assessment and Plan Assessment: -Dizziness, generalized weakness, presyncope, rule out CVA in a patient with history of CVA. Evaluated by neurology, chronic dizziness secondary to vertebrobasilar insufficiency -recent neuro imaging; no further neurological workup at this time -Orthostatic hypotension -Chronic persistent atrial fibrillation, not on anti-coagulation secondary to history of falls -CAD, history of CABG -Diabetes mellitus -Possible pulmonary nodules, family declining PET scan/biopsy as recommended per pulmonary outpatient. -Hypertension -Dyslipidemia -Peripheral vascular disease Plan: Continue on current medication regime ,monitoring and symptomatic treatment. Norvasc discontinued, lisinopril dose decreased per cardiology. Thigh-high teds .continue with Orthostatic vital signs every shift. close monitoring of renal function with repeat labs ordered for am. Continue monitorin g overnight with discharge planning in progress for tomorrow to subacute rehab. The impression and plan of care has been dictated as directed. : I performed a history and examination of this patient, discussed the same with the dictator. I agree with the dictator's note ,documented as a scribe. Any additional findings or plans will be noted.
[2019-06-17] MEDS ORDERED: Potassium Replacement Protocol 1 EACH MISC MISCELLANE PRN (17:54)
[2019-06-17 20:22] LABS: Glucose,Whole Blood 175 mg/dL (75-99)
[2019-06-17] MEDS: INSULIN DETEMIR (LEVEMIR) 100 UNIT/ML SYR SQ SCH (21:27)
[2019-06-17] MEDS: FINASTERIDE 5 MG TAB PO SCH (21:27)
[2019-06-17] MEDS: TAMSULOSIN 0.4 MG CAP.ER.24H PO SCH (21:27)
[2019-06-17] MEDS: ATORVASTATIN 10 MG TAB PO SCH (21:30)
[2019-06-18 07:02] LABS: Glucose,Whole Blood 74 mg/dL (75-99)
[2019-06-18 08:19] LABS: Calcium 8.6 mg/dL (8.4-10.2); Magnesium 1.8 mg/dL (1.6-2.3); Potassium 3.9 mmol/L (3.5-5.1)
[2019-06-18] MEDS: INSULIN ASPART (NovoLOG) 100 UNIT/ML VIAL SQ SCH ×2 (08:31→12:52)
[2019-06-18] MEDS: PANTOPRAZOLE 40 MG TABLET PO SCH (08:32)
[2019-06-18] MEDS: METOPROLOL SUCCINATE (ER) 25 MG TAB.ER.24H PO SCH (08:32)
[2019-06-18] MEDS: ASPIRIN 81 MG PO SCH (08:32)
[2019-06-18] MEDS: CITALOPRAM HYDROBROMIDE 20 MG TAB PO SCH (08:32)
[2019-06-18 08:35] LABS: Glucose,Whole Blood 114 mg/dL (75-99)
[2019-06-18] MEDS ORDERED: LISINOPRIL 10 MG TAB PO SCH (09:00)
--- NOTE | 2019-06-18 10:23 | P.PN ---
Subjective This is a pleasant 89-year-old male past medical history significant for chronic persistent atrial fibrillation not on shelter anti-coagulation secondary to frequent falls, coronary artery disease s/p bypass x2 initially in the 's with a 5-way then a 4-way thereafter, hypertension, dyslipidemia, diabetes mellitus, carotid artery stenosis and CVA/TIA in the past. He is seen and examined laying flat in the bed in no acute distress. He continues to feel light headed with position changes but verbalizes the need to change positions slowly and that this does seem to help. Blood pressure 148/79 heart rate 72 afebrile and maintaining oxygen saturation on room air. Laboratory data reviewed, sodium 140, potassium 3.9, creatinine 1.09, magnesium 1.8. Currently maintained on Toprol 25 mg daily, lisinopril 10 mg daily, atorvastatin 10 mg daily and aspirin 81 mg daily. GENERAL: This is a 89-year-old male in no apparent distress at the time of my examination. HEENT: Head is atraumatic, normocephalic. Pupils are equal, round. Sclerae anicteric. Conjunctivae are clear. Mucous membranes of the mouth are moist. Neck is supple. There is no jugular venous distention. No carotid bruit is heard. LUNGS: No chest wall tenderness is noted on palpation or with deep breathing. Diminished bilaterally, trace rhonchi. No wheezes or rales. HEART: Irregular rate and rhythm with systolic ejection murmur at the left sternal border, no rubs or gallops. S1 and S2 heard. EXTREMITIES: No evidence of peripheral edema and no calf tenderness noted. ASSESSMENT Pre-syncope, no LOC. Chronic persistent atrial fibrillation not on shelter anti-coagulation secondary to frequent falls. Orthostatic hypotension Coronary artery disease s/p bypass grafting Hypertension Peripheral vascular disease Dyslipidemia Diabetes mellitus CVA in the past PLAN Continue current medical regimen. Apply NANDA hose bilaterally. Advised to sit on the edge of the bed before standing and change positions slowly. Follow up with Dr. Shell upon discharge or given the patient the option to follow up here in town as he will be going to a local rehab facility. Nurse Practitioner note has been reviewed, I agree with a documented findings and plan of care. Patient was seen and examined. Objective - Vital Signs Vital signs: Vital Signs Temp 97.7 F 06/18/19 05:00 Pulse 72 06/18/19 05:00 Resp 16 06/18/19 05:00 BP 148/79 06/18/19 05:00 Pulse Ox 98 06/18/19 05:00 Intake & Output 06/17/19 06/18/19 06/18/19 18:59 06:59 18:59 Intake Total 2640 150 960 Output Total 650 400 Balance 1989 - 960 Weight 77.111 kg Intake: Oral 2640 150 960 Output: Urine 650 400 Other: Voiding Method Urinal Urinal # Voids 3 - Labs CBC & Chem 7: 06/17/19 05:24 06/18/19 07:26 Labs: Abnormal Lab Results - Last 24 Hours (Table) 06/17/19 06/17/19 06/17/19 Range/Units 11:39 17:09 20:20 BUN (9-20) mg/dL Glucose (74-99) mg/dL POC Glucose (mg/dL) 101 H 216 H 175 H (75-99) mg/dL 06/18/19 06/18/19 06/18/19 Range/Units 06:54 07:26 08:23 BUN 22 H (9-20) mg/dL Glucose 73 L (74-99) mg/dL POC Glucose (mg/dL) 74 L 114 H (75-99) mg/dL
[2019-06-18 11:49] LABS: Glucose,Whole Blood 174 mg/dL (75-99)
[2019-06-18 12:16] VITALS: RESP 18; TEMP 97.9
[2019-06-18 12:56] VITALS: BP 146/73
--- NOTE | 2019-06-18 13:49 | P.DS ---
Providers Date of admission: 06/17/19 16:09 Expected date of discharge: 06/18/19 Attending physician: Kam Truong Consults: 06/15/19 22:08 Consult Physician Routine Consulting Provider: Swetha Perry Consult Reason/Comments: dizziness Do you want consulting provider notified?: Yes 06/15/19 22:09 Consult Physician Routine Consulting Provider: Juan Miguel Capone Consult Reason/Comments: dizziness Do you want consulting provider notified?: Yes 06/15/19 22:14 Consult Physician Routine Consulting Provider: Chico Duran Consult Reason/Comments: pulmonary nodules Do you want consulting provider notified?: Yes 06/18/19 07:43 Consult Physician Routine Consulting Provider: Juan Miguel Capone Consult Reason/Comments: CHF Do you want consulting provider notified?: Already Contacted Primary care physician: [facility] Course: Final Diagnoses: -Dizziness, generalized weakness, presyncope, rule out CVA in a patient with history of CVA. Evaluated by neurology, chronic dizziness secondary to vertebrobasilar insufficiency -recent neuro imaging; no further neurological workup at this time -Orthostatic hypotension, improving -Chronic persistent atrial fibrillation, not on anti-coagulation secondary to history of falls -CAD, history of CABG -Diabetes mellitus -Possible pulmonary nodules, family declining PET scan/biopsy as recommended per pulmonary outpatient. -Hypertension -Dyslipidemia -Peripheral vascular disease Hospital course:This is an 89-year-old gentleman admitted with dizziness, generalized weakness, dehydration, atrial fibrillation, and multiple other medical issues. Evaluated by neurology, vertebrobasilar insufficiency -recent neuro imaging; no further r inpatient neuro ecommendations at this time. Positive for orthostatic hypotension. Evaluated by cardiology, Plavix and digoxin discontinued. 06/17/2019 evaluated by PT/OT was subacute rehab recommended at discharge. Pulmonary recommending outpatient PET scan, possible biopsy in regards to possible lung nodule/mass-both patient and family declining. Persistent symptomatic Orthostatic hypotension , Norvasc discontinued, lisinopril decreased. Telemetry reporting variable ventricular rates during sleep. Denies chest pain, palpitations or shortness of breath. Denies lightheadedness dizziness or focal deficits. Vital signs stable. Creatinine 1.19. Norvasc discontinued, lisinopril dose decreased. Orthostatic hypotension, dizziness improving. Significant clinical improvement. Cleared by cardiology for discharge. Patient is being discharged to [facility] subacute rehab in a stable condition with guarded prognosis. EXAM: GENERAL: Alert and oriented 3, no acute distress CARDIOVASCULAR: S1, S2 irregular.Systolic murmur. RESPIRATION: Breath sounds diminished in the bases. Mild scattered rhonchi or crackles. No wheezing ABDOMEN: Soft, nontender . No guarding. no masses palpable. Bowel sounds heard. NERVOUS SYSTEM: No focal deficits. The impression and plan of care has been dictated as directed. : I performed a history and examination of this patient, discussed the same with the dictator. I agree with the dictator's note ,documented as a scribe. Any additional findings or plans will be noted. Patient Condition at Discharge: Stable Plan - Discharge Summary Discharge Rx Participant: No New Discharge Prescriptions: New Lisinopril [Zestril] 10 mg PO DAILY tab Continue Metoprolol Succinate [Toprol XL] 25 mg PO DAILY Finasteride [Proscar] 5 mg PO HS Tamsulosin HCl [Flomax] 0.8 mg PO HS Atorvastatin [Lipitor] 10 mg PO HS Omeprazole 20 mg PO DAILY Insulin Detemir (Levemir) [Levemir] 12 unit SQ HS #1 vial INSULIN ASPART (NovoLOG) [NovoLOG (formulary)] 4 unit SQ AC-TID #1 vial Aspirin EC [Ecotrin Low Dose] 81 mg PO DAILY Citalopram Hydrobromide [CeleXA] 20 mg PO DAILY Meclizine [Antivert] 25 mg PO BID PRN PRN Reason: Vertigo Discontinued Clopidogrel [Plavix] 75 mg PO DAILY amLODIPine [Norvasc] 10 mg PO DAILY #30 tab Digoxin [Lanoxin] 125 mcg PO DAILY Enalapril [Vasotec] 10 mg PO DAILY #1 Discharge Medication List Atorvastatin [Lipitor] 10 mg PO HS 04/13/18 [History] Finasteride [Proscar] 5 mg PO HS 04/13/18 [History] Metoprolol Succinate [Toprol XL] 25 mg PO DAILY 04/13/18 [History] Omeprazole 20 mg PO DAILY 04/13/18 [History] Tamsulosin HCl [Flomax] 0.8 mg PO HS 04/13/18 [History] INSULIN ASPART (NovoLOG) [NovoLOG (formulary)] 4 unit SQ AC-TID #1 vial 06/09/19 [Rx] Insulin Detemir (Levemir) [Levemir] 12 unit SQ HS #1 vial 06/09/19 [Rx] Aspirin EC [Ecotrin Low Dose] 81 mg PO DAILY 06/15/19 [History] Citalopram Hydrobromide [CeleXA] 20 mg PO DAILY 06/15/19 [History] Meclizine [Antivert] 25 mg PO BID PRN 06/15/19 [History] Lisinopril [Zestril] 10 mg PO DAILY tab 06/18/19 [Rx] Follow up Appointment(s)/Referral(s): Breanna Del Valle DO [Primary Care Provider] - 1-2 days Dheeraj Wells MD [STAFF PHYSICIAN] - 07/02/19 9:45 am Activity/Diet/Wound Care/Special Instructions: Orthostatic BPs pending.Alber.Family and patient declining PET scan regarding lung nodule/mass, as recommended per pulmonary. CBC, BMP in 3 days
[2019-06-18 15:06] VITALS: PULSE 70
--- NOTE | 2019-06-18 19:21 | PN ---
PROGRESS NOTE DATE OF SERVICE: June 18, 2019. He is less short of breath and is doing fair overall. Discharge planning is in progress. PHYSICAL EXAMINATION: His vitals were stable. He is afebrile. Chest is clear. Cardiovascular system is S1, S2. Abdomen is soft. There is no edema. IMPRESSION: At this time: Lung mass, most likely secondary to lung cancer versus other etiology. Did recommend a PET scan. Per my discussion with the nurse, the family and the patient have decided no further workup and no PET scan. We would be happy to see the patient in the outpatient setting if need be. I would like to thank you for allowing me the privilege of participating in his care. MMODL / IJN: [id number] /
== END 2019-06-18 15:10 | DRG 312 ==
LOC: EC 14:28 → 3NMEDONC 18:30 → OBSVTOIN 06-17 16:09
PROVIDERS: ADMIT Family Medicine; ATTEND Family Medicine
DX: I95.1 Orthostatic hypotension (principal); G45.0 Vertebro-basilar artery syndrome; I48.1 Persistent atrial fibrillation; J98.11 Atelectasis; E11.51 Type 2 diabetes mellitus with diabetic peripheral angiopathy without gangrene; E86.0 Dehydration; E86.1 Hypovolemia; J84.10 Pulmonary fibrosis, unspecified; D64.9 Anemia, unspecified; I45.10 Unspecified right bundle-branch block; E78.5 Hyperlipidemia, unspecified; I10 Essential (primary) hypertension; I25.10 Atherosclerotic heart disease of native coronary artery without angina pectoris; I25.2 Old myocardial infarction; R29.6 Repeated falls; R01.1 Cardiac murmur, unspecified; R26.81 Unsteadiness on feet; R91.8 Other nonspecific abnormal finding of lung field; Z79.02 Long term (current) use of antithrombotics/antiplatelets; Z79.4 Long term (current) use of insulin; Z79.82 Long term (current) use of aspirin; Z79.899 Other long term (current) drug therapy; Z86.73 Personal history of transient ischemic attack (TIA), and cerebral infarction without residual deficits; Z91.81 History of falling; Z95.1 Presence of aortocoronary bypass graft; Z90.49 Acquired absence of other specified parts of digestive tract
CPT/HCPCS: 36415; 70450; 71046; 71260; 80048; 80053; 81003; 83036; 83735; 84100; 84443; 84484; 85025; 85610; 85730; 93005; 96361; 96374; 99285

== ENCOUNTER 2019-06-29 23:10 | Emergency (ER) | payer MEDICARE ==
[2019-06-29 23:25] VITALS: RESP 18
[2019-06-29] MEDS ORDERED: METOPROLOL TARTRATE 25 MG TAB PO STA (23:39)
--- NOTE | 2019-06-29 23:40 | ED ---
Arrhythmia/Palpitations HPI - General Chief Complaint: Arrhythmia/Palpitations Stated Complaint: Chest Pain Time Seen by Provider: 06/29/19 23:16 Source: patient, EMS Mode of arrival: EMS Limitations: no limitations - History of Present Illness Initial Comments: This patient is an 89-year-old man who presents from alf to be evaluated for what he is describing as a fluttering feeling in his heart. The patient denies any other associated symptoms. He states that it came on tonight. He was not having any associated chest pain, dyspnea, diaphoresis, nausea or vomiting. The patient is known to have history of atrial fibrillation. Currently this patient states that he feels well MD Complaint: palpitations -: hour(s) Context: occurred during rest Arrhythmia History: atrial fibrillation Associated Symptoms: denies other symptoms - Related Data Home Medications Medication Instructions Recorded Confirmed Atorvastatin [Lipitor] 10 mg PO HS 04/13/18 06/15/19 Finasteride [Proscar] 5 mg PO HS 04/13/18 06/15/19 Metoprolol Succinate [Toprol XL] 25 mg PO DAILY 04/13/18 06/15/19 Omeprazole 20 mg PO DAILY 04/13/18 06/15/19 Tamsulosin HCl [Flomax] 0.8 mg PO HS 04/13/18 06/15/19 Aspirin EC [Ecotrin Low Dose] 81 mg PO DAILY 06/15/19 06/15/19 Citalopram Hydrobromide [CeleXA] 20 mg PO DAILY 06/15/19 06/15/19 Meclizine [Antivert] 25 mg PO BID PRN 06/15/19 06/15/19 Previous Rx's Medication Instructions Recorded INSULIN ASPART (NovoLOG) [NovoLOG 4 unit SQ AC-TID #1 vial 06/09/19 (formulary)] Insulin Detemir (Levemir) [Levemir] 12 unit SQ HS #1 vial 06/09/19 Lisinopril [Zestril] 10 mg PO DAILY tab 06/18/19 Allergies Allergy/AdvReac Type Severity Reaction Status Date / Time No Known Allergies Allergy Verified 06/15/19 16:48 Review of Systems ROS Statement: Those systems with pertinent positive or pertinent negative responses have been documented in the HPI. ROS Other: All systems not noted in ROS Statement are negative. Constitutional: Denies: fever, chills Respiratory: Denies: cough, dyspnea Cardiovascular: Reports: as per HPI, palpitations. Denies: chest pain, orthopnea, syncope Gastrointestinal: Denies: abdominal pain, nausea, vomiting Genitourinary: Denies: dysuria Musculoskeletal: Denies: back pain Skin: Denies: rash Neurological: Denies: headache Past Medical History Past Medical History: Atrial Fibrillation, Coronary Artery Disease (CAD), CVA/TIA, Diabetes Mellitus, Hypertension, Myocardial Infarction ([place]) Additional Past Medical History / Comment(s): dizziness, 2 heart attacks, bilateral carotid stenosis, left vertebral artery occlusion Last Myocardial Infarction Date:: unknown History of Any Multi-Drug Resistant Organisms: None Reported Past Surgical History: Appendectomy, Coronary Bypass/CABG Additional Past Surgical History / Comment(s): pt is poor historian. CABG Past Anesthesia/Blood Transfusion Reactions: No Reported Reaction Past Psychological History: No Psychological Hx Reported Smoking Status: Never smoker Past Alcohol Use History: None Reported Past Drug Use History: None Reported - Past Family History Father History Unknown: Yes Mother History Unknown: Yes General Exam Limitations: no limitations General appearance: alert, in no apparent distress Head exam: Present: atraumatic, normocephalic Eye exam: Present: normal appearance. Absent: scleral icterus, conjunctival inj ection ENT exam: Present: normal oropharynx Neck exam: Present: normal inspection, full ROM Respiratory exam: Present: normal lung sounds bilaterally. Absent: respiratory distress, wheezes, rales, rhonchi, stridor Cardiovascular Exam: Present: regular rate, normal rhythm, normal heart sounds. Absent: systolic murmur, diastolic murmur, rubs, gallop GI/Abdominal exam: Present: soft. Absent: distended, tenderness, guarding, rebound, mass Extremities exam: Present: normal inspection, normal capillary refill. Absent: pedal edema, calf tenderness Back exam: Present: normal inspection. Absent: CVA tenderness (R), CVA te nderness (L) Neurological exam: Present: alert Skin exam: Present: warm, dry, intact, normal color. Absent: rash Course Vital Signs 06/29/19 23:11 Temperature 97.8 F Pulse Rate 107 H Respiratory 18 Rate Blood Pressure 150/103 O2 Sat by Pulse 97 Oximetry EKG Findings - EKG Comments: EKG Findings:: Comparison ECG from 06/17/2019 is similar other than the rate being higher today - EKG Results: EKG: interpreted by ERMD, normal axis EKG shows: atrial fibrillation (Rate approximately 105 bpm) - Blocks, [place], Hypertrophy, ST Abn: AV and intraventricular conduction: right bundle branch block (fixed/intermittent, complete/incomplete) Medical Decision Making - Lab Data Result diagrams: 06/29/19 23:20 06/29/19 23:20 Lab Results 06/29/19 06/29/19 06/29/19 Range/Units 23:20 23:20 23:20 WBC 5.8 (3.8-10.6) k/uL RBC 4.79 (4.30-5.90) m/uL Hgb 13.0 (13.0-17.5) gm/dL Hct 41.8 (39.0-53.0) % MCV 87.2 (80.0-100.0) fL MCH 27.1 (25.0-35.0) pg MCHC 31.1 (31.0-37.0) g/dL RDW 14.1 (11.5-15.5) % Plt Count 179 (150-450) k/uL Neutrophils % 62 % Lymphocytes % 28 % Monocytes % 5 % Eosinophils % 4 % Basophils % 0 % Neutrophils # 3.6 (1.3-7.7) k/uL Lymphocytes # 1.6 (1.0-4.8) k/uL Monocytes # 0.3 (0-1.0) k/uL Eosinophils # 0.2 (0-0.7) k/uL Basophils # 0.0 (0-0.2) k/uL PT 11.4 (9.0-12.0) sec INR 1.1 (<1.2) APTT 24.9 (22.0-30.0) sec Sodium 137 (137-145) mmol/L Potassium 4.6 (3.5-5.1) mmol/L Chloride 105 (98-107) mmol/L Carbon Dioxide 22 (22-30) mmol/L Anion Gap 10 mmol/L BUN 23 H (9-20) mg/dL Creatinine 1.05 (0.66-1.25) mg/dL Est GFR (CKD-EPI)AfAm 73 (>60 ml/min/1.73 sqM) Est GFR (CKD-EPI)NonAf 63 (>60 ml/min/1.73 sqM) Glucose 149 H (74-99) mg/dL Calcium 8.8 (8.4-10.2) mg/dL Magnesium 1.9 (1.6-2.3) mg/dL Total Bilirubin 0.3 (0.2-1.3) mg/dL AST 24 (17-59) U/L ALT 20 L (21-72) U/L Alkaline Phosphatase 85 (38-126) U/L Troponin I (0.000-0.034) ng/mL Total Protein 6.6 (6.3-8.2) g/dL Albumin 3.8 (3.5-5.0) g/dL 06/29/19 Range/Units 23:20 WBC (3.8-10.6) k/uL RBC (4.30-5.90) m/uL Hgb (13.0-17.5) gm/dL Hct (39.0-53.0) % MCV (80.0-100.0) fL MCH (25.0-35.0) pg MCHC (31.0-37.0) g/dL RDW (11.5-15.5) % Plt Count (150-450) k/uL Neutrophils % % Lymphocytes % % Monocytes % % Eosinophils % % Basophils % % Neutrophils # (1.3-7.7) k/uL Lymphocytes # (1.0-4.8) k/uL Monocytes # (0-1.0) k/uL Eosinophils # (0-0.7) k/uL Basophils # (0-0.2) k/uL PT (9.0-12.0) sec INR (<1.2) APTT (22.0-30.0) sec Sodium (137-145) mmol/L Potassium (3.5-5.1) mmol/L Chloride (98-107) mmol/L Carbon Dioxide (22-30) mmol/L Anion Gap mmol/L BUN (9-20) mg/dL Creatinine (0.66-1.25) mg/dL Est GFR (CKD-EPI)AfAm (>60 ml/min/1.73 sqM) Est GFR (CKD-EPI)NonAf (>60 ml/min/1.73 sqM) Glucose (74-99) mg/dL Calcium (8.4-10.2) mg/dL Magnesium (1.6-2.3) mg/dL Total Bilirubin (0.2-1.3) mg/dL AST (17-59) U/L ALT (21-72) U/L Alkaline Phosphatase (38-126) U/L Troponin I <0.012 (0.000-0.034) ng/mL Total Protein (6.3-8.2) g/dL Albumin (3.5-5.0) g/dL Disposition Clinical Impression: Atrial fibrillation Disposition: HOME SELF-CARE Condition: Good Instructions (If sedation given, give patient instructions): A-fib (Atrial Fibrillation) (DC) Is patient prescribed a controlled substance at d/c from ED?: No Referrals: Kam Truong MD [Primary Care Provider] - 1-2 days
--- NOTE | 2019-06-29 23:57 | XR ---
EXAMINATION TYPE: XR chest 1V portable DATE OF EXAM: 06/29/2019 COMPARISON: 06/15/2019 HISTORY: Chest pain TECHNIQUE: Single frontal view of the chest is obtained. FINDINGS: There is linear density at the lung bases. There is poor inspiration. There is elevated ri ght diaphragm. There is no heart failure. There are sternal wires. There are chest leads. IMPRESSION: There is basilar atelectasis increased compared to last exam. No heart failure.
[2019-06-30 00:09] LABS: Basophils % (A) 0 %; Eosinophils # (A) 0.2 k/uL (0-0.7); Eosinophils % (A) 4 %; HCT 41.8 % (39.0-53.0); Lymphocytes # (A) 1.6 k/uL (1.0-4.8); Lymphocytes % (A) 28 %; MCH 27.1 pg (25.0-35.0); MCHC 31.1 g/dL (31.0-37.0); MCV 87.2 fL (80.0-100.0); Mean Platelet Volume 6.7; Monocytes # (A) 0.3 k/uL (0-1.0); Monocytes % (A) 5 %; Neutrophils # (A) 3.6 k/uL (1.3-7.7); Neutrophils % (A) 62 %; Platelet Count 179 k/uL (150-450); RBC 4.79 m/uL (4.30-5.90); RDW 14.1 % (11.5-15.5); WBC 5.8 k/uL (3.8-10.6)
[2019-06-30 00:19] LABS: Albumin 3.8 g/dL (3.5-5.0); Calcium 8.8 mg/dL (8.4-10.2); Magnesium 1.9 mg/dL (1.6-2.3); Potassium 4.6 mmol/L (3.5-5.1); Total Bilirubin 0.3 mg/dL (0.2-1.3); Total Protein 6.6 g/dL (6.3-8.2)
[2019-06-30 00:20] LABS: INR 1.1 (<1.2); Partial Thromboplastin Time 24.9 sec (22.0-30.0); Prothrombin Time 11.4 sec (9.0-12.0)
[2019-06-30 01:18] VITALS: BP 159/82; PULSE 98; TEMP 97.9
== END 2019-06-30 01:18 | disposition home or self-care (01) ==
LOC: EC 23:10
DX: I48.91 Unspecified atrial fibrillation (principal); I25.10 Atherosclerotic heart disease of native coronary artery without angina pectoris; I10 Essential (primary) hypertension; I25.2 Old myocardial infarction; E11.9 Type 2 diabetes mellitus without complications; Z79.82 Long term (current) use of aspirin; Z79.899 Other long term (current) drug therapy; Z86.79 Personal history of other diseases of the circulatory system; Z86.73 Personal history of transient ischemic attack (TIA), and cerebral infarction without residual deficits; Z95.1 Presence of aortocoronary bypass graft
CPT/HCPCS: 36415; 71045; 80053; 83735; 84484; 85025; 85610; 85730; 93005; 99285

== ENCOUNTER 2020-01-25 19:39 | Inpatient (IN) | payer MEDICARE ==
[2020-01-25] MEDS ORDERED: SODIUM CHLORIDE 0.9% 500 ML 500 ML IV STA (20:24)
[2020-01-25] MEDS ORDERED: ONDANSETRON 4 MG/2 ML VIAL IVP STA (20:24)
[2020-01-25] MEDS ORDERED: MORPHINE SULFATE 4 MG/ML SYRINGE IVP STA (20:28)
[2020-01-25 20:37] LABS: Basophils % (A) 0 %; Eosinophils # (A) 0.1 k/uL (0-0.7); Eosinophils % (A) 1 %; HCT 43.5 % (39.0-53.0); Hypochromasia Slight; Lymphocytes # (A) 0.7 k/uL (1.0-4.8); Lymphocytes % (A) 8 %; MCH 27.1 pg (25.0-35.0); MCHC 32.2 g/dL (31.0-37.0); Mean Platelet Volume 7.9; Monocytes # (A) 0.3 k/uL (0-1.0); Monocytes % (A) 4 %; Neutrophils # (A) 7.6 k/uL (1.3-7.7); Neutrophils % (A) 87 %; Platelet Count 222 k/uL (150-450); RBC 5.17 m/uL (4.30-5.90); RDW 14.4 % (11.5-15.5); WBC 8.7 k/uL (3.8-10.6)
[2020-01-25] MEDS ORDERED: ACETAMINOPHEN TAB 325 MG TAB PO STA (20:39)
[2020-01-25 20:47] LABS: INR 1.2 (<1.2); Partial Thromboplastin Time 22.1 sec (22.0-30.0); Prothrombin Time 12.1 sec (9.0-12.0)
[2020-01-25 20:48] LABS: Albumin 4.2 g/dL (3.5-5.0); Calcium 8.8 mg/dL (8.4-10.2); Total Bilirubin 1.7 mg/dL (0.2-1.3); Total Protein 7.4 g/dL (6.3-8.2)
--- NOTE | 2020-01-25 21:15 | ED ---
Abdominal Pain HPI - General Chief Complaint: Abdominal Pain Stated Complaint: NVD, Abd Pain Time Seen by Provider: 01/25/20 19:45 Source: patient, EMS Mode of arrival: EMS Limitations: no limitations - History of Present Illness Initial Comments: The patient is an 89-year-old male who presents to the emergency room with reported abdominal pain. Patient reports that he's had abdominal pain located in the epigastric region for the past 4 hours. It has caused him to have nausea with multiple episodes of vomiting. Patient also reports to coughing up clear sputum. He has had a history of similar in the past. He reports that he had a cholecystectomy out of [facility] however cannot provide the date. He states that they "were unable to take out his gallbladder and therefore he continues to have gallbladder flareups". Reports that this feels similar. He denies diarrhea, constipation, melenic stools or hematochezia. He denies dysuria, hematuria or difficulty voiding. He denies chest pain. No contact with sick symptoms. Denies eating any tainted foods. No fevers or chills. There are no other alleviating, precipitating or modifying factors - Related Data Home Medications Medication Instructions Recorded Confirmed Atorvastatin [Lipitor] 10 mg PO HS 04/13/18 01/25/20 Finasteride [Proscar] 5 mg PO HS 04/13/18 01/25/20 Metoprolol Succinate [Toprol XL] 25 mg PO DAILY 04/13/18 01/25/20 Omeprazole 20 mg PO DAILY 04/13/18 01/25/20 Tamsulosin HCl [Flomax] 0.8 mg PO HS 04/13/18 01/25/20 Aspirin EC [Ecotrin Low Dose] 81 mg PO DAILY 06/15/19 01/25/20 Meclizine [Antivert] 25 mg PO BID PRN 06/15/19 01/25/20 Clopidogrel Bisulfate [Plavix] 75 mg PO DAILY 01/25/20 01/25/20 Enalapril Maleate [Vasotec] 10 mg PO DAILY 01/25/20 01/25/20 INSULIN LISPRO (HumaLOG) [humaLOG] 4 units SQ AC-TID 01/25/20 01/25/20 amLODIPine [Norvasc] 5 mg PO DAILY 05/04/20 05/04/20 Previous Rx's Medication Instructions Recorded Amoxic-Pot Clav 875-125Mg 1 tab PO Q12HR 7 Days #14 tab 01/27/20 [Augmentin 875-125] Insulin Detemir (Levemir) [Levemir] 10 unit SQ HS #0 01/27/20 Allergies Allergy/AdvReac Type Severity Reaction Status Date / Time No Known Allergies Allergy Verified 01/25/20 23:30 Review of Systems ROS Statement: Those systems with pertinent positive or pertinent negative responses have been documented in the HPI. ROS Other: All systems not noted in ROS Statement are negative. Past Medical History Past Medical History: Atrial Fibrillation, Coronary Artery Disease (CAD), CVA/TIA, Diabetes Mellitus, Hypertension, Myocardial Infarction ([place]) Additional Past Medical History / Comment(s): dizziness, 2 heart attacks, bilateral carotid stenosis, left vertebral artery occlusion Last Myocardial Infarction Date:: unknown History of Any Multi-Drug Resistant Organisms: None Reported Past Surgical History: Appendectomy, Coronary Bypass/CABG Additional Past Surgical History / Comment(s): pt is poor historian. CABG Past Anesthesia/Blood Transfusion Reactions: No Reported Reaction Past Psychological History: No Psychological Hx Reported Smoking Status: Never smoker Past Alcohol Use History: None Reported Past Drug Use History: None Reported - Past Family History Father History Unknown: Yes Mother History Unknown: Yes General Exam Limitations: no limitations General appearance: alert, in no apparent distress Head exam: Present: atraumatic, normocephalic, normal inspection Eye exam: Present: normal appearance, PERRL, EOMI. Absent: scleral icterus, conjunctival injection, periorbital swelling ENT exam: Present: normal exam, mucous membranes moist Neck exam: Present: normal inspection. Absent: tenderness, meningismus, lymphadenopathy Respiratory exam: Present: normal lung sounds bilaterally. Absent: respiratory distress, wheezes, rales, rhonchi, stridor Cardiovascular Exam: Present: tachycardia, irregular rhythm, normal heart sounds. Absent: systolic murmur, diastolic murmur, rubs, gallop, clicks GI/Abdominal exam: Present: soft, tenderness (RUQ), normal bowel sounds. Absent: distended, guarding, rebound, rigid Extremities exam: Present: normal inspection, full ROM, normal capillary refill. Absent: tenderness, pedal edema, joint swelling, calf tenderness Back exam: Present: normal inspection Neurological exam: Present: alert, oriented X3, CN II-XII intact Psychiatric exam: Present: normal affect, normal mood Skin exam: Present: warm, dry, intact, normal color. Absent: rash Course Vital Signs 01/25/20 01/25/20 01/25/20 19:43 20:46 23:29 Temperature 99.8 F H 98.4 F 97.6 F Pulse Rate 106 H 104 H 109 H Respiratory 20 18 17 Rate Blood Pressure 163/107 162/96 118/91 O2 Sat by Pulse 100 99 95 Oximetry Medical Decision Making - Medical Decision Making Upon arrival the patient was placed into room 6. A thorough history and physical exam was performed. Peripheral IV was established. The patient was given 4 mg of morphine for pain control and 4 mg of Zofran for nausea. Laboratory studies were conducted. CBC is unremarkable. CMP shows a lactic acid of 3.3. Glucose is 299. AST 553, AST 199, alk phos 326. Coronavirus is not detected. The patient cannot provide a urine sample even though he is repetitively prompted. CT of the patient's abdomen and pelvis demonstrates pneumobilia. Possible mild, located acute colitis. Chest x-ray demonstrates a possible right upper lung infiltrate. Blood cultures were obtained. The patient was initiated on Zosyn. I did discuss the case with Dr. Madrid at 11:12 pm and had no additional recommendations. The patient will be admitted to Dr. Soriano. 12-lead EKG demonstrated atrial fibrillation for which the patient has a history of an is not on any anticoagulation. I will make the patient nothing by mouth. He remained in stable condition awaiting a bed on the floor - Lab Data Result diagrams: 01/27/20 06:33 01/27/20 06:33 Lab Results 01/25/20 01/25/20 01/25/20 Range/Units 19:45 19:45 19:45 WBC 8.7 (3.8-10.6) k/uL RBC 5.17 (4.30-5.90) m/uL Hgb 14.0 (13.0-17.5) gm/dL Hct 43.5 (39.0-53.0) % MCV 84.0 (80.0-100.0) fL MCH 27.1 (25.0-35.0) pg MCHC 32.2 (31.0-37.0) g/dL RDW 14.4 (11.5-15.5) % Plt Count 222 (150-450) k/uL Neutrophils % 87 % Lymphocytes % 8 % Monocytes % 4 % Eosinophils % 1 % Basophils % 0 % Neutrophils # 7.6 (1.3-7.7) k/uL Lymphocytes # 0.7 L (1.0-4.8) k/uL Monocytes # 0.3 (0-1.0) k/uL Eosinophils # 0.1 (0-0.7) k/uL Basophils # 0.0 (0-0.2) k/uL Hypochromasia Slight PT 12.1 H (9.0-12.0) sec INR 1.2 H (<1.2) APTT 22.1 (22.0-30.0) sec Sodium 136 L (137-145) mmol/L Potassium 4.3 (3.5-5.1) mmol/L Chloride 103 (98-107) mmol/L Carbon Dioxide 21 L (22-30) mmol/L Anion Gap 12 mmol/L BUN 22 H (9-20) mg/dL Creatinine 1.07 (0.66-1.25) mg/dL Est GFR (CKD-EPI)AfAm 71 (>60 ml/min/1.73 sqM) Est GFR (CKD-EPI)NonAf 62 (>60 ml/min/1.73 sqM) Glucose 299 H (74-99) mg/dL Lactic Ac Sepsis Rflx Plasma Lactic Acid Gen (0.7-2.0) mmol/L Calcium 8.8 (8.4-10.2) mg/dL Total Bilirubin 1.7 H (0.2-1.3) mg/dL AST 553 H (17-59) U/L ALT 199 H (4-49) U/L Alkaline Phosphatase 326 H (38-126) U/L Total Protein 7.4 (6.3-8.2) g/dL Albumin 4.2 (3.5-5.0) g/dL Lipase 96 (23-300) U/L Coronavirus (PCR) (Not Detectd) 01/25/20 01/25/20 01/25/20 Range/Units 19:45 20:49 21:22 WBC (3.8-10.6) k/uL RBC (4.30-5.90) m/uL Hgb (13.0-17.5) gm/dL Hct (39.0-53.0) % MCV (80.0-100.0) fL MCH (25.0-35.0) pg MCHC (31.0-37.0) g/dL RDW (11.5-15.5) % Plt Count (150-450) k/uL Neutrophils % % Lymphocytes % % Monocytes % % Eosinophils % % Basophils % % Neutrophils # (1.3-7.7) k/uL Lymphocytes # (1.0-4.8) k/uL Monocytes # (0-1.0) k/uL Eosinophils # (0-0.7) k/uL Basophils # (0-0.2) k/uL Hypochromasia PT (9.0-12.0) sec INR (<1.2) APTT (22.0-30.0) sec Sodium (137-145) mmol/L Potassium (3.5-5.1) mmol/L Chloride (98-107) mmol/L Carbon Dioxide (22-30) mmol/L Anion Gap mmol/L BUN (9-20) mg/dL Creatinine (0.66-1.25) mg/dL Est GFR (CKD-EPI)AfAm (>60 ml/min/1.73 sqM) Est GFR (CKD-EPI)NonAf (>60 ml/min/1.73 sqM) Glucose (74-99) mg/dL Lactic Ac Sepsis Rflx Y Plasma Lactic Acid Gen 3.3 H* (0.7-2.0) mmol/L Calcium (8.4-10.2) mg/dL Total Bilirubin (0.2-1.3) mg/dL AST (17-59) U/L ALT (4-49) U/L Alkaline Phosphatase (38-126) U/L Total Protein (6.3-8.2) g/dL Albumin (3.5-5.0) g/dL Lipase (23-300) U/L Coronavirus (PCR) Not Detected (Not Detectd) - EKG Data EKG Comments: EKG demonstrates A. fib with a rate of 100. QRS 164. QTC 490. EKG demonstrates a right bundle branch block with A. fib. No acute ST segment elevations. EKG appears similar in appearance last EKG Disposition Clinical Impression: Pneumobilia, Transaminitis, Abdominal pain, Lactic acidosis, CAP (community acquired pneumonia) Disposition: ADMITTED IP TO THIS HOSP Condition: Serious Is patient prescribed a controlled substance at d/c from ED?: No Decision to Admit Reason: Admit from EC Decision Date: 01/25/20 Decision Time: 23:05
[2020-01-25 21:22] LABS: Potassium 4.3 mmol/L (3.5-5.1)
--- NOTE | 2020-01-25 21:22 | XR ---
EXAMINATION TYPE: XR chest 1V DATE OF EXAM: 01/25/2020 COMPARISON: Chest CT June 15, 2019. Chest x-ray June 29, 2019. HISTORY: Cough. History of atrial fibrillation and coronary artery disease. TECHNIQUE: Single AP portable frontal upright view of the chest is obtained. FINDINGS: There is background chronic emphysematous change with new right upper lobe opacity. Chron ic left basilar opacity favors scarring and/or atelectasis The cardiac silhouette size remains enlarg ed. Overlying sternal wires and mediastinal clips. The osseous structures are demineralized. IMPRESSION: Chronic emphysematous change and cardiomegaly with new right upper lung acute infiltrate .
[2020-01-25] MEDS ORDERED: PIPERACILLIN-TAZOBACTAM 3.375 GM in SODIUM CHLORIDE 0.9% 100 ML IVPB STA (21:40)
[2020-01-25] MEDS ORDERED: AZITHROMYCIN 500 MG in SODIUM CHLORIDE 0.9% 250 ML IVPB STA (22:09)
--- NOTE | 2020-01-25 22:59 | CT ---
EXAMINATION TYPE: CT abdomen pelvis w con DATE OF EXAM: 01/25/2020 COMPARISON: None. HISTORY: Generalized pain CT DLP: 1217.7 mGycm, Automated Exposure Control for Dose Reduction was Utilized. CONTRAST: CT scan of the abdomen and pelvis is performed without oral but with IV Contrast, patient injected wi th 100 mL of Isovue 300. FINDINGS: LUNG BASES: Fairly moderate bibasilar linear scarring and/or atelectasis with some micronodules left lung base axial image 10. Overlying sternal wires are partially imaged. LIVER/GB: Gallbladder not seen and presumed surgically absent. Pneumobilia is present. Mild to modera te central periportal edema nonspecific finding in the liver. PANCREAS: Mild to moderate generalized atrophy with a few scattered calcifications. Correlate for his tory of chronic pancreatitis. Prominent pancreatic duct which is dilated towards the head without obs tructing mass seen. SPLEEN: Subcentimeter focus of hyperdensity or enhancement superior spleen axial image 13 too small t o further characterize presumed benign. Roughly 1.5 cm splenule inferiorly axial image 27. ADRENALS: No significant abnormality is seen. KIDNEYS: There is 2.4 cm exophytic hyperdense lesion lower pole right kidney coronal image 58 favored proteinaceous cyst. Symmetrical medullary uptake and excretion without hydronephrosis seen bilateral ly. BOWEL: Air-fluid level in slightly distended stomach. No suspicious small or large bowel dilatation. Diverticula in the sigmoid colon without CT evidence for acute diverticulitis. Suboptimal evaluation of bowel without enteric contrast. Mild wall thickening in the transverse and left colon. PROSTATE/SEMINAL VESICLES: Enlarged prostate gland consistent with BPH bulging. Adjacent phleboliths. LYMPH NODES: No greater than 1cm abdominal or pelvic lymph nodes are appreciated. OSSEOUS STRUCTURES : Moderate to severe axial joint space loss and moderate spurring both hip joints. Moderate spurring and visualized thoracolumbar spine. Prominent facet arthropathy lower lumbar level s causing most prominent spinal canal stenosis L4-L5 level axial image 43. OTHER: Small to moderate-sized fat-containing left inguinal hernia. Fairly moderate to severe predom inantly calcified plaque of the aorta extending into branch vessels. IMPRESSION: Pneumobilia noted. Etiology uncertain. Clinical correlation advised. Possible mild uncomp licated acute colitis involving transverse and left colon versus product of poor distention. Correlat e clinically.
[2020-01-25] MEDS ORDERED: NALOXONE 0.4 MG/ML 1 ML VIAL IV PRN (23:05)
[2020-01-25] MEDS ORDERED: MORPHINE SULFATE 4 MG/ML SYRINGE IV PRN (23:05)
[2020-01-25] MEDS ORDERED: ONDANSETRON 4 MG/2 ML VIAL IVP PRN (23:05)
[2020-01-25] MEDS: SODIUM CHLORIDE 0.9% 1,000 ML IV SCH (23:28)
[2020-01-26 00:51] LABS: Glucose,Whole Blood 332 mg/dL (75-99)
[2020-01-26] MEDS: INSULIN DETEMIR (LEVEMIR) 100 UNIT/ML SYR SQ SCH ×2 (01:01→21:17)
[2020-01-26] MEDS ORDERED: SODIUM CHLORIDE 0.9% 500 ML 500 ML IV ONE (01:31)
--- NOTE | 2020-01-26 02:33 | P.HPIM ---
History of Present Illness H&P Date: 01/26/20 Chief Complaint: Productive cough, not feeling well 1 day duration 89-year-old male with A. fib not on anticoagulation, history of CAD status post CABG, history of stroke, diabetes mellitus on insulin, hypertension Patient is very poor historian however he is very pleasant during the interview he likes to talk about social issues but avoids medical questions. Patient 89-year-old lives alone he has his neice who checks on him. He has been confined to social distancing and staying home during the pandemic. Patient comes in today due to 1 day history of productive nagging cough he also saw specks of blood in his sputum. Otherwise he denies any fevers or chills he d enies any sick contacts he denies any chest pain or trouble breathing he denies any abdominal pain denies any changes in his urinary or bowel habits denies melena denies GI bleeding. . He denies any shortness of breath or chest pain. Patient does report 2 episodes of nausea and vomiting nonbilious nonbloody no coffee-ground vomiting Patient is reporting that he is not feeling well today. However he reports that since he received some IV fluids he is feeling kind of better When asked he has no specific complaints. He is only concerned regarding his productive cough In the ED chest x-ray showed right upper lobe infiltrates suspicious for pneumonia Blood work revealed transaminitis and lactic acidosis. CT of the abdomen showed pneumobilia, absent gallbladder. And possible acute co litis Patient was admitted for pneumonia and further surgery and GI evaluation of his transaminitis. Patient uses a walker and wheelchair at home Review of Systems Pertinent positives as noted in HPI. All other systems were reviewed and are negative Past Medical History Past Medical History: Atrial Fibrillation, Coronary Artery Disease (CAD), CVA/TIA, Diabetes Mellitus, Hypertension, Myocardial Infarction ([place]) Additional Past Medical History / Comment(s): dizziness, 2 heart attacks, bilateral carotid stenosis, left vertebral artery occlusion Last Myocardial Infarction Date:: unknown History of Any Multi-Drug Resistant Organisms: None Reported Past Surgical History: Appendectomy, Coronary Bypass/CABG Additional Past Surgical History / Comment(s): pt is poor historian. CABG Past Anesthesia/Blood Transfusion Reactions: No Reported Reaction Past Psychological History: No Psychological Hx Reported Smoking Status: Never smoker Past Alcohol Use History: None Reported Past Drug Use History: None Reported - Past Family History Father History Unknown: Yes Mother History Unknown: Yes Medications and Allergies Home Medications Medication Instructions Recorded Confirmed Type Atorvastatin [Lipitor] 10 mg PO HS 04/13/18 01/25/20 History Finasteride [Proscar] 5 mg PO HS 04/13/18 01/25/20 History Metoprolol Succinate [Toprol XL] 25 mg PO DAILY 04/13/18 01/25/20 History Omeprazole 20 mg PO DAILY 04/13/18 01/25/20 History Tamsulosin HCl [Flomax] 0.8 mg PO HS 04/13/18 01/25/20 History Aspirin EC [Ecotrin Low Dose] 81 mg PO DAILY 06/15/19 01/25/20 History Meclizine [Antivert] 25 mg PO BID PRN 06/15/19 01/25/20 History Clopidogrel Bisulfate [Plavix] 75 mg PO DAILY 01/25/20 01/25/20 History Enalapril Maleate [Vasotec] 10 mg PO DAILY 01/25/20 01/25/20 History INSULIN LISPRO (HumaLOG) [humaLOG] 4 units SQ AC-TID 01/25/20 01/25/20 History Insulin Detemir (Levemir) [Levemir] 20 unit SQ HS 01/25/20 01/25/20 History amLODIPine [Norvasc] 5 mg PO DAILY 01/25/20 01/25/20 History Allergies Allergy/AdvReac Type Severity Reaction Status Date / Time No Known Allergies Allergy Verified 01/25/20 23:30 Physical Exam Vitals: Vital Signs Temp Pulse Pulse Resp BP BP Pulse Ox 01/25/20 23:52 98.4 F 84 18 125/84 95 01/25/20 23:29 97.6 F 109 H 17 118/91 95 01/25/20 20:46 98.4 F 104 H 18 162/96 99 01/25/20 19:43 99.8 F H 106 H 20 163/107 100 Intake and Output 01/25/20 01/25/20 01/26/20 14:59 22:59 06:59 Other: Weight 78.018 kg 78.018 kg Constitutional: No acute distress, conversant, pleasant Eyes: Anicteric sclerae, moist conjunctiva, no lid-lag Pupils equal round reactive to light ENMT: NC/AT Oropharynx clear, no erythema, or exudates Neck: Supple, FROM, no masses, or JVD No carotid bruits No thyromegaly Lungs: Decreased breath sounds at bilateral lung bases mainly over the left side no wheezing rhonchi or rales Clear to percussion Normal respiratory effort, no accessory muscle use Cardiovascular: Heart irregular No murmurs, gallops, or rubs No peripheral edema Abdominal: Soft Nontender, no guarding, rebound or rigidity Abdomen moving with respiration Normoactive bowel sounds No hepatomegaly, No splenomegaly No palpable mass No abdominal wall hernia noted Skin: Normal temperature, tone, texture, turgor No induration No subcutaneous nodules No rash, lesions No ulcers Extremities: Right leg slightly larger than left leg No digital cyanosis No clubbing Pedal pulses intact and symmetrical Radial pulses intact and symmetrical No calf tenderness Psychiatric: Alert and oriented to person, place and time Appropriate affect fair judgement Neuro Muscles Strength 5/5 in all 4 extremities Sensation to light touch grossly present throughout Cranial nerves II-XII grossly intact No focal sensory deficits Lymphatics: no palpable cervical or supraclavicular , or inguinal lymph nodes Results CBC & Chem 7: 01/25/20 19:45 01/25/20 19:45 Labs: Abnormal Lab Results - Last 24 Hours (Table) 01/25/20 01/25/20 01/25/20 Range/Units 19:45 19:45 19:45 Lymphocytes # 0.7 L (1.0-4.8) k/uL PT 12.1 H (9.0-12.0) sec INR 1.2 H (<1.2) Sodium 136 L (137-145) mmol/L Carbon Dioxide 21 L (22-30) mmol/L BUN 22 H (9-20) mg/dL Glucose 299 H (74-99) mg/dL Plasma Lactic Acid Gen (0.7-2.0) mmol/L Total Bilirubin 1.7 H (0.2-1.3) mg/dL AST 553 H (17-59) U/L ALT 199 H (4-49) U/L Alkaline Phosphatase 326 H (38-126) U/L 01/25/20 Range/Units 19:45 Lymphocytes # (1.0-4.8) k/uL PT (9.0-12.0) sec INR (<1.2) Sodium (137-145) mmol/L Carbon Dioxide (22-30) mmol/L BUN (9-20) mg/dL Glucose (74-99) mg/dL Plasma Lactic Acid Gen 3.3 H* (0.7-2.0) mmol/L Total Bilirubin (0.2-1.3) mg/dL AST (17-59) U/L ALT (4-49) U/L Alkaline Phosphatase (38-126) U/L Thrombosis Risk Factor Assmnt - Choose All That Apply Any of the Below Risk Factors Present?: No Assessment and Plan Assessment: 89-year-old male with A. fib not on anticoagulation, history of CAD status post CABG, history of stroke, diabetes mellitus on insulin, hypertension Patient found to have pneumonia, elevated liver enzymes with pneumobilia, and A. fib with RVR admitted as an inpatient with anticipated length of stay more than 2 midnights Community-acquired pneumonia A. fib with RVR Acute transaminitis Lactic acidosis Questionable hemoptysis most likely secondary to pneumonia, patient denies any weight loss patient denies history of smoking Patient was started on antibiotics that would cover pneumonia and intra- abdominal sources continue with Zosyn and azithromycin IV fluid hydration normal saline boluses as needed and continue with maintenance IV fluid hydration with normal saline Follow-up lactic acid Tylenol for fevers GI and surgery consult for transaminitis Check hepatitis CT of the abdomen reviewed showing pneumobilia Hold statin Chronic conditions Diabetes mellitus, check A1c, resume Levemir, insulin sliding scale Hypertension resume as History of CAD and CVA, resume home meds hold statin History of left vertebral artery occlusion and bilateral carotid stenosis continue with Plavix, statin on hold secondary to transaminitis CODE STATUS: Full code DVT prophylaxis: Heparin subcu Discussed with: Patient, ER, RN Anticipated length of stay more than [address]: Home A total of 75 minutes was spent on the care of this complex patient more than 50% of the time was spent in counseling and care coordination.
[2020-01-26 03:47] LABS: Glucose,Whole Blood 258 mg/dL (75-99)
[2020-01-26 05:09] LABS: Basophils % (A) 0 %; Eosinophils % (A) 0 %; HCT 40.8 % (39.0-53.0); HGB 12.9 gm/dL (13.0-17.5); Hypochromasia Moderate; Lymphocytes # (A) 0.4 k/uL (1.0-4.8); Lymphocytes % (A) 4 %; MCH 27.2 pg (25.0-35.0); MCHC 31.6 g/dL (31.0-37.0); MCV 86.1 fL (80.0-100.0); Mean Platelet Volume 6.8; Monocytes # (A) 0.3 k/uL (0-1.0); Monocytes % (A) 3 %; Neutrophils % (A) 92 %; Platelet Count 182 k/uL (150-450); RBC 4.74 m/uL (4.30-5.90); RDW 14.6 % (11.5-15.5); WBC 9.9 k/uL (3.8-10.6)
[2020-01-26 05:12] LABS: Calcium 8.2 mg/dL (8.4-10.2); Potassium 4.4 mmol/L (3.5-5.1)
[2020-01-26 07:05] LABS: Glucose,Whole Blood 191 mg/dL (75-99)
[2020-01-26] MEDS: INSULIN ASPART (NovoLOG) 100 UNIT/ML VIAL SQ SCH ×4 (07:11→21:13)
[2020-01-26] MEDS: ASPIRIN 81 MG PO SCH ×2 (07:12→11:15)
[2020-01-26] MEDS: CLOPIDOGREL 75 MG TAB PO SCH ×2 (07:12→11:14)
[2020-01-26] MEDS: HEPARIN SODIUM,PORCINE 5,000 UNIT/ML 1 ML VIAL SQ SCH ×3 (07:12→23:15)
[2020-01-26] MEDS: METOPROLOL SUCCINATE (ER) 25 MG TAB.ER.24H PO SCH (07:54)
[2020-01-26] MEDS: LISINOPRIL 20 MG TAB PO SCH (07:54)
[2020-01-26] MEDS: PIPERACILLIN-TAZOBACTAM 3.375 GM in SODIUM CHLORIDE 0.9% 100 ML IVPB SCH ×3 (07:54→23:15)
[2020-01-26] MEDS: PANTOPRAZOLE 40 MG TABLET PO SCH (07:54)
[2020-01-26] MEDS: amLODIPine 5 MG TAB PO SCH (07:54)
[2020-01-26] MEDS: AZITHROMYCIN 500 MG TAB PO SCH (07:54)
[2020-01-26 09:02] LABS: Total Bilirubin 1.8 mg/dL (0.2-1.3)
--- NOTE | 2020-01-26 10:44 | P.GSCN ---
History of Present Illness Consult date: 01/26/20 Reason for Consult: acute abdominal pain, pneumobilia Requesting physician: Odessa Pond History of present illness: CHIEF COMPLAINT: abdominal pain, pneumobilia HISTORY OF PRESENT ILLNESS: 89-year-old male who presented to the emergency room with a chief complaint of abdominal pain. Patient was examined this morning at the bedside with Dr. Madrid. Patient currently denies abdominal pain. He denies nausea or vomiting. He reports a history of cholecystectomy many years ago. PAST MEDICAL HISTORY: See list. PAST SURGICAL HISTORY: See list. SOCIAL HISTORY: No illicit drug use. REVIEW OF SYSTEMS: CONSTITUTIONAL: Denies fever or chills. HEENT: Denies blurred vision, vision changes, or eye pain. Denies hemoptysis CARDIOVASCULAR: Denies chest pain or pressure. RESPIRATORY: No shortness of breath. GASTROINTESTINAL: Refer to HPI for pertinent findings HEMATOLOGIC: Denies bleeding disorders. GENITOURINARY: Denies any blood in urine. SKIN: Denies pruitis. Denies rash. PHYSICAL EXAM: VITAL SIGNS: Reviewed. GENERAL: Well-developed in no acute distress. HEENT: No sclera icterus. Extraocular movements grossly intact. Moist buccal mucosa. Head is atraumatic, normocephalic. ABDOMEN: Soft. Nondistended. Nontender. left inguinal hernia noted. NEUROLOGIC: Alert and oriented. Cranial nerves II through XII grossly intact. LABORATORY DATA: WBC 9.9. Hemoglobin 12.9. Platelet count 182. Lactic acid 2.6. bilirubin 1.8. AST 252. ALT 227. IMAGING: CT abdomen and pelvis: Pneumobilia noted. Possible mild uncomplicated acute colitis involving transverse and left colon. ASSESSMENT: 1. Abdominal pain, resolved 2. Pneumobilia 3. Transaminitis, can not rule out passed stone or choledocholithiasis 4. Possible mild colitis 5. Left inguinal hernia 6. History of cholecystectomy PLAN: -Begin full liquid diet -Continue zosyn for possible mild colitis -Monitor LFTs. Repeat in AM -GI on consult. Await evaluation -Patient will left inguinal hernia. Advised to follow up outpatient with Dr. Madrid -No inpatient surgical intervention recommended at this time Nurse practitioner note has been reviewed by physician. Signing provider agrees with the documented findings, assessment, and plan of care. Past Medical History Past Medical History: Atrial Fibrillation, Coronary Artery Disease (CAD), CVA/TIA, Diabetes Mellitus, Hypertension, Myocardial Infarction ([place]) Additional Past Medical History / Comment(s): dizziness, 2 heart attacks, bilateral carotid stenosis, left vertebral artery occlusion Last Myocardial Infarction Date:: unknown History of Any Multi-Drug Resistant Organisms: None Reported Past Surgical History: Appendectomy, Coronary Bypass/CABG Additional Past Surgical History / Comment(s): pt is poor historian. CABG Past Anesthesia/Blood Transfusion Reactions: No Reported Reaction Past Psychological History: No Psychological Hx Reported Smoking Status: Never smoker Past Alcohol Use History: None Reported Past Drug Use History: None Reported - Past Family History Father History Unknown: Yes Mother History Unknown: Yes Medications and Allergies Home Medications Medication Instructions Recorded Confirmed Type Atorvastatin [Lipitor] 10 mg PO HS 04/13/18 01/25/20 History Finasteride [Proscar] 5 mg PO HS 04/13/18 01/25/20 History Metoprolol Succinate [Toprol XL] 25 mg PO DAILY 04/13/18 01/25/20 History Omeprazole 20 mg PO DAILY 04/13/18 01/25/20 History Tamsulosin HCl [Flomax] 0.8 mg PO HS 04/13/18 01/25/20 History Aspirin EC [Ecotrin Low Dose] 81 mg PO DAILY 06/15/19 01/25/20 History Meclizine [Antivert] 25 mg PO BID PRN 06/15/19 01/25/20 History Clopidogrel Bisulfate [Plavix] 75 mg PO DAILY 01/25/20 01/25/20 History Enalapril Maleate [Vasotec] 10 mg PO DAILY 01/25/20 01/25/20 History INSULIN LISPRO (HumaLOG) [humaLOG] 4 units SQ AC-TID 01/25/20 01/25/20 History Insulin Detemir (Levemir) [Levemir] 20 unit SQ HS 01/25/20 01/25/20 History amLODIPine [Norvasc] 5 mg PO DAILY 01/25/20 01/25/20 History Allergies Allergy/AdvReac Type Severity Reaction Status Date / Time No Known Allergies Allergy Verified 01/25/20 23:30 Surgical - Exam Vital Signs Temp Pulse Resp BP Pulse Ox 99.8 F H 106 H 20 163/107 100 01/25/20 19:43 01/25/20 19:43 01/25/20 19:43 01/25/20 19:43 01/25/20 19:43 Results - Labs 01/26/20 04:39 01/26/20 04:39 Abnormal Lab Results - Last 24 Hours (Table) 01/25/20 01/25/20 01/25/20 Range/Units 19:45 19:45 19:45 Hgb (13.0-17.5) gm/dL Neutrophils # (1.3-7.7) k/uL Lymphocytes # 0.7 L (1.0-4.8) k/uL PT 12.1 H (9.0-12.0) sec INR 1.2 H (<1.2) Sodium 136 L (137-145) mmol/L Carbon Dioxide 21 L (22-30) mmol/L BUN 22 H (9-20) mg/dL Glucose 299 H (74-99) mg/dL POC Glucose (mg/dL) (75-99) mg/dL Plasma Lactic Acid Gen (0.7-2.0) mmol/L Calcium (8.4-10.2) mg/dL Total Bilirubin 1.7 H (0.2-1.3) mg/dL AST 553 H (17-59) U/L ALT 199 H (4-49) U/L Alkaline Phosphatase 326 H (38-126) U/L 01/25/20 01/26/20 01/26/20 Range/Units 19:45 00:43 00:47 Hgb (13.0-17.5) gm/dL Neutrophils # (1.3-7.7) k/uL Lymphocytes # (1.0-4.8) k/uL PT (9.0-12.0) sec INR (<1.2) Sodium (137-145) mmol/L Carbon Dioxide (22-30) mmol/L BUN (9-20) mg/dL Glucose (74-99) mg/dL POC Glucose (mg/dL) 332 H (75-99) mg/dL Plasma Lactic Acid Gen 3.3 H* 2.6 H* (0.7-2.0) mmol/L Calcium (8.4-10.2) mg/dL Total Bilirubin (0.2-1.3) mg/dL AST (17-59) U/L ALT (4-49) U/L Alkaline Phosphatase (38-126) U/L 01/26/20 01/26/20 01/26/20 Range/Units 03:46 04:39 04:39 Hgb 12.9 L (13.0-17.5) gm/dL Neutrophils # 9.0 H (1.3-7.7) k/uL Lymphocytes # 0.4 L (1.0-4.8) k/uL PT (9.0-12.0) sec INR (<1.2) Sodium 136 L (137-145) mmol/L Carbon Dioxide (22-30) mmol/L BUN (9-20) mg/dL Glucose 234 H (74-99) mg/dL POC Glucose (mg/dL) 258 H (75-99) mg/dL Plasma Lactic Acid Gen (0.7-2.0) mmol/L Calcium 8.2 L (8.4-10.2) mg/dL Total Bilirubin (0.2-1.3) mg/dL AST (17-59) U/L ALT (4-49) U/L Alkaline Phosphatase (38-126) U/L 01/26/20 01/26/20 01/26/20 Range/Units 04:39 07:04 08:40 Hgb (13.0-17.5) gm/dL Neutrophils # (1.3-7.7) k/uL Lymphocytes # (1.0-4.8) k/uL PT (9.0-12.0) sec INR (<1.2) Sodium (137-145) mmol/L Carbon Dioxide (22-30) mmol/L BUN (9-20) mg/dL Glucose (74-99) mg/dL POC Glucose (mg/dL) 191 H (75-99) mg/dL Plasma Lactic Acid Gen 2.6 H* (0.7-2.0) mmol/L Calcium (8.4-10.2) mg/dL Total Bilirubin 1.8 H (0.2-1.3) mg/dL AST 252 H (17-59) U/L ALT 227 H (4-49) U/L Alkaline Phosphatase (38-126) U/L Diabetes panel 01/25/20 01/26/20 01/26/20 Range/Units 19:45 04:39 08:40 Sodium 136 L 136 L (137-145) mmol/L Potassium 4.3 4.4 (3.5-5.1) mmol/L Chloride 103 104 (98-107) mmol/L Carbon Dioxide 21 L 22 (22-30) mmol/L BUN 22 H 20 (9-20) mg/dL Creatinine 1.07 1.06 (0.66-1.25) mg/dL Glucose 299 H 234 H (74-99) mg/dL Calcium 8.8 8.2 L (8.4-10.2) mg/dL AST 553 H 252 H (17-59) U/L ALT 199 H 227 H (4-49) U/L Alkaline Phosphatase 326 H (38-126) U/L Total Protein 7.4 (6.3-8.2) g/dL Albumin 4.2 (3.5-5.0) g/dL Calcium panel 01/25/20 01/26/20 Range/Units 19:45 04:39 Calcium 8.8 8.2 L (8.4-10.2) mg/dL Albumin 4.2 (3.5-5.0) g/dL Pituitary panel 01/25/20 01/26/20 Range/Units 19:45 04:39 Sodium 136 L 136 L (137-145) mmol/L Potassium 4.3 4.4 (3.5-5.1) mmol/L Chloride 103 104 (98-107) mmol/L Carbon Dioxide 21 L 22 (22-30) mmol/L BUN 22 H 20 (9-20) mg/dL Creatinine 1.07 1.06 (0.66-1.25) mg/dL Glucose 299 H 234 H (74-99) mg/dL Calcium 8.8 8.2 L (8.4-10.2) mg/dL Adrenal panel 01/25/20 01/26/20 01/26/20 Range/Units 19:45 04:39 08:40 Sodium 136 L 136 L (137-145) mmol/L Potassium 4.3 4.4 (3.5-5.1) mmol/L Chloride 103 104 (98-107) mmol/L Carbon Dioxide 21 L 22 (22-30) mmol/L BUN 22 H 20 (9-20) mg/dL Creatinine 1.07 1.06 (0.66-1.25) mg/dL Glucose 299 H 234 H (74-99) mg/dL Calcium 8.8 8.2 L (8.4-10.2) mg/dL Total Bilirubin 1.7 H 1.8 H (0.2-1.3) mg/dL AST 553 H 252 H (17-59) U/L ALT 199 H 227 H (4-49) U/L Alkaline Phosphatase 326 H (38-126) U/L Total Protein 7.4 (6.3-8.2) g/dL Albumin 4.2 (3.5-5.0) g/dL
[2020-01-26 11:25] LABS: Glucose,Whole Blood 106 mg/dL (75-99)
[2020-01-26 11:58] LABS: Hepatitis A Antibody IgM Non-Reactive (Non-Reactive); Hepatitis B Core IgM Non-Reactive (Non-Reactive); Hepatitis B Surface Antigen Non-Reactive (Non-Reactive); Hepatitis C IgG Antibody Non-Reactive (Non-Reactive)
--- NOTE | 2020-01-26 14:20 | US ---
EXAMINATION TYPE: US abdomen limited DATE OF EXAM: 01/26/2020 COMPARISON: CT abdomen and pelvis from yesterday. CLINICAL HISTORY: elevated LFT. no pain. GB removed. Patient was scanned in chair EXAM MEASUREMENTS: Liver Length: 16.1 cm CBD: 0.6 cm Right Kidney: 8.7 x 3.8 x 4.3 cm Pancreas: Tail obscured by overlying bowel gas Liver: Increased attenuation Gallbladder: Surgically absent Evidence for sonographic Clifford's sign: neg CBD: wnl Right Kidney: Lateral lower pole cystic appearing lesion = 2.5 x 1.9 x 3.2 cm Visualized pancreas is heterogeneous without mass or ductal dilatation. Visualized liver is heterogen eously hyperechoic. Pneumobilia on CT less well seen on ultrasound images saved. Cortical thinning ri ght kidney with exophytic simple appearing thin-walled cyst likely present lower pole level correspon ding to suspected proteinaceous cyst on recent CT. IMPRESSION: Heterogeneous hyperechoic appearance of the liver consistent with diffuse fatty infiltrat ion or underlying hepatocellular disease. Pneumobilia on CT less well seen on ultrasound images saved .
--- NOTE | 2020-01-26 16:27 | P.PN ---
Progress Note - Text Progress Note Date: 01/26/20 Hospitalist Interval Note Patient seen and examined at bedside. He denies abdominal pain, nausea, diarrhea, shortness of breath. He commonly speaks of social issues but not able to comprehend medical issues. Vital signs reviewed General: non toxic, no distress, appears younger than stated age Mouth: no lip lesion, mucus membranes dry Cardiovascular: S1S2 reg, no murmur, positive posterior tibial pulse bilateral, Lungs: CTA bilateral, no rhonchi, no rales , no accessory muscle use Abdominal: soft, nontender to palpation, no guarding, no appreciable organomegaly Ext: + gross muscle atrophy, no edema, Neuro: left sided facial droop, contractures left hand Psych: Alert, oriented to situation, appropriate affect Assessment/Plan: 1. Pneumobillia with transaminitis 2. Colitis 3. A. fib with RVR on Arrival Await GI recs, Continue with Zosyn for colitis. SUrgery recs appreciated, HR now controlled and will continue metoprolol. Clear liquid diet. Repeat CMP in AM. This is an update note for patient , for full note on 01/26/2020 see H violeta P.
[2020-01-26 16:40] LABS: Glucose,Whole Blood 82 mg/dL (75-99)
[2020-01-26] MEDS: SODIUM CHLORIDE 0.9% 1,000 ML IV SCH (17:32)
[2020-01-26 20:29] LABS: Glucose,Whole Blood 134 mg/dL (75-99)
[2020-01-26] MEDS ORDERED: FINASTERIDE 5 MG TAB PO SCH (21:00)
[2020-01-26] MEDS ORDERED: TAMSULOSIN 0.4 MG CAP.ER.24H PO SCH (21:00)
[2020-01-27 01:02] VITALS: RESP 18
[2020-01-27] MEDS: SODIUM CHLORIDE 0.9% 1,000 ML IV SCH (03:59)
[2020-01-27 07:00] LABS: Glucose,Whole Blood 35 mg/dL (75-99)
[2020-01-27] MEDS: INSULIN ASPART (NovoLOG) 100 UNIT/ML VIAL SQ SCH ×2 (07:01→12:07)
[2020-01-27 07:26] LABS: Glucose,Whole Blood 31 mg/dL (75-99)
[2020-01-27 07:27] LABS: HCT 37.5 % (39.0-53.0); HGB 11.5 gm/dL (13.0-17.5); Hypochromasia Slight; MCH 25.8 pg (25.0-35.0); MCHC 30.6 g/dL (31.0-37.0); MCV 84.2 fL (80.0-100.0); Mean Platelet Volume 7.3; Platelet Count 155 k/uL (150-450); RBC 4.46 m/uL (4.30-5.90); RDW 14.9 % (11.5-15.5); WBC 6.9 k/uL (3.8-10.6)
[2020-01-27 07:44] LABS: Calcium 8.2 mg/dL (8.4-10.2); Potassium 3.3 mmol/L (3.5-5.1); Total Bilirubin 0.8 mg/dL (0.2-1.3); Total Protein 5.8 g/dL (6.3-8.2)
[2020-01-27 07:48] LABS: Glucose,Whole Blood 47 mg/dL (75-99)
--- NOTE | 2020-01-27 07:51 | P.CONS ---
History of Present Illness - Reason for Consult Consult date: 01/26/20 Pneumobilia, colitis Requesting physician: Emi Soriano - Chief Complaint Abdominal pain - History of Present Illness 89-year-old male with multiple medical comorbidities including atrial fibrillation not on anticoagulation therapy, coronary artery disease, prior coronary artery bypass graft, CVA, diabetes mellitus and hypertension who presented to the hospital due to complaints of cough and abdominal pain. Of note the patient is a poor historian and conversation has been taking and in conversation with the patient as well as on review of the medical record and in discussion with the medical team. The patient had been having a productive cough with concerned over hemoptysis. He also reported some vague nonspecific abdominal pain with a reported 2 episodes of emesis. Patient presented to the hospital where laboratory evaluation was significant for WBC 9.9, hemoglobin 12.9, INR 1.2, platelet count 182,000, slight elevation of liver enzymes with total bilirubin 1.7, alkaline phosphatase 326, AST 553 and ALT 199 which subsequently improved with total bilirubin 1.3, AST 252 and ALT 227. Computed tomography scan of the abdomen was suggestive of pneumobilia, prior cholecystectomy and possible mild colitis from the transverse to left colon. Review of Systems ROS unobtainable: due to mental status (Patient reports he is unable to member how he is feeling and does not want to be questioned about his health) Past Medical History Past Medical History: Atrial Fibrillation, Coronary Artery Disease (CAD), CVA/TIA, Diabetes Mellitus, Hypertension, Myocardial Infarction ([place]) Additional Past Medical History / Comment(s): dizziness, 2 heart attacks, bilateral carotid stenosis, left vertebral artery occlusion Last Myocardial Infarction Date:: unknown History of Any Multi-Drug Resistant Organisms: None Reported Past Surgical History: Appendectomy, Coronary Bypass/CABG Additional Past Surgical History / Comment(s): pt is poor historian. CABG Past Anesthesia/Blood Transfusion Reactions: No Reported Reaction Past Psychological History: No Psychological Hx Reported Smoking Status: Never smoker Past Alcohol Use History: None Reported Past Drug Use History: None Reported - Past Family History Father History Unknown: Yes Mother History Unknown: Yes Medications and Allergies Home Medications Medication Instructions Recorded Confirmed Type Atorvastatin [Lipitor] 10 mg PO HS 04/13/18 01/25/20 History Finasteride [Proscar] 5 mg PO HS 04/13/18 01/25/20 History Metoprolol Succinate [Toprol XL] 25 mg PO DAILY 04/13/18 01/25/20 History Omeprazole 20 mg PO DAILY 04/13/18 01/25/20 History Tamsulosin HCl [Flomax] 0.8 mg PO HS 04/13/18 01/25/20 History Aspirin EC [Ecotrin Low Dose] 81 mg PO DAILY 06/15/19 01/25/20 History Meclizine [Antivert] 25 mg PO BID PRN 06/15/19 01/25/20 History Clopidogrel Bisulfate [Plavix] 75 mg PO DAILY 01/25/20 01/25/20 History Enalapril Maleate [Vasotec] 10 mg PO DAILY 01/25/20 01/25/20 History INSULIN LISPRO (HumaLOG) [humaLOG] 4 units SQ AC-TID 01/25/20 01/25/20 History Insulin Detemir (Levemir) [Levemir] 20 unit SQ HS 01/25/20 01/25/20 History amLODIPine [Norvasc] 5 mg PO DAILY 01/25/20 01/25/20 History Allergies Allergy/AdvReac Type Severity Reaction Status Date / Time No Known Allergies Allergy Verified 01/25/20 23:30 Physical Exam Vitals: Vital Signs Temp Pulse Pulse Resp BP BP Pulse Ox 01/26/20 20:00 98.1 F 80 16 148/81 94 L 01/26/20 15:02 97.9 F 64 15 135/72 96 01/26/20 07:00 97.7 F 97 15 137/84 94 L 01/25/20 23:52 98.4 F 84 18 125/84 95 01/25/20 23:29 97.6 F 109 H 17 118/91 95 01/25/20 20:46 98.4 F 104 H 18 162/96 99 Intake and Output 01/26/20 01/26/20 01/26/20 06:59 14:59 22:59 Intake Total 1600 180 Balance 1600 180 Intake: Intake, IV Titration 700 Amount Piperacillin-Tazobactam 3 100 .375 gm In Sodium Chloride 0.9% 100 ml @ 25 mls/hr IVPB Q8HR [facility] Rx# :[id number] Sodium Chloride 0.9% 1, 600 000 ml @ 100 mls/hr IV . Q10H [facility] Rx#:[id number] Oral 900 180 Other: # Voids 1 4 1 Weight 78.018 kg On physical examination, patient appears comfortable in no apparent distress. HEAD: Normocephalic, atraumatic. EYES: No scleral icterus. No conjunctival injection. MOUTH: No lesions, tongue midline. NECK: Trachea midline, no gross abnormalities. CHEST: Clear to auscultation with no wheezing or rhonchi appreciated. HEART: S1-S2 appreciated. ABDOMEN: Soft, nontender. Bowel sounds are positive. No organomegaly. No guarding or rigidity. EXTREMITIES: No pedal edema. SKIN: No rashes, no jaundice. NEUROLOGIC: Alert and oriented to person. No focal deficits. Results CBC & Chem 7: 01/27/20 06:33 01/26/20 04:39 Labs: Abnormal Lab Results - Last 24 Hours (Table) 01/25/20 01/25/20 01/25/20 Range/Units 19:45 19:45 19:45 Hgb (13.0-17.5) gm/dL Neutrophils # (1.3-7.7) k/uL Lymphocytes # 0.7 L (1.0-4.8) k/uL PT 12.1 H (9.0-12.0) sec INR 1.2 H (<1.2) Sodium 136 L (137-145) mmol/L Carbon Dioxide 21 L (22-30) mmol/L BUN 22 H (9-20) mg/dL Glucose 299 H (74-99) mg/dL POC Glucose (mg/dL) (75-99) mg/dL Hemoglobin A1c (4.0-6.0) % Plasma Lactic Acid Gen (0.7-2.0) mmol/L Calcium (8.4-10.2) mg/dL Total Bilirubin 1.7 H (0.2-1.3) mg/dL AST 553 H (17-59) U/L ALT 199 H (4-49) U/L Alkaline Phosphatase 326 H (38-126) U/L 01/25/20 01/26/20 01/26/20 Range/Units 19:45 00:43 00:47 Hgb (13.0-17.5) gm/dL Neutrophils # (1.3-7.7) k/uL Lymphocytes # (1.0-4.8) k/uL PT (9.0-12.0) sec INR (<1.2) Sodium (137-145) mmol/L Carbon Dioxide (22-30) mmol/L BUN (9-20) mg/dL Glucose (74-99) mg/dL POC Glucose (mg/dL) 332 H (75-99) mg/dL Hemoglobin A1c (4.0-6.0) % Plasma Lactic Acid Gen 3.3 H* 2.6 H* (0.7-2.0) mmol/L Calcium (8.4-10.2) mg/dL Total Bilirubin (0.2-1.3) mg/dL AST (17-59) U/L ALT (4-49) U/L Alkaline Phosphatase (38-126) U/L 01/26/20 01/26/20 01/26/20 Range/Units 03:46 04:39 04:39 Hgb 12.9 L (13.0-17.5) gm/dL Neutrophils # 9.0 H (1.3-7.7) k/uL Lymphocytes # 0.4 L (1.0-4.8) k/uL PT (9.0-12.0) sec INR (<1.2) Sodium 136 L (137-145) mmol/L Carbon Dioxide (22-30) mmol/L BUN (9-20) mg/dL Glucose 234 H (74-99) mg/dL POC Glucose (mg/dL) 258 H (75-99) mg/dL Hemoglobin A1c (4.0-6.0) % Plasma Lactic Acid Gen (0.7-2.0) mmol/L Calcium 8.2 L (8.4-10.2) mg/dL Total Bilirubin (0.2-1.3) mg/dL AST (17-59) U/L ALT (4-49) U/L Alkaline Phosphatase (38-126) U/L 01/26/20 01/26/20 01/26/20 Range/Units 04:39 04:39 07:04 Hgb (13.0-17.5) gm/dL Neutrophils # (1.3-7.7) k/uL Lymphocytes # (1.0-4.8) k/uL PT (9.0-12.0) sec INR (<1.2) Sodium (137-145) mmol/L Carbon Dioxide (22-30) mmol/L BUN (9-20) mg/dL Glucose (74-99) mg/dL POC Glucose (mg/dL) 191 H (75-99) mg/dL Hemoglobin A1c 8.0 H (4.0-6.0) % Plasma Lactic Acid Gen 2.6 H* (0.7-2.0) mmol/L Calcium (8.4-10.2) mg/dL Total Bilirubin (0.2-1.3) mg/dL AST (17-59) U/L ALT (4-49) U/L Alkaline Phosphatase (38-126) U/L 01/26/20 01/26/20 01/26/20 Range/Units 08:40 11:23 20:28 Hgb (13.0-17.5) gm/dL Neutrophils # (1.3-7.7) k/uL Lymphocytes # (1.0-4.8) k/uL PT (9.0-12.0) sec INR (<1.2) Sodium (137-145) mmol/L Carbon Dioxide (22-30) mmol/L BUN (9-20) mg/dL Glucose (74-99) mg/dL POC Glucose (mg/dL) 106 H 134 H (75-99) mg/dL Hemoglobin A1c (4.0-6.0) % Plasma Lactic Acid Gen (0.7-2.0) mmol/L Calcium (8.4-10.2) mg/dL Total Bilirubin 1.8 H (0.2-1.3) mg/dL AST 252 H (17-59) U/L ALT 227 H (4-49) U/L Alkaline Phosphatase (38-126) U/L CT scan - abdomen: report reviewed (Computed tomography scan of the abdomen with findings of possible mild colitis of the transverse to left colon as well as pneumobilia) Assessment and Plan (1) Abdominal pain Narrative/Plan: 89-year-old male presenting with complaints of cough and abdominal pain. Overall patient is a poor historian and history is been taken in conversation with the patient and on review of the electronic medical record. Patient found to have possible mild colitis of the transverse and left colon on computed tomography scan of the abdomen as well as findings of pneumobilia. Currently on broad-spectrum antibiotic therapy patient is doing somewhat better and not complaining of pain at this time. On conversation with the patient's family wishes are for conservative medical management. Surgical service has seen the patient with complaints for intervention at this time. Current Visit: Yes Status: Acute Code(s): R10.9 - UNSPECIFIED ABDOMINAL PAIN SNOMED Code(s): 16880383 (2) Pneumobilia Narrative/Plan: Unclear etiology of pneumobilia may be related to prior cholecystectomy, or ot her intervention with the patient is not able to recall at this time. Clinically no pain on palpation of the right upper quadrant. Liver enzymes were elevated on presentation but improving today. Current Visit: Yes Status: Acute Code(s): K83.8 - OTHER SPECIFIED DISEASES OF BILIARY TRACT SNOMED Code(s): 051686322 (3) Transaminitis Current Visit: Yes Status: Acute Code(s): R74.0 - NONSPEC ELEV OF LEVELS OF TRANSAMNS & LACTIC ACID DEHYDRGNSE SNOMED Code(s): 041108988 Plan: Supportive care Continue to monitor CBC, CMP Appreciate recommendations from surgical service Continue broad-spectrum antibiotic therapy No plans for endoscopic evaluation at this time, as per the wishes of the patient and his family Full liquid diet, advance as tolerated Thank you for allowing us to participate in the care of the patient
[2020-01-27 08:05] LABS: Glucose,Whole Blood 70 mg/dL (75-99)
[2020-01-27 08:06] VITALS: BP 140/82; PULSE 118; TEMP 97.6
[2020-01-27] MEDS: CLOPIDOGREL 75 MG TAB PO SCH (08:12)
[2020-01-27] MEDS: AZITHROMYCIN 500 MG TAB PO SCH (08:12)
[2020-01-27] MEDS: HEPARIN SODIUM,PORCINE 5,000 UNIT/ML 1 ML VIAL SQ SCH (08:12)
[2020-01-27] MEDS: ASPIRIN 81 MG PO SCH (08:12)
[2020-01-27] MEDS: LISINOPRIL 20 MG TAB PO SCH (08:12)
[2020-01-27] MEDS: PANTOPRAZOLE 40 MG TABLET PO SCH (08:12)
[2020-01-27] MEDS: METOPROLOL SUCCINATE (ER) 25 MG TAB.ER.24H PO SCH (08:12)
[2020-01-27] MEDS: amLODIPine 5 MG TAB PO SCH (08:12)
[2020-01-27] MEDS: PIPERACILLIN-TAZOBACTAM 3.375 GM in SODIUM CHLORIDE 0.9% 100 ML IVPB SCH (08:13)
[2020-01-27 11:39] LABS: Glucose,Whole Blood 169 mg/dL (75-99)
--- NOTE | 2020-01-27 12:09 | P.DS ---
Providers Date of admission: 01/25/20 23:05 Expected date of discharge: 01/27/20 Attending physician: Emi Soriano MD Consults: 01/25/20 23:06 Consult Physician Urgent Consulting Provider: Ravinder Madrid Consult Reason/Comments: acute abd pain, pneumobilia Do you want consulting provider notified?: Yes 01/26/20 02:34 Consult Physician Routine Consulting Provider: Cristóbal Foster Consult Reason/Comments: transaminitis Do you want consulting provider notified?: Yes, Notify in am Primary care physician: [facility] Course: 89-year-old male with multiple medical comorbidities including atrial fibrillation not on anticoagulation therapy, coronary artery disease, prior coronary artery bypass graft, CVA, diabetes mellitus and hypertension who presented to the hospital due to complaints of cough and abdominal pain. Of note the patient is a poor historian and conversation has been taking and in conversation with the patient as well as on review of the medical record and in discussion with the medical team. The patient had been having a productive cough with concerned over hemoptysis. Patient was evaluated in the ER and admitted to the hospital for further management of his medical problems noted below 1. Community-acquired pneumonia, started on broad-spectrum antibiotic with IV Zosyn. We will finish antibiotic course with Augmentin for 7 days. 2. Pneumobilia with transaminitis, exact etiology unclear. Liver enzymes trending down. Acute hepatitis panel negative. Seen and evaluated by GI. Plan for supportive care. for endoscopic evaluation at this time per patient and family wishes. 3. Questionable evidence of colitis on computed tomography scan of the abdomen 4. Chronic atrial fibrillation with rapid ventricular response on presentation, now heart rate well controlled. Patient is not on any anticoagulation chronically. 5. Type 2 diabetes, with episode of hypoglycemia. Levemir dose decreased to 10 units at bedtime instead of 20. Continue sliding scale insulin. 6. Chronic medical problems include coronary artery disease: History of CVA Patient's overall condition improved throughout this hospitalization. He was able to tolerate regular diet with no difficulty. He would be discharged to [facility] for physical therapy. For further details about this hospitalization please refer to the electronic chart. Patient Condition at Discharge: Serious Plan - Discharge Summary Discharge Rx Participant: No New Discharge Prescriptions: New Amoxic-Pot Clav 875-125Mg [Augmentin 875-125] 1 tab PO Q12HR 7 Days #14 tab Continue Metoprolol Succinate [Toprol XL] 25 mg PO DAILY Finasteride [Proscar] 5 mg PO HS Tamsulosin HCl [Flomax] 0.8 mg PO HS Atorvastatin [Lipitor] 10 mg PO HS Omeprazole 20 mg PO DAILY Aspirin EC [Ecotrin Low Dose] 81 mg PO DAILY Meclizine [Antivert] 25 mg PO BID PRN PRN Reason: Vertigo amLODIPine [Norvasc] 5 mg PO DAILY Enalapril Maleate [Vasotec] 10 mg PO DAILY Clopidogrel Bisulfate [Plavix] 75 mg PO DAILY INSULIN LISPRO (HumaLOG) [humaLOG] 4 units SQ AC-TID Changed Insulin Detemir (Levemir) [Levemir] 10 unit SQ HS #0 Discharge Medication List Atorvastatin [Lipitor] 10 mg PO HS 04/13/18 [History] Finasteride [Proscar] 5 mg PO HS 04/13/18 [History] Metoprolol Succinate [Toprol XL] 25 mg PO DAILY 04/13/18 [History] Omeprazole 20 mg PO DAILY 04/13/18 [History] Tamsulosin HCl [Flomax] 0.8 mg PO HS 04/13/18 [History] Aspirin EC [Ecotrin Low Dose] 81 mg PO DAILY 06/15/19 [History] Meclizine [Antivert] 25 mg PO BID PRN 06/15/19 [History] Clopidogrel Bisulfate [Plavix] 75 mg PO DAILY 01/25/20 [History] Enalapril Maleate [Vasotec] 10 mg PO DAILY 01/25/20 [History] INSULIN LISPRO (HumaLOG) [humaLOG] 4 units SQ AC-TID 01/25/20 [History] amLODIPine [Norvasc] 5 mg PO DAILY 01/25/20 [History] Amoxic-Pot Clav 875-125Mg [Augmentin 875-125] 1 tab PO Q12HR 7 Days #14 tab 01/27/20 [Rx] Insulin Detemir (Levemir) [Levemir] 10 unit SQ HS #0 01/27/20 [Rx] Follow up Appointment(s)/Referral(s): Breanna Del Valle DO [Primary Care Provider] - 1-2 days Discharge Disposition: TRANSFER TO SNF/F
--- NOTE | 2020-01-27 15:04 | P.PN ---
Progress Note - Text Progress Note Date: 01/27/20 The patient remained stable. His abdominal pain is improved. On exam his vital signs are stable. His abdomen soft. Patient will be discharged to [facility] today. He may follow up electively for his inguinal hernia.
--- NOTE | 2020-01-27 21:15 | P.PN ---
Subjective Progress Note Date: 01/27/20 Principal diagnosis: Abdominal pain, pneumobilia, elevated liver enzymes Patient seen sitting bedside tolerating diet. No further abdominal pain. No nausea or vomiting. Objective - Vital Signs Vital signs: Vital Signs Temp 97.6 F 01/27/20 07:00 Pulse 118 H 01/27/20 07:00 Resp 18 01/27/20 07:00 BP 140/82 01/27/20 07:00 Pulse Ox 96 01/27/20 07:00 Intake & Output 01/26/20 01/27/20 01/27/20 18:59 06:59 18:59 Intake Total 1780 Balance 1780 Intake: Intake, IV Titration 700 Amount Piperacillin-Tazobactam 3 100 .375 gm In Sodium Chloride 0.9% 100 ml @ 25 mls/hr IVPB Q8HR [facility] Rx# :[id number] Sodium Chloride 0.9% 1, 600 000 ml @ 100 mls/hr IV . Q10H [facility] Rx#:[id number] Oral 1080 Other: Voiding Method Toilet Toilet Urinal Urinal # Voids 4 1 1 # Bowel Movements 1 - Exam On physical examination, patient appears comfortable in no apparent distress. HEAD: Normocephalic, atraumatic. EYES: No scleral icterus. No conjunctival injection. MOUTH: No lesions, tongue midline. NECK: Trachea midline, no gross abnormalities. ABDOMEN: Soft, obese. Bowel sounds are positive. No organomegaly. No guarding or rigidity. EXTREMITIES: No pedal edema. SKIN: No rashes, no jaundice. NEUROLOGIC: Alert and oriented x1. No focal deficits. - Labs CBC & Chem 7: 01/27/20 06:33 01/27/20 06:33 Labs: Abnormal Lab Results - Last 24 Hours (Table) 01/26/20 01/26/20 01/26/20 Range/Units 04:39 11:23 20:28 Hgb (13.0-17.5) gm/dL Hct (39.0-53.0) % MCHC (31.0-37.0) g/dL Potassium (3.5-5.1) mmol/L Glucose (74-99) mg/dL POC Glucose (mg/dL) 106 H 134 H (75-99) mg/dL Hemoglobin A1c 8.0 H (4.0-6.0) % Calcium (8.4-10.2) mg/dL AST (17-59) U/L ALT (4-49) U/L Alkaline Phosphatase (38-126) U/L Total Protein (6.3-8.2) g/dL Albumin (3.5-5.0) g/dL 01/27/20 01/27/20 01/27/20 Range/Units 06:33 06:33 06:59 Hgb 11.5 L (13.0-17.5) gm/dL Hct 37.5 L (39.0-53.0) % MCHC 30.6 L (31.0-37.0) g/dL Potassium 3.3 L (3.5-5.1) mmol/L Glucose 32 L* (74-99) mg/dL POC Glucose (mg/dL) 35 L (75-99) mg/dL Hemoglobin A1c (4.0-6.0) % Calcium 8.2 L (8.4-10.2) mg/dL AST 108 H (17-59) U/L ALT 147 H (4-49) U/L Alkaline Phosphatase 223 H (38-126) U/L Total Protein 5.8 L (6.3-8.2) g/dL Albumin 3.0 L (3.5-5.0) g/dL 01/27/20 01/27/20 01/27/20 Range/Units 07:25 07:46 08:04 Hgb (13.0-17.5) gm/dL Hct (39.0-53.0) % MCHC (31.0-37.0) g/dL Potassium (3.5-5.1) mmol/L Glucose (74-99) mg/dL POC Glucose (mg/dL) 31 L 47 L 70 L (75-99) mg/dL Hemoglobin A1c (4.0-6.0) % Calcium (8.4-10.2) mg/dL AST (17-59) U/L ALT (4-49) U/L Alkaline Phosphatase (38-126) U/L Total Protein (6.3-8.2) g/dL Albumin (3.5-5.0) g/dL Microbiology - Last 24 Hours (Table) 01/25/20 21:55 Blood Culture - Preliminary Blood No Growth after 24 hours Assessment and Plan (1) Abdominal pain Narrative/Plan: 89-year-old male presenting with complaints of cough and abdominal pain. Overall patient is a poor historian and history is been taken in conversation with the patient and on review of the electronic medical record. Patient found to have possible mild colitis of the transverse and left colon on computed tomography scan of the abdomen as well as findings of pneumobilia. Currently on broad-spectrum antibiotic therapy patient is doing somewhat better and not complaining of pain at this time. On conversation with the patient's family wishes are for conservative medical management. Surgical service has seen the patient with complaints for intervention at this time. Status: Acute Code(s): R10.9 - UNSPECIFIED ABDOMINAL PAIN SNOMED Code(s): 07564369 (2) Pneumobilia Narrative/Plan: Unclear etiology of pneumobilia may be related to prior cholecystectomy, or other intervention with the patient is not able to recall at this time. Clinically no pain on palpation of the right upper quadrant. Liver enzymes were elevated on presentation but, as completely normal today. Status: Acute Code(s): K83.8 - OTHER SPECIFIED DISEASES OF BILIARY TRACT SNOMED Code(s): 651573365 (3) Transaminitis Status: Acute Code(s): R74.0 - NONSPEC ELEV OF LEVELS OF TRANSAMNS & LACTIC ACID DEHYDRGNSE SNOMED Code(s): 727961654 Plan: Supportive care Continue to monitor CBC, CMP Appreciate recommendations from surgical service Continue broad-spectrum antibiotic therapy No plans for endoscopic evaluation at this time, as per the wishes of the patient and his family Diet as tolerated Thank you for allowing us to participate in the care of the patient
== END 2020-01-27 14:05 | DRG 194 ==
LOC: EC 19:39 → SUPCPDRO 19:39 → 4SSUR 23:05
PROVIDERS: ADMIT Internal Medicine; ATTEND Internal Medicine
DX: J18.9 Pneumonia, unspecified organism (principal); E87.2 Acidosis; R04.2 Hemoptysis; I48.20 Chronic atrial fibrillation, unspecified; Z66 Do not resuscitate; I25.10 Atherosclerotic heart disease of native coronary artery without angina pectoris; I10 Essential (primary) hypertension; K40.90 Unilateral inguinal hernia, without obstruction or gangrene, not specified as recurrent; E11.649 Type 2 diabetes mellitus with hypoglycemia without coma; K52.9 Noninfective gastroenteritis and colitis, unspecified; Z20.828 Contact with and (suspected) exposure to other viral communicable diseases; R29.810 Facial weakness; R74.0 Nonspecific elevation of levels of transaminase and lactic acid dehydrogenase [LDH]; Z79.82 Long term (current) use of aspirin; Z79.02 Long term (current) use of antithrombotics/antiplatelets; Z79.899 Other long term (current) drug therapy; Z86.73 Personal history of transient ischemic attack (TIA), and cerebral infarction without residual deficits; Z79.4 Long term (current) use of insulin; Z90.49 Acquired absence of other specified parts of digestive tract; Z95.1 Presence of aortocoronary bypass graft; I25.2 Old myocardial infarction; Z95.5 Presence of coronary angioplasty implant and graft
CPT/HCPCS: 36415; 71045; 74177; 76705; 80048; 80053; 80074; 82247; 83036; 83605; 83690; 84450; 84460; 85025; 85027; 85610; 85730; 87040; 87635; 93005; 96361; 96365; 96368; 96375; 99285